=== PATIENT | female | born 1960 | race Caucasian/White ===

== ENCOUNTER 2020-02-01 12:00 | Outpatient (CLI) | payer MEDICAID, SELFPAY ==
--- NOTE | 2020-02-01 12:45 | USCV_ITS ---
Daniela Lai Age: 60 Gender: F : 1960 Exam Date: 02/01/2020 12:17 Ordering Phys: Sujata NagyP XX Technologist: Anastasia Crouch Exam Location: [facility] – [place] Indication: LEFT CAROTID BRUIT Risk Factors: Previous Vascular Surgery: Right Brachial BP: / Left Brachial BP: / Right Left Velocity (cm/s) Spectral Plaque Velocity (cm/s) Spectral Plaque Syst/Diast Broadening Syst/Diast Broadening 75.40/ 20.20 Prox CCA 57.30 / 14.00 72.20/ 22.50 Mid CCA 52.80 / 14.80 72.20/ 19.40 Distal CCA 65.30 / 17.90 54.40/ 18.60 Prox ICA 66.00 / 21.00 42.10/ 15.80 Mid ICA 51.30 / 18.60 76.90/ 28.70 Distal ICA 66.00 / 19.40 96.60 ECA 97.90 1.06 ICA/CCA 1.25 Antegrade Vertebral Antegrade 23.90/ 7.30 cm/s 27.30/ 9.00 cm/s Bi Subclavian Tri 124.6 123.5 0 0 CONCLUSIONS Right ICA stenosis <50%. Left ICA stenosis <50%. Normal antegrade Doppler flow noted in the right vertebral artery. Normal antegrade Doppler flow noted in the left vertebral artery. Tay Thornton MD (Electronically Signed) Final Date: 01 February 2020 15:54 S
== END 2020-02-01 12:01 | disposition home or self-care (01) ==
LOC: RADWPI 12:06
PROVIDERS: Family Provider Internal Medicine; PCP Internal Medicine; Visit Provider Nurse Practitioner Acute Care
DX: R09.89 Other specified symptoms and signs involving the circulatory and respiratory systems (principal); I65.23 Occlusion and stenosis of bilateral carotid arteries
CPT/HCPCS: 93880

== ENCOUNTER 2021-01-08 11:30 | Outpatient (CLI) | payer MEDICAID, SELFPAY ==
--- NOTE | 2021-01-08 11:42 | XR_ITS ---
WS: [id number] PA and lateral chest, 01/08/2021 Clinical Data: DYSPNEA, COUGH Comparison: PA and lateral chest, 11/16/2012. Findings: No nodules, masses or effusions are seen. There is pleural reaction at both lung bases. The heart is enlarged. Midline sternotomy sutures are seen. The 2-lead pacemaker in good position. No pn eumonia or pneumothorax is present. The pulmonary vascularity is not increased. XR/XR chest 2V* [id number] Impression: Cardiomegaly and atherosclerosis.
== END 2021-01-08 11:31 | disposition home or self-care (01) ==
PROVIDERS: PCP Internal Medicine; Visit Provider Internal Medicine
DX: R06.00 Dyspnea, unspecified (principal); R05 Cough; I51.7 Cardiomegaly; I70.90 Unspecified atherosclerosis
CPT/HCPCS: 71046

== ENCOUNTER 2021-02-05 07:01 | Outpatient (CLI) | payer MEDICAID, SELFPAY ==
--- NOTE | 2021-02-05 07:09 | USCV_ITS ---
Daniela Lai Age: 61 Gender: F : 1960 Exam Date: 02/05/2021 07:29 Ordering Phys: Magnolia TrujilloP SAFETY INVESTIGATOR Technologist: Rimma Gusman [place]am [place] [facility] [place] Indication: AORTIC VALVE REPLACEMENT BP: 127 / 76 HR: 68 Rhythm: Sinus Technical Quality: Adequate MEASUREMENTS (Male / Female) Normal Values 2D ECHO LV Diastolic Diameter PLAX 3.3 cm 4.2 - 5.9 / 3.9 - 5.3 cm LV Systolic Diameter PLAX 2.2 cm IVS Diastolic Thickness 1.3 cm 0.6 - 1.0 / 0.6 - 0.9 cm IVS Systolic Thickness 1.7 cm LVPW Diastolic Thickness 1.8 cm 0.6 - 1.0 / 0.6 - 0.9 cm LVPW Systolic Thickness 2.4 cm LVOT Diameter 2.0 cm LV Ejection Fraction 2D Teich 61.9 % LV Ejection Fraction MOD 2C 35.6 % LV Ejection Fraction 2C AL 36.2 % LA Diameter 3.2 cm LA Width 4.1 cm LA Height 4.4 cm RA Width 3.7 cm RA Height 4.6 cm Aorta at Sinotubular Diameter 2.9 cm M-MODE LV Diastolic Diameter MM 3.5 cm 4.2 - 5.9 / 3.9 - 5.3 cm LV Systolic Diameter MM 2.4 cm LV Ejection Fraction MM Teich 58.8 % IVS Diastolic Thickness MM 1.5 cm 0.6 - 1.0 / 0.6 - 0.9 cm IVS Systolic Thickness MM 1.7 cm LVPW Diastolic Thickness MM 1.8 cm 0.6 - 1.0 / 0.6 - 0.9 cm LVPW Systolic Thickness MM 2.3 cm Aortic Annulus Diameter 3.2 cm LA Ao Ratio MM 0.8 DOPPLER AV Peak Velocity 185.0 cm/s LVOT Peak Velocity 160.0 cm/s AV Area Cont Eq vti 2.6 cm squared AV Area Cont Eq pk 2.7 cm squared MV Area PHT 2.7 cm squared MV E' Velocity 184.0 cm/s TR Peak Velocity 285.0 cm/s TR Peak Gradient 32.5 mmHg TV Peak E Velocity 114.0 cm/s Right Atrial Pressure 3.0 mmHg Pulmonary Artery Systolic Pressu 35.5 mmHg PV Peak Velocity 106.0 cm/s RV Acceleration Time 0.1 s RV Ejection Time 0.3 s RV AcT/ET 0.2 FINDINGS Left Ventricle Normal left ventricular cavity size. Normal left ventricular systolic function. Left ventricular ejection fraction is estimated at 58 %. In the presence of atrial fibrillation diastolic function cannot be assessed accurately. Right Ventricle Normal right ventricular size. Catheter/pacemaker wire visualized in the right ventricle. Right Atrium Normal right atrial size. Catheter/pacemaker wire in the right atrial cavity. Right atrium has echogenic mass appeared to be on the pacemaker wire could be fibrous tissue cannot rule out vegetation clinical correlation advised Left Atrium The left atrium is normal in size. Mitral Valve Bioprosthetic mitral valve sitting in normal position opening and closing fine no significant valvular or paravalvular leak Aortic Valve Bioprosthetic aortic valve sitting in normal position without significant valvular or paravalvular leak. Tricuspid Valve Structurally normal tricuspid valve without significant stenosis or regurgitation. Pulmonary artery systolic pressure is normal. Pulmonic Valve Pulmonic valve not well visualized. Pericardium Normal pericardium without effusion. Aorta Normal ascending aorta dimension. CONCLUSIONS 1-Normal left ventricular cavity size. Normal left ventricular systolic function. Left ventricular ejection fraction is estimated at 58 %. In the presence of atrial fibrillation diastolic function cannot be assessed accurately. 2-Normal right atrial size. Catheter/pacemaker wire in the right atrial cavity. Right atrium has echogenic mass appeared to be on the pacemaker wire could be fibrous tissue cannot rule out vegetation clinical correlation advised. 3-Bioprosthetic mitral valve sitting in normal position opening and closing fine no significant valvular or paravalvular leak. 4-Bioprosthetic aortic valve sitting in normal position without significant valvular or paravalvular leak. 5-There is no pericardial effusion. 6-Right atrial pressure is around 8 mm of mercury. 7-No significant change since the prior echocardiogram study of November 06, 2028. Kyle Alfaro MD (Electronically Signed) Final Date: 06 February 2021 19:26 S
== END 2021-02-05 07:02 | disposition home or self-care (01) ==
LOC: US 07:01
PROVIDERS: PCP Internal Medicine; Visit Provider Optometrist
DX: Z95.2 Presence of prosthetic heart valve (principal); I48.91 Unspecified atrial fibrillation; Z95.0 Presence of cardiac pacemaker
CPT/HCPCS: 93306

== ENCOUNTER 2021-08-05 07:42 | Outpatient (CLI) | payer MEDICAID, SELFPAY ==
--- NOTE | 2021-08-05 07:47 | MM_ITS ---
WS: [id number] Bilateral screening digital mammogram, 08/05/2021 Clinical Data: SCREENING Comparison: 08/30/2019, 01/18/2018, 01/12/2016, 08/08/2013, 12/07/2011, 07/13/2011, 05/13/2010, 04/29/2010, 1 11/25/2007, 07/05/2007. Findings: The breast parenchymal pattern shows heterogeneous density. No spiculated masses or clustered calcifi cations are seen. There are no secondary signs of carcinoma. There are scattered benign calcification s throughout the breasts. There is a permanent pacemaker in the left axilla. There is a mole marker o n the left breast. MM/[place] [id number] Impression: 1. Negative bilateral mammogram unchanged. 2. Recommend annual screening mammograms. BIRADS: 2-Benign FOLLOW UP: 1 Year Follow-up The CAD content checker was used.
== END 2021-08-05 07:43 | disposition home or self-care (01) ==
LOC: RADSHAW 07:45
PROVIDERS: PCP Internal Medicine; Visit Provider Internal Medicine
DX: Z12.31 Encounter for screening mammogram for malignant neoplasm of breast (principal)
CPT/HCPCS: 77067

== ENCOUNTER → 2021-08-11 11:00 | Outpatient (BNVA) | payer MEDICAID, SELFPAY | PROVIDERS: PCP Internal Medicine; Visit Provider Surgery | DX: Z01.812 Encounter for preprocedural laboratory examination (principal); K52.9 Noninfective gastroenteritis and colitis, unspecified; Z20.822 Contact with and (suspected) exposure to COVID-19 | CPT/HCPCS: 87635 ==

== ENCOUNTER 2021-08-14 09:20 | Day surgery (SDC) | payer MEDICAID, SELFPAY ==
[2021-08-11 10:26] VITALS: BMI 30.2
--- NOTE | 2021-08-14 09:38 | ANES.PREANE2 ---
Pre-Anesthetic Assessment Pre-Anesthetic Assessment: Height/Weight: Height 1.55 m Weight 72.575 kg Preop Diagnosis: screening Proposed Procedure: Operation Date: 08/14/21 11:00 Proposed Procedures p Colonoscopy 11185 K52.9 Z80.0(Not Applicable) - Spike Ortega MD Familial anesthetic complications: none Was Beta Chhaya taken within 24 hours: Yes Was Clonidine taken within 24 hours: N/A Last intake: > 8 hrs Social: Social History: No alcohol and No tobacco Exam: Pre-Anes Outpt Exam: alert, oriented x 3, clear to auscultation bilaterally and regular rate & rhythm Airway: Cervical ROM: WNL MP: 2 Dentition: Full CV/HEM: CV/HEM: HTN Comments: pacemaker (100% dependent) - on rivaroxaban d/t concern for clot on pacing lead - taking for over a year Mitral and aortic valve replacement d/t rheumatic fever CONCLUSIONS 1-Normal left ventricular cavity size. Normal left ventricular systolic function. Left ventricular ejection fraction is estimated at 58 %. In the presence of atrial fibrillation diastolic function cannot be assessed accurately. 2-Normal right atrial size. Catheter/pacemaker wire in the right atrial cavity. Right atrium has echogenic mass appeared to be on the pacemaker wire could be fibrous tissue cannot rule out vegetation clinical correlation advised. 3-Bioprosthetic mitral valve sitting in normal position opening and closing fine no significant valvular or paravalvular leak. 4-Bioprosthetic aortic valve sitting in normal position without significant valvular or paravalvular leak. 5-There is no pericardial effusion. 6-Right atrial pressure is around 8 mm of mercury. 7-No significant change since the prior echocardiogram study of November 06, 2028. GI: GI: GERD Metabolic: Metabolic: Hyperlipidemia Anesthetic Plan: ASA status: 4 Anesthesia: MAC Risk of > 500 ml blood loss (7ml/kg in children): No PFSH Anesthesia PFSH: Medical History (Updated 06/26/21 @ 08:52 by Spike Ortega MD) History of cardiac pacemaker Hypertension Rheumatic fever Surgical History (Updated 06/26/21 @ 08:45 by Spike Ortega MD) History of appendectomy History of colonoscopy History of hysterectomy with bilateral oophorectomy History of open heart surgery Hx of artificial heart valve replacement Mitral and aortic Social History Second hand smoke exposure: No Smoking risk assessment/counseling performed?: No Alcohol intake: never Desire information about alcohol rehabilitation?: No Counseling given: No Desire information about substance/drug rehabilitation?: No Counseling given: No Adopted: No Caregiver/support person: No Lives independently: Yes Household members: spouse Housing: House Marital status: Number of children: 2 Highest education level completed: 11th Grade service: No Current occupational status: disabled History of recent travel: No Data Anesthesia Cardiac Studies: No Data to Display
[2021-08-14 10:08] VITALS: BP 125/96; PULSE 87; RESP 18; TEMP 36.8; O2SAT 96
[2021-08-14] MEDS: sodium chloride 0.9% 1,000 ML 30 ML IV (10:37)
--- NOTE | 2021-08-14 11:08 | P.HP_ITS ---
Same Day Surgery H&P Indication for Procedure/HPI DATE OF PROCEDURE: August 14, 2021 CHIEF COMPLAINT/INDICATIONFOR SURGICAL PROCEDURE: colopnoscopy PREOP DIAGNOSIS: diagnostic PLANNED PROCEDRUE: Operation Date: 08/14/21 11:00 Proposed Procedures p Colonoscopy 66528 K52.9 Z80.0(Not Applicable) - Spike Ortega MD Medications/Allergies* Home Medications Medication Instructions Recorded Confirmed Type atorvastatin 40 mg tablet 40 mg PO DAILY 05/27/21 08/14/21 History citalopram 20 mg tablet 20 mg PO DAILY 05/27/21 08/11/21 History famotidine 40 mg tablet 20 mg PO DAILY 05/27/21 08/14/21 History losartan 25 mg tablet 25 mg PO DAILY 05/27/21 08/14/21 History metoprolol succinate 25 mg 12.5 mg PO DAILY 05/27/21 08/14/21 History tablet,extended release 24 hr potassium chloride 20 mEq 20 meq PO DAILY 05/27/21 08/14/21 History tablet,extended release pramipexole 0.125 mg tablet 0.125 mg PO DAILY 05/27/21 08/14/21 History rivaroxaban 20 mg tablet 20 mg PO DAILY 05/27/21 08/14/21 History spironolactone 25 mg tablet 25 mg PO DAILY 05/27/21 06/26/21 History Allergies/Adverse Reactions Allergy/AdvReac Type Severity Reaction Status Date / Time guaifenesin [From Entex LA] Allergy Severe ADR-Itching Verified 08/14/21 10:13 phenylephrine [From Entex LA] Allergy Severe ADR-Itching Verified 08/14/21 10:13 phenylpropanolamine Allergy Severe ADR-Itching Verified 08/14/21 10:13 [From Entex LA] Sulfa (Sulfonamide Allergy Severe Unknown Verified 08/14/21 10:13 Antibiotics) cefuroxime [From Ceftin] Allergy ADR-Itching Verified 08/14/21 10:13 ofloxacin [From Floxin] Allergy ALGY-Hives Verified 08/14/21 10:13 Current Medications: Generic Name Dose Route Start Last Admin Trade Name Freq PRN Reason Stop Dose Admin Sodium Chloride 1,000 mls @ 30 mls/hr 08/14/21 09:45 08/14/21 10:37 Sodium Chloride 0.9% IV 08/15/21 09:44 30 mls/hr .Q24H PARTH Administration Pertinent History/Comorbid Conditions* Medical History (Updated 06/26/21 @ 08:52 by Spike Ortega MD) History of cardiac pacemaker Hypertension Rheumatic fever Surgical History (Updated 06/26/21 @ 08:45 by Spike Ortega MD) History of appendectomy History of colonoscopy History of hysterectomy with bilateral oophorectomy History of open heart surgery Hx of artificial heart valve replacement Mitral and aortic Social History Second hand smoke exposure: No Smoking risk assessment/counseling performed?: No Alcohol intake: never Desire information about alcohol rehabilitation?: No Counseling given: No Desire information about substance/drug rehabilitation?: No Counseling given: No Adopted: No Caregiver/support person: No Lives independently: Yes Household members: spouse Housing: House Marital status: Number of children: 2 Highest education level completed: 11th Grade service: No Current occupational status: disabled History of recent travel: No Pertinent Exam Findings alert, oriented x 3 and regular rate & rhythm Recommendations Surgery/Procedure today Coding Level of Care Code Acute Computer Systems Technology Instructor for Josey Cordova
[2021-08-14 11:29] VITALS: BP 107/65; PULSE 81; RESP 16; TEMP 36.6; O2SAT 96
[2021-08-14 11:46] VITALS: BP 120/77; PULSE 75; RESP 16; O2SAT 95
--- NOTE | 2021-08-14 14:28 | ANE.PACU2 ---
Inpatient post-anesthesia follow up: Airway intact: Yes Vital signs: Temperature 97.8 F Pulse Rate 75 Respiratory Rate 16 Blood Pressure 120/77 Pulse Oximetry 95 Oxygen Delivery Me thod Room Air Oxygen Flow Rate Fraction of Inspir ed Oxygen Hydration adequate: Yes Nausea and vomiting: No Pain level: 2 Mental status: Baseline
== END 2021-08-14 12:05 | disposition home or self-care (01) ==
PROVIDERS: PCP Internal Medicine; Visit Provider Surgery
PROC: 0DJD8ZZ Inspection of Lower Intestinal Tract, Via Natural or Artificial Opening Endoscopic (ICD-10-PCS; CPT 45378; principal; 2021-08-14 11:00)
DX: K52.9 Noninfective gastroenteritis and colitis, unspecified (principal); Z80.0 Family history of malignant neoplasm of digestive organs; K62.1 Rectal polyp; I10 Essential (primary) hypertension; Z95.0 Presence of cardiac pacemaker
CPT/HCPCS: 45380; 45385; 82274; 83630; 87493; 87506; 88305; 96360; J2704; J7030

== ENCOUNTER → 2022-01-27 14:11 | Outpatient (BNVA) | payer MEDICAID, SELFPAY | PROVIDERS: PCP Internal Medicine; Visit Provider Nurse Practitioner Family | DX: M77.31 Calcaneal spur, right foot (principal); M25.571 Pain in right ankle and joints of right foot | CPT/HCPCS: 73630 ==

== ENCOUNTER 2022-05-05 12:53 | Outpatient (CLI) | payer MEDICAID, SELFPAY ==
--- NOTE | 2022-05-05 13:04 | USCV_ITS ---
Daniela Lai Age: 62 Gender: F : 1960 Exam Date: 05/05/2022 13:25 Ordering Phys: Hakan Saleem MD Technologist: Magaly Pérez Exam Location: [facility] – [place] Indication: TIA Risk Factors: Previous Vascular Surgery: Right Brachial BP: / Left Brachial BP: / Right Left Velocity (cm/s) Spectral Plaque Velocity (cm/s) Spectral Plaque Syst/Diast Broadening Syst/Diast Broadening 61.10/ 10.80 Prox CCA 50.40 / 13.90 70.70/ 17.10 Mid CCA 61.40 / 14.70 52.80/ 14.80 Distal CCA 49.80 / 13.30 51.40/ 14.60 Prox ICA 68.00 / 19.10 60.40/ 21.50 Mid ICA 58.10 / 20.70 66.70/ 18.10 Distal ICA 70.50 / 19.10 74.50 ECA 67.20 0.94 ICA/CCA 1.15 Antegrade Vertebral Antegrade 32.90/ 9.20 cm/s 56.40/ 13.30 cm/s Tri Subclavian Tri 113.5 116.1 0 0 CONCLUSIONS Right ICA stenosis <50%. Left ICA stenosis <50%. Normal antegrade Doppler flow noted in the right vertebral artery. Normal antegrade Doppler flow noted in the left vertebral artery. No changes since 01/2020 Tay Thornton MD (Electronically Signed) Final Date: 05 May 2022 17:18 S
== END 2022-05-05 12:54 | disposition home or self-care (01) ==
LOC: RAD 12:53
PROVIDERS: PCP Internal Medicine; Visit Provider Internal Medicine Cardiovascular Disease
DX: I65.23 Occlusion and stenosis of bilateral carotid arteries (principal); Z86.79 Personal history of other diseases of the circulatory system
CPT/HCPCS: 93880

== ENCOUNTER → 2023-01-28 11:00 | Outpatient (BNVA) | payer MEDICAID, SELFPAY | PROVIDERS: PCP Internal Medicine; Visit Provider Nurse Practitioner Family | DX: R35.0 Frequency of micturition (principal); N39.0 Urinary tract infection, site not specified; B37.2 Candidiasis of skin and nail | CPT/HCPCS: 81000 ==

== ENCOUNTER 2023-05-05 10:06 | Outpatient (CLI) | payer MEDICAID, SELFPAY ==
--- NOTE | 2023-05-05 10:16 | XRR_ITS ---
PROCEDURE INFORMATION: Exam: XR Chest Exam date and time: 05/05/2023 10:27 AM Age: 63 years old Clinical indication: Cough; Prior surgery; Surgery date: 6+ months; Surgery type: Valve replacement x2, pacemaker TECHNIQUE: Imaging protocol: Radiologic exam of the chest. Views: 2 views. COMPARISON: CR XR chest 2V* [id number] 01/08/2021 11:55 AM FINDINGS: Tubes, catheters and devices: Dual lead cardiac pacemaker with left chest generator and intact leads terminating at the right atrium and right ventricle. Lungs: Mild bibasilar atelectasis versus scarring. Bandlike thickening along the superior right minor fissure. Left lateral mid lung zone nodularity similar to prior. Pleural spaces: No substantial pleural effusion or pneumothorax. Heart/Mediastinum: Stable enlargement of the cardiac silhouette. Vasculature: Mild atherosclerotic calcification along the aorta. Bones/joints: Stable postsurgical changes with multiple median sternotomy wires, prosthetic valve, and mediastinal surgical clips. XR/XR chest 2V* [id number] IMPRESSION: Right upper lobe bandlike opacity along the minor fissure may represent atelectasis or pneumonia. Recommend repeat radiographs 6-12 weeks following treatment to ensure resolution.
== END 2023-05-05 10:07 | disposition home or self-care (01) ==
LOC: RAD 10:08
PROVIDERS: PCP Internal Medicine; Visit Provider Internal Medicine
DX: R05.9 Cough, unspecified (principal); R91.8 Other nonspecific abnormal finding of lung field
CPT/HCPCS: 71046

== ENCOUNTER 2023-05-10 06:44 | Inpatient (IN) | payer MEDICAID, SELFPAY ==
[2023-05-10] VITALS (21 sets, daily range): BP systolic 97–164; BP diastolic 62–90; PULSE 83–99; RESP 16–35; TEMP 36.2–36.8; O2SAT 89–97; BMI 25.2
--- NOTE | 2023-05-10 06:52 | XRR_ITS ---
PROCEDURE INFORMATION: Exam: XR Chest Exam date and time: 05/10/2023 7:13 AM Age: 63 years old Clinical indication: Cough and dyspnea and shortness of breath; Prior surgery; Surgery date: 6+ months; Surgery type: Pacer, open heart; Additional info: Dyspnea/cough TECHNIQUE: Imaging protocol: Radiologic exam of the chest. Views: 1 view. COMPARISON: CR XR chest 2V* [id number] 05/05/2023 10:27 AM FINDINGS: Tubes, catheters and devices: Left chest ICD. Lungs: Focal wedge-shaped opacities of the lower right upper lobe similar to prior. Mildly prominent reticular interstitial lung changes are redemonstrated. Mild hyperinflation. Pleural spaces: Unremarkable. No pleural effusion. No pneumothorax. Heart/Mediastinum: Aortic valve replacement. CABG. Mild to moderate severity cardiomegaly. Bones/joints: Unremarkable. XR/XR chest 1V portable [id number] IMPRESSION: 1. No significant change in exam. 2. Consider right upper lobe pneumonia.
--- NOTE | 2023-05-10 06:59 | W.ED.SOB ---
HPI - SOB/Dyspnea General: Chief Complaint: Shortness of Breath/Dyspnea Stated Complaint: SOB Time Seen by Provider: 05/10/23 06:52 Source: patient Mode of arrival: ambulatory History of Present Illness: HPI Narrative: 63-year-old female presents emergency room with complaint of productive cough for the last couple days progressively worsening she was seen in outpatient and given oral antibiotics. She does not feel like she is improved at all and actually feels like she has worsening symptoms she is normally not on oxygen and is now requiring 2 L by nasal cannula. MD elicited complaint: shortness of breath and cough Pertinent past history: COPD Onset (ago): day(s) Timing: constant Severity: moderate Exacerbating factors: exertion, coughing and inspiration Relieving factors: rest and bronchodilators Known history of: COPD Associated symptoms: Reports cough, fever(s) and nausea; Deny abdominal pain, chest congestion, chest pain, diaphoresis, dizziness, extremity pain, hemoptysis, lightheadedness, myalgias, orthopnea, palpitations, paresthesias, polydipsia, polyuria, rash, sense of impending doom, syncope or vomiting Review of Systems Const: Reports: fever(s) and chills; Denies: diaphoresis ENMT: Denies: throat pain, ear or mastoid pain, nasal discharge or nasal congestion Card: Denies: chest pain, palpitations, lightheadedness, syncope or orthopnea Resp: Reports: dyspnea, productive cough and wheezing; Denies: hemoptysis or chest congestion GI: Reports: nausea; Denies: abdominal pain or vomiting : Denies: flank pain, difficulty voiding, dysuria, urinary frequency or urinary urgency Musc: Denies: extremity pain Skin/Breast: Denies: rash or pruritus Neuro: Denies: dizziness Endo: Denies: polyuria or polydipsia PFSH ED PFSH: Medical History Atrial fibrillation Depression with anxiety GERD (gastroesophageal reflux disease) History of cardiac pacemaker History of rheumatic fever Hyperlipidemia Hypertension Rheumatic fever Surgical History History of appendectomy History of colonoscopy (08/14/21) rectal polyp History of hysterectomy with bilateral oophorectomy History of open heart surgery Hx of artificial heart valve replacement Mitral and aortic , bioprosthetic Family History Other CAD (coronary artery disease) Hypertension Social History Smoking and tobacco status: never smoked Second hand smoke exposure: No Smoking risk assessment/counseling performed?: No Alcohol intake: never Desire information about alcohol rehabilitation?: No Counseling given: No Substance/Drug Use: never Desire information about substance/drug rehabilitation?: No Counseling given: No Adopted: No Caregiver/support person: No Lives independently: Yes Household members: spouse Housing: House Marital status: Number of children: 2 Highest education level completed: 11th Grade service: No Current occupational status: disabled Physical Exam Const: GENERAL APPEARANCE: cooperative and comfortable ORIENTATION/CONSCIOUSNESS: Yes awake, Yes oriented to person, Yes oriented to place and Yes oriented to time HENMT: COMMON NORMALS: normocephalic, atraumatic and hearing grossly normal bilaterally HEAD & SCALP: normocephalic and atraumatic Resp: COMMON NORMALS: normal respiratory effort, No retractions and No use of accessory muscles AUSCULTATION: rhonchi right upper and wheezes Cardio: COMMON NORMALS: regular rate, regular rhythm and No murmurs present (Cardio) RATE: regular rate RHYTHM: regular rhythm GI: COMMON NORMALS: Soft to palpation and No hepatosplenomegaly present AUSCULTATION: Yes normoactive bowel sounds PALPATION: Yes Soft to palpation, No Tenderness to palpation present (GI), No Guarding due to palpation present (GI) and Yes No hepatosplenomegaly present Extremity: COMMON NORMALS: normal to inspection, capillary refill normal, no clubbing, cyanosis or edema, no calf tenderness and no pedal edema Neuro: SENSORIUM/ORIENTATION: Yes oriented to person, Yes oriented to place and Yes oriented to time Skin: COMMON NORMALS: no rashes or lesions noted GENERAL SKIN EXAM: no rashes or lesions noted Course Vital Signs: Vital signs: Vital Signs Temperature 97.4 F L 05/11/23 04:00 Pulse Rate 91 05/11/23 04:52 Respiratory Rate 18 05/11/23 04:52 Blood Pressure 111/68 05/11/23 05:51 Pulse Oximetry 95 05/11/23 04:52 Oxygen Delivery Me thod Nasal Cannula 05/11/23 04:52 Oxygen Flow Rate 2 05/11/23 04:52 MDM - SOB/Dyspnea Medical Decision Making Labs and imaging reviewed. Patient has appears to be right upper lobe pneumonia. Discussed with Dr. Branch she is also given steroids and nebulizer should have a little improvement with that. We will do COVID testing and viral panel as well patient admitted orders written Medical Records I reviewed the patient's medical records. Lab Data I reviewed the patient's lab results. 05/11/23 05:50 05/11/23 05:50 Labs/Radiology: Radiology Impressions Chest X-Ray 05/10/23 06:52 IMPRESSION: 1. No significant change in exam. 2. Consider right upper lobe pneumonia. Laboratory Results WBC 12.9 10^3/uL (4.0-10.0) H 05/10/23 07:44 RBC 4.56 10^6/uL (4.1-5.3) 05/10/23 07:44 Hgb 11.2 g/dL (11.5-15.3) L 05/10/23 07:44 Hct 36.6 % (37.0-47.0) L 05/10/23 07:44 MCV 80.3 fl (81-99) L 05/10/23 07:44 MCH 24.6 pg (28.0-34.0) L 05/10/23 07:44 MCHC 30.6 g/dL (30.0-36.0) 05/10/23 07:44 RDW 16.0 % (12.1-15.1) H 05/10/23 07:44 Plt Count 358 10^3/cmm (130-400) 05/10/23 07:44 MPV 9.5 fL (7.4-10.4) 05/10/23 07:44 Neut % (Auto) 80.6 % 05/10/23 07:44 Lymph % (Auto) 8.1 % 05/10/23 07:44 [place] % (Auto) 8.6 % 05/10/23 07:44 Eos % (Auto) 0.1 % 05/10/23 07:44 Baso % (Auto) 0.5 % 05/10/23 07:44 Neut # (Auto) 10.40 10^3/uL (1.8-7.7) H 05/10/23 07:44 Lymph # (Auto) 1.0 10^3/uL (0.8-4.8) 05/10/23 07:44 [place] # (Auto) 1.1 10^3/uL (0.2-0.9) H 05/10/23 07:44 Eos # (Auto) 0.0 10^3/uL (0.0-0.8) 05/10/23 07:44 Baso # (Auto) 0.1 10^3/uL (0.0-0.1) 05/10/23 07:44 Nucleated RBC % (auto) 0 % 05/10/23 07:44 Nucleated RBCs # 0.0 /100WBC 05/10/23 07:44 Sodium 129 mmol/L (136-145) L 05/10/23 07:44 Potassium 4.3 mmol/L (3.5-5.1) 05/10/23 07:44 Chloride 95 mmol/L (98-107) L 05/10/23 07:44 Carbon Dioxide 23 mmol/L (22-29) 05/10/23 07:44 Anion Gap 15.3 (5-19) 05/10/23 07:44 BUN 13 mg/dL (8-23) 05/10/23 07:44 Creatinine 0.8 mg/dL (0.5-0.9) 05/10/23 07:44 GFR Calculation 72.7 mL/min (90-130) L 05/10/23 07:44 Glucose 94 mg/dL (65-115) 05/10/23 07:44 Calculated Osmolality 268 mOsm/kg (285-295) L 05/10/23 07:44 Calcium 9.4 mg/dL (8.5-10.5) 05/10/23 07:44 Total Bilirubin 0.8 mg/dL (0.15-1.2) 05/10/23 07:44 AST 27 U/L (0-32) 05/10/23 07:44 ALT 19 U/L (0-33) 05/10/23 07:44 Alkaline Phosphatase 135 U/L (35-105) H 05/10/23 07:44 NT-Pro-B Natriuret Pep 1545 pg/mL (0-125) H 05/10/23 07:44 Total Protein 8.6 g/dL (6.6-8.7) 05/10/23 07:44 Albumin 3.6 g/dL (3.5-5.2) 05/10/23 07:44 Globulin 5.0 g/dL (1.3-4.6) H 05/10/23 07:44 TSH 1.45 uIU/mL (0.27-4.20) 05/10/23 07:44 Discharge Plan Discharge Patient Disposition: Admitted As Inpatient Admit Provider: Irineo Espinoza Clinical Impression: Pneumonia, Atrial fibrillation, Hyponatremia Condition: Stable Coding Level of Care Code ED Surgery Manager for Josey Cordova
[2023-05-10 07:53] LABS: Basophils # 0.1 10^3/uL (0.0-0.1); Basophils % 0.5 %; Eosinophils % 0.1 %; Hematocrit 36.6 % (37.0-47.0); Hemoglobin 11.2 g/dL (11.5-15.3); Lymphocytes % 8.1 %; Mean Corpuscular HGB Conc 30.6 g/dL (30.0-36.0); Mean Corpuscular Hemoglobin 24.6 pg (28.0-34.0); Mean Corpuscular Volume 80.3 fl (81-99); Mean Platelet Volume 9.5 fL (7.4-10.4); Monocytes # 1.1 10^3/uL (0.2-0.9); Monocytes % 8.6 %; Neutrophils % 80.6 %; Nucleated Red Blood Cells % 0 %; Platelet Count 358 10^3/cmm (130-400); Red Blood Count 4.56 10^6/uL (4.1-5.3); White Blood Count 12.9 10^3/uL (4.0-10.0)
[2023-05-10 08:02] LABS: Alanine Aminotransferase 19 U/L (0-33); Albumin Level 3.6 g/dL (3.5-5.2); Alkaline Phosphatase 135 U/L (35-105); Anion Gap 15.3 (5-19); Aspartate Amino Transferase 27 U/L (0-32); Blood Urea Nitrogen 13 mg/dL (8-23); Calcium 9.4 mg/dL (8.5-10.5); Carbon Dioxide 23 mmol/L (22-29); Chloride 95 mmol/L (98-107); Glomerular Filtration Rate 72.7 mL/min (90-130); Glucose 94 mg/dL (65-115); Osmolality Calculated 268 mOsm/kg (285-295); Potassium 4.3 mmol/L (3.5-5.1); Sodium 129 mmol/L (136-145); Total Bilirubin 0.8 mg/dL (0.15-1.2); Total Protein 8.6 g/dL (6.6-8.7)
[2023-05-10 08:23] LABS: NT Pro B Type Natriuretic Pept 1545 pg/mL (0-125)
--- NOTE | 2023-05-10 08:55 | P.HP_ITS ---
Providers/Chief Complaint Admitting Physician: Irineo Espinoza MD Primary Care Provider: Magnolia Worthington MD Chief Complaint: SOB History of Present Illness Daniela Lai is a 63 year old female presenting from home with history of illness for the last week. She has been coughing, wheezing. Cough has been productive of sputum. No hemoptysis. She has had some posttussive emesis. Occasional loose stool. No ill contacts. She denies any fever. No prior history of COPD or asthma. Not a smoker. Was seen by her primary care provider 5 to 6 days ago and put on clindamycin which she has been taking. She has not been improving. She denies any chest discomfort, or any significant edema. She received some Zosyn in the emergency department. I have ordered some dexame thasone secondary to her wheezing, and nebulized treatments. Secondary to her elevated BNP, cardiomegaly, low-sodium I have ordered 20 mg of Lasix IV to optimize her pulmonary condition. Review of Systems General: Reports: 10 or more systems reviewed and unremarkable except in HPI and below Card: Denies: chest pain or swelling of feet/ankles Resp: Reports: dyspnea, productive cough and wheezing GI: Reports: vomiting (post tussive); Denies: abdominal pain, nausea, hematochezia or melena Medications/Allergies Home Medications Medication Instructions Recorded Confirmed Last Taken Type famotidine 40 mg tablet (Pepcid) 20 mg PO QAM 05/27/21 05/10/23 05/09/23 History losartan 25 mg tablet 25 mg PO QAM 05/27/21 05/10/23 05/09/23 History metoprolol succinate 25 mg 12.5 mg PO QAM 05/27/21 05/10/23 05/09/23 History tablet,extended release 24 hr potassium chloride 20 mEq 20 meq PO QAM 05/27/21 05/10/23 05/09/23 History tablet,extended release pramipexole 0.125 mg tablet 0.125 mg PO BEDTIME 05/27/21 05/10/23 05/09/23 History (Mirapex) rivaroxaban 20 mg tablet (Xarelto) 20 mg PO QAM 05/27/21 05/10/23 05/09/23 History spironolactone 25 mg tablet 25 mg PO QAM 05/27/21 05/10/23 05/09/23 History clindamycin HCl 300 mg capsule 300 mg PO TID 05/10/23 05/10/23 05/09/23 History ezetimibe 10 mg tablet 10 mg PO BEDTIME 05/10/23 05/10/23 05/09/23 History montelukast 10 mg tablet 10 mg PO BEDTIME 05/10/23 05/10/23 05/09/23 History venlafaxine 75 mg capsule,extended 75 mg PO QAM 05/10/23 05/10/23 05/09/23 History release 24 hr Allergies Allergy/AdvReac Type Severity Reaction Status Date / Time guaifenesin [From Entex LA] Allergy Severe ADR-Itching Verified 05/10/23 09:13 phenylephrine [From Entex LA] Allergy Severe ADR-Itching Verified 05/10/23 09:13 phenylpropanolamine Allergy Severe ADR-Itching Verified 05/10/23 09:13 [From Entex LA] Sulfa (Sulfonamide Allergy Severe Unknown Verified 05/10/23 09:13 Antibiotics) cefuroxime [From Ceftin] Allergy ADR-Itching Verified 05/10/23 09:13 ofloxacin [From Floxin] Allergy ALGY-Hives Verified 05/10/23 09:13 PFSH Acute PFSH: Medical History (Updated 05/10/23 @ 09:48 by Irineo Espinoza MD) Atrial fibrillation Depression with anxiety GERD (gastroesophageal reflux disease) History of cardiac pacemaker History of rheumatic fever Hyperlipidemia Hypertension Rheumatic fever Surgical History (Updated 05/10/23 @ 09:33 by Irineo Espinoza MD) History of appendectomy History of colonoscopy (08/14/21) rectal polyp History of hysterectomy with bilateral oophorectomy History of open heart surgery Hx of artificial heart valve replacement Mitral and aortic , bioprosthetic Family History Other CAD (coronary artery disease) Hypertension Social History Smoking and tobacco status: never smoked Second hand smoke exposure: No Smoking risk assessment/counseling performed?: No Alcohol intake: never Desire information about alcohol rehabilitation?: No Counseling given: No Substance/Drug Use: never Desire information about substance/drug rehabilitation?: No Counseling given: No Adopted: No Caregiver/support person: No Lives independently: Yes Household members: spouse Housing: House Marital status: Number of children: 2 Highest education level completed: 11th Grade service: No Current occupational status: disabled Vitals/I&O/Wt Last Vital Signs Temp 98.2 F 05/10/23 06:50 Pulse 90 05/10/23 06:50 Resp 17 05/10/23 06:50 BP 164/90 05/10/23 06:50 Pulse Ox 89 L 05/10/23 06:50 O2 Del Method Room Air 05/10/23 06:50 Weight last 48 hrs Weight 66.678 kg Physical Exam Narrative: General exam is a white female, obviously tachypneic with respiratory rate 20 when I am in the room with mild retractions, requiring 2 L of oxygen. Occasional cough. HEENT: Atraumatic and normocephalic. Oropharynx clear. Neck is supple no lymphadenopathy thyromegaly Cardiovascular regular rate and rhythm, no murmur Lungs bilateral expiratory wheezes. No crackles Abdomen is soft nontender positive bowel sounds. No obvious organomegaly exams deferred Extremities no cyanosis clubbing or edema, cap refill brisk Skin no rash Neuro no obvious focal deficits. Data 05/10/23 07:44 05/10/23 07:44 Other Labs: LFTs are normal with exception of alk phos 135 BNP 1545 Albumin, calcium is normal TSH which I ordered is 1.45 I have ordered a COVID PCR Chest x-ray which I reviewed demonstrates right upper lobe pneumonia, cardiomegaly, postoperative heart, pacemaker device Blood cultures were drawn EKG I have ordered Micro: Microbiology 05/10/23 08:06 Blood Culture - Preliminary Blood SPECIMEN COLLECTED 05/10/23 08:03 Blood Culture - Preliminary Blood SPECIMEN COLLECTED A&P Assessment and plan (1) Pneumonia: Patient presents with pneumonia It is associated with hypoxemia. She has been placed on 2 L of oxygen She has failed outpatient treatment with clindamycin Secondary to her significant wheezing I suspect that she might have a viral component. COVID PCR was initiated, which will also test other viral etiology. Dexamethasone 10 mg IV x1 Prednisone 40 mg a day starting tomorrow DuoNeb every 4 hours Budesonide twice daily IV antibiotics consisting of Zosyn Sputum culture, MRSA PCR Wean oxygen as tolerated (2) Elevated brain natriuretic peptide (BNP) level: Lasix 20 mg IV x1 Most recent echocardiogram January 2021 demonstrated a preserved EF. Most likely her elevated BNP is secondary to her chronic atrial fibrillation. At this point I will not repeat an echocardiogram, but will consider for any worsening or failure to improve (3) Hyponatremia: May be secondary to her pulmonary condition. Recheck tomorrow (4) Atrial fibrillation: She appears to be paced on her telemetry. We will check an EKG. Continue home medication, including full anticoagulation Plan Other medical problems as outlined in past medical history Full code Xarelto will suffice for DVT prophylaxis Attestations Medical Necessity Statement*: Will need greater than 2 midnight stay for evaluation and treatment of pneumonia with hypoxia Diagnoses Pneumonia J18.9 Elevated brain natriuretic peptide (BNP) level R79.89 Hyponatremia E87.1 Atrial fibrillation I48.91 Time Spent (min) 47
[2023-05-10] MEDS: dexamethasone 10 mg/mL INJ IVP (09:02)
[2023-05-10] MEDS: piperacillin-tazobactam 3.375 GM in sodium chloride 0.9% (plus) 50 ML IV ×3 (09:02→23:33)
[2023-05-10] MEDS: FUROsemide 10 mg/mL SDV 2mL 20 MG IVP (09:02)
[2023-05-10 09:26] LABS: Thyroid Stimulating Hormone 1.45 uIU/mL (0.27-4.20)
--- NOTE | 2023-05-10 10:02 | ECG_ITS ---
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 Measurements Intervals [place] Rate: 87 P: 0 NE: 0 QRS: -59 QRSD: 186 T: 121 QT: 464 QTc: 560 Interpretive Statements ELECTRONIC VENTRICULAR PACEMAKER ABNORMAL RHYTHM ECG No previous ECG available for comparison Electronically Signed On 05-10-2023 11:12:12 CDT by Noris Cross M.D. [id number]
[2023-05-10] MEDS: ipratropium-albuterol 3 mL Neb INHALATION ×3 (11:23→20:06)
[2023-05-10 12:32] LABS: Adenovirus Not Detected (NOT DETECT); Chlamydia Pneumoniae Not Detected (NOT DETECT); Coronavirus 229E,HKU1,NL63,OC4 Not Detected (NOT DETECT); Human Metapneumovirus Not Detected (NOT DETECT); Human Rhinovirus/Enterovirus Not Detected (NOT DETECT); Influenza A Not Detected (NOT DETECT); Influenza A H1 Not Detected (NOT DETECT); Influenza A H1-2009 Not Detected (NOT DETECT); Influenza A H3 Not Detected (NOT DETECT); Influenza B Not Detected (NOT DETECT); Mycoplasma Pneumoniae Not Detected (NOT DETECT); Parainfluenza Virus Type 1 Not Detected (NOT DETECT); Parainfluenza Virus Type 2 Not Detected (NOT DETECT); Parainfluenza Virus Type 3 Not Detected (NOT DETECT); Parainfluenza Virus Type 4 Not Detected (NOT DETECT); Respiratory Syncytial Virus A Not Detected (NOT DETECT); Respiratory Syncytial Virus B Detected (NOT DETECT); SARS-COV-2 Not Detected (NOT DETECT)
[2023-05-10 12:37] LABS: Respiratory Syncytial Virus A Not Detected (NOT DETECT); Respiratory Syncytial Virus B Detected (NOT DETECT)
[2023-05-10] MEDS: rivaroxaban 10 mg Tablet 20 MG PO (12:53)
[2023-05-10] MEDS: budesonide 0.5 mg/2 mL Neb INHALATION (20:06)
[2023-05-10] MEDS: ezetimibe 10 mg Tablet PO (20:36)
[2023-05-10] MEDS: pramipexole 0.25 mg Tablet 0.125 MG PO (20:36)
[2023-05-10] MEDS: montelukast sodium 10 mg Tablet PO (20:37)
[2023-05-11] VITALS (9 sets, daily range): BP systolic 94–112; BP diastolic 60–68; PULSE 77–94; RESP 16–20; TEMP 36.3–36.4; O2SAT 94–98
[2023-05-11] MEDS: ipratropium-albuterol 3 mL Neb INHALATION ×4 (00:19→12:31)
[2023-05-11] MEDS: metoprolol succinate ER (24 HR) 25 mg Tablet 12.5 MG PO (05:51)
[2023-05-11] MEDS: losartan 50 mg Tablet 25 MG PO (05:51)
[2023-05-11] MEDS: famotidine 20 mg Tablet PO (05:51)
[2023-05-11] MEDS: venlafaxine ER (24HR) 75 mg Capsule PO (05:51)
[2023-05-11] MEDS: spironolactone 25 mg Tablet PO (05:51)
[2023-05-11 06:14] LABS: Basophils % 0.2 %; Hematocrit 37.3 % (37.0-47.0); Hemoglobin 11.5 g/dL (11.5-15.3); Lymphocytes # 0.9 10^3/uL (0.8-4.8); Mean Corpuscular HGB Conc 30.8 g/dL (30.0-36.0); Mean Corpuscular Hemoglobin 25.2 pg (28.0-34.0); Mean Corpuscular Volume 81.8 fl (81-99); Mean Platelet Volume 9.9 fL (7.4-10.4); Monocytes # 0.8 10^3/uL (0.2-0.9); Monocytes % 6.1 %; Neutrophils % 85.6 %; Nucleated Red Blood Cells % 0 %; Platelet Count 408 10^3/cmm (130-400); Red Blood Count 4.56 10^6/uL (4.1-5.3); Red Cell Distribution Width 16.2 % (12.1-15.1); White Blood Count 13.2 10^3/uL (4.0-10.0)
[2023-05-11 06:36] LABS: Alanine Aminotransferase 24 U/L (0-33); Albumin Level 3.6 g/dL (3.5-5.2); Alkaline Phosphatase 130 U/L (35-105); Aspartate Amino Transferase 38 U/L (0-32); Blood Urea Nitrogen 34 mg/dL (8-23); Calcium 9.7 mg/dL (8.5-10.5); Carbon Dioxide 24 mmol/L (22-29); Chloride 96 mmol/L (98-107); Glomerular Filtration Rate 41.5 mL/min (90-130); Glucose 141 mg/dL (65-115); Magnesium 2.5 mg/dL (1.7-2.3); Osmolality Calculated 290 mOsm/kg (285-295); Sodium 135 mmol/L (136-145); Total Bilirubin 0.7 mg/dL (0.15-1.2); Total Protein 8.6 g/dL (6.6-8.7)
[2023-05-11 06:38] LABS: Anion Gap 19.4 (5-19); Potassium 4.4 mmol/L (3.5-5.1)
[2023-05-11] MEDS: budesonide 0.5 mg/2 mL Neb INHALATION (08:34)
[2023-05-11] MEDS: predniSONE 20 mg Tablet 40 MG PO (08:36)
[2023-05-11] MEDS: potassium chloride ER 20 mEq Tablet PO (08:36)
[2023-05-11] MEDS: piperacillin-tazobactam 3.375 GM in sodium chloride 0.9% (plus) 50 ML IV (08:36)
[2023-05-11] MEDS: rivaroxaban 10 mg Tablet 20 MG PO (08:36)
--- NOTE | 2023-05-11 11:30 | PC.RESP ---
Pt dispensed aerochamber per Dr Espinoza verbal order. Pt instructed on use.
--- NOTE | 2023-05-11 12:35 | PM.DCS ---
Discharge Providers Date of Admission: 05/10/23 09:51 Date of Discharge: May 11, 2023 Attending Provider at Admission: Irineo Espinoza MD Attending Provider at Discharge: Irineo Espinoza MD Primary Care Provider: aMgnolia Worthington MD Diagnoses at Discharge Discharge Diagnosis (1) Pneumonia: Status: Acute (2) Elevated brain natriuretic peptide (BNP) level: Status: Acute (3) Hyponatremia: Status: Acute (4) Atrial fibrillation: Status: Acute Reason for Visit Reason for Visit: SOB Hospital Course Hospital Course Daniela is a 63-year-old pleasant white female who presented to the hospital with feeling ill 21-week with wheezing, coughing, shortness of breath. This started with nasal congestion. She had also had some periods of vomiting. She had seen her primary care provider and was prescribed clindamycin. Her chest x-ray in the ER demonstrated a right upper lobe pneumonia. She required treatment with oxygen for her hypoxia. She was found to be significantly wheezing. She was given IV steroids, breathing treatments. Further testing demonstrated a negative COVID but positive RSV. Zosyn was initiated on admission for pneumonia. During her hospital stay she improved quicker than expected, was able to be room air on May 11 and very much wanted to go home. She was able to ambulate the room without significant shortness of breath. She still had a few scattered wheezes. It was thought she could finish her course of Augmentin at home, along with steroid. She will have a repeat chest x-ray in 3 weeks. She believes albuterol helped during her hospital stay, and this will be continued 4 times daily on discharge and then as needed every 6 hours after 2 days. She was given an opportunity to ask questions, and agreed with the plan. Of note, MRSA PCR was negative. Sputum culture pending at discharge. Physical Exam Narrative: General exam no distress Neck is supple Cardiovascular regular rate and rhythm without murmur Lungs a few faint scattered expiratory wheezes Abdomen is soft with positive bowel sounds Extremities no cyanosis clubbing edema Discharge Data Studies Completed and Pending Completed Studies During Hospitalization Category Date Time Status XR chest 1V portable [id number] Stat Exams 05/10/23 06:52 Completed Pending at discharge Category Date Time Status Blood Culture Stat Lab 05/10/23 08:06 Results Sputum Culture and Gram Stain Routine Lab 05/10/23 12:45 Results Sputum Culture and Gram Stain Stat Lab 05/10/23 07:18 Uncollected Radiology Impressions Chest X-Ray 05/10/23 06:52 IMPRESSION: 1. No significant change in exam. 2. Consider right upper lobe pneumonia. Laboratory Results WBC 13.2 10^3/uL (4.0-10.0) H 05/11/23 05:50 RBC 4.56 10^6/uL (4.1-5.3) 05/11/23 05:50 Hgb 11.5 g/dL (11.5-15.3) 05/11/23 05:50 Hct 37.3 % (37.0-47.0) 05/11/23 05:50 MCV 81.8 fl (81-99) 05/11/23 05:50 MCH 25.2 pg (28.0-34.0) L 05/11/23 05:50 MCHC 30.8 g/dL (30.0-36.0) 05/11/23 05:50 RDW 16.2 % (12.1-15.1) H 05/11/23 05:50 Plt Count 408 10^3/cmm (130-400) H 05/11/23 05:50 MPV 9.9 fL (7.4-10.4) 05/11/23 05:50 Neut % (Auto) 85.6 % 05/11/23 05:50 Lymph % (Auto) 7.0 % 05/11/23 05:50 [place] % (Auto) 6.1 % 05/11/23 05:50 Eos % (Auto) 0.0 % 05/11/23 05:50 Baso % (Auto) 0.2 % 05/11/23 05:50 Neut # (Auto) 11.30 10^3/uL (1.8-7.7) H 05/11/23 05:50 Lymph # (Auto) 0.9 10^3/uL (0.8-4.8) 05/11/23 05:50 [place] # (Auto) 0.8 10^3/uL (0.2-0.9) 05/11/23 05:50 Eos # (Auto) 0.0 10^3/uL (0.0-0.8) 05/11/23 05:50 Baso # (Auto) 0.0 10^3/uL (0.0-0.1) 05/11/23 05:50 Nucleated RBC % (auto) 0 % 05/11/23 05:50 Nucleated RBCs # 0.0 /100WBC 05/11/23 05:50 Sodium 135 mmol/L (136-145) L 05/11/23 05:50 Potassium 4.4 mmol/L (3.5-5.1) 05/11/23 05:50 Chloride 96 mmol/L (98-107) L 05/11/23 05:50 Carbon Dioxide 24 mmol/L (22-29) 05/11/23 05:50 Anion Gap 19.4 (5-19) H 05/11/23 05:50 BUN 34 mg/dL (8-23) H 05/11/23 05:50 Creatinine 1.3 mg/dL (0.5-0.9) H 05/11/23 05:50 GFR Calculation 41.5 mL/min (90-130) L 05/11/23 05:50 Glucose 141 mg/dL (65-115) H 05/11/23 05:50 Calculated Osmolality 290 mOsm/kg (285-295) 05/11/23 05:50 Calcium 9.7 mg/dL (8.5-10.5) 05/11/23 05:50 Magnesium 2.5 mg/dL (1.7-2.3) H 05/11/23 05:50 Total Bilirubin 0.7 mg/dL (0.15-1.2) 05/11/23 05:50 AST 38 U/L (0-32) H 05/11/23 05:50 ALT 24 U/L (0-33) 05/11/23 05:50 Alkaline Phosphatase 130 U/L (35-105) H 05/11/23 05:50 NT-Pro-B Natriuret Pep 1545 pg/mL (0-125) H 05/10/23 07:44 Total Protein 8.6 g/dL (6.6-8.7) 05/11/23 05:50 Albumin 3.6 g/dL (3.5-5.2) 05/11/23 05:50 Globulin 5.0 g/dL (1.3-4.6) H 05/11/23 05:50 TSH 1.45 uIU/mL (0.27-4.20) 05/10/23 07:44 Coronavirus 229E (PCR) Not detected (NOT DETECT) 05/10/23 10:30 RSV Type A (PCR) Not detected (NOT DETECT) 05/10/23 12:37 RSV Type B (PCR) Detected (NOT DETECT) A 05/10/23 12:37 SARS-CoV-2 (PCR) Not detected (NOT DETECT) 05/10/23 10:30 Vitals Last Vital Signs Temp 97.6 F 05/11/23 07:15 Pulse 94 05/11/23 08:00 Resp 18 05/11/23 08:00 BP 112/61 05/11/23 07:15 Pulse Ox 97 05/11/23 08:00 O2 Del Method Nasal Cannula 05/11/23 08:00 O2 Flow Rate 2 05/11/23 08:00 Discharge Plan Discharge Patient Disposition: Home Condition: Stable Prescriptions: New amoxicillin-pot clavulanate 875-125 mg tablet 1 tab PO BID Qty: 12 0RF prednisone 20 mg Tablet 40 mg PO DAILY Qty: 6 0RF albuterol sulfate 90 mcg/actuation HFA aerosol inhaler 1 inh inhalation Q6H PRN (Reason: shortness of breath or wheezing) Qty: 8.5 0RF Continued Xarelto 20 mg tablet 20 mg PO QAM Hold Instructions: Resume on 08/17/21. metoprolol succinate 25 mg tablet extended release 24 hr 12.5 mg PO QAM losartan 25 mg tablet 25 mg PO QAM potassium chloride 20 mEq tablet extended release 20 meq PO QAM spironolactone 25 mg tablet 25 mg PO QAM famotidine [Pepcid] 40 mg tablet 20 mg PO QAM pramipexole [Mirapex] 0.125 mg tablet 0.125 mg PO BEDTIME venlafaxine 75 mg capsule,extended release 24hr 75 mg PO QAM montelukast 10 mg tablet 10 mg PO BEDTIME ezetimibe 10 mg tablet 10 mg PO BEDTIME Discontinued clindamycin HCl 300 mg capsule 300 mg PO TID Rx Instructions: for 10 days (rx filled 05/06/23) Discharge Orders: Discharge Order (Routine); Ordered 05/11/23 Ordered By: Irineo Espinoza Referrals: Magnolia Worthington MD [Primary Care Provider] - 4-7 days (Consider chest x-ray, follow-up pneumonia, 3 weeks) Discharge Diet: Cardiac Discharge Activity: Increase activity as tolerated Patient Instructions: Opioid Safety Activity Restrictions/Additional Instructions: Take all medicine as prescribed Use albuterol inhaler 4 times a day for 2 days, then as needed every 4-6 hours. Use a spacer when using. Avoid exposure to any smoke or respiratory irritants Your primary care provider may want you to have an x-ray in 3 weeks for follow-up. Return for any worsening shortness of breath, fever Monitor for any significant diarrhea on antibiotic. If this occurs notify your primary care provider Check with patient and make sure she does not want meds to beds Notify admission she wants signed up for common well Please make sure respiratory drains are in inhaler use, and provides spacer prior to discharge. Patient's Health Concerns: Cough and wheezing Assessment: Pneumonia, also found to have RSV Plan of Treatment: Complete course of Augmentin, steroids. Albuterol as needed Discharge Attestations Time Spent in Discharge Care*: greater than 30 min Quality Metrics Clinical Quality Measures [ No reported AMI, CVA or VTE this stay] Coding Level of Care Code 31194 Total time (in minutes) for Discharge: 37 Diagnoses Pneumonia J18.9 Elevated brain natriuretic peptide (BNP) level R79.89 Hyponatremia E87.1 Atrial fibrillation I48.91
== END 2023-05-11 14:56 | disposition home or self-care (01) | DRG 194 ==
LOC: ER 08:14 → MEDSURG 09:52
PROVIDERS: Admitting Provider Internal Medicine; Emergency Provider Family Medicine; PCP Internal Medicine; Visit Provider Internal Medicine
DX: J12.1 Respiratory syncytial virus pneumonia (principal); E87.1 Hypo-osmolality and hyponatremia; Z79.01 Long term (current) use of anticoagulants; I08.0 Rheumatic disorders of both mitral and aortic valves; I48.91 Unspecified atrial fibrillation; F41.8 Other specified anxiety disorders; K21.9 Gastro-esophageal reflux disease without esophagitis; Z95.0 Presence of cardiac pacemaker; E78.5 Hyperlipidemia, unspecified; I10 Essential (primary) hypertension; Z95.3 Presence of xenogenic heart valve
CPT/HCPCS: 36415; 71045; 80053; 83735; 83880; 84443; 85025; 87040; 87070; 87205; 87635; 87641; 87801; 93005; 94640; 96365; 96375; 99285; J1100; J1940; J2543; J7512; J7626

== ENCOUNTER 2023-07-06 07:55 | Outpatient (CLI) | payer MEDICAID, SELFPAY ==
--- NOTE | 2023-07-06 08:03 | MM_ITS ---
WS: [id number] Bilateral screening 3D tomosynthesis digital mammogram, 07/06/2023 Clinical Data: SCREENING Comparison: 08/05/2021, 08/30/2019, 01/18/2018, 01/12/2016, 08/08/2013, 12/07/2011, 07/13/2011, 05/13/2010, , 09/25/2008, 07/05/2007. Findings: The breast parenchymal pattern shows heterogeneous density. No spiculated masses or clustered calcifi cations are seen. There are no secondary signs of carcinoma. There are scattered benign calcification s throughout the breasts. There is a pacemaker generator in the left axilla. There is a mole marker o n the left breast. Impression: 1. Negative bilateral mammogram unchanged. 2. Recommend annual screening mammograms. MM/[place] [id number] BIRADS: 1-Negative FOLLOW UP: 1 Year Follow-up The CAD unloading checker was used.
== END 2023-07-06 07:56 | disposition home or self-care (01) ==
PROVIDERS: PCP Internal Medicine; Visit Provider Internal Medicine
DX: Z12.31 Encounter for screening mammogram for malignant neoplasm of breast (principal)
CPT/HCPCS: 77063; 77067

== ENCOUNTER 2023-11-06 04:08 | Emergency (ER) | payer MEDICAID, SELFPAY ==
[2023-11-06 04:14] VITALS: BP 127/79; PULSE 94; RESP 18; TEMP 36.5; O2SAT 95
--- NOTE | 2023-11-06 04:23 | XRR_ITS ---
PROCEDURE INFORMATION: Exam: XR Chest Exam date and time: 11/06/2023 4:36 AM Age: 63 years old Clinical indication: Shortness of breath; Prior surgery; Surgery date: 6+ months; Surgery type: Mitral valve. Pacer. Patient HX: C/O SOB TECHNIQUE: Imaging protocol: Radiologic exam of the chest. Views: 1 view. COMPARISON: CR XR chest 1V portable [id number] 05/10/2023 7:13 AM FINDINGS: Tubes, catheters and devices: Left-sided cardiac pacemaker again noted. Lungs: No definite CHF/pulmonary edema. Very mild left mid to lower lung opacities, possibly atelectasis or parenchymal scarring. Subtle pneumonitis not excluded. Please correlate clinically. Visible lungs otherwise appear essentially clear. Pleural spaces: No visible pneumothorax. No definite pleural fluid. Heart/Mediastinum: Moderate cardiomegaly, essentially stable. Prosthetic heart valve noted. Bones/joints: Prior median sternotomy. XR/XR chest 1V portable [id number] IMPRESSION: 1. Very mild left lung opacities, see above discussion. 2. Moderate cardiomegaly, no definite CHF/pulmonary edema. 3. Other findings discussed above.
[2023-11-06 04:58] LABS: Basophils # 0.1 10^3/uL (0.0-0.1); Basophils % 0.6 %; Eosinophils # 0.3 10^3/uL (0.0-0.8); Eosinophils % 1.9 %; Hematocrit 35.9 % (36-47); Lymphocytes # 2.4 10^3/uL (0.8-4.8); Lymphocytes % 18.2 %; Mean Corpuscular HGB Conc 30.9 g/dL (30-55); Mean Corpuscular Hemoglobin 24.9 pg (27-33); Mean Corpuscular Volume 80.7 fl (85-98); Mean Platelet Volume 9.6 fL (7.4-10.4); Monocytes # 1.2 10^3/uL (0.2-0.9); Monocytes % 9.1 %; Neutrophils % 69.4 %; Nucleated Red Blood Cells % 0 %; Platelet Count 264 10^3/cmm (157-399); Red Blood Count 4.45 10^6/uL (3.85-5.65); Red Cell Distribution Width 14.9 % (12.1-15.1); White Blood Count 13.12 10^3/uL (3.29-11.43)
--- NOTE | 2023-11-06 05:18 | ECG_ITS ---
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 Measurements Intervals [place] Rate: 83 P: 0 IN: 0 QRS: -56 QRSD: 186 T: 113 QT: 439 QTc: 519 Interpretive Statements ELECTRONIC VENTRICULAR PACEMAKER ABNORMAL RHYTHM ECG Compared to ECG 05/10/2023 10:02:29 No significant changes Electronically Signed On 11-06-2023 16:23:17 [employer] by Jose De La Cruz M.D. [id number]
[2023-11-06 05:20] LABS: Lactic Sepsis W/Reflex 0.6 mmol/L (0.5-2.2)
[2023-11-06 05:30] LABS: Alanine Aminotransferase 11 U/L (0-33); Alkaline Phosphatase 118 U/L (35-105); Anion Gap 15.2 (5-19); Aspartate Amino Transferase 15 U/L (0-32); Blood Urea Nitrogen 18 mg/dL (8-23); Calcium 9.5 mg/dL (8.5-10.5); Carbon Dioxide 22 mmol/L (22-29); Chloride 100 mmol/L (98-107); Creatinine Clr Calc Pharmacy 62.1677; Globulin 4.4 g/dL (1.3-4.6); Glomerular Filtration Rate 63.4 mL/min (90-130); Glucose 105 mg/dL (65-115); NT Pro B Type Natriuretic Pept 730 pg/mL (0-125); Osmolality Calculated 278 mOsm/kg (285-295); Potassium 4.2 mmol/L (3.5-5.1); Sodium 133 mmol/L (136-145); Total Bilirubin 0.8 mg/dL (0.15-1.2); Total Protein 8.4 g/dL (6.6-8.7)
[2023-11-06 05:36] LABS: Influenza A by IFA negative (Negative); Influenza B by IFA negative (Negative)
[2023-11-06 05:39] VITALS: BP 127/79; PULSE 88; O2SAT 93
[2023-11-06 05:43] LABS: SARS Covid-2 Antigen negative (Negative)
--- NOTE | 2023-11-06 05:54 | ED_ITS ---
HPI - SOB/Dyspnea 2 General: Chief Complaint: Shortness of Breath/Dyspnea Stated Complaint: Sinus Headache\N\ Time Seen by Provider: 11/06/23 04:23 History of Present Illness: HPI Narrative: 63-year-old female with shortness of adam ath, nonproductive cough, and nausea. She has had a headache on and off as well, particularly with her cough. She has not had an overt fever, but has felt achy. Her has been sick with a febrile respiratory illness. She has had nausea, but no diarrhea or vomiting. Associated symptoms: Reports nausea and palpitations; Deny abdominal pain, chest pain, dizziness, fever(s) or vomiting Review of Systems 2 Const: Reports: chills and body aches; Denies: fever(s) Eyes: Denies: change in vision ENMT: Reports: throat pain Card: Reports: palpitations; Denies: chest pain Resp: Reports: dyspnea and non-productive cough; Denies: productive cough or wheezing GI: Reports: nausea; Denies: abdominal pain, vomiting, diarrhea or hematochezia : Denies: difficulty voiding Skin/Breast: Denies: rash Neuro: Reports: headache(s) and weakness in extremities (Generalized); Denies: dizziness or confusion PFSH ED 2 PFSH: Medical History History of rheumatic fever Depression with anxiety GERD (gastroesophageal reflux disease) Hyperlipidemia Atrial fibrillation Rheumatic fever Hypertension History of cardiac pacemaker Surgical History History of open heart surgery History of colonoscopy (08/14/21) rectal polyp History of hysterectomy with bilateral oophorectomy History of appendectomy Hx of artificial heart valve replacement Mitral and aortic , bioprosthetic Family History Other CAD (coronary artery disease) Hypertension Social History Smoking and tobacco/nicotine status: never used tobacco/nicotine Second hand smoke exposure: No Alcohol intake: never Substance/Drug Use: never Adopted: No Caregiver/support person: No Lives independently: Yes Household members: spouse Housing: House Marital status: Number of children: 2 Highest education level completed: 11th Grade service: No Current occupational status: disabled Physical Exam 2 Const: COMMON NORMALS: no acute distress GENERAL APPEARANCE: cooperative; not ill appearing and not frail appearing HENMT: COMMON NORMALS: normocephalic, atraumatic and Normal external nose present HEAD & SCALP: normocephalic and atraumatic FACE & SINUS: normal facial exam and face symmetric NOSE: Normal external nose present Eye: COMMON NORMALS: Equal, round and reactive pupils present and EOMs intact bilaterally PUPIL: Yes Equal, round and reactive pupils present Neck/C-Spine: GENERAL: Yes trachea midline Chest: CHEST: Yes Symmetrical chest wall rise Resp: COMMON NORMALS: normal respiratory effort, No retractions, No use of accessory muscles and clear to auscultation bilaterally AUSCULTATION: clear to auscultation bilaterally Cardio: COMMON NORMALS: regular rate RATE: regular rate RHYTHM: abnormal rhythm irregularly irregular GI: COMMON NORMALS: Normal to inspection, nondistended, normoactive bowel sounds present PALPATION: No Tenderness to palpation present (GI) Extremity: COMMON NORMALS: no pedal edema Neuro: VIC COMA SCALE: document GCS findings Vic coma scale eye opening: Spontaneous Ivc coma scale verbal response: Orientated [place] coma scale motor response: Obey commands [place] coma scale total score: 15 S ENSORY EXAM: Yes extremities (intact) Psych: COMMON NORMALS: speech normal SPEECH: Yes normal speech Skin: COMMON NORMALS: no rashes or lesions noted GENERAL SKIN EXAM: no rashes or lesions noted Course 2 Vital Signs: Vital signs: Vital Signs Temperature 97.7 F 11/06/23 04:14 Pulse Rate 83 11/06/23 06:14 Respiratory Rate 16 11/06/23 06:13 Blood Pressure 113/76 11/06/23 06:14 Pulse Oximetry 93 11/06/23 06:14 Oxygen Delivery Me thod Room Air 11/06/23 06:13 MDM - SOB/Dyspnea Medical Decision Making 63-year-old female with a history of atrial fibrillation. She presents with cough, nonsputum production, achiness, and nausea. No vomiting. Her white blood cell count is 13. Hemoglobin is 11. BMP is not remarkable. Rapid test for COVID and flu are negative. Lactic acid is 0.6. Chest x-ray reveals very mild left lung opacity that could be a subtle pneumonitis, but may be more likely parenchymal scarring or atelectasis. She will be covered with antibiotics. She will use her inhaler. She will be placed on antiemetic medication. She will watch her temperature closely. To return for any worsening symptoms. Lab Data 11/06/23 04:53 11/06/23 04:53 Labs/Radiology: Radiology Impressions Chest X-Ray 11/06/23 04:23 IMPRESSION: 1. Very mild left lung opacities, see above discussion. 2. Moderate cardiomegaly, no definite CHF/pulmonary edema. 3. Other findings discussed above. Laboratory Results WBC 13.12 10^3/uL (3.29-11.43) H 11/06/23 04:53 RBC 4.45 10^6/uL (3.85-5.65) 11/06/23 04:53 Hgb 11.10 g/dL (11.27-16.99) L 11/06/23 04:53 Hct 35.9 % (36-47) L 11/06/23 04:53 MCV 80.7 fl (85-98) L 11/06/23 04:53 MCH 24.9 pg (27-33) L 11/06/23 04:53 MCHC 30.9 g/dL (30-55) 11/06/23 04:53 RDW 14.9 % (12.1-15.1) 11/06/23 04:53 Plt Count 264 10^3/cmm (157-399) 11/06/23 04:53 MPV 9.6 fL (7.4-10.4) 11/06/23 04:53 Neut % (Auto) 69.4 % 11/06/23 04:53 Lymph % (Auto) 18.2 % 11/06/23 04:53 [place] % (Auto) 9.1 % 11/06/23 04:53 Eos % (Auto) 1.9 % 11/06/23 04:53 Baso % (Auto) 0.6 % 11/06/23 04:53 Neut # (Auto) 9.10 10^3/uL (1.8-7.7) H 11/06/23 04:53 Lymph # (Auto) 2.4 10^3/uL (0.8-4.8) 11/06/23 04:53 [place] # (Auto) 1.2 10^3/uL (0.2-0.9) H 11/06/23 04:53 Eos # (Auto) 0.3 10^3/uL (0.0-0.8) 11/06/23 04:53 Baso # (Auto) 0.1 10^3/uL (0.0-0.1) 11/06/23 04:53 Nucleated RBC % (auto) 0 % 11/06/23 04:53 Nucleated RBCs # 0.0 /100WBC 11/06/23 04:53 Sodium 133 mmol/L (136-145) L 11/06/23 04:53 Potassium 4.2 mmol/L (3.5-5.1) 11/06/23 04:53 Chloride 100 mmol/L (98-107) 11/06/23 04:53 Carbon Dioxide 22 mmol/L (22-29) 11/06/23 04:53 Anion Gap 15.2 (5-19) 11/06/23 04:53 BUN 18 mg/dL (8-23) 11/06/23 04:53 Creatinine 0.9 mg/dL (0.5-0.9) 11/06/23 04:53 GFR Calculation 63.4 mL/min (90-130) L 11/06/23 04:53 Glucose 105 mg/dL (65-115) 11/06/23 04:53 Calculated Osmolality 278 mOsm/kg (285-295) L 11/06/23 04:53 Lactic Acid 0.6 mmol/L (0.5-2.2) 11/06/23 04:53 Calcium 9.5 mg/dL (8.5-10.5) 11/06/23 04:53 Total Bilirubin 0.8 mg/dL (0.15-1.2) 11/06/23 04:53 AST 15 U/L (0-32) 11/06/23 04:53 ALT 11 U/L (0-33) 11/06/23 04:53 Alkaline Phosphatase 118 U/L (35-105) H 11/06/23 04:53 NT-Pro-B Natriuret Pep 730 pg/mL (0-125) H 11/06/23 04:53 Total Protein 8.4 g/dL (6.6-8.7) 11/06/23 04:53 Albumin 4.0 g/dL (3.5-5.2) 11/06/23 04:53 Globulin 4.4 g/dL (1.3-4.6) 11/06/23 04:53 Influenza Type A Ag negative (Negative) 11/06/23 05:12 Influenza Type B Ag negative (Negative) 11/06/23 05:12 SARS-CoV-2 Ag (Rapid) negative (Negative) 11/06/23 05:12 All radiology interpretation(s) finalized by discharge Discharge Plan Discharge Patient Disposition: Home Clinical Impression: Acute bronchitis Condition: Stable Prescriptions: New doxycycline hyclate 100 mg tablet 100 mg PO BID 7 Days Qty: 14 0RF ondansetron 4 mg tablet,disintegrating 4 mg PO Q6H PRN (Reason: nausea and vomiting) Qty: 14 0RF Continued albuterol sulfate 90 mcg/actuation HFA aerosol inhaler 1 inh inhalation Q6H PRN (Reason: shortness of breath or wheezing) Qty: 8.5 0RF No Action Xarelto 20 mg tablet 20 mg PO QAM Hold Instructions: Resume on 08/17/21. metoprolol succinate 25 mg tablet extended release 24 hr 12.5 mg PO QAM losartan 25 mg tablet 25 mg PO QAM potassium chloride 20 mEq tablet extended release 20 meq PO QAM spironolactone 25 mg tablet 25 mg PO QAM famotidine [Pepcid] 40 mg tablet 20 mg PO QAM pramipexole [Mirapex] 0.125 mg tablet 0.125 mg PO BEDTIME venlafaxine 75 mg capsule,extended release 24hr 75 mg PO QAM montelukast 10 mg tablet 10 mg PO BEDTIME ezetimibe 10 mg tablet 10 mg PO BEDTIME prednisone 20 mg Tablet 40 mg PO DAILY Qty: 6 0RF amoxicillin-pot clavulanate 875-125 mg tablet 1 tab PO BID Qty: 12 0RF Discharge Orders: Discharge ED (Routine); Ordered 11/06/23 Ordered By: Umberto Moreno Referrals: Magnolia Worthington MD [Primary Care Provider] - Patient Instructions: Acute Bronchitis (ED), Opioid Safety, Pain Management Activity Restrictions/Additional Instructions: Use the inhaler every 4 hours while awake for the next 48 hours, then as needed. Nausea medication as needed. Antibiotics as directed. Return for worsening shortness of breath despite treatment, chest discomfort, any other concerning symptoms. Coding Level of Care Code ED Quality Control Chemist for Josey Cordova
[2023-11-06 06:13] VITALS: BP 113/76; PULSE 86; RESP 16; O2SAT 93
[2023-11-06 06:14] VITALS: BP 113/76; PULSE 83; O2SAT 93
== END 2023-11-06 06:15 | disposition home or self-care (01) ==
PROVIDERS: Emergency Provider Emergency Medicine; PCP Internal Medicine
DX: J20.9 Acute bronchitis, unspecified (principal); Z11.52 Encounter for screening for COVID-19; I11.9 Hypertensive heart disease without heart failure; E78.5 Hyperlipidemia, unspecified; Z95.0 Presence of cardiac pacemaker
CPT/HCPCS: 36415; 71045; 80053; 83605; 83880; 85025; 87426; 87804; 93005; 99285

== ENCOUNTER 2023-12-06 09:18 | Emergency (ER) | payer MEDICAID, SELFPAY ==
[2023-12-06 09:21] VITALS: BP 132/77; PULSE 86; RESP 22; TEMP 36.9; O2SAT 94; BMI 27.3
--- NOTE | 2023-12-06 09:36 | ED_ITS ---
HPI - URI/Sore Throat 2 General: Chief Complaint: Upper Respiratory Infection Stated Complaint: sob Time Seen by Provider: 12/06/23 09:25 Source: patient Mode of arrival: ambulatory Limitations: no limitations History of Present Illness: Patient is a nice 63-year-old female who presents to the ED today with a complaint of productive cough, nasal/chest congestion, low-grade fevers, and dyspnea. She states symptoms have been present over the past 3 days or so. Patient states her was recently ill with identical symptoms. She states his cough lasted approximately 2 to 3 weeks but seems to be improving/resolving. Patient feels like hers has turned into pneumonia. She denies history of asthma, COPD, or emphysema. She does have history of rheumatic heart disease. Patient has not noticed any weight gain, swelling to her lower extremities, calf pain, or PND. She does feel like congestion and cough seems to somewhat worsen when she lies flat. She has had one episode of posttussive vomiting that she attributes to the excessive amount of phlegm. She is not having any abdominal pain. Reporting normal bowel movements. MD elicited complaint: fever, cough, nasal congestion and sinus pain Onset (ago): day(s) Consistency: constant Severity: moderate Description of mucous: yellow Able to tolerate fluids by mouth: Yes Relieving factors: nothing Context: sick contacts () Associated symptoms: Reports fever(s) (up to 100.6) and nasal congestion; Deny abdominal pain, chills, chest pain, diarrhea, ear or mastoid pain, headache(s), nausea, sinus pain or vomiting Treatments prior to arrival: other (leftover albuterol inhaler) Review of Systems 2 Const: Reports: fever(s) (up to 100.6); Denies: chills, body aches, fatigue or malaise Eyes: Denies: change in vision, blurry vision, photophobia, floaters or seeing flashes ENMT: Reports: nasal congestion; Denies: throat pain, odynophagia, ear or mastoid pain, nasal discharge or sinus pain Card: Reports: orthopnea; Denies: chest pain, palpitations, irregular heart rhythm, edema, swelling of feet/ankles, lightheadedness, syncope, pre-syncope, dyspnea on exertion, leg pain with exertion or acrocyanosis Resp: Reports: dyspnea, productive cough, change in phlegm color and chest congestion; Denies: non-productive cough, wheezing or hemoptysis GI: Denies: abdominal pain, nausea, vomiting or diarrhea : Denies: flank pain, difficulty voiding, dysuria, urinary frequency, urinary urgency or urinary hesitancy Musc: Denies: neck pain, back pain, extremity pain or joint pain Skin/Breast: Denies: rash Neuro: Denies: headache(s), numbness in extremities, weakness in extremities or sensory changes PFSH ED 2 PFSH: Medical History History of rheumatic fever Depression with anxiety GERD (gastroesophageal reflux disease) Hyperlipidemia Atrial fibrillation Rheumatic fever Hypertension History of cardiac pacemaker Surgical History History of open heart surgery History of colonoscopy (08/14/21) rectal polyp History of hysterectomy with bilateral oophorectomy History of appendectomy Hx of artificial heart valve replacement Mitral and aortic , bioprosthetic Family History Other CAD (coronary artery disease) Hypertension Social History Smoking and tobacco/nicotine status: never used tobacco/nicotine Second hand smoke exposure: No Alcohol intake: never Substance/Drug Use: never Adopted: No Caregiver/support person: No Lives independently: Yes Household members: spouse Housing: House Marital status: Number of children: 2 Highest education level completed: 11th Grade service: No Current occupational status: disabled Physical Exam 2 Const: COMMON NORMALS: patient oriented x3, no limitations, healthy appearing, alert and well nourished GENERAL APPEARANCE: cooperative and in distress (appears slightly winded; mild tachypnea) ORIENTATION/CONSCIOUSNESS: Yes awake, Yes oriented to person, Yes oriented to place and Yes oriented to time HENMT: COMMON NORMALS: normocephalic, atraumatic, hearing grossly normal bilaterally, external ears normal, EAC's normal, TM's normal bilaterally, Normal external nose present, moist oral mucous membranes and oropharynx normal HEAD & SCALP: normal to inspection, normocephalic and atraumatic FACE & SINUS: n ormal facial exam and sinus tenderness maxillary NOSE: Normal external nose present EXTERNAL EAR: Yes external ears normal EXTERNAL AUDITORY CANAL: E AC's normal TYMPANIC MEMBRANE: TM's normal bilaterally MOUTH: Normal oral and palatal mucosa present and lip normal THROAT: posterior oropharynx normal and tonsils normal Eye: GENERAL EYE: appearance normal, both eyes and all related structures Neck/C-Spine: COMMON NORMALS: no lymphadenopathy Chest: COMMONS NORMALS: normal inspection of the chest and normal palpation of entire chest wall Resp: EFFORT & INSPECTION: No grunting, No stridor, No retractions and No uses accessory muscles AUSCULTATION: rhonchi throughout Cardio: COMMON NORMALS: regular rate and regular rhythm RATE: regular rate RHYTHM: regular rhythm Extremity: COMMON NORMALS: no clubbing, cyanosis or edema, no calf tenderness and no pedal edema Neuro: VIC COMA SCALE: document GCS findings Vic coma scale eye opening: Spontaneous [place] coma scale verbal response: Orientated [place] coma scale motor response: Obey commands [place] coma scale total score: 15 COMMON NORMALS: patient oriented x3, moves all extremities, no focal motor deficits, no sensory deficits noted and gait normal SENSORIUM/ORIENTATION: Yes alert, Yes oriented to person, Yes oriented to place and Yes oriented to time Skin: COMMON NORMALS: no rashes or lesions noted GENERAL SKIN EXAM: no rashes or lesions noted Course 2 Vital Signs: Vital signs: Vital Signs Temperature 98.4 F 12/06/23 09:21 Pulse Rate 89 12/06/23 09:54 Respiratory Rate 18 12/06/23 09:50 Blood Pressure 132/77 12/06/23 09:21 Pulse Oximetry 93 12/06/23 09:50 Oxygen Delivery Me thod Room Air 12/06/23 09:50 MDM - URI/Sore Throat Medical Decision Making Patient here for complaints of productive cough, shortness of breath, nasal/chest congestion. has been ill with similar symptoms. Patient arrives with stable vital signs. Blood work showing a mild white count of 15.4. She has normal procalcitonin. CXR is unremarkable. Respiratory panel collected and pending. At this time etiology most likely is viral. I will reach out to patient later today in regards to her respiratory panel. She will be sent home with prescriptions for albuterol and steroids. She was given a DuoNeb respiratory treatment and IM Solu-Medrol and reportedly feels better. Return to ED precautions given. Differential Diagnosis Likely upper respiratory infection, viral infection, bronchitis and influenza Medical Records I reviewed the patient's medical records. Lab Data I reviewed the patient's lab results. 12/06/23 10:00 12/06/23 10:00 Laboratory Results WBC 15.43 10^3/uL (3.29-11.43) H 12/06/23 10:00 RBC 4.57 10^6/uL (3.85-5.65) 12/06/23 10:00 Hgb 11.70 g/dL (11.27-16.99) 12/06/23 10:00 Hct 38.5 % (36-47) 12/06/23 10:00 MCV 84.2 fl (85-98) L 12/06/23 10:00 MCH 25.6 pg (27-33) L 12/06/23 10:00 MCHC 30.4 g/dL (30-55) 12/06/23 10:00 RDW 16.3 % (12.1-15.1) H 12/06/23 10:00 Plt Count 243 10^3/cmm (157-399) 12/06/23 10:00 MPV 9.5 fL (7.4-10.4) 12/06/23 10:00 Neut % (Auto) 76.7 % 12/06/23 10:00 Lymph % (Auto) 12.7 % 12/06/23 10:00 [place] % (Auto) 7.3 % 12/06/23 10:00 Eos % (Auto) 2.3 % 12/06/23 10:00 Baso % (Auto) 0.4 % 12/06/23 10:00 Neut # (Auto) 11.83 10^3/uL (1.8-7.7) H 12/06/23 10:00 Lymph # (Auto) 2.0 10^3/uL (0.8-4.8) 12/06/23 10:00 [place] # (Auto) 1.1 10^3/uL (0.2-0.9) H 12/06/23 10:00 Eos # (Auto) 0.4 10^3/uL (0.0-0.8) 12/06/23 10:00 Baso # (Auto) 0.1 10^3/uL (0.0-0.1) 12/06/23 10:00 Nucleated RBC % (auto) 0 % 12/06/23 10:00 Nucleated RBCs # 0.0 /100WBC 12/06/23 10:00 Sodium 134 mmol/L (136-145) L 12/06/23 10:00 Potassium 3.9 mmol/L (3.5-5.1) 12/06/23 10:00 Chloride 96 mmol/L (98-107) L 12/06/23 10:00 Carbon Dioxide 25 mmol/L (22-29) 12/06/23 10:00 Anion Gap 16.9 (5-19) 12/06/23 10:00 BUN 11 mg/dL (8-23) 12/06/23 10:00 Creatinine 0.9 mg/dL (0.5-0.9) 12/06/23 10:00 GFR Calculation 63.4 mL/min (90-130) L 12/06/23 10:00 Glucose 101 mg/dL (65-115) 12/06/23 10:00 Calculated Osmolality 278 mOsm/kg (285-295) L 12/06/23 10:00 Calcium 9.6 mg/dL (8.5-10.5) 12/06/23 10:00 Total Bilirubin 0.8 mg/dL (0.15-1.2) 12/06/23 10:00 AST 18 U/L (0-32) 12/06/23 10:00 ALT 12 U/L (0-33) 12/06/23 10:00 Alkaline Phosphatase 132 U/L (35-105) H 12/06/23 10:00 Total Protein 8.4 g/dL (6.6-8.7) 12/06/23 10:00 Albumin 4.0 g/dL (3.5-5.2) 12/06/23 10:00 Globulin 4.4 g/dL (1.3-4.6) 12/06/23 10:00 Procalcitonin 0.11 ng/mL (0-0.5) 12/06/23 10:00 All radiology interpretation(s) finalized by discharge Discharge Plan Discharge Patient Disposition: Home Clinical Impression: Viral upper respiratory tract infection with cough Condition: Stable Prescriptions: New dexamethasone 6 mg tablet 6 mg PO DAILY Qty: 6 0RF albuterol sulfate 90 mcg/actuation HFA aerosol inhaler 2 inh INHALATION Q4H PRN (Reason: shortness of breath or wheezing) Qty: 6.7 0RF No Action Xarelto 20 mg tablet 20 mg PO QAM Hold Instructions: Resume on 08/17/21. metoprolol succinate 25 mg tablet extended release 24 hr 12.5 mg PO QAM losartan 25 mg tablet 25 mg PO QAM potassium chloride 20 mEq tablet extended release 20 meq PO QAM spironolactone 25 mg tablet 25 mg PO QAM famotidine [Pepcid] 40 mg tablet 20 mg PO QAM pramipexole [Mirapex] 0.125 mg tablet 0.125 mg PO BEDTIME venlafaxine 75 mg capsule,extended release 24hr 75 mg PO QAM montelukast 10 mg tablet 10 mg PO BEDTIME ezetimibe 10 mg tablet 10 mg PO BEDTIME prednisone 20 mg Tablet 40 mg PO DAILY Qty: 6 0RF amoxicillin-pot clavulanate 875-125 mg tablet 1 tab PO BID Qty: 12 0RF albuterol sulfate 90 mcg/actuation HFA aerosol inhaler 1 inh inhalation Q6H PRN (Reason: shortness of breath or wheezing) Qty: 8.5 0RF ondansetron 4 mg tablet,disintegrating 4 mg PO Q6H PRN (Reason: nausea and vomiting) Qty: 14 0RF Discharge Orders: Discharge ED (Routine); Ordered 12/06/23 Ordered By: Kiana Weaver Referrals: Magnolia Worthington MD [Primary Care Provider] - Patient Instructions: Upper Respiratory Infection (DC) Activity Restrictions/Additional Instructions: As we discussed your x-ray did not show pneumonia. I will contact you later today in regards to your respiratory panel. I have sent prescriptions for an albuterol inhaler and steroids to your pharmacy on file. You may return to the emergency department at any time if you feel like shortness of breath is significantly worsening, you begin having chest pain or difficulty breathing, or any other concerns you may have. I hope you begin to feel better soon. Coding Level of Care Code ED Armored [employer] Machine Operator for Josey Cordova
--- NOTE | 2023-12-06 09:36 | XR_ITS ---
WS: [id number] XR chest 1V portable [id number] REASON FOR EXAM: cough/fevers FINDINGS: The chest is relatively unchanged compared to 11/06/2023. Cardiac device over the left chest with trans left subclavian vein leads to the right atrium and righ t ventricular apex. The heart is enlarged. The patient is status post coronary artery bypass surgery and aortic valve replacement. There are calcified granulomatous changes in both hemithoraces. There are chronic interstitial lung opacities in both lower lung gonzalez and blunting of both costophr enic angles. Mild degenerative spondylosis in the mid and lower thoracic spine. IMPRESSION: Stable abnormal chest with no acute abnormality identified.
[2023-12-06 09:50] VITALS: PULSE 90; RESP 18; O2SAT 93
[2023-12-06] MEDS: ipratropium-albuterol 3 mL Neb INHALATION (09:52)
[2023-12-06 09:54] VITALS: PULSE 89
[2023-12-06 10:26] LABS: Basophils # 0.1 10^3/uL (0.0-0.1); Basophils % 0.4 %; Eosinophils # 0.4 10^3/uL (0.0-0.8); Eosinophils % 2.3 %; Hematocrit 38.5 % (36-47); Lymphocytes % 12.7 %; Mean Corpuscular HGB Conc 30.4 g/dL (30-55); Mean Corpuscular Hemoglobin 25.6 pg (27-33); Mean Corpuscular Volume 84.2 fl (85-98); Mean Platelet Volume 9.5 fL (7.4-10.4); Monocytes # 1.1 10^3/uL (0.2-0.9); Monocytes % 7.3 %; Neutrophils # 11.83 10^3/uL (1.8-7.7); Neutrophils % 76.7 %; Nucleated Red Blood Cells % 0 %; Platelet Count 243 10^3/cmm (157-399); Red Blood Count 4.57 10^6/uL (3.85-5.65); Red Cell Distribution Width 16.3 % (12.1-15.1); White Blood Count 15.43 10^3/uL (3.29-11.43)
[2023-12-06 10:42] LABS: Alanine Aminotransferase 12 U/L (0-33); Alkaline Phosphatase 132 U/L (35-105); Anion Gap 16.9 (5-19); Aspartate Amino Transferase 18 U/L (0-32); Blood Urea Nitrogen 11 mg/dL (8-23); Calcium 9.6 mg/dL (8.5-10.5); Carbon Dioxide 25 mmol/L (22-29); Chloride 96 mmol/L (98-107); Globulin 4.4 g/dL (1.3-4.6); Glomerular Filtration Rate 63.4 mL/min (90-130); Glucose 101 mg/dL (65-115); Osmolality Calculated 278 mOsm/kg (285-295); Potassium 3.9 mmol/L (3.5-5.1); Sodium 134 mmol/L (136-145); Total Bilirubin 0.8 mg/dL (0.15-1.2); Total Protein 8.4 g/dL (6.6-8.7)
[2023-12-06] MEDS: methylPREDNISolone sod succ 125 mg/2 mL INJ IM (10:47)
[2023-12-06 10:49] LABS: Procalcitonin 0.11 ng/mL (0-0.5)
[2023-12-06 12:21] LABS: Adenovirus Not Detected (NOT DETECT); Chlamydia Pneumoniae Not Detected (NOT DETECT); Coronavirus 229E,HKU1,NL63,OC4 Not Detected (NOT DETECT); Human Metapneumovirus Not Detected (NOT DETECT); Human Rhinovirus/Enterovirus Detected (NOT DETECT); Influenza A Not Detected (NOT DETECT); Influenza A H1 Not Detected (NOT DETECT); Influenza A H1-2009 Not Detected (NOT DETECT); Influenza A H3 Not Detected (NOT DETECT); Influenza B Not Detected (NOT DETECT); Mycoplasma Pneumoniae Not Detected (NOT DETECT); Parainfluenza Virus Type 1 Not Detected (NOT DETECT); Parainfluenza Virus Type 2 Not Detected (NOT DETECT); Parainfluenza Virus Type 3 Not Detected (NOT DETECT); Parainfluenza Virus Type 4 Not Detected (NOT DETECT); Respiratory Syncytial Virus A Not Detected (NOT DETECT); Respiratory Syncytial Virus B Not Detected (NOT DETECT); SARS-COV-2 Not Detected (NOT DETECT)
== END 2023-12-06 11:03 | disposition home or self-care (01) ==
PROVIDERS: Emergency Provider Physician Assistant; PCP Internal Medicine
DX: J06.9 Acute upper respiratory infection, unspecified (principal); R05.9 Cough, unspecified; E78.5 Hyperlipidemia, unspecified; I10 Essential (primary) hypertension; Z95.0 Presence of cardiac pacemaker
CPT/HCPCS: 36415; 71045; 80053; 84145; 85025; 87486; 87581; 87633; 94640; 96372; 99284; J2930

== ENCOUNTER 2023-12-10 15:05 | Inpatient (IN) | payer MEDICAID, SELFPAY ==
[2023-12-10] VITALS (44 sets, daily range): BP systolic 98–124; BP diastolic 51–76; PULSE 68–82; RESP 16–20; TEMP 36.8; O2SAT 93–98; BMI 27.3
--- NOTE | 2023-12-10 15:12 | XRR_ITS ---
PROCEDURE INFORMATION: Exam: XR Chest Exam date and time: 12/10/2023 3:25 PM Age: 63 years old Clinical indication: Cough and dyspnea; Additional info: Dyspnea/cough TECHNIQUE: Imaging protocol: Radiologic exam of the chest. Views: 1 view. COMPARISON: CR XR chest 1V portable [id number] 12/06/2023 9:41 AM FINDINGS: Lungs: Patchy right lower lobe opacities are new. Chronic interstitial changes. Pleural spaces: No pleural effusion. No pneumothorax. Heart/Mediastinum: Heart size is unchanged. Bones/joints: No acute findings. XR/XR chest 1V portable [id number] IMPRESSION: Developing right lung consolidation.
--- NOTE | 2023-12-10 15:25 | ED_ITS ---
HPI - SOB/Dyspnea 2 General: Chief Complaint: Shortness of Breath/Dyspnea Stated Complaint: SOB Time Seen by Provider: 12/10/23 15:07 Source: patient Mode of arrival: ambulatory History of Present Illness: HPI Narrative: 63-year-old female presents emergency ro om with complaint of cough congestion. She is seen a couple days ago chest x-ray was normal and swabs showed rhinovirus she returns today with increasing productive cough worsening shortness of breath. Denies chest pain. MD elicited complaint: shortness of breath and cough Pertinent past history: COPD Onset (ago): day(s) Context: recent illness Timing: constant Exacerbating factors: lying flat, exertion and coughing Relieving factors: rest, bronchodilators and upright position Known history of: COPD Associated symptoms: Reports chest congestion and cough; Deny abdominal pain, chest pain, diaphoresis, dizziness, extremity pain, fever(s), hemoptysis, lightheadedness, myalgias, nausea, orthopnea, palpitations, paresthesias, polydipsia, polyuria, rash, sense of impending doom, syncope or vomiting Review of Systems 2 Const: Denies: fever(s), chills or diaphoresis Card: Denies: chest pain, palpitations, lightheadedness, syncope or orthopnea Resp: Reports: chest congestion; Denies: dyspnea or hemoptysis GI: Denies: abdominal pain, nausea or vomiting : Denies: dysuria, urinary frequency or urinary urgency Musc: Denies: neck pain, back pain or extremity pain Skin/Breast: Denies: rash Neuro: Denies: dizziness Endo: Denies: polyuria or polydipsia PFSH ED 2 PFSH: Medical History History of rheumatic fever Depression with anxiety GERD (gastroesophageal reflux disease) Hyperlipidemia Atrial fibrillation Rheumatic fever Hypertension History of cardiac pacemaker Surgical History History of open heart surgery History of colonoscopy (08/14/21) rectal polyp History of hysterectomy with bilateral oophorectomy History of appendectomy Hx of artificial heart valve replacement Mitral and aortic , bioprosthetic Family History Other CAD (coronary artery disease) Hypertension Social History Smoking and tobacco/nicotine status: never used tobacco/nicotine Second hand smoke exposure: No Alcohol intake: never Substance/Drug Use: never Adopted: No Caregiver/support person: No Lives independently: Yes Household members: spouse Housing: House Marital status: Number of children: 2 Highest education level completed: 11th Grade service: No Current occupational status: disabled Physical Exam 2 Const: COMMON NORMALS: no acute distress GENERAL APPEARANCE: cooperative and comfortable ORIENTATION/CONSCIOUSNESS: Yes awake, Yes oriented to person, Yes oriented to place and Yes oriented to time HENMT: COMMON NORMALS: normocephalic, atraumatic and hearing grossly normal bilaterally HEAD & SCALP: normocephalic and atraumatic Resp: COMMON NORMALS: normal respiratory effort, No retractions and No use of accessory muscles AUSCULTATION: rales on the right and rhonchi Cardio: COMMON NORMALS: regular rate, regular rhythm and No murmurs present (Cardio) RATE: regular rate RHYTHM: regular rhythm GI: COMMON NORMALS: Soft to palpation and No hepatosplenomegaly present A USCULTATION: Yes normoactive bowel sounds PALPATION: Yes Soft to palpation, No Tenderness to palpation present (GI), No Guarding due to palpation present (GI) and Yes No hepatosplenomegaly present Extremity: COMMON NORMALS: normal to inspection, capillary refill normal, no clubbing, cyanosis or edema, no calf tenderness and no pedal edema Neuro: SENSORIUM/ORIENTATION: Yes oriented to person, Yes oriented to place and Yes oriented to time Skin: COMMON NORMALS: no rashes or lesions noted GENERAL SKIN EXAM: no rashes or lesions noted Course 2 Vital Signs: Vital signs: Vital Signs Temperature 98.3 F 12/10/23 15:10 Pulse Rate 80 12/10/23 16:00 Respiratory Rate 20 H 12/10/23 16:00 Blood Pressure 116/76 12/10/23 15:10 Pulse Oximetry 94 12/10/23 16:00 Oxygen Delivery Me thod Nasal Cannula 12/10/23 16:00 Oxygen Flow Rate 2 12/10/23 16:00 MDM - SOB/Dyspnea Medical Decision Making Right lower lobe and middle lobe pneumonias. Will admit started on Zosyn discussed with hospitalist orders written. Pneumonia and presence of a initial rhinovirus infection secondary bacterial infection Medical Records I reviewed the patient's medical records. Lab Data I reviewed the patient's lab results. 12/10/23 15:47 12/10/23 15:47 Labs/Radiology: Radiology Impressions Chest X-Ray 12/10/23 15:12 IMPRESSION: Developing right lung consolidation. Laboratory Results WBC 27.99 10^3/uL (3.29-11.43) H 12/10/23 15:47 RBC 4.45 10^6/uL (3.85-5.65) 12/10/23 15:47 Hgb 11.50 g/dL (11.27-16.99) 12/10/23 15:47 Hct 38.2 % (36-47) 12/10/23 15:47 MCV 85.8 fl (85-98) 12/10/23 15:47 MCH 25.8 pg (27-33) L 12/10/23 15:47 MCHC 30.1 g/dL (30-55) 12/10/23 15:47 RDW 16.6 % (12.1-15.1) H 12/10/23 15:47 Plt Count 333 10^3/cmm (157-399) 12/10/23 15:47 MPV 9.9 fL (7.4-10.4) 12/10/23 15:47 Neut % (Auto) 90.0 % 12/10/23 15:47 Lymph % (Auto) 2.2 % 12/10/23 15:47 [place] % (Auto) 6.9 % 12/10/23 15:47 Eos % (Auto) 0.0 % 12/10/23 15:47 Baso % (Auto) 0.2 % 12/10/23 15:47 Neut # (Auto) 25.19 10^3/uL (1.8-7.7) H 12/10/23 15:47 Lymph # (Auto) 0.6 10^3/uL (0.8-4.8) L 12/10/23 15:47 [place] # (Auto) 1.9 10^3/uL (0.2-0.9) H 12/10/23 15:47 Eos # (Auto) 0.0 10^3/uL (0.0-0.8) 12/10/23 15:47 Baso # (Auto) 0.1 10^3/uL (0.0-0.1) 12/10/23 15:47 Nucleated RBC % (auto) 0 % 12/10/23 15:47 Nucleated RBCs # 0.0 /100WBC 12/10/23 15:47 Sodium 138 mmol/L (136-145) 12/10/23 15:47 Potassium 3.8 mmol/L (3.5-5.1) 12/10/23 15:47 Chloride 102 mmol/L (98-107) 12/10/23 15:47 Carbon Dioxide 22 mmol/L (22-29) 12/10/23 15:47 Anion Gap 17.8 (5-19) 12/10/23 15:47 BUN 20 mg/dL (8-23) 12/10/23 15:47 Creatinine 0.8 mg/dL (0.5-0.9) 12/10/23 15:47 GFR Calculation 72.7 mL/min (90-130) L 12/10/23 15:47 Glucose 141 mg/dL (65-115) H 12/10/23 15:47 Calculated Osmolality 291 mOsm/kg (285-295) 12/10/23 15:47 Lactic Acid 1.8 mmol/L (0.5-2.2) 12/10/23 15:47 Calcium 8.8 mg/dL (8.5-10.5) 12/10/23 15:47 Total Bilirubin 0.7 mg/dL (0.15-1.2) 12/10/23 15:47 AST 34 U/L (0-32) H 12/10/23 15:47 ALT 29 U/L (0-33) 12/10/23 15:47 Alkaline Phosphatase 122 U/L (35-105) H 12/10/23 15:47 NT-Pro-B Natriuret Pep 969 pg/mL (0-125) H 12/10/23 15:47 Total Protein 8.3 g/dL (6.6-8.7) 12/10/23 15:47 Albumin 3.6 g/dL (3.5-5.2) 12/10/23 15:47 Globulin 4.7 g/dL (1.3-4.6) H 12/10/23 15:47 Urine Color Dark yellow (Yellow) 12/10/23 16:14 Urine Appearance Clear (CLEAR) 12/10/23 16:14 Urine pH 5 (5-7) 12/10/23 16:14 Ur Specific [place] 1.015 (1.005-1.030) 12/10/23 16:14 Urine Protein Trace (Negative) 12/10/23 16:14 Urine Glucose (UA) Norm (Normal) 12/10/23 16:14 Urine Ketones 1+ (Negative) H 12/10/23 16:14 Urine Blood 2+ (Negative) H 12/10/23 16:14 Urine Nitrate Positive (Negative) H 12/10/23 16:14 Urine Bilirubin Neg (Negative) 12/10/23 16:14 Urine Urobilinogen 1 mg/dL (Negative) H 12/10/23 16:14 Ur Leukocyte Esterase Trace (Negative) H 12/10/23 16:14 Urine RBC 5-10 /hpf (0-2) H 12/10/23 16:14 Urine WBC 15-25 /hpf (0-5) H 12/10/23 16:14 Ur Squamous Epith Cells 0-4 /hpf (0-5) H 12/10/23 16:14 Amorphous Sediment Not Reportable 12/10/23 16:14 Urine Bacteria 2+ /hpf (NONE) H 12/10/23 16:14 All radiology interpretation(s) finalized by discharge Discharge Plan Discharge Condition: Stable Prescriptions: No Action Xarelto 20 mg tablet 20 mg PO QAM Hold Instructions: Resume on 08/17/21. metoprolol succinate 25 mg tablet extended release 24 hr 12.5 mg PO QAM losartan 25 mg tablet 25 mg PO QAM potassium chloride 20 mEq tablet extended release 20 meq PO QAM spironolactone 25 mg tablet 25 mg PO QAM famotidine [Pepcid] 40 mg tablet 20 mg PO QAM pramipexole [Mirapex] 0.125 mg tablet 0.125 mg PO BEDTIME venlafaxine 75 mg capsule,extended release 24hr 75 mg PO QAM montelukast 10 mg tablet 10 mg PO BEDTIME ezetimibe 10 mg tablet 10 mg PO BEDTIME prednisone 20 mg Tablet 40 mg PO DAILY Qty: 6 0RF amoxicillin-pot clavulanate 875-125 mg tablet 1 tab PO BID Qty: 12 0RF dexamethasone 6 mg tablet 6 mg PO DAILY Qty: 6 0RF albuterol sulfate 90 mcg/actuation HFA aerosol inhaler 2 inh INHALATION Q4H PRN (Reason: shortness of breath or wheezing) Qty: 6.7 0RF albuterol sulfate 90 mcg/actuation HFA aerosol inhaler 1 inh inhalation Q6H PRN (Reason: shortness of breath or wheezing) Qty: 8.5 0RF ondansetron 4 mg tablet,disintegrating 4 mg PO Q6H PRN (Reason: nausea and vomiting) Qty: 14 0RF Referrals: Magnolia Worthington MD [Primary Care Provider] - Coding Level of Care Code ED Foreign Exchange Student Coordinator for Josey Cordova
[2023-12-10] MEDS: ipratropium-albuterol 3 mL Neb INHALATION (15:53)
[2023-12-10 16:04] LABS: Basophils # 0.1 10^3/uL (0.0-0.1); Basophils % 0.2 %; Hematocrit 38.2 % (36-47); Lymphocytes # 0.6 10^3/uL (0.8-4.8); Lymphocytes % 2.2 %; Mean Corpuscular HGB Conc 30.1 g/dL (30-55); Mean Corpuscular Hemoglobin 25.8 pg (27-33); Mean Corpuscular Volume 85.8 fl (85-98); Mean Platelet Volume 9.9 fL (7.4-10.4); Monocytes # 1.9 10^3/uL (0.2-0.9); Monocytes % 6.9 %; Neutrophils # 25.19 10^3/uL (1.8-7.7); Nucleated Red Blood Cells % 0 %; Platelet Count 333 10^3/cmm (157-399); Red Blood Count 4.45 10^6/uL (3.85-5.65); Red Cell Distribution Width 16.6 % (12.1-15.1); White Blood Count 27.99 10^3/uL (3.29-11.43)
[2023-12-10 16:21] LABS: Lactic Sepsis W/Reflex 1.8 mmol/L (0.5-2.2)
[2023-12-10 16:21] LABS: Add Urine Microscopic? YES; Bilirubin Urine Neg (Negative); Blood Urine 2+ (Negative); Glucose Urine UA Norm (Normal); Ketones Urine 1+ (Negative); Leukocyte Esterase Urine Trace (Negative); Nitrate Urine Positive (Negative); Protein Urine Trace (Negative); Specific Gravity, Urine 1.015 (1.005-1.030); Urine Appearance Clear (CLEAR); Urine Color Dark Yellow (Yellow); Urobilinogen Urine 1 mg/dL (Negative); pH Urine 5 (5-7)
[2023-12-10 16:27] LABS: Add Urine Culture? Yes; Bacteria Urine 2+ /hpf; Squamous Epithelial Cell Urine 0-4 /hpf (0-5); WBC Urine 15-25 /hpf (0-5)
[2023-12-10 16:28] LABS: Alanine Aminotransferase 29 U/L (0-33); Albumin Level 3.6 g/dL (3.5-5.2); Alkaline Phosphatase 122 U/L (35-105); Anion Gap 17.8 (5-19); Aspartate Amino Transferase 34 U/L (0-32); Blood Urea Nitrogen 20 mg/dL (8-23); Calcium 8.8 mg/dL (8.5-10.5); Carbon Dioxide 22 mmol/L (22-29); Chloride 102 mmol/L (98-107); Globulin 4.7 g/dL (1.3-4.6); Glomerular Filtration Rate 72.7 mL/min (90-130); Glucose 141 mg/dL (65-115); Osmolality Calculated 291 mOsm/kg (285-295); Potassium 3.8 mmol/L (3.5-5.1); Sodium 138 mmol/L (136-145); Total Bilirubin 0.7 mg/dL (0.15-1.2); Total Protein 8.3 g/dL (6.6-8.7)
[2023-12-10] MEDS: piperacillin-tazobactam 3.375 GM in sodium chloride 0.9% (plus) 50 ML IV (16:30)
[2023-12-10 16:32] LABS: NT Pro B Type Natriuretic Pept 969 pg/mL (0-125)
[2023-12-10 17:45] LABS: Adenovirus Not Detected (NOT DETECT); Chlamydia Pneumoniae Not Detected (NOT DETECT); Coronavirus 229E,HKU1,NL63,OC4 Not Detected (NOT DETECT); Human Metapneumovirus Not Detected (NOT DETECT); Human Rhinovirus/Enterovirus Detected (NOT DETECT); Influenza A Not Detected (NOT DETECT); Influenza A H1 Not Detected (NOT DETECT); Influenza A H1-2009 Not Detected (NOT DETECT); Influenza A H3 Not Detected (NOT DETECT); Influenza B Not Detected (NOT DETECT); Mycoplasma Pneumoniae Not Detected (NOT DETECT); Parainfluenza Virus Type 1 Not Detected (NOT DETECT); Parainfluenza Virus Type 2 Not Detected (NOT DETECT); Parainfluenza Virus Type 3 Not Detected (NOT DETECT); Parainfluenza Virus Type 4 Not Detected (NOT DETECT); Respiratory Syncytial Virus A Not Detected (NOT DETECT); Respiratory Syncytial Virus B Not Detected (NOT DETECT); SARS-COV-2 Not Detected (NOT DETECT)
[2023-12-10 17:52] LABS: Human Metapneumovirus Not Detected (NOT DETECT); Human Rhinovirus/Enterovirus Detected (NOT DETECT); Results from Genmark
[2023-12-10 17:52] LABS: Influenza A Not Detected (NOT DETECT); Influenza A H1 Not Detected (NOT DETECT); Influenza A H1-2009 Not Detected (NOT DETECT); Influenza A H3 Not Detected (NOT DETECT); Influenza B Not Detected (NOT DETECT); Results from Genmark
--- NOTE | 2023-12-10 17:55 | P.HP_ITS ---
Providers/Chief Complaint 2 Primary Care Provider: Magnolia Worthington MD Chief Complaint: SOB History of Present Illness Daniela Lai is a 63 year old female who was diagnosed with RSV viral pneumonia few days ago was put on on steroid regimen presented today with worsening of fever, rigors, chills, shortness of breath. Currently in the ER she is requiring 2 L of oxygen significant leukocytosis, lactic acid is normal, tachypnea, no fever noted x-ray showing pneumonia, urinalysis showing UTI, Patient is endorsing diarrhea, pleuritic pain of epigastric region, no headache, stroke related features, meningitis related features, she is endorsing excessive cough Review of Systems 2 Const: Reports: fever(s) and chills Eyes: Denies: change in vision ENMT: Denies: throat pain Card: Denies: chest pain Resp: Reports: dyspnea GI: Denies: abdominal pain : Denies: flank pain Musc: Denies: neck pain Skin/Breast: Denies: rash Neuro: Denies: headache(s) Psych: Reports: anxiety Medications/Allergies Home Medications Medication Instructions Recorded Confirmed Last Taken Type famotidine 40 mg tablet (Pepcid) 20 mg PO QAM 05/27/21 05/10/23 05/09/23 History losartan 25 mg tablet 25 mg PO QAM 05/27/21 05/10/23 05/09/23 History metoprolol succinate 25 mg 12.5 mg PO QAM 05/27/21 05/10/23 05/09/23 History tablet,extended release 24 hr potassium chloride 20 mEq 20 meq PO QAM 05/27/21 05/10/23 05/09/23 History tablet,extended release pramipexole 0.125 mg tablet 0.125 mg PO BEDTIME 05/27/21 05/10/23 05/09/23 History (Mirapex) rivaroxaban 20 mg tablet (Xarelto) 20 mg PO QAM 05/27/21 05/10/23 05/09/23 History spironolactone 25 mg tablet 25 mg PO QAM 05/27/21 05/10/23 05/09/23 History ezetimibe 10 mg tablet 10 mg PO BEDTIME 05/10/23 05/10/23 05/09/23 History montelukast 10 mg tablet 10 mg PO BEDTIME 05/10/23 05/10/23 05/09/23 History venlafaxine 75 mg capsule,extended 75 mg PO QAM 05/10/23 05/10/23 05/09/23 History release 24 hr amoxicillin 875 mg-potassium 1 tab PO BID #12 tabs 05/11/23 Unknown Rx clavulanate 125 mg tablet prednisone 20 mg tablet 40 mg (2 x 20 mg) PO DAILY #6 tabs 05/11/23 Unknown Rx albuterol sulfate 90 mcg/actuation 1 inh inhalation Q6H PRN shortness 11/06/23 Unknown Rx aerosol inhaler of breath or wheezing #8.5 grams ondansetron 4 mg disintegrating 4 mg PO Q6H PRN nausea and 11/06/23 Unknown Rx tablet vomiting #14 tabs albuterol sulfate 90 mcg/actuation 2 inh inhalation Q4H PRN shortness 12/06/23 Unknown Rx aerosol inhaler of breath or wheezing #6.7 grams dexamethasone 6 mg tablet 6 mg PO DAILY #6 tabs 12/06/23 Unknown Rx Allergies Allergy/AdvReac Type Severity Reaction Status Date / Time guaifenesin [From Entex LA] Allergy Severe ADR-Itching Verified 12/10/23 15:18 phenylephrine [From Entex LA] Allergy Severe ADR-Itching Verified 12/10/23 15:18 phenylpropanolamine Allergy Severe ADR-Itching Verified 12/10/23 15:18 [From Entex LA] Sulfa (Sulfonamide Allergy Severe Unknown Verified 12/10/23 15:18 Antibiotics) cefuroxime [From Ceftin] Allergy ADR-Itching Verified 12/10/23 15:18 ofloxacin [From Floxin] Allergy ALGY-Hives Verified 12/10/23 15:18 PFSH Acute 2 PFSH: Medical History History of rheumatic fever Depression with anxiety GERD (gastroesophageal reflux disease) Hyperlipidemia Atrial fibrillation Rheumatic fever Hypertension History of cardiac pacemaker Surgical History History of open heart surgery History of colonoscopy (08/14/21) rectal polyp History of hysterectomy with bilateral oophorectomy History of appendectomy Hx of artificial heart valve replacement Mitral and aortic , bioprosthetic Family History Other CAD (coronary artery disease) Hypertension Social History Smoking and tobacco/nicotine status: never used tobacco/nicotine Second hand smoke exposure: No Alcohol intake: never Substance/Drug Use: never Adopted: No Caregiver/support person: No Lives independently: Yes Household members: spouse Housing: House Marital status: Number of children: 2 Highest education level completed: 11th Grade service: No Current occupational status: disabled Vitals/I&O/Wt Last Vital Signs Temp 98.3 F 12/10/23 15:10 Pulse 80 12/10/23 16:00 Resp 20 H 12/10/23 16:00 BP 116/76 12/10/23 15:10 Pulse Ox 94 12/10/23 16:00 O2 Del Method Nasal Cannula 12/10/23 16:00 O2 Flow Rate 2 12/10/23 16:00 Weight last 48 hrs Weight 65.771 kg Physical Exam 2 Narrative: Patient is awake and alert Euvolemic S1, S2 Currently on 2 L and saturating 95% Nonfocal neuroexam No shortness of breath on conversation Multiple rhonchi or crackles noted on examination Abdomen soft Lower extremity no edema is at the bedside Data 12/10/23 15:47 12/10/23 15:47 Micro: Microbiology 12/10/23 15:51 Blood Culture - Preliminary Blood SPECIMEN COLLECTED 12/10/23 15:47 Blood Culture - Preliminary Blood SPECIMEN COLLECTED A&P Assessment and plan (1) Atrial fibrillation: (2) Viral upper respiratory tract infection with cough: (3) Chronic diarrhea: (4) Pneumonia: (5) UTI (urinary tract infection): (6) Hypoxia: Plan Acute hypoxia related to postviral bacterial pneumonia Start broad-spectrum antibiotics Hold prednisone or Decadron Add DuoNeb treatment Wean off oxygen Patient is a non-smoker Common cold antirhinovirus COVID-negative A-fib without RVR Continue anticoagulating agent along metoprolol Patient stating that she is not diabetic She would require IV fluids overnight holding Lasix diastolic CHF without acute exacerbation Significant leukocytosis which could be combination of pneumonia and use of steroid Cardiac consistent carb diet Full code DVT prophylaxis covered with therapeutic anticoagulating agent is at the bedside Attestations 2 Medical Necessity Statement*: Significant hypoxia and leukocytosis anticipating more than 2 midnights Diagnoses Atrial fibrillation I48.91 Viral upper respiratory tract infection with cough J06.9 Chronic diarrhea K52.9 Pneumonia J18.9 UTI (urinary tract infection) N39.0 Hypoxia R09.02
[2023-12-10] MEDS: sodium chloride 0.9% 1,000 ML 75 ML IV (21:25)
[2023-12-10] MEDS: vancomycin 1,500 MG/300 ML PIGGYBACK 200 MG IV (21:26)
[2023-12-10 22:00] LABS: Glucose Point of Care 212 mg/dL (70-110)
[2023-12-11] VITALS (14 sets, daily range): BP systolic 107–146; BP diastolic 66–78; PULSE 62–79; RESP 16–19; TEMP 36.3–36.7; O2SAT 93–99
[2023-12-11] MEDS: venlafaxine ER (24HR) 75 mg Capsule PO (05:11)
[2023-12-11] MEDS: losartan 50 mg Tablet 25 MG PO (05:12)
[2023-12-11] MEDS: metoprolol succinate ER (24 HR) 25 mg Tablet 12.5 MG PO (05:12)
[2023-12-11] MEDS: spironolactone 25 mg Tablet PO (05:12)
[2023-12-11] MEDS: rivaroxaban 10 mg Tablet 20 MG PO (05:13)
[2023-12-11] MEDS: piperacillin-tazobactam 3.375 GM in sodium chloride 0.9% (plus) 50 ML IV ×3 (05:13→22:01)
[2023-12-11 06:19] LABS: Basophils % 0.1 %; Hematocrit 33.3 % (36-47); Lymphocytes # 1.1 10^3/uL (0.8-4.8); Lymphocytes % 5.6 %; Mean Corpuscular HGB Conc 30.6 g/dL (30-55); Mean Corpuscular Hemoglobin 25.9 pg (27-33); Mean Corpuscular Volume 84.5 fl (85-98); Mean Platelet Volume 9.6 fL (7.4-10.4); Monocytes # 1.4 10^3/uL (0.2-0.9); Monocytes % 6.9 %; Neutrophils # 17.41 10^3/uL (1.8-7.7); Neutrophils % 86.4 %; Nucleated Red Blood Cells % 0 %; Platelet Count 271 10^3/cmm (157-399); Red Blood Count 3.94 10^6/uL (3.85-5.65); Red Cell Distribution Width 16.7 % (12.1-15.1); White Blood Count 20.15 10^3/uL (3.29-11.43)
[2023-12-11 06:22] LABS: Glucose Point of Care 105 mg/dL (70-110)
[2023-12-11 06:34] LABS: Anion Gap 14.6 (5-19); Blood Urea Nitrogen 22 mg/dL (8-23); C Reactive Protein 127.4 mg/L (0.0-4.9); Calcium 8.3 mg/dL (8.5-10.5); Carbon Dioxide 23 mmol/L (22-29); Chloride 104 mmol/L (98-107); Glomerular Filtration Rate 63.4 mL/min (90-130); Glucose 98 mg/dL (65-115); Magnesium 2.3 mg/dL (1.7-2.3); Osmolality Calculated 287 mOsm/kg (285-295); Potassium 4.6 mmol/L (3.5-5.1); Sodium 137 mmol/L (136-145)
--- NOTE | 2023-12-11 08:50 | PC.PHAR ---
pt states she takes care of her own medications-rx filled 11/07/23 4d/s zofran 4mg po q6 prn pt states someone threw away her zofran and she no longer has-pt states her kcl 20meq daily is too big so she breaks in half and takes 10meq bid-
[2023-12-11] MEDS: vancomycin 1,000 MG in sodium chloride 0.9% 250 ML 250 MG IV ×2 (09:22→20:46)
[2023-12-11] MEDS: sennosides-docusate Tablet 1 TAB PO (09:23)
--- NOTE | 2023-12-11 09:25 | P.PN_ITS ---
Subjective 2 Subjective: Patient today told me that her friend came from [facility] and she was sick and after that she has been sick as well No fever overnight I will discontinue IV fluids She is off oxygen Had mild episode of epistaxis Vitals/I&O/Wt Last Vital Signs Temp 97.4 F L 12/11/23 09:18 Pulse 68 12/11/23 09:18 Resp 19 H 12/11/23 09:18 BP 127/73 12/11/23 09:18 Pulse Ox 94 12/11/23 09:18 O2 Del Method Room Air 12/11/23 09:18 O2 Flow Rate 2 12/10/23 16:00 12/10/23 12/11/23 12/11/23 22:59 06:59 14:59 Intake Total 50 / 50 300 / 350 Balance 50 / 50 300 / 350 Weight last 48 hrs Weight 65.771 kg Weight 65.771 kg Physical Exam 2 Narrative: Awake and alert Currently on room air Crackles noted on lungs auscultation S1, S2 variable Abdomen soft Pleasant cough Sitting in her bed GCS 15 Data 12/11/23 06:01 12/11/23 06:01 Micro: Microbiology 12/10/23 16:14 Urine Culture - Preliminary Urine,Clean Catch Gram Negative Rods 12/10/23 15:51 Blood Culture - Preliminary Blood SPECIMEN COLLECTED 12/10/23 15:47 Blood Culture - Preliminary Blood SPECIMEN COLLECTED A&P Assessment and plan (1) Atrial fibrillation: (2) Viral upper respiratory tract infection with cough: (3) Chronic diarrhea: (4) UTI (urinary tract infection): (5) Pneumonia: (6) Hypoxia: Plan Continue broad-spectrum antibiotics No fever, leukocytosis improving Discontinue IV fluids Add Lasix for crackles in her lungs Add Mucomyst along DuoNeb Afebrile If white count below 15,000 I will discharge her in next 24 to 48 hours Continue rivaroxaban and metoprolol for her A-fib Epistaxis: Resolved Off oxygen Full code Regular diet could be changed to cardiac Attestations 2 Medical Necessity Statement*: Continue medical management Diagnoses Atrial fibrillation I48.91 Viral upper respiratory tract infection with cough J06.9 Chronic diarrhea K52.9 UTI (urinary tract infection) N39.0 Pneumonia J18.9 Hypoxia R09.02
[2023-12-11] MEDS: FUROsemide 10 mg/mL SDV 4mL 40 MG IVP (10:58)
[2023-12-11 11:23] LABS: Glucose Point of Care 99 mg/dL (70-110)
[2023-12-11] MEDS: acetylcysteine 200 mg/mL SDV 4 mL INHALATION ×2 (15:21→20:23)
[2023-12-11] MEDS: ipratropium-albuterol 3 mL Neb INHALATION (15:22)
[2023-12-11] MEDS: budesonide 0.5 mg/2 mL Neb INHALATION (20:23)
[2023-12-12] VITALS (15 sets, daily range): BP systolic 104–125; BP diastolic 67–80; PULSE 63–93; RESP 16–20; TEMP 36.4–36.9; O2SAT 90–97
[2023-12-12 05:22] LABS: Basophils # 0.1 10^3/uL (0.0-0.1); Basophils % 0.4 %; Eosinophils # 0.2 10^3/uL (0.0-0.8); Eosinophils % 0.9 %; Hematocrit 36.9 % (36-47); Lymphocytes # 2.6 10^3/uL (0.8-4.8); Lymphocytes % 14.3 %; Mean Corpuscular HGB Conc 30.6 g/dL (30-55); Mean Corpuscular Hemoglobin 25.5 pg (27-33); Mean Corpuscular Volume 83.3 fl (85-98); Mean Platelet Volume 9.7 fL (7.4-10.4); Monocytes # 1.8 10^3/uL (0.2-0.9); Monocytes % 10.2 %; Neutrophils # 12.81 10^3/uL (1.8-7.7); Nucleated Red Blood Cells % 0 %; Platelet Count 331 10^3/cmm (157-399); Red Blood Count 4.43 10^6/uL (3.85-5.65); Red Cell Distribution Width 16.6 % (12.1-15.1); White Blood Count 18.05 10^3/uL (3.29-11.43)
[2023-12-12 05:39] LABS: Anion Gap 11.7 (5-19); Blood Urea Nitrogen 26 mg/dL (8-23); Calcium 8.6 mg/dL (8.5-10.5); Carbon Dioxide 25 mmol/L (22-29); Chloride 101 mmol/L (98-107); Glomerular Filtration Rate 50.3 mL/min (90-130); Glucose 85 mg/dL (65-115); Osmolality Calculated 282 mOsm/kg (285-295); Potassium 3.7 mmol/L (3.5-5.1); Sodium 134 mmol/L (136-145)
[2023-12-12] MEDS: piperacillin-tazobactam 3.375 GM in sodium chloride 0.9% (plus) 50 ML IV ×3 (05:55→22:48)
[2023-12-12] MEDS: losartan 50 mg Tablet 25 MG PO (05:56)
[2023-12-12] MEDS: venlafaxine ER (24HR) 75 mg Capsule PO (05:57)
[2023-12-12] MEDS: spironolactone 25 mg Tablet PO (05:57)
[2023-12-12] MEDS: rivaroxaban 10 mg Tablet 20 MG PO (05:57)
[2023-12-12] MEDS: metoprolol succinate ER (24 HR) 25 mg Tablet 12.5 MG PO (05:57)
[2023-12-12] MEDS: ipratropium-albuterol 3 mL Neb INHALATION ×4 (07:59→20:30)
[2023-12-12] MEDS: budesonide 0.5 mg/2 mL Neb INHALATION ×2 (07:59→20:30)
[2023-12-12] MEDS: sennosides-docusate Tablet 1 TAB PO (08:26)
--- NOTE | 2023-12-12 08:50 | PC.CHAP ---
Pastoral Care Encounter/Spiritual Assessment Type of Contact [] Declined inverter and clipper visit [] Patient/Family/Request visit [] Outpatient visit [] Follow-up visit [] Physician referral [] Code/Alert [] Routine visit [] Staff referral [] Actively dying [] Patient sleeping [] Family support [] [] Out of room [] Palliative care [] [] Receiving care in room [] Pre-surgical visit [] Trauma [] Long length of stay [] ICU visit [x] Other:Contact precautions. No visit. Relational/Emotional Strength [] Patient feels connected with others/family/visitors/staff [] Distress [] Loneliness/isolation [] Abandonment Spirituality of Patient [] Person of Julianne [] Attends Alevism of their Julianne [] Believes in Prayer [] Reads Bible or Faith materials [] There are Spiritual issues to be addressed Public Administration Professor Interventions [] Prayer [] Active listening [] Non-anxious presence [] Spiritual/emotional support [] Crisis/trauma care [] Spiritual counseling [] Bereavement support [] Provided bereavement packet [] Provided Bible/devotional materials [] Provided toy/stuffed animal, coloring book to patient or family member [] Provided Communion [] Anointing/Allen [] Salvation [] Completed spiritual assessment [] Other: Impact on Illness or Injury [] Angry [] Fearful [] Anxious [] Often cries [] Exhaustion [] Unable to work [] Unable to attend rastafarian [] Unable to walk/stand [] Unable to read [] Unable to drive [] Unable to eat/drink [] Unable to sleep [] Unable to be with family [] Patient intubated [] Other: Summary Time spent with patient
--- NOTE | 2023-12-12 10:00 | CT_ITS ---
WS: [id number] CT chest wo con [id number] HISTORY: sob TECHNIQUE: Axial imaging performed through the thorax. Coronal and sagittal reformats are submitted. All CT scans at [facility] use at least one of these dose optimization techniques: automated exposure control; mA and/or kV adjustment per patient size (includes targeted exams where dose is mat ched to clinical indication); or iterative reconstruction. CONTRAST: None DLP: 244.25 mGy.cm COMPARISON: Radiograph 12/10/2023 Lungs and central airway: Multifocal, bilateral multi lobar opacifications. There is a combination of irregular opacifications, tree-in-bud airspace disease and groundglass attenuation. Pleura: Normal. No pleural effusion. Heart and pericardium: Markedly enlarged heart. Dual-lead pacer is noted. Heavy calcification along t he valve planes. No pericardial effusion. Mediastinum and jenny: Mediastinal and hilar lymph nodes. Some of the lymph nodes contain calcificatio ns. Not significantly enlarged. Vessels: Atherosclerosis aorta. Normal sized pulmonary artery. Chest wall and lower neck: Prior median sternotomy. LEFT subclavian dual-lead cardiac pacer. Upper abdomen: Mild diffuse hepatic steatosis. No adrenal mass. Osseous structures: T5 mild anterior wedging and sclerosis along the superior endplate. IMPRESSION: 1. Bilateral, multilobar pneumonitis and endobronchial pneumonia. Recommend chest CT after treatment to ensure all of the opacifications resolved and there is no underlying persistent nodule to suggest neoplasm. 2. No adenopathy. 3. Marked cardiac enlargement and atherosclerosis aorta. 4. Hepatic steatosis.
[2023-12-12] MEDS: vancomycin 1,000 MG in sodium chloride 0.9% 250 ML 250 MG IV (10:13)
[2023-12-12] MEDS: acetylcysteine 200 mg/mL SDV 4 mL INHALATION ×3 (11:34→20:30)
--- NOTE | 2023-12-12 11:48 | P.PN_ITS ---
Subjective 2 Subjective: Leukocytosis improving She is on oxygen She is still having crackles in her lungs will request CT chest Afebrile Patient is stating that she is bringing up her mucus and Mucomyst is really working Vitals/I&O/Wt Last Vital Signs Temp 98.1 F 12/12/23 11:40 Pulse 77 12/12/23 11:40 Resp 18 12/12/23 11:40 BP 118/78 12/12/23 11:40 Pulse Ox 95 12/12/23 11:40 O2 Del Method Room Air 12/12/23 11:37 O2 Flow Rate 2 12/10/23 16:00 12/11/23 12/12/23 12/12/23 22:59 06:59 14:59 Intake Total 300 / 1840 50 / 1890 300 / 300 Output Total 0 / 0 0 / 0 Balance 300 / 1840 50 / 1890 300 / 300 Weight last 48 hrs Weight 67.585 kg Weight 65.771 kg Weight 65.771 kg Physical Exam 2 Narrative: Patient is sitting in her bed Currently on room air Awake and alert Assessment Euvolemic S1, S2 Slight crackles Abdomen soft Productive cough Chest congestion Has mild crackles left lung base as compared to right Data 12/12/23 05:00 12/12/23 05:00 Micro: Microbiology 12/11/23 16:50 Gram Stain - Final Sputum - Expectorated Sputum Sputum Culture - Preliminary 12/10/23 15:51 Blood Culture - Preliminary Blood NEGATIVE TO DATE 12/10/23 15:47 Blood Culture - Preliminary Blood NEGATIVE TO DATE 12/10/23 16:14 Urine Culture - Preliminary Urine,Clean Catch Gram Negative Rods A&P Assessment and plan (1) Atrial fibrillation: (2) Viral upper respiratory tract infection with cough: (3) UTI (urinary tract infection): (4) Family history of colon cancer: (5) Pneumonia: (6) Hypoxia: Plan I am planning to discharge her by tomorrow if white count trends down below 15,000 She is improving significantly I will continue her IV antibiotics at this point A-fib without RVR continue Xarelto I will give her a dose of Lasix Mucomyst seems to be helping her with chest congestion SIERRA: Hold spironolactone Full code Cardiac diet Attestations 2 Medical Necessity Statement*: Discharge likely tomorrow Diagnoses Atrial fibrillation I48.91 Viral upper respiratory tract infection with cough J06.9 UTI (urinary tract infection) N39.0 Family history of colon cancer Z80.0 Pneumonia J18.9 Hypoxia R09.02
[2023-12-12] MEDS: FUROsemide 10 mg/mL SDV 2mL 20 MG IVP (12:12)
[2023-12-12 22:20] LABS: Vancomycin Trough 22.3 ug/mL (10-15)
[2023-12-13] VITALS (8 sets, daily range): BP systolic 106–118; BP diastolic 62–74; PULSE 78–93; RESP 16–18; TEMP 36.6–37; O2SAT 92–94
[2023-12-13] MEDS: ipratropium-albuterol 3 mL Neb INHALATION ×3 (00:49→09:33)
[2023-12-13] MEDS: acetylcysteine 200 mg/mL SDV 4 mL INHALATION ×2 (04:47→09:32)
[2023-12-13] MEDS: venlafaxine ER (24HR) 75 mg Capsule PO (05:16)
[2023-12-13] MEDS: rivaroxaban 10 mg Tablet 20 MG PO (05:16)
[2023-12-13] MEDS: piperacillin-tazobactam 3.375 GM in sodium chloride 0.9% (plus) 50 ML IV (05:18)
[2023-12-13 06:04] LABS: Hematocrit 37.1 % (36-47); Mean Corpuscular Hemoglobin 25.3 pg (27-33); Mean Corpuscular Volume 81.5 fl (85-98); Mean Platelet Volume 9.3 fL (7.4-10.4); Platelet Count 328 10^3/cmm (157-399); Red Blood Count 4.55 10^6/uL (3.85-5.65); Red Cell Distribution Width 16.4 % (12.1-15.1); White Blood Count 13.49 10^3/uL (3.29-11.43)
--- NOTE | 2023-12-13 06:12 | PC.NURSE ---
Pt blood pressure was 106/62 with hr of 83 at 4am. Pt had losartan and metoprolol due at 6am. Dr was notified and gave orders to hold losartan and give metoprolol.
[2023-12-13] MEDS: metoprolol succinate ER (24 HR) 25 mg Tablet 12.5 MG PO (06:16)
[2023-12-13 06:25] LABS: Anion Gap 16.6 (5-19); Blood Urea Nitrogen 26 mg/dL (8-23); Calcium 8.5 mg/dL (8.5-10.5); Carbon Dioxide 24 mmol/L (22-29); Chloride 98 mmol/L (98-107); Glomerular Filtration Rate 50.3 mL/min (90-130); Glucose 96 mg/dL (65-115); Osmolality Calculated 285 mOsm/kg (285-295); Potassium 3.6 mmol/L (3.5-5.1); Sodium 135 mmol/L (136-145)
[2023-12-13 07:59] LABS: Slide Review Slide Review Perform
[2023-12-13 08:00] LABS: Absolute Eosinophils 0.3 10^3/cmm (0.0-0.7); Absolute Neutrophil 8.5 10^3/cmm (1.4-6.5); Absolute Segmented Neutrophil 8.5 10/cmm (1.6-7.1); Eosinophils 2 %; Lymphocytes 21 %; Lymphocytes Absolute 2.8 10^3/cmm (1.2-3.4); Monocytes Absolute 0.8 10^3/cmm (0.1-0.6); Platelet Estimate Normal (Normal); Segmented Neutrophils 63 %; Total Cells Counted 100 (0-100)
[2023-12-13 08:01] LABS: Anisocytosis Trace
[2023-12-13] MEDS: budesonide 0.5 mg/2 mL Neb INHALATION (09:33)
[2023-12-13] MEDS: vancomycin 1,000 MG in sodium chloride 0.9% 250 ML 250 MG IV (09:52)
--- NOTE | 2023-12-13 10:26 | PM.DCS ---
Discharge Providers Date of Admission: 12/10/23 17:14 Date of Discharge: December 13, 2023 Attending Provider at Admission: Kyle Correa MD Attending Provider at Discharge: Kyle Correa MD Primary Care Provider: Magnolia Worthington MD Diagnoses at Discharge Discharge Diagnosis (1) Atrial fibrillation: Status: Acute (2) Viral upper respiratory tract infection with cough: Status: Acute (3) UTI (urinary tract infection): Status: Acute (4) Family history of colon cancer: Status: Acute (5) Pneumonia: Status: Acute (6) Hypoxia: Status: Acute Reason for Visit Reason for Visit: SOB Hospital Course Hospital Course 63-year female with RSV pneumonia, presented to the hospital worsening of her symptoms shortness of breath and hypoxia, she was taking steroids before her arrival, her leukocytosis was around 28,000, she got admitted received IV antibiotics, CT chest showed bilateral infiltrates with bronchial pneumonia, she remained afebrile we were able to wean off oxygen to room air, she received Lasix for her congestive heart failure features white count at the time of discharge is 13,000. Bandemia improving. She has CHF related SIERRA which would improve with diuretics. I will give her doxycycline along albuterol at the time of discharge. Physical Exam Narrative: GCS 15 Awake and alert Currently on room air Sign of CHF improving Pleasant and cooperative Discharge Data Studies Completed and Pending Completed Studies During Hospitalization Category Date Time Status CT chest wo con [id number] Routine Cat Scan 12/12/23 10:00 Completed XR chest 1V portable [id number] Stat Exams 12/10/23 15:12 Completed Pending at discharge Category Date Time Status Blood Culture Stat Lab 12/10/23 15:51 Results Sputum Culture and Gram Stain Stat Lab 12/11/23 16:50 Results Radiology Impressions Chest X-Ray 12/10/23 15:12 IMPRESSION: Developing right lung consolidation. Laboratory Results WBC 13.49 10^3/uL (3.29-11.43) H 12/13/23 05:45 RBC 4.55 10^6/uL (3.85-5.65) 12/13/23 05:45 Hgb 11.50 g/dL (11.27-16.99) 12/13/23 05:45 Hct 37.1 % (36-47) 12/13/23 05:45 MCV 81.5 fl (85-98) L 12/13/23 05:45 MCH 25.3 pg (27-33) L 12/13/23 05:45 MCHC 31.0 g/dL (30-55) 12/13/23 05:45 RDW 16.4 % (12.1-15.1) H 12/13/23 05:45 Plt Count 328 10^3/cmm (157-399) 12/13/23 05:45 MPV 9.3 fL (7.4-10.4) 12/13/23 05:45 Neut % (Auto) 71.0 % 12/12/23 05:00 Lymph % (Auto) Not Reportable 12/13/23 05:45 [place] % (Auto) Not Reportable 12/13/23 05:45 Eos % (Auto) 0.9 % 12/12/23 05:00 Baso % (Auto) 0.4 % 12/12/23 05:00 Neut # (Auto) 12.81 10^3/uL (1.8-7.7) H 12/12/23 05:00 Lymph # (Auto) Not Reportable 12/13/23 05:45 [place] # (Auto) Not Reportable 12/13/23 05:45 Eos # (Auto) 0.2 10^3/uL (0.0-0.8) 12/12/23 05:00 Baso # (Auto) 0.1 10^3/uL (0.0-0.1) 12/12/23 05:00 Nucleated RBC % (auto) 0 % 12/12/23 05:00 Total Counted 100 (0-100) 12/13/23 05:45 Atypical Lymphs % 0.0 % (0-5) 12/13/23 05:45 Absolute Neutrophils 8.5 10^3/cmm (1.4-6.5) H 12/13/23 05:45 Segmented Neutrophils 63 % 12/13/23 05:45 Abs Segm Neuts (Man) 8.5 10/cmm (1.6-7.1) H 12/13/23 05:45 Band Neutrophils 0.0 % 12/13/23 05:45 Abs Band Neuts (Man) 0.0 10^3/cmm (0.0-1.2) 12/13/23 05:45 Absolute Lymphocytes 2.8 10^3/cmm (1.2-3.4) 12/13/23 05:45 Lymphocytes (Manual) 21 % 12/13/23 05:45 Monocytes (Manual) 6.0 % 12/13/23 05:45 Absolute Monocytes 0.8 10^3/cmm (0.1-0.6) H 12/13/23 05:45 Eosinophils (Manual) 2 % 12/13/23 05:45 Absolute Eosinophils 0.3 10^3/cmm (0.0-0.7) 12/13/23 05:45 Basophils (Manual) 0.0 % 12/13/23 05:45 Absolute Basophils 0.0 10^3/cmm (0.0-0.2) 12/13/23 05:45 Metamyelocytes 3.0 % 12/13/23 05:45 Myelocytes 5.0 % 12/13/23 05:45 Nucleated RBCs # 0.0 /100WBC 12/12/23 05:00 Platelet Estimate Normal (Normal) 12/13/23 05:45 Anisocytosis Trace 12/13/23 05:45 Sodium 135 mmol/L (136-145) L 12/13/23 05:45 Potassium 3.6 mmol/L (3.5-5.1) 12/13/23 05:45 Chloride 98 mmol/L (98-107) 12/13/23 05:45 Carbon Dioxide 24 mmol/L (22-29) 12/13/23 05:45 Anion Gap 16.6 (5-19) 12/13/23 05:45 BUN 26 mg/dL (8-23) H 12/13/23 05:45 Creatinine 1.1 mg/dL (0.5-0.9) H 12/13/23 05:45 GFR Calculation 50.3 mL/min (90-130) L 12/13/23 05:45 Glucose 96 mg/dL (65-115) 12/13/23 05:45 POC Glucose 99 mg/dL (70-110) 12/11/23 10:58 Calculated Osmolality 285 mOsm/kg (285-295) 12/13/23 05:45 Lactic Acid 1.8 mmol/L (0.5-2.2) 12/10/23 15:47 Calcium 8.5 mg/dL (8.5-10.5) 12/13/23 05:45 Magnesium 2.3 mg/dL (1.7-2.3) 12/11/23 06:01 Total Bilirubin 0.7 mg/dL (0.15-1.2) 12/10/23 15:47 AST 34 U/L (0-32) H 12/10/23 15:47 ALT 29 U/L (0-33) 12/10/23 15:47 Alkaline Phosphatase 122 U/L (35-105) H 12/10/23 15:47 C-Reactive Protein 127.4 mg/L (0.0-4.9) H 12/11/23 06:01 NT-Pro-B Natriuret Pep 969 pg/mL (0-125) H 12/10/23 15:47 Total Protein 8.3 g/dL (6.6-8.7) 12/10/23 15:47 Albumin 3.6 g/dL (3.5-5.2) 12/10/23 15:47 Globulin 4.7 g/dL (1.3-4.6) H 12/10/23 15:47 Urine Color Dark yellow (Yellow) 12/10/23 16:14 Urine Appearance Clear (CLEAR) 12/10/23 16:14 Urine pH 5 (5-7) 12/10/23 16:14 Ur Specific [place] 1.015 (1.005-1.030) 12/10/23 16:14 Urine Protein Trace (Negative) 12/10/23 16:14 Urine Glucose (UA) Norm (Normal) 12/10/23 16:14 Urine Ketones 1+ (Negative) H 12/10/23 16:14 Urine Blood 2+ (Negative) H 12/10/23 16:14 Urine Nitrate Positive (Negative) H 12/10/23 16:14 Urine Bilirubin Neg (Negative) 12/10/23 16:14 Urine Urobilinogen 1 mg/dL (Negative) H 12/10/23 16:14 Ur Leukocyte Esterase Trace (Negative) H 12/10/23 16:14 Urine RBC 5-10 /hpf (0-2) H 12/10/23 16:14 Urine WBC 15-25 /hpf (0-5) H 12/10/23 16:14 Ur Squamous Epith Cells 0-4 /hpf (0-5) H 12/10/23 16:14 Amorphous Sediment Not Reportable 12/10/23 16:14 Urine Bacteria 2+ /hpf (NONE) H 12/10/23 16:14 Vancomycin Trough 22.3 ug/mL (10-15) H 12/12/23 21:54 Coronavirus 229E (PCR) Not detected (NOT DETECT) 12/10/23 15:51 Human Metapneumovir PCR Not detected (NOT DETECT) 12/10/23 17:49 Influenza A (H1) PCR Not detected (NOT DETECT) 12/10/23 15:51 Influ A (H1/09) PCR Not detected (NOT DETECT) 12/10/23 15:51 Influenza A (H3) PCR Not detected (NOT DETECT) 12/10/23 15:51 Influenza Type A Ag Cancelled 12/10/23 15:51 Influenza Type A (PCR) Not detected (NOT DETECT) 12/10/23 15:51 Influenza Type B Ag Cancelled 12/10/23 15:51 Influenza Type B (PCR) Not detected (NOT DETECT) 12/10/23 15:51 Entero/Rhino (PCR) Detected (NOT DETECT) A 12/10/23 17:49 SARS-CoV-2 (PCR) Not detected (NOT DETECT) 12/10/23 15:51 Vitals Last Vital Signs Temp 98.6 F 12/13/23 08:00 Pulse 79 12/13/23 08:00 Resp 18 12/13/23 08:00 BP 112/68 12/13/23 08:00 Pulse Ox 94 12/13/23 08:00 O2 Del Method Room Air 12/13/23 08:00 O2 Flow Rate 2 12/10/23 16:00 Discharge Plan Discharge Patient Disposition: Home Condition: Stable Prescriptions: New doxycycline hyclate 100 mg tablet 100 mg PO BID 3 Days Qty: 6 0RF methylprednisolone [Medrol (Boni)] 4 mg tablets,dose pack See Rx Instructions .ROUTE .COMPLEX Qty: 21 0RF Rx Instructions: orally per package directions albuterol sulfate 90 mcg/actuation HFA aerosol inhaler 2 inh inhalation Q8H PRN (Reason: shortness of breath or wheezing) Qty: 6.7 2RF amoxicillin-pot clavulanate 875-125 mg tablet 1 tab PO BID Qty: 10 0RF Continued Xarelto 20 mg tablet 20 mg PO QAM Hold Instructions: Resume on 08/17/21. metoprolol succinate 25 mg tablet extended release 24 hr 12.5 mg PO QAM losartan 25 mg tablet 25 mg PO QAM famotidine [Pepcid] 40 mg tablet 20 mg PO QAM pramipexole [Mirapex] 0.125 mg tablet 0.125 mg PO BEDTIME venlafaxine 75 mg capsule,extended release 24hr 75 mg PO QAM montelukast 10 mg tablet 10 mg PO BEDTIME ezetimibe 10 mg tablet 10 mg PO BEDTIME albuterol sulfate 90 mcg/actuation HFA aerosol inhaler 2 inh INHALATION Q4H PRN (Reason: shortness of breath or wheezing) Qty: 6.7 0RF Changed potassium chloride 20 mEq tablet extended release 10 meq PO DAILY Qty: 30 0RF Discontinued spironolactone 25 mg tablet 25 mg PO QAM dexamethasone 6 mg tablet 6 mg PO DAILY Qty: 6 0RF Rx Instructions: for 6 days (rx filled 12/06/23) Discharge Orders: Discharge Order (Routine); Ordered 12/13/23 Ordered By: Kyle Correa Referrals: Magnolia Worthington MD [Primary Care Provider] - 7-10 days Patient Instructions: Opioid Safety Discharge Attestations Time Spent in Discharge Care*: greater than 30 min Quality Metrics Clinical Quality Measures [ No reported AMI, CVA or VTE this stay] Coding Level of Care Code Acute Code for [facility] Fwd Diagnoses Atrial fibrillation I48.91 Viral upper respiratory tract infection with cough J06.9 UTI (urinary tract infection) N39.0 Family history of colon cancer Z80.0 Pneumonia J18.9 Hypoxia R09.02
== END 2023-12-13 11:22 | disposition home or self-care (01) | DRG 194 ==
LOC: ER 15:27 → MEDSURG 19:04
PROVIDERS: Admitting Provider Internal Medicine; Emergency Provider Family Medicine; PCP Internal Medicine; Visit Provider Internal Medicine
DX: J12.1 Respiratory syncytial virus pneumonia (principal); I50.30 Unspecified diastolic (congestive) heart failure; N17.9 Acute kidney failure, unspecified; N39.0 Urinary tract infection, site not specified; R09.02 Hypoxemia; Z20.822 Contact with and (suspected) exposure to COVID-19; J06.9 Acute upper respiratory infection, unspecified; I11.0 Hypertensive heart disease with heart failure; K52.9 Noninfective gastroenteritis and colitis, unspecified; Z95.3 Presence of xenogenic heart valve; Z95.0 Presence of cardiac pacemaker; I48.91 Unspecified atrial fibrillation; Z79.01 Long term (current) use of anticoagulants; E78.5 Hyperlipidemia, unspecified; K21.9 Gastro-esophageal reflux disease without esophagitis; F41.8 Other specified anxiety disorders
CPT/HCPCS: 36415; 36416; 71045; 71250; 80048; 80053; 80202; 81001; 82962; 83605; 83735; 83880; 85007; 85025; 86140; 87040; 87070; 87077; 87086; 87186; 87205; 87631; 87635; 87801; 94640; 96365; 99285; J1940; J2543; J3370; J7030; J7050; J7608; J7626

== ENCOUNTER 2024-01-02 10:22 | Emergency (ER) | payer MEDICAID, SELFPAY ==
--- NOTE | 2024-01-02 10:33 | XRR_ITS ---
PROCEDURE INFORMATION: Exam: XR Chest Exam date and time: 01/02/2024 10:51 AM Age: 63 years old Clinical indication: Fever and shortness of breath; Prior surgery; Surgery date: 6+ months; Surgery type: Pacer; Additional info: SOB, fever TECHNIQUE: Imaging protocol: Radiologic exam of the chest. Views: 1 view. COMPARISON: CT chest con [id number] 12/12/2023 10:37 AM FINDINGS: Tubes, catheters and devices: Cardiac ICD/pacemaker. Lungs: See Heart/Mediastinum finding. Pleural spaces: No discrete pleural effusion with minimal CP angle blunting. Heart/Mediastinum: Stable enlarged cardiac silhouette. Pulmonary vascular congestion again noted. Bones/joints: Prior median sternotomy. XR/XR chest 1V portable [id number] IMPRESSION: Increased cardiac silhouette and pulmonary vascular congestion again noted.
[2024-01-02 10:45] VITALS: BP 118/73; PULSE 75; RESP 16; TEMP 36.8; O2SAT 97; BMI 28.3
[2024-01-02 14:20] VITALS: BP 117/66; PULSE 69; RESP 16; O2SAT 98
--- NOTE | 2024-01-02 14:32 | ED_ITS ---
HPI - URI/Sore Throat 2 General: Chief Complaint: Upper Respiratory Infection Stated Complaint: sob, fever Time Seen by Provider: 01/02/24 13:52 Source: patient Mode of arrival: ambulatory Limitations: no limitations History of Present Illness: Patient is a 63-year-old female presents to ED today with a complaint of shortness of breath and cough. Patient states approximately 2 to 3 weeks ago she was admitted here for diagnoses of pneumonia. She was seen a few days prior to that admission and diagnosed with enterovirus/rhinovirus. She presented a few days later with worsening work of breathing and hypoxia. She was subsequently admitted to the hospital and treated for secondary bacterial pneumonia. She was discharged home on doxycycline as well as augmentin, steroids, and albuterol. Patient felt like she was initially improving but now feels like she has not. She is being seen here along with her who also has similar symptoms. He to, states he has been coughing over the past 2 to 3 weeks. MD elicited complaint: cough Onset (ago): week(s) Consistency: constant Severity: mild Description of mucous: clear Able to tolerate fluids by mouth: Yes Exacerbating factors: nothing Relieving factors: nothing Context: sick contacts () Associated symptoms: Reports no associated symptoms; Deny abdominal pain, chills, chest pain, diarrhea, fever(s), headache(s), nausea or vomiting Review of Systems 2 Const: Denies: fever(s), chills, body aches, fatigue or malaise Card: Denies: chest pain, palpitations, edema, swelling of feet/ankles, lightheadedness, syncope or pre-syncope Resp: Reports: dyspnea, non-productive cough and chest congestion; Denies: wheezing or hemoptysis GI: Denies: abdominal pain, nausea, vomiting or diarrhea : Denies: flank pain, dysuria or hematuria Musc: Denies: neck pain, back pain, extremity pain, extremity swelling or joint pain Skin/Breast: Denies: rash Neuro: Denies: headache(s), numbness in extremities, weakness in extremities or sensory changes PFSH ED 2 PFSH: Medical History Hypoxia UTI (urinary tract infection) Pneumonia Family history of colon cancer Chronic diarrhea History of rheumatic fever Depression with anxiety GERD (gastroesophageal reflux disease) Hyperlipidemia Atrial fibrillation Rheumatic fever Hypertension History of cardiac pacemaker Surgical History History of open heart surgery History of colonoscopy (08/14/21) rectal polyp History of hysterectomy with bilateral oophorectomy History of appendectomy Hx of artificial heart valve replacement Mitral and aortic , bioprosthetic Family History Other CAD (coronary artery disease) Hypertension Social History Smoking and tobacco/nicotine status: never used tobacco/nicotine Second hand smoke exposure: No Alcohol intake: never Substance/Drug Use: never Adopted: No Caregiver/support person: No Lives independently: Yes Household members: spouse Housing: House Marital status: Number of children: 2 Highest education level completed: 11th Grade service: No Current occupational status: disabled Physical Exam 2 Const: COMMON NORMALS: no acute distress, average body habitus, patient oriented x3, no limitations, healthy appearing, alert and well nourished G ENERAL APPEARANCE: cooperative ORIENTATION/CONSCIOUSNESS: Yes awake, Yes oriented to person and Yes oriented to time Neck/C-Spine: COMMON NORMALS: full ROM, no lymphadenopathy and no meningeal signs GENERAL: Yes normal visual inspection Chest: COMMONS NORMALS: normal inspection of the chest and normal palpation of entire chest wall Resp: COMMON NORMALS: normal respiratory effort and clear to auscultation bilaterally AUSCULTATION: clear to auscultation bilaterally Cardio: COMMON NORMALS: regular rate RATE: regular rate RHYTHM: abnormal rhythm Extremity: GENERAL: Yes normal exam except as noted Neuro: VIC COMA SCALE: document GCS findings [place] coma scale eye opening: Spontaneous [place] coma scale verbal response: Orientated [place] coma scale motor response: Obey commands [place] coma scale total score: 15 COMMON NORMALS: patient oriented x3 SENSORIUM/ORIENTATION: Yes alert, Yes oriented to person and Yes oriented to time MENINGEAL SIGNS: Yes no meningeal signs Skin: COMMON NORMALS: no rashes or lesions noted GENERAL SKIN EXAM: no rashes or lesions noted Course 2 Vital Signs: Vital signs: Vital Signs Temperature 98.3 F 01/02/24 10:45 Pulse Rate 70 01/02/24 15:40 Respiratory Rate 16 01/02/24 15:40 Blood Pressure 108/84 01/02/24 15:40 Pulse Oximetry 98 01/02/24 15:40 Oxygen Delivery Me thod Room Air 01/02/24 15:40 MDM - URI/Sore Throat Medical Decision Making Patient here for complaints of a cough over the past several weeks. She arrives in no acute distress. Her vital signs are completely normal. Blood work showing a normal white count and normal procalcitonin. CXR showing no acute changes from her baseline. Respiratory panel collected and pending. She is stable for discharge. She does not need any further antibiotics at this time. She just completed courses of Doxycycline and Augmentin. She is requesting albuterol for her nebulizer. This will be provided. Recommend follow-up with her primary care provider. Lab Data 01/02/24 15:20 01/02/24 15:20 Radiology Impressions Chest X-Ray 01/02/24 10:33 IMPRESSION: Increased cardiac silhouette and pulmonary vascular congestion again noted. Laboratory Results WBC 5.27 10^3/uL (3.29-11.43) 01/02/24 15:20 RBC 4.30 10^6/uL (3.85-5.65) 01/02/24 15:20 Hgb 10.90 g/dL (11.27-16.99) L 01/02/24 15:20 Hct 36.2 % (36-47) 01/02/24 15:20 MCV 84.2 fl (85-98) L 01/02/24 15:20 MCH 25.3 pg (27-33) L 01/02/24 15:20 MCHC 30.1 g/dL (30-55) 01/02/24 15:20 RDW 16.9 % (12.1-15.1) H 01/02/24 15:20 Plt Count 223 10^3/cmm (157-399) 01/02/24 15:20 MPV 10.1 fL (7.4-10.4) 01/02/24 15:20 Neut % (Auto) 48.1 % 01/02/24 15:20 Lymph % (Auto) 35.5 % 01/02/24 15:20 [place] % (Auto) 11.6 % 01/02/24 15:20 Eos % (Auto) 1.9 % 01/02/24 15:20 Baso % (Auto) 0.4 % 01/02/24 15:20 Neut # (Auto) 2.54 10^3/uL (1.8-7.7) 01/02/24 15:20 Lymph # (Auto) 1.9 10^3/uL (0.8-4.8) 01/02/24 15:20 [place] # (Auto) 0.6 10^3/uL (0.2-0.9) 01/02/24 15:20 Eos # (Auto) 0.1 10^3/uL (0.0-0.8) 01/02/24 15:20 Baso # (Auto) 0.0 10^3/uL (0.0-0.1) 01/02/24 15:20 Nucleated RBC % (auto) 0 % 01/02/24 15:20 Nucleated RBCs # 0.0 /100WBC 01/02/24 15:20 Sodium 134 mmol/L (136-145) L 01/02/24 15:20 Potassium 4.6 mmol/L (3.5-5.1) 01/02/24 15:20 Chloride 100 mmol/L (98-107) 01/02/24 15:20 Carbon Dioxide 20 mmol/L (22-29) L 01/02/24 15:20 Anion Gap 18.6 (5-19) 01/02/24 15:20 BUN 11 mg/dL (8-23) 01/02/24 15:20 Creatinine 0.8 mg/dL (0.5-0.9) 01/02/24 15:20 GFR Calculation 72.7 mL/min (90-130) L 01/02/24 15:20 Glucose 82 mg/dL (65-115) 01/02/24 15:20 Calculated Osmolality 276 mOsm/kg (285-295) L 01/02/24 15:20 Calcium 8.6 mg/dL (8.5-10.5) 01/02/24 15:20 Total Bilirubin 0.3 mg/dL (0.15-1.2) 01/02/24 15:20 AST 23 U/L (0-32) 01/02/24 15:20 ALT 15 U/L (0-33) 01/02/24 15:20 Alkaline Phosphatase 116 U/L (35-105) H 01/02/24 15:20 Total Protein 7.4 g/dL (6.6-8.7) 01/02/24 15:20 Albumin 3.5 g/dL (3.5-5.2) 01/02/24 15:20 Globulin 3.9 g/dL (1.3-4.6) 01/02/24 15:20 Procalcitonin 0.08 ng/mL (0-0.5) 01/02/24 15:20 All radiology interpretation(s) finalized by discharge Discharge Plan Discharge Patient Disposition: Home Clinical Impression: Upper respiratory infection Qualifiers: URI type: unspecified viral URI Qualified Code(s): J06.9 - Acute upper respiratory infection, unspecified Condition: Stable Prescriptions: New albuterol sulfate 1.25 mg/3 mL solution for nebulization 2.5 mg inhalation Q6H PRN (Reason: shortness of breath or wheezing) Qty: 75 0RF No Action Xarelto 20 mg tablet 20 mg PO QAM Hold Instructions: Resume on 08/17/21. metoprolol succinate 25 mg tablet extended release 24 hr 12.5 mg PO QAM losartan 25 mg tablet 25 mg PO QAM famotidine [Pepcid] 40 mg tablet 20 mg PO QAM pramipexole [Mirapex] 0.125 mg tablet 0.125 mg PO BEDTIME venlafaxine 75 mg capsule,extended release 24hr 75 mg PO QAM montelukast 10 mg tablet 10 mg PO BEDTIME ezetimibe 10 mg tablet 10 mg PO BEDTIME albuterol sulfate 90 mcg/actuation HFA aerosol inhaler 2 inh INHALATION Q4H PRN (Reason: shortness of breath or wheezing) Qty: 6.7 0RF albuterol sulfate 90 mcg/actuation HFA aerosol inhaler 2 inh inhalation Q8H PRN (Reason: shortness of breath or wheezing) Qty: 6.7 2RF Medrol (Boin) 4 mg tablets,dose pack See Rx Instructions .ROUTE .COMPLEX Qty: 21 0RF Rx Instructions: orally per package directions potassium chloride 20 mEq tablet extended release 10 meq PO DAILY Qty: 30 0RF amoxicillin-pot clavulanate 875-125 mg tablet 1 tab PO BID Qty: 10 0RF Discharge Orders: Discharge ED (Routine); Ordered 01/02/24 Ordered By: Kiana Weaver Referrals: Magnolia Worthington MD [Primary Care Provider] - Coding Level of Care Code ED Drafting Supervisor for [place] Tasha
[2024-01-02 15:27] LABS: Basophils % 0.4 %; Eosinophils # 0.1 10^3/uL (0.0-0.8); Eosinophils % 1.9 %; Hematocrit 36.2 % (36-47); Lymphocytes # 1.9 10^3/uL (0.8-4.8); Lymphocytes % 35.5 %; Mean Corpuscular HGB Conc 30.1 g/dL (30-55); Mean Corpuscular Hemoglobin 25.3 pg (27-33); Mean Corpuscular Volume 84.2 fl (85-98); Mean Platelet Volume 10.1 fL (7.4-10.4); Monocytes # 0.6 10^3/uL (0.2-0.9); Monocytes % 11.6 %; Neutrophils # 2.54 10^3/uL (1.8-7.7); Neutrophils % 48.1 %; Nucleated Red Blood Cells % 0 %; Platelet Count 223 10^3/cmm (157-399); Red Cell Distribution Width 16.9 % (12.1-15.1); White Blood Count 5.27 10^3/uL (3.29-11.43)
[2024-01-02 15:40] VITALS: BP 108/84; PULSE 70; RESP 16; O2SAT 98
[2024-01-02 15:57] LABS: Alanine Aminotransferase 15 U/L (0-33); Albumin Level 3.5 g/dL (3.5-5.2); Alkaline Phosphatase 116 U/L (35-105); Blood Urea Nitrogen 11 mg/dL (8-23); Calcium 8.6 mg/dL (8.5-10.5); Carbon Dioxide 20 mmol/L (22-29); Chloride 100 mmol/L (98-107); Creatinine Clr Calc Pharmacy 64.3382; Globulin 3.9 g/dL (1.3-4.6); Glomerular Filtration Rate 72.7 mL/min (90-130); Glucose 82 mg/dL (65-115); Osmolality Calculated 276 mOsm/kg (285-295); Sodium 134 mmol/L (136-145); Total Bilirubin 0.3 mg/dL (0.15-1.2); Total Protein 7.4 g/dL (6.6-8.7)
[2024-01-02 15:58] LABS: Anion Gap 18.6 (5-19); Aspartate Amino Transferase 23 U/L (0-32); Potassium 4.6 mmol/L (3.5-5.1)
[2024-01-02 16:00] LABS: Adenovirus Not Detected (NOT DETECT); Chlamydia Pneumoniae Not Detected (NOT DETECT); Coronavirus 229E,HKU1,NL63,OC4 Not Detected (NOT DETECT); Human Metapneumovirus Not Detected (NOT DETECT); Human Rhinovirus/Enterovirus Detected (NOT DETECT); Influenza A Not Detected (NOT DETECT); Influenza A H1 Not Detected (NOT DETECT); Influenza A H1-2009 Not Detected (NOT DETECT); Influenza A H3 Not Detected (NOT DETECT); Influenza B Detected (NOT DETECT); Mycoplasma Pneumoniae Not Detected (NOT DETECT); Parainfluenza Virus Type 1 Not Detected (NOT DETECT); Parainfluenza Virus Type 2 Not Detected (NOT DETECT); Parainfluenza Virus Type 3 Not Detected (NOT DETECT); Parainfluenza Virus Type 4 Not Detected (NOT DETECT); Respiratory Syncytial Virus A Not Detected (NOT DETECT); Respiratory Syncytial Virus B Not Detected (NOT DETECT); SARS-COV-2 Not Detected (NOT DETECT)
[2024-01-02 16:02] LABS: Procalcitonin 0.08 ng/mL (0-0.5)
[2024-01-02 16:16] VITALS: BP 110/66; PULSE 79; RESP 16; O2SAT 95
[2024-01-02 16:46] VITALS: BP 110/66; PULSE 79; RESP 18; O2SAT 95
== END 2024-01-02 16:49 | disposition home or self-care (01) ==
PROVIDERS: Emergency Provider Physician Assistant; PCP Internal Medicine
DX: J06.9 Acute upper respiratory infection, unspecified (principal); E78.5 Hyperlipidemia, unspecified; I10 Essential (primary) hypertension; Z95.0 Presence of cardiac pacemaker
CPT/HCPCS: 36415; 71045; 80053; 84145; 85025; 87486; 87581; 87633; 99284

== ENCOUNTER 2024-01-25 09:27 | Outpatient (CLI) | payer MEDICAID, SELFPAY ==
--- NOTE | 2024-01-25 09:30 | CTR_ITS ---
PROCEDURE INFORMATION: Exam: CT Chest With Contrast; Diagnostic Exam date and time: 01/25/2024 9:38 AM Age: 63 years old Clinical indication: Condition or disease; Lung condition and disease; Pneumonia; Bacterial; Prior surgery; Surgery date: 6+ months; Surgery type: Heart, pacemaker; Additional info: Pneumonia, bacterial TECHNIQUE: Imaging protocol: Diagnostic computed tomography of the chest with contrast. Radiation optimization: All CT scans at this facility use at least one of these dose optimization techniques: automated exposure control; mA and/or kV adjustment per patient size (includes targeted exams where dose is matched to clinical indication); or iterative reconstruction. Contrast material: OMNI 350; Contrast volume: 95 ml; Contrast route: INTRAVENOUS (IV); COMPARISON: CT chest wo con [id number] 12/12/2023 10:37 AM RADIATION DOSE METRICS: Total DLP (mGy-cm): 239.35 FINDINGS: Tubes, catheters and devices: A left subclavian pacer is noted. Lungs: There are patchy ground-glass opacities, bilaterally raising concern for viral infection (including influenza COVID-19). No pulmonary mass. Scattered calcified granulomata, bilaterally. Pleural spaces: No pleural effusion. No pneumothorax. Heart: Prior aortic valve replacement. No thoracic aortic dissection. The heart is enlarged. Dense calcification in the mitral annulus likely status post surgery. No pericardial effusion. Coronary arteries: Coronary artery calcifications are seen. Lymph nodes: A pretracheal lymph node measures 1.3 x 2.6 cm. A right hilar lymph node measures 1.0 x 1.1 cm. Small hilar lymph nodes with associated calcification. No significant mediastinal lymphadenopathy. Vasculature: No main or central pulmonary embolus. Diaphragm: No hiatal hernia. Gallbladder and bile ducts: Cholelithiasis without definite gallbladder wall thickening. Kidneys and ureters: Subcentimeter renal hypodensities are too small to accurately characterize and require no follow-up. Bones/joints: Median sternotomy wires are seen. Prior thoracotomy on the left. No acute fracture is seen. Soft tissues: No significant subcutaneous soft tissue swelling. CT/CT chest w con* [id number] IMPRESSION: 1. Patchy ground-glass opacities, bilaterally raising concern for viral infection (including influenza COVID-19). 2. Mild mediastinal and right hilar lymphadenopathy. 3. Cardiomegaly with coronary artery disease. 4. Cholelithiasis without definite gallbladder wall thickening. COMMENTS: Consistent with the [employer]'s Incidental Findings Committee white paper (J Am Keya Radiol 2018): Any incidental renal lesion less than 1 cm or classified as too small to characterize, or any incidental cystic renal lesion characterized as simple-appearing, is likely benign. No follow-up imaging is recommended for these lesions per consensus recommendations based on imaging criteria.
[2024-01-25] MEDS: iohexol 350 mg/mL 500 mL Btl (per mL) IV (10:39)
== END 2024-01-25 09:28 | disposition home or self-care (01) ==
LOC: RAD 09:28
PROVIDERS: PCP Internal Medicine; Visit Provider Internal Medicine
DX: J15.9 Unspecified bacterial pneumonia (principal); R59.0 Localized enlarged lymph nodes; I51.7 Cardiomegaly; I25.10 Atherosclerotic heart disease of native coronary artery without angina pectoris; K80.20 Calculus of gallbladder without cholecystitis without obstruction
CPT/HCPCS: 71260; Q9967

== ENCOUNTER 2024-02-04 19:02 | Emergency (ER) | payer MEDICAID, SELFPAY ==
[2024-02-04 19:15] VITALS: BP 126/76; PULSE 86; RESP 17; TEMP 36.9; O2SAT 96; BMI 27.8
[2024-02-04 20:00] VITALS: BP 128/95; PULSE 84; RESP 22; O2SAT 95
--- NOTE | 2024-02-04 20:03 | XRR_ITS ---
PROCEDURE INFORMATION: Exam: XR Chest Exam date and time: 02/04/2024 8:20 PM Age: 64 years old Clinical indication: Angina pectoris; Patient HX: SOB; Chest pain TECHNIQUE: Imaging protocol: Radiologic exam of the chest. Views: 1 view. COMPARISON: CT chest w con* [id number] 01/25/2024 9:38 AM FINDINGS: Tubes, catheters and devices: Intact left subclavian pacemaker. Lungs: Mild atelectasis or scarring in the lingula and peripheral right lung base. The lungs are otherwise clear. Pleural spaces: Unremarkable. No pleural effusion. No pneumothorax. Heart/Mediastinum: Stable cardiomegaly. Bones/joints: Median sternotomy changes. Old left lateral rib fractures. XR/XR chest 1V portable [id number] IMPRESSION: No acute findings.
[2024-02-04 20:08] LABS: Basophils # 0.1 10^3/uL (0.0-0.1); Basophils % 0.5 %; Eosinophils # 0.3 10^3/uL (0.0-0.8); Eosinophils % 3.4 %; Hematocrit 35.8 % (36-47); Lymphocytes # 2.7 10^3/uL (0.8-4.8); Lymphocytes % 27.5 %; Mean Corpuscular HGB Conc 30.7 g/dL (30-55); Mean Corpuscular Hemoglobin 24.9 pg (27-33); Mean Platelet Volume 10.1 fL (7.4-10.4); Monocytes # 1.1 10^3/uL (0.2-0.9); Monocytes % 10.9 %; Neutrophils # 5.67 10^3/uL (1.8-7.7); Neutrophils % 56.9 %; Nucleated Red Blood Cells % 0 %; Platelet Count 262 10^3/cmm (157-399); Red Blood Count 4.42 10^6/uL (3.85-5.65); White Blood Count 9.97 10^3/uL (3.29-11.43)
[2024-02-04] MEDS: FUROsemide 10 mg/mL SDV 10mL 60 MG IVP (20:16)
--- NOTE | 2024-02-04 20:16 | ECG_ITS ---
[facility] Test Date: 2024-02-04 Pat Name: Daniela Lai Department: Room: Gender: Female Alteration Manager: : 1960 Requested By: Umberto Hughes Order Number: [id number] Domenic MD: Jose De La Cruz M.D. Measurements Intervals [place] Rate: 83 P: 0 MD: 0 QRS: -69 QRSD: 185 T: 101 QT: 442 QTc: 520 Interpretive Statements ELECTRONIC VENTRICULAR PACEMAKER Compared to ECG 11/06/2023 05:18:04 No significant changes Electronically Signed On 02-05-2024 11:09:17 CDT by Jose De La Cruz M.D. [email or web address]
[2024-02-04 20:19] LABS: Lactic Sepsis W/Reflex 0.7 mmol/L (0.5-2.2)
[2024-02-04 20:21] LABS: Troponin(5th) Baseline 13 ng/L (0-10)
[2024-02-04 20:31] LABS: Alanine Aminotransferase 10 U/L (0-33); Albumin Level 3.9 g/dL (3.5-5.2); Alkaline Phosphatase 110 U/L (35-105); Anion Gap 14.8 (5-19); Aspartate Amino Transferase 15 U/L (0-32); Blood Urea Nitrogen 14 mg/dL (8-23); Calcium 9.3 mg/dL (8.5-10.5); Carbon Dioxide 23 mmol/L (22-29); Chloride 101 mmol/L (98-107); Creatinine Clr Calc Pharmacy 55.9064; Globulin 3.7 g/dL (1.3-4.6); Glomerular Filtration Rate 63.2 mL/min (90-130); Glucose 93 mg/dL (65-115); Magnesium 1.8 mg/dL (1.7-2.3); NT Pro B Type Natriuretic Pept 1296 pg/mL (0-125); Osmolality Calculated 280 mOsm/kg (285-295); Potassium 3.8 mmol/L (3.5-5.1); Sodium 135 mmol/L (136-145); Total Bilirubin 0.6 mg/dL (0.15-1.2); Total Protein 7.6 g/dL (6.6-8.7)
--- NOTE | 2024-02-04 21:09 | ED_ITS ---
HPI - URI/Sore Throat 2 General: Chief Complaint: Upper Respiratory Infection Stated Complaint: sob, high HR, neck pain Time Seen by Provider: 02/04/24 19:33 History of Present Illness: 64-year-old female complaining of a coup le days of worsening shortness of breath while at home. She is not oxygen dependent. She does have a history of heart failure valvular disease and pacemaker placement. She presents with shortness of breath, denies significant cough or sputum production. Denies fever. She also denies leg swelling. She has had a history of heart failure in the past. No new medication changes. She is anticoagulated. No chest pain. Associated symptoms: Deny abdominal pain, chest pain, fever(s), nausea or vomiting Review of Systems 2 Const: Denies: fever(s) ENMT: Denies: throat pain Card: Denies: chest pain or palpitations Resp: Reports: dyspnea; Denies: productive cough or non-productive cough GI: Denies: abdominal pain, nausea or vomiting PFSH ED 2 PFSH: Medical History Hypoxia UTI (urinary tract infection) Pneumonia Family history of colon cancer Chronic diarrhea History of rheumatic fever Depression with anxiety GERD (gastroesophageal reflux disease) Hyperlipidemia Atrial fibrillation Rheumatic fever Hypertension History of cardiac pacemaker Surgical History History of open heart surgery History of colonoscopy (08/14/21) rectal polyp History of hysterectomy with bilateral oophorectomy History of appendectomy Hx of artificial heart valve replacement Mitral and aortic , bioprosthetic Family History Other CAD (coronary artery disease) Hypertension Social History Smoking and tobacco/nicotine status: never used tobacco/nicotine Second hand smoke exposure: No Alcohol intake: never Substance/Drug Use: never Adopted: No Caregiver/support person: No Lives independently: Yes Household members: spouse Housing: House Marital status: Number of children: 2 Highest education level completed: 11th Grade service: No Current occupational status: disabled Physical Exam 2 Const: COMMON NORMALS: no acute distress GENERAL APPEARANCE: cooperative; not ill appearing and not frail appearing HENMT: COMMON NORMALS: normocephalic, atraumatic and Normal external nose present HEAD & SCALP: normocephalic and atraumatic FACE & SINUS: normal facial exam and face symmetric NOSE: Normal external nose present Eye: COMMON NORMALS: Equal, round and reactive pupils present and EOMs intact bilaterally PUPIL: Yes Equal, round and reactive pupils present Neck/C-Spine: GENERAL: Yes trachea midline Chest: CHEST: Yes Symmetrical chest wall rise Resp: COMMON NORMALS: No use of accessory muscles and clear to auscultation bilaterally EFFORT & INSPECTION: Yes tachypneic AUSCULTATION: clear to auscultation bilaterally Cardio: COMMON NORMALS: regular rate and regular rhythm RATE: regular rate RHYTHM: regular rhythm GI: COMMON NORMALS: Normal to inspection, nondistended, normoactive bowel sounds present Extremity: COMMON NORMALS: no pedal edema Neuro: VIC COMA SCALE: document GCS findings [place] coma scale eye opening: Spontaneous [place] coma scale verbal response: Orientated [place] coma scale motor response: Obey commands [place] coma scale total score: 15 S ENSORY EXAM: Yes extremities (intact) Psych: COMMON NORMALS: speech normal SPEECH: Yes normal speech Skin: COMMON NORMALS: no rashes or lesions noted GENERAL SKIN EXAM: no rashes or lesions noted Course 2 Vital Signs: Vital signs: Vital Signs Temperature 98.5 F 02/04/24 19:15 Pulse Rate 86 02/04/24 21:24 Respiratory Rate 18 02/04/24 21:24 Blood Pressure 138/94 02/04/24 21:24 Pulse Oximetry 94 02/04/24 21:24 Oxygen Delivery Me thod Room Air 02/04/24 20:00 MDM - URI/Sore Throat Medical Decision Making Hemoglobin is 11. BMP is normal. BNP is elevated at 1300. Troponin is minimally elevated at 13. Lactic acid is 0.7. EKG shows a paced rhythm at 80. Chest x-ray shows venous congestion. Respiratory panel is pending. Respiratory panel is negative. She will be treated for heart failure. She is not oxygen dependent at this point. She will go home on diuretics. She is already started to diurese significantly here after Lasix. She knows to return for any worsening symptoms. Lab Data 02/04/24 19:33 02/04/24 19:33 Radiology Impressions Chest X-Ray 02/04/24 20:03 IMPRESSION: No acute findings. Laboratory Results WBC 9.97 10^3/uL (3.29-11.43) 02/04/24: RBC 4.42 10^6/uL (3.85-5.65) 02/04/24 19:33 Hgb 11.00 g/dL (11.27-16.99) L 02/04/24 19: Hct 35.8 % (36-47) L 02/04/24 19: MCV 81.0 fl (85-98) L 02/04/24 19: MCH 24.9 pg (27-33) L 02/04/24: MCHC 30.7 g/dL (30-55) 02/04/24: RDW 16.0 % (12.1-15.1) H 02/04/24 19:33 Plt Count 262 10^3/cmm (157-399) 02/04/24: MPV 10.1 fL (7.4-10.4) 02/04/24 19:33 Neut % (Auto) 56.9 % 02/04/24 19: Lymph % (Auto) 27.5 % 02/04/24 19:33 [place] % (Auto) 10.9 % 02/04/24 19:33 Eos % (Auto) 3.4 % 02/04/24 19:33 Baso % (Auto) 0.5 % 02/04/24:33 Neut # (Auto) 5.67 10^3/uL (1.8-7.7) 02/04/24 19: Lymph # (Auto) 2.7 10^3/uL (0.8-4.8) 02/04/24 19:33 [place] # (Auto) 1.1 10^3/uL (0.2-0.9) H 02/04/24 19:33 Eos # (Auto) 0.3 10^3/uL (0.0-0.8) 02/04/24 19: Baso # (Auto) 0.1 10^3/uL (0.0-0.1) 02/04/24 19:33 Nucleated RBC % (auto) 0 % 02/04/24 19: Nucleated RBCs # 0.0 /100WBC 02/04/24 19:33 Sodium 135 mmol/L (136-145) L 02/04/24 19:33 Potassium 3.8 mmol/L (3.5-5.1) 02/04/24 19:33 Chloride 101 mmol/L (98-107) 02/04/24 19:33 Carbon Dioxide 23 mmol/L (22-29) 02/04/24 19:33 Anion Gap 14.8 (5-19) 02/04/24 19:33 BUN 14 mg/dL (8-23) 02/04/24 19:33 Creatinine 0.9 mg/dL (0.5-0.9) 02/04/24 19:33 GFR Calculation 63.2 mL/min (90-130) L 02/04/24 19:33 Glucose 93 mg/dL (65-115) 02/04/24 19:33 Calculated Osmolality 280 mOsm/kg (285-295) L 02/04/24 19:33 Lactic Acid 0.7 mmol/L (0.5-2.2) 02/04/24 19:33 Calcium 9.3 mg/dL (8.5-10.5) 02/04/24 19:33 Magnesium 1.8 mg/dL (1.7-2.3) 02/04/24 19:33 Total Bilirubin 0.6 mg/dL (0.15-1.2) 02/04/24 19:33 AST 15 U/L (0-32) 02/04/24 19:33 ALT 10 U/L (0-33) 02/04/24 19:33 Alkaline Phosphatase 110 U/L (35-105) H 02/04/24 19:33 Troponin T Baseline 13 ng/L (0-10) H 02/04/24 19:33 NT-Pro-B Natriuret Pep 1296 pg/mL (0-125) H 02/04/24 19:33 Total Protein 7.6 g/dL (6.6-8.7) 02/04/24 19:33 Albumin 3.9 g/dL (3.5-5.2) 02/04/24 19:33 Globulin 3.7 g/dL (1.3-4.6) 02/04/24 19:33 Adenovirus (PCR) Not detected (NOT DETECT) 02/04/24 20:12 C. pneumoniae DNA (PCR) Not detected (NOT DETECT) 02/04/24 20:12 Coronavirus 229E (PCR) Not detected (NOT DETECT) 02/04/24 20:12 Human Metapneumovir PCR Not detected (NOT DETECT) 02/04/24 20:12 Influenza A (H1) PCR Not detected (NOT DETECT) 02/04/24 20:12 Influ A (H1/09) PCR Not detected (NOT DETECT) 02/04/24 20:12 Influenza A (H3) PCR Not detected (NOT DETECT) 02/04/24 20:12 Influenza Type A (PCR) Not detected (NOT DETECT) 02/04/24 20:12 Influenza Type B (PCR) Not detected (NOT DETECT) 02/04/24 20:12 M. pneumoniae (PCR) Not detected (NOT DETECT) 02/04/24 20:12 Parainfluenza 1 (PCR) Not detected (NOT DETECT) 02/04/24 20:12 Parainfluenza 2 (PCR) Not detected (NOT DETECT) 02/04/24 20:12 Parainfluenza 3 (PCR) Not detected (NOT DETECT) 02/04/24 20:12 Parainfluenza 4 (PCR) Not detected (NOT DETECT) 02/04/24 20:12 RSV Type A (PCR) Not detected (NOT DETECT) 02/04/24 20:12 RSV Type B (PCR) Not detected (NOT DETECT) 02/04/24 20:12 Entero/Rhino (PCR) Not detected (NOT DETECT) 02/04/24 20:12 SARS-CoV-2 (PCR) Not detected (NOT DETECT) 02/04/24 20:12 All radiology interpretation(s) finalized by discharge Discharge Plan Discharge Patient Disposition: Home Clinical Impression: Acute exacerbation of CHF (congestive heart failure) Condition: Stable Prescriptions: New furosemide 40 mg tablet 40 mg PO DAILY Qty: 4 0RF No Action Xarelto 20 mg tablet 20 mg PO QAM Hold Instructions: Resume on 08/17/21. metoprolol succinate 25 mg tablet extended release 24 hr 12.5 mg PO QAM losartan 25 mg tablet 25 mg PO QAM famotidine [Pepcid] 40 mg tablet 20 mg PO QAM pramipexole [Mirapex] 0.125 mg tablet 0.125 mg PO BEDTIME venlafaxine 75 mg capsule,extended release 24hr 75 mg PO QAM montelukast 10 mg tablet 10 mg PO BEDTIME ezetimibe 10 mg tablet 10 mg PO BEDTIME albuterol sulfate 90 mcg/actuation HFA aerosol inhaler 2 inh INHALATION Q4H PRN (Reason: shortness of breath or wheezing) Qty: 6.7 0RF albuterol sulfate 90 mcg/actuation HFA aerosol inhaler 2 inh inhalation Q8H PRN (Reason: shortness of breath or wheezing) Qty: 6.7 2RF Medrol (Boni) 4 mg tablets,dose pack See Rx Instructions .ROUTE .COMPLEX Qty: 21 0RF Rx Instructions: orally per package directions potassium chloride 20 mEq tablet extended release 10 meq PO DAILY Qty: 30 0RF amoxicillin-pot clavulanate 875-125 mg tablet 1 tab PO BID Qty: 10 0RF albuterol sulfate 1.25 mg/3 mL solution for nebulization 2.5 mg inhalation Q6H PRN (Reason: shortness of breath or wheezing) Qty: 75 0RF Discharge Orders: Discharge ED (Routine); Ordered 02/04/24 Ordered By: Umberto Moreno Referrals: Magnolia Worthington MD [Primary Care Provider] - 1-3 days Patient Instructions: Heart Failure (ED), Opioid Safety, Pain Management Activity Restrictions/Additional Instructions: Medication as directed. Take an extra potassium with your furosemide medication. Watch your weight to ensure that you are not continuing to gain water weight despite treatment. Return for fever, worsening shortness of breath, development of chest pain, other concerning symptoms. See your doctor next week. Coding Level of Care Code ED Sludge Control Attendant for Josey Cordova
[2024-02-04 21:24] VITALS: BP 138/94; PULSE 86; RESP 18; O2SAT 94
[2024-02-04 22:18] LABS: Adenovirus Not Detected (NOT DETECT); Chlamydia Pneumoniae Not Detected (NOT DETECT); Coronavirus 229E,HKU1,NL63,OC4 Not Detected (NOT DETECT); Human Metapneumovirus Not Detected (NOT DETECT); Human Rhinovirus/Enterovirus Not Detected (NOT DETECT); Influenza A Not Detected (NOT DETECT); Influenza A H1 Not Detected (NOT DETECT); Influenza A H1-2009 Not Detected (NOT DETECT); Influenza A H3 Not Detected (NOT DETECT); Influenza B Not Detected (NOT DETECT); Mycoplasma Pneumoniae Not Detected (NOT DETECT); Parainfluenza Virus Type 1 Not Detected (NOT DETECT); Parainfluenza Virus Type 2 Not Detected (NOT DETECT); Parainfluenza Virus Type 3 Not Detected (NOT DETECT); Parainfluenza Virus Type 4 Not Detected (NOT DETECT); Respiratory Syncytial Virus A Not Detected (NOT DETECT); Respiratory Syncytial Virus B Not Detected (NOT DETECT); SARS-COV-2 Not Detected (NOT DETECT)
== END 2024-02-04 21:23 | disposition home or self-care (01) ==
PROVIDERS: Emergency Provider Emergency Medicine; PCP Internal Medicine
DX: I11.0 Hypertensive heart disease with heart failure (principal); I50.9 Heart failure, unspecified; Z11.52 Encounter for screening for COVID-19; E78.5 Hyperlipidemia, unspecified; Z95.0 Presence of cardiac pacemaker
CPT/HCPCS: 71045; 80053; 83605; 83735; 83880; 84484; 85025; 87486; 87581; 87633; 93005; 96374; 99285; J1940

== ENCOUNTER 2024-03-14 10:46 | Outpatient (CLI) | payer MEDICAID, SELFPAY ==
--- NOTE | 2024-03-14 10:54 | XRR_ITS ---
PROCEDURE INFORMATION: Exam: XR Chest Exam date and time: 03/14/2024 10:58 AM Age: 64 years old Clinical indication: Cough and shortness of breath; Prior surgery; Surgery date: 6+ months; Surgery type: Heart valve, valve replacement, pacemaker; Additional info: Shortness of breath/cough TECHNIQUE: Imaging protocol: Radiologic exam of the chest. Views: 2 views. Total images: 2 COMPARISON: CR (CHEST, ) 02/04/2024 8:20 PM FINDINGS: Tubes, catheters and devices: A pacemaker device is present, its leads in appropriate position. Lungs: Mild peribronchial thickening in the parahilar areas. Pleural spaces: There is blunting of both costophrenic angles, suggestive of small pleural effusions or chronic pleural thickening. Heart/Mediastinum: Prior coronary artery bypass grafting. There has been an aortic valve replacement. Heart is enlarged but stable when compared to the prior exam. Bones/joints: Unremarkable. XR/XR chest 2V* [id number] IMPRESSION: 1. Heart is enlarged but stable when compared to the prior exam. 2. Mild peribronchial thickening in the parahilar areas. 3. There is blunting of both costophrenic angles, suggestive of small pleural effusions or chronic pleural thickening.
== END 2024-03-14 10:47 | disposition home or self-care (01) ==
PROVIDERS: PCP Internal Medicine; Visit Provider Nurse Practitioner Family
DX: I51.7 Cardiomegaly (principal); R06.02 Shortness of breath; R05.8 Other specified cough
CPT/HCPCS: 71046

== ENCOUNTER 2024-03-19 14:57 | Emergency (ER) | payer MEDICAID, SELFPAY ==
[2024-03-19 15:00] VITALS: BP 96/65; PULSE 88; RESP 16; TEMP 36.8; O2SAT 98
--- NOTE | 2024-03-19 16:05 | XRR_ITS ---
PROCEDURE INFORMATION: Exam: XR Chest Exam date and time: 03/19/2024 4:16 PM Age: 64 years old Clinical indication: Cough and shortness of breath; Prior surgery; Surgery date: 6+ months; Surgery type: Open heart pacer TECHNIQUE: Imaging protocol: Radiologic exam of the chest. Views: 1 view. COMPARISON: CR XR chest 2V* [id number] 03/14/2024 10:58 AM FINDINGS: Tubes, catheters and devices: A pacemaker device is present, and its leads are in appropriate position. Lungs: No focal consolidation is identified. Pleural spaces: Blunting of the costophrenic angles may represent small pleural effusions. Heart/Mediastinum: The heart is moderately enlarged. Prosthetic aortic valve is identified. Bones/joints: Sternotomy wires and mediastinal surgical clips are present, consistent with coronary arterial bypass grafting. XR/XR chest 1V portable [id number] IMPRESSION: Cardiomegaly and small pleural effusions.
[2024-03-19 17:00] LABS: Basophils # 0.1 10^3/uL (0.0-0.1); Basophils % 0.5 %; Eosinophils # 0.2 10^3/uL (0.0-0.8); Eosinophils % 2.5 %; Lymphocytes % 20.7 %; Mean Corpuscular HGB Conc 30.6 g/dL (30-55); Mean Corpuscular Hemoglobin 23.6 pg (27-33); Mean Corpuscular Volume 77.1 fl (85-98); Monocytes # 0.8 10^3/uL (0.2-0.9); Monocytes % 8.6 %; Neutrophils # 6.49 10^3/uL (1.8-7.7); Neutrophils % 66.3 %; Nucleated Red Blood Cells % 0 %; Platelet Count 277 10^3/cmm (157-399); Red Blood Count 4.28 10^6/uL (3.85-5.65); Red Cell Distribution Width 16.3 % (12.1-15.1); White Blood Count 9.78 10^3/uL (3.29-11.43)
--- NOTE | 2024-03-19 17:09 | ED_ITS ---
HPI - SOB/Dyspnea 2 General: Chief Complaint: Shortness of Breath/Dyspnea Stated Complaint: sob, cough, nausea Time Seen by Provider: 03/19/24 17:02 History of Present Illness: HPI Narrative: 64-year-old female with a history of LISA D, hyperlipidemia, coronary artery disease status post CABG, A-fib, pacemaker placement and hypertension who presents to the emergency room with cough, fevers and shortness of breath for about a week now. She is having some burning pain in her central chest. No new lower extremity swelling. No altered mental status. No abdominal pain. No nausea or vomiting. Review of Systems 2 Narrative: Constitutional symptoms: Negative except as documented in HPI. Skin symptoms: Negative except as documented in HPI. Eye symptoms: Negative except as documented in HPI. ENMT symptoms: Negative except as documented in HPI. Respiratory symptoms: Negative except as documented in HPI. Cardiovascular symptoms: Negative except as documented in HPI. Gastrointestinal symptoms: Negative except as documented in HPI. Genitourinary symptoms: Negative except as documented in HPI. Musculoskeletal symptoms: Negative except as documented in HPI. Neurologic symptoms: Negative except as documented in HPI. Psychiatric symptoms: Negative except as documented in HPI. Endocrine symptoms: Negative except as documented in HPI. PFSH ED 2 PFSH: Medical History Hypoxia UTI (urinary tract infection) Pneumonia Family history of colon cancer Chronic diarrhea History of rheumatic fever Depression with anxiety GERD (gastroesophageal reflux disease) Hyperlipidemia Atrial fibrillation Rheumatic fever Hypertension History of cardiac pacemaker Surgical History History of open heart surgery History of colonoscopy (08/14/21) rectal polyp History of hysterectomy with bilateral oophorectomy History of appendectomy Hx of artificial heart valve replacement Mitral and aortic , bioprosthetic Family History Other CAD (coronary artery disease) Hypertension Social History Smoking and tobacco/nicotine status: never used tobacco/nicotine Second hand smoke exposure: No Alcohol intake: never Substance/Drug Use: never Adopted: No Caregiver/support person: No Lives independently: Yes Household members: spouse Housing: House Marital status: Number of children: 2 Highest education level completed: 11th Grade service: No Current occupational status: disabled Physical Exam 2 Narrative: EXAM NARRATIVE: General: Alert, no acute distress. Skin: Warm, dry. Head: Normocephalic, atraumatic. Neck: Supple, trachea midline. Eye: Extraocular movements are intact. Ears, nose, mouth and throat: mucosa moist. Cardiovascular: Regular, Normal peripheral perfusion. Respiratory: Lungs are clear to auscultation, respirations are non-labored, breath sounds are equal, Symmetrical chest wall expansion. Gastrointestinal: Soft, Nontender, Non distended, Normal bowel sounds. Musculoskeletal: Normal ROM, no deformity. Neurological: Alert and oriented, No focal neurological deficit observed. Psychiatric: Cooperative, appropriate mood & affect. Course 2 Vital Signs: Vital signs: Vital Signs Temperature 98.2 F 03/19/24 15:00 Pulse Rate 79 03/19/24 20:17 Respiratory Rate 25 H 03/19/24 20:17 Blood Pressure 93/57 03/19/24 20:17 Pulse Oximetry 89 L 03/19/24 20:17 Oxygen Delivery Me thod Room Air 03/19/24 20:17 Oxygen Flow Rate 1 03/19/24 18:14 MDM - SOB/Dyspnea Medical Decision Making Differential diagnosis for patient with shortness of breath includes but is not limited to and based on the above HPI, review of systems and physical exam: Pneumonia. Bronchitis. Asthma or COPD with acute exacerbation. Acute coronary syndrome / MA. Pulmonary embolism. Anxiety. Congestive heart failure. Viral infections including influenza and Covid-19. Atrial fibrillation. Anxiety. Pleural effusion. Pneumothorax. Workup: Lab work, chest X-ray and EKG ordered to evaluate, rule in and rule out above pathologies Chest x-ray: No obvious acute process. Cardiomegaly. Sternotomy wires. Pacemaker in the left chest with intact wires. Possible left pleural effusion.. This was reviewed and interpreted by myself the ER physician. Lab Review: Laboratory results were reviewed and interpreted by myself the emergency room physician. White count 9.8. Hemoglobin is 10.1. BUN/creatinine are 16 and 1.1 which is up a little bit and she looks a little bit dehydrated on exam so some fluids were given. Just 500 miles. Respiratory panel was negative. I reviewed the patient's medical record. Reexamination: Patient remained stable. She is not requiring oxygen any longer. No increased work of breathing. Her blood pressure is running in the upper 90s and low 100s which is her baseline. No altered mental status. No focal motor deficits. Assessment and plan: Acute bronchitis -Decadron, fluids and IV doxycycline in the emergency room - Discharged home - Discussed findings and plan with patient. Answered any questions. - All laboratory values were reviewed and interpreted personally by myself, the ER physician - All imaging was reviewed and interpreted personally by myself, the ER physician. - Evaluation and treatment of this problem were appropriate in the emergency setting Lab Data 03/19/24 16:45 03/19/24 16:45 Labs/Radiology: Radiology Impressions Chest X-Ray 03/19/24 16:05 IMPRESSION: Cardiomegaly and small pleural effusions. Laboratory Results WBC 9.78 10^3/uL (3.29-11.43) 03/19/24 16:45 RBC 4.28 10^6/uL (3.85-5.65) 03/19/24 16:45 Hgb 10.10 g/dL (11.27-16.99) L 03/19/24 16:45 Hct 33.0 % (36-47) L 03/19/24 16:45 MCV 77.1 fl (85-98) L 03/19/24 16:45 MCH 23.6 pg (27-33) L 03/19/24 16:45 MCHC 30.6 g/dL (30-55) 03/19/24 16:45 RDW 16.3 % (12.1-15.1) H 03/19/24 16:45 Plt Count 277 10^3/cmm (157-399) 03/19/24 16:45 MPV 10.0 fL (7.4-10.4) 03/19/24 16:45 Neut % (Auto) 66.3 % 03/19/24 16:45 Lymph % (Auto) 20.7 % 03/19/24 16:45 [place] % (Auto) 8.6 % 03/19/24 16:45 Eos % (Auto) 2.5 % 03/19/24 16:45 Baso % (Auto) 0.5 % 03/19/24 16:45 Neut # (Auto) 6.49 10^3/uL (1.8-7.7) 03/19/24 16:45 Lymph # (Auto) 2.0 10^3/uL (0.8-4.8) 03/19/24 16:45 [place] # (Auto) 0.8 10^3/uL (0.2-0.9) 03/19/24 16:45 Eos # (Auto) 0.2 10^3/uL (0.0-0.8) 03/19/24 16:45 Baso # (Auto) 0.1 10^3/uL (0.0-0.1) 03/19/24 16:45 Nucleated RBC % (auto) 0 % 03/19/24 16:45 Nucleated RBCs # 0.0 /100WBC 03/19/24 16:45 Sodium 133 mmol/L (136-145) L 03/19/24 16:45 Potassium 4.3 mmol/L (3.5-5.1) 03/19/24 16:45 Chloride 97 mmol/L (98-107) L 03/19/24 16:45 Carbon Dioxide 23 mmol/L (22-29) 03/19/24 16:45 Anion Gap 17.3 (5-19) 03/19/24 16:45 BUN 16 mg/dL (8-23) 03/19/24 16:45 Creatinine 1.1 mg/dL (0.5-0.9) H 03/19/24 16:45 GFR Calculation 50.2 mL/min (90-130) L 03/19/24 16:45 Glucose 86 mg/dL (65-115) 03/19/24 16:45 Calculated Osmolality 276 mOsm/kg (285-295) L 03/19/24 16:45 Lactic Acid 0.7 mmol/L (0.5-2.2) 03/19/24 16:45 Calcium 8.4 mg/dL (8.5-10.5) L 03/19/24 16:45 Total Bilirubin 0.8 mg/dL (0.15-1.2) 03/19/24 16:45 AST 17 U/L (0-32) 03/19/24 16:45 ALT 10 U/L (0-33) 03/19/24 16:45 Alkaline Phosphatase 115 U/L (35-105) H 03/19/24 16:45 C-Reactive Protein 89.7 mg/L (0.0-4.9) H 03/19/24 16:45 Total Protein 8.6 g/dL (6.6-8.7) 03/19/24 16:45 Albumin 3.8 g/dL (3.5-5.2) 03/19/24 16:45 Globulin 4.8 g/dL (1.3-4.6) H 03/19/24 16:45 Adenovirus (PCR) Not detected (NOT DETECT) 03/19/24 17:20 C. pneumoniae DNA (PCR) Not detected (NOT DETECT) 03/19/24 17:20 Coronavirus 229E (PCR) Not detected (NOT DETECT) 03/19/24 17:20 Human Metapneumovir PCR Not detected (NOT DETECT) 03/19/24 17:20 Influenza A (H1) PCR Not detected (NOT DETECT) 03/19/24 17:20 Influ A (H1/09) PCR Not detected (NOT DETECT) 03/19/24 17:20 Influenza A (H3) PCR Not detected (NOT DETECT) 03/19/24 17:20 Influenza Type A (PCR) Not detected (NOT DETECT) 03/19/24 17:20 Influenza Type B (PCR) Not detected (NOT DETECT) 03/19/24 17:20 M. pneumoniae (PCR) Not detected (NOT DETECT) 03/19/24 17:20 Parainfluenza 1 (PCR) Not detected (NOT DETECT) 03/19/24 17:20 Parainfluenza 2 (PCR) Not detected (NOT DETECT) 03/19/24 17:20 Parainfluenza 3 (PCR) Not detected (NOT DETECT) 03/19/24 17:20 Parainfluenza 4 (PCR) Not detected (NOT DETECT) 03/19/24 17:20 RSV Type A (PCR) Not detected (NOT DETECT) 03/19/24 17:20 RSV Type B (PCR) Not detected (NOT DETECT) 03/19/24 17:20 Entero/Rhino (PCR) Not detected (NOT DETECT) 03/19/24 17:20 SARS-CoV-2 (PCR) Not detected (NOT DETECT) 03/19/24 17:20 All radiology interpretation(s) finalized by discharge Discharge Plan Discharge Patient Disposition: Home Clinical Impression: Acute bronchitis Condition: Stable Prescriptions: New doxycycline hyclate 100 mg capsule 100 mg PO BID 7 Days Qty: 14 0RF dexamethasone 6 mg tablet 6 mg PO DAILY 5 Days Qty: 5 0RF No Action Xarelto 20 mg tablet 20 mg PO QAM Hold Instructions: Resume on 08/17/21. metoprolol succinate 25 mg tablet extended release 24 hr 12.5 mg PO QAM losartan 25 mg tablet 25 mg PO QAM famotidine [Pepcid] 40 mg tablet 20 mg PO QAM pramipexole [Mirapex] 0.125 mg tablet 0.125 mg PO BEDTIME venlafaxine 75 mg capsule,extended release 24hr 75 mg PO QAM montelukast 10 mg tablet 10 mg PO BEDTIME ezetimibe 10 mg tablet 10 mg PO BEDTIME albuterol sulfate 90 mcg/actuation HFA aerosol inhaler 2 inh INHALATION Q4H PRN (Reason: shortness of breath or wheezing) Qty: 6.7 0RF albuterol sulfate 90 mcg/actuation HFA aerosol inhaler 2 inh inhalation Q8H PRN (Reason: shortness of breath or wheezing) Qty: 6.7 2RF Medrol (Boni) 4 mg tablets,dose pack See Rx Instructions .ROUTE .COMPLEX Qty: 21 0RF Rx Instructions: orally per package directions potassium chloride 20 mEq tablet extended release 10 meq PO DAILY Qty: 30 0RF amoxicillin-pot clavulanate 875-125 mg tablet 1 tab PO BID Qty: 10 0RF albuterol sulfate 1.25 mg/3 mL solution for nebulization 2.5 mg inhalation Q6H PRN (Reason: shortness of breath or wheezing) Qty: 75 0RF furosemide 40 mg tablet 40 mg PO DAILY Qty: 4 0RF Discharge Orders: Discharge ED (Routine); Ordered 03/19/24 Ordered By: Maura Conte Referrals: Magnolia Worthington MD [Primary Care Provider] - Discharge Diet: Advance as tolerated Discharge Activity: Resume usual activity Patient Instructions: Bronchitis (Acute) - Adult Activity Restrictions/Additional Instructions: Thank you for choosing [facility] for your healthcare needs today. Please realize this is an emergency room and that we are providing you with a medical screening exam and this may not be complete and all inclusive of all the testing and or work up that you may need to determine your ailment or severity of your illness. You have been screened and evaluated and felt safe for discharge. Health conditions do change or evolve sometimes and as such it is important that you follow up with your Primary Doctor to be re checked, 3-5 days is a general good time frame for follow up. You are always welcome to return to the ED for re assessment if your symptoms are worsening or you have new concerns Coding Level of Care Code ED Nuclear Medicine Pet Ct Technologist for Josey Cordova
[2024-03-19 17:22] LABS: Alanine Aminotransferase 10 U/L (0-33); Albumin Level 3.8 g/dL (3.5-5.2); Alkaline Phosphatase 115 U/L (35-105); Anion Gap 17.3 (5-19); Aspartate Amino Transferase 17 U/L (0-32); Blood Urea Nitrogen 16 mg/dL (8-23); C Reactive Protein 89.7 mg/L (0.0-4.9); Calcium 8.4 mg/dL (8.5-10.5); Carbon Dioxide 23 mmol/L (22-29); Chloride 97 mmol/L (98-107); Creatinine Clr Calc Pharmacy 45.2917; Globulin 4.8 g/dL (1.3-4.6); Glomerular Filtration Rate 50.2 mL/min (90-130); Glucose 86 mg/dL (65-115); Osmolality Calculated 276 mOsm/kg (285-295); Potassium 4.3 mmol/L (3.5-5.1); Sodium 133 mmol/L (136-145); Total Bilirubin 0.8 mg/dL (0.15-1.2); Total Protein 8.6 g/dL (6.6-8.7)
[2024-03-19 17:23] VITALS: BP 97/66; PULSE 89; O2SAT 90
[2024-03-19 17:47] LABS: Lactic Sepsis W/Reflex 0.7 mmol/L (0.5-2.2)
--- NOTE | 2024-03-19 18:00 | ECG_ITS ---
[facility] Test Date: 2024-03-19 Pat Name: Daniela Lai Department: Room: Gender: Female Occupational Health Technician: : 1960 Requested By: Maura Carranza Order Number: [id number] Domenic MD: Sarah Ash M.D. Measurements Intervals [place] Rate: 88 P: 259 TX: 218 QRS: -85 QRSD: 183 T: 52 QT: 447 QTc: 542 Interpretive Statements ELECTRONIC VENTRICULAR PACEMAKER ABNORMAL RHYTHM ECG Compared to ECG 02/04/2024 20:16:21 No significant changes Electronically Signed On 03-21-2024 0:17:33 CDT by Sarah Ash M.D. [id number]
[2024-03-19 18:14] VITALS: BP 80/53; PULSE 89; O2SAT 91
[2024-03-19] MEDS: methylPREDNISolone sod succ 125 mg/2 mL INJ IVP (18:32)
[2024-03-19] MEDS: sodium chloride 0.9% 500 ML 999 ML IV (18:33)
[2024-03-19] MEDS: doxycycline 100 MG in sodium chloride 0.9% (plus) 100 ML IV (20:13)
[2024-03-19 20:17] VITALS: BP 93/57; PULSE 79; RESP 25; O2SAT 89
[2024-03-19 20:27] LABS: Adenovirus Not Detected (NOT DETECT); Chlamydia Pneumoniae Not Detected (NOT DETECT); Coronavirus 229E,HKU1,NL63,OC4 Not Detected (NOT DETECT); Human Metapneumovirus Not Detected (NOT DETECT); Human Rhinovirus/Enterovirus Not Detected (NOT DETECT); Influenza A Not Detected (NOT DETECT); Influenza A H1 Not Detected (NOT DETECT); Influenza A H1-2009 Not Detected (NOT DETECT); Influenza A H3 Not Detected (NOT DETECT); Influenza B Not Detected (NOT DETECT); Mycoplasma Pneumoniae Not Detected (NOT DETECT); Parainfluenza Virus Type 1 Not Detected (NOT DETECT); Parainfluenza Virus Type 2 Not Detected (NOT DETECT); Parainfluenza Virus Type 3 Not Detected (NOT DETECT); Parainfluenza Virus Type 4 Not Detected (NOT DETECT); Respiratory Syncytial Virus A Not Detected (NOT DETECT); Respiratory Syncytial Virus B Not Detected (NOT DETECT); SARS-COV-2 Not Detected (NOT DETECT)
[2024-03-19 21:23] VITALS: BP 89/57; PULSE 78; RESP 18; O2SAT 92
== END 2024-03-19 21:24 | disposition home or self-care (01) ==
PROVIDERS: Emergency Provider Emergency Medicine; PCP Internal Medicine
DX: J20.9 Acute bronchitis, unspecified (principal); Z11.52 Encounter for screening for COVID-19; E78.5 Hyperlipidemia, unspecified; I10 Essential (primary) hypertension; Z95.0 Presence of cardiac pacemaker
CPT/HCPCS: 36415; 71045; 80053; 83605; 85025; 86140; 87040; 87486; 87581; 87633; 93005; 99285; J2919; J3490; J7040

== ENCOUNTER 2024-03-26 10:53 | Observation (INO) | payer MEDICAID, SELFPAY ==
[2024-03-26] VITALS (9 sets, daily range): BP systolic 106–120; BP diastolic 69–76; PULSE 88–99; RESP 16–22; TEMP 36.4–36.7; O2SAT 86–99; BMI 27.7
--- NOTE | 2024-03-26 11:31 | XRR_ITS ---
PROCEDURE INFORMATION: Exam: XR Chest Exam date and time: 03/26/2024 11:35 AM Age: 64 years old Clinical indication: Shortness of breath; Additional info: SOB cough 1 wk TECHNIQUE: Imaging protocol: Radiologic exam of the chest. Views: 2 views. COMPARISON: CR XR chest 1V portable [id number] 03/19/2024 4:16 PM FINDINGS: Tubes, catheters and devices: Multi lead pacemaker/defibrillator. Lungs: Chronic interstitial prominence. Pleural spaces: Unremarkable. No pleural effusion. No pneumothorax. Heart/Mediastinum: Moderate cardiomegaly. Bones/joints: Median sternotomy and CABG. XR/XR chest 2V* [id number] IMPRESSION: No acute findings.
--- NOTE | 2024-03-26 11:36 | ED_ITS ---
HPI - SOB/Dyspnea 2 General: Chief Complaint: Shortness of Breath/Dyspnea Stated Complaint: SOB Time Seen by Provider: 03/26/24 11:31 Source: patient and family Mode of arrival: wheelchair Limitations: no limitations History of Present Illness: HPI Narrative: Patient reports she was here last week and started feeling bad was diagnosed with acute bronchitis and discharged home on antibiotics. Reports she has not improved at all reports still having subjective fevers. Having some posttussive emesis at times. Triage notes report a wet cough. Review of Systems 2 General: Reports: 10 or more systems reviewed and unremarkable except in HPI and below PFSH ED 2 PFSH: Medical History (Updated 03/26/24 @ 21:51 by Jesus Gunn MD) Acute CHF Hypoxia Atrial fibrillation UTI (urinary tract infection) Pneumonia Family history of colon cancer Chronic diarrhea History of rheumatic fever Depression with anxiety GERD (gastroesophageal reflux disease) Hyperlipidemia Rheumatic fever Hypertension History of cardiac pacemaker Surgical History History of open heart surgery History of colonoscopy (08/14/21) rectal polyp History of hysterectomy with bilateral oophorectomy History of appendectomy Hx of artificial heart valve replacement Mitral and aortic , bioprosthetic Family History Other CAD (coronary artery disease) Hypertension Social History Smoking and tobacco/nicotine status: never used tobacco/nicotine Second hand smoke exposure: No Alcohol intake: never Substance/Drug Use: never Adopted: No Caregiver/support person: No Lives independently: Yes Household members: spouse Housing: House Marital status: Number of children: 2 Highest education level completed: 11th Grade service: No Current occupational status: disabled Physical Exam 2 Const: COMMON NORMALS: no acute distress, average body habitus, patient oriented x3, healthy appearing, alert and well nourished GENERAL APPEARANCE: well kempt and well developed HENMT: COMMON NORMALS: normocephalic, atraumatic, external ears normal and moist oral mucous membranes HEAD & SCALP: normocephalic and atraumatic E XTERNAL EAR: Yes external ears normal Eye: COMMON NORMALS: Equal, round and reactive pupils present, EOMs intact bilaterally and conjunctivae normal CONJUNCTIVA: Yes conjunctivae normal P UPIL: Yes Equal, round and reactive pupils present Neck/C-Spine: COMMON NORMALS: full ROM, no lymphadenopathy and supple Chest: CHEST: Yes Symmetrical chest wall rise and No Surgical scars present (Chest) Resp: COMMON NORMALS: normal respiratory effort, No retractions, No use of accessory muscles and clear to auscultation bilaterally AUSCULTATION: clear to auscultation bilaterally, rales diffuse and wheezes expiratory wheezes and left upper Cardio: COMMON NORMALS: regular rate, regular rhythm, S1 normal heart sound present, S2 normal heart sound present, No gallops present (Cardio), No clicks present (Cardio), No murmurs present (Cardio) and No rub (Cardio) RATE: r egular rate RHYTHM: regular rhythm HEART SOUNDS: S1 normal heart sound present, S2 normal heart sound present and no murmurs PERIPHERAL PULSES: o ther (Radial pulses 2+ and symmetric) GI: COMMON NORMALS: Soft to palpation, non-tender and no masses INSPECTION: No abdominal distension PALPATION: Yes Soft to palpation, No Guarding due to palpation present (GI) and No Rebound tenderness present : COMMON NORMALS: Yes no CVA tenderness BLADDER/KIDNEY EXAM: Yes no CVA tenderness Back/Pelvis: COMMON NORMALS: no CVA tenderness Extremity: COMMON NORMALS: normal to inspection, full ROM, capillary refill normal and no clubbing, cyanosis or edema Neuro: COMMON NORMALS: patient oriented x3 SENSORIUM/ORIENTATION: Yes alert Psych: APPEARANCE: Yes well kempt Skin: COMMON NORMALS: no rashes or lesions noted, no wounds, turgor normal and no jaundice GENERAL SKIN EXAM: no rashes or lesions noted and turgor normal Course 2 Reevaluation(s): Reevaluation #1: still waiting on basic labs. nurse sriram labs minutes after order placed. Time: 14:31 Reevaluation #2: Patient ambulating and maintaining O2 sat above 93%. Time: 15:45 Vital Signs: Vital signs: Vital Signs Temperature 97.7 F 03/26/24 20:00 Pulse Rate 99 03/26/24 20:00 Respiratory Rate 17 03/26/24 20:00 Blood Pressure 110/69 03/26/24 20:00 Pulse Oximetry 98 03/26/24 20:00 Oxygen Delivery Me thod Room Air 03/26/24 20:00 Oxygen Flow Rate 3.5 03/26/24 20:00 MDM - SOB/Dyspnea Medical Decision Making 61-year-old female with history of CABG, found to have increasing fluid very wet sounding cough. BNP is elevated from baseline. Patient maintains O2 sat with walking however at room air she is fluctuating between 86 and 92%. Patient does have a significant leukocytosis but feel this is best explained by the patient's recent Decadron 6 mg daily tablets. Differential Diagnosis Likely congestive heart failure Medical Records I reviewed the patient's medical records. Lab Data I reviewed the patient's lab results. 03/26/24 12:02 03/26/24 14:01 Labs/Radiology: Radiology Impressions Chest X-Ray 03/26/24 11:31 IMPRESSION: No acute findings. Laboratory Results WBC 23.56 10^3/uL (3.29-11.43) H 03/26/24 12:02 RBC 4.80 10^6/uL (3.85-5.65) 03/26/24 12:02 Hgb 11.60 g/dL (11.27-16.99) 03/26/24 12:02 Hct 38.2 % (36-47) 03/26/24 12:02 MCV 79.6 fl (85-98) L 03/26/24 12:02 MCH 24.2 pg (27-33) L 03/26/24 12:02 MCHC 30.4 g/dL (30-55) 03/26/24 12:02 RDW 18.0 % (12.1-15.1) H 03/26/24 12:02 Plt Count 362 10^3/cmm (157-399) 03/26/24 12:02 MPV 9.7 fL (7.4-10.4) 03/26/24 12:02 Neut % (Auto) 74.5 % 03/26/24 12:02 Lymph % (Auto) 12.1 % 03/26/24 12:02 Tripp % (Auto) 7.4 % 03/26/24 12:02 Eos % (Auto) 1.4 % 03/26/24 12:02 Baso % (Auto) 0.4 % 03/26/24 12:02 Neut # (Auto) 17.56 10^3/uL (1.8-7.7) H 03/26/24 12:02 Lymph # (Auto) 2.9 10^3/uL (0.8-4.8) 03/26/24 12:02 Tripp # (Auto) 1.7 10^3/uL (0.2-0.9) H 03/26/24 12:02 Eos # (Auto) 0.3 10^3/uL (0.0-0.8) 03/26/24 12:02 Baso # (Auto) 0.1 10^3/uL (0.0-0.1) 03/26/24 12:02 Nucleated RBC % (auto) 0 % 03/26/24 12:02 Nucleated RBCs # 0.0 /100WBC 03/26/24 12:02 Sodium 131 mmol/L (136-145) L 03/26/24 14:01 Potassium 4.1 mmol/L (3.5-5.1) 03/26/24 14:01 Chloride 97 mmol/L (98-107) L 03/26/24 14:01 Carbon Dioxide 21 mmol/L (22-29) L 03/26/24 14:01 Anion Gap 17.1 (5-19) 03/26/24 14:01 BUN 24 mg/dL (8-23) H 03/26/24 14:01 Creatinine 0.9 mg/dL (0.5-0.9) 03/26/24 14:01 GFR Calculation 63.2 mL/min (90-130) L 03/26/24 14:01 Glucose 91 mg/dL (65-115) 03/26/24 14:01 Calculated Osmolality 276 mOsm/kg (285-295) L 03/26/24 14:01 Calcium 8.8 mg/dL (8.5-10.5) 03/26/24 14:01 Total Bilirubin 1.1 mg/dL (0.15-1.2) 03/26/24 14:01 AST 26 U/L (0-32) 03/26/24 14:01 ALT 37 U/L (0-33) H 03/26/24 14:01 Alkaline Phosphatase 121 U/L (35-105) H 03/26/24 14:01 NT-Pro-B Natriuret Pep 1726 pg/mL (0-125) H 03/26/24 14:01 Total Protein 7.6 g/dL (6.6-8.7) 03/26/24 14:01 Albumin 3.6 g/dL (3.5-5.2) 03/26/24 14:01 Globulin 4.0 g/dL (1.3-4.6) 03/26/24 14:01 Procalcitonin 0.10 ng/mL (0-0.5) 03/26/24 14:01 All radiology interpretation(s) finalized by discharge ED provider radiology interpretation(s): X-ray my read has needed cardiomegaly there is some concern for pulmonary congestion as well. Discharge Plan Discharge Patient Disposition: Placed in Observation Admit Provider: Saul Mejia Clinical Impression: Acute CHF Coding Level of Care Code ED Shirt Folder for Josey Cordova
[2024-03-26 12:11] LABS: Basophils # 0.1 10^3/uL (0.0-0.1); Basophils % 0.4 %; Eosinophils # 0.3 10^3/uL (0.0-0.8); Eosinophils % 1.4 %; Hematocrit 38.2 % (36-47); Lymphocytes # 2.9 10^3/uL (0.8-4.8); Lymphocytes % 12.1 %; Mean Corpuscular HGB Conc 30.4 g/dL (30-55); Mean Corpuscular Hemoglobin 24.2 pg (27-33); Mean Corpuscular Volume 79.6 fl (85-98); Mean Platelet Volume 9.7 fL (7.4-10.4); Monocytes # 1.7 10^3/uL (0.2-0.9); Monocytes % 7.4 %; Neutrophils # 17.56 10^3/uL (1.8-7.7); Neutrophils % 74.5 %; Nucleated Red Blood Cells % 0 %; Platelet Count 362 10^3/cmm (157-399); White Blood Count 23.56 10^3/uL (3.29-11.43)
--- NOTE | 2024-03-26 12:34 | PC.PHAR ---
PT UNABLE TO KEEP ANYTHING DOWN SO HAS NOT TAKEN ANY MEDICATIONS TODAY.
[2024-03-26] MEDS: FUROsemide 10 mg/mL SDV 4mL 40 MG IVP (14:29)
[2024-03-26 14:44] LABS: NT Pro B Type Natriuretic Pept 1726 pg/mL (0-125)
[2024-03-26 14:55] LABS: Alanine Aminotransferase 37 U/L (0-33); Albumin Level 3.6 g/dL (3.5-5.2); Alkaline Phosphatase 121 U/L (35-105); Anion Gap 17.1 (5-19); Aspartate Amino Transferase 26 U/L (0-32); Blood Urea Nitrogen 24 mg/dL (8-23); Calcium 8.8 mg/dL (8.5-10.5); Carbon Dioxide 21 mmol/L (22-29); Chloride 97 mmol/L (98-107); Creatinine Clr Calc Pharmacy 55.3566; Glomerular Filtration Rate 63.2 mL/min (90-130); Glucose 91 mg/dL (65-115); Osmolality Calculated 276 mOsm/kg (285-295); Potassium 4.1 mmol/L (3.5-5.1); Sodium 131 mmol/L (136-145); Total Bilirubin 1.1 mg/dL (0.15-1.2); Total Protein 7.6 g/dL (6.6-8.7)
--- NOTE | 2024-03-26 16:09 | PM.HP ---
Providers/Chief Complaint Primary Care Provider: Magnolia Worthington MD Chief Complaint: SOB History of Present Illness Daniela Lai is a 64 year old female with past medical history significant for rheumatic fever, heart failure with preserved ejection fraction, atrial fibrillation, cardiac pacemaker, mitral valve replacement, aortic valve replacement, coronary artery disease status post CABG hypertension, hyperlipidemia, anxiety, and multiple other comorbidities who presents to the emergency department with shortness of breath. Patient reports symptoms started about 2 weeks ago. She endorses associated productive cough with white sputum production. She previously had fevers but is currently afebrile. She was evaluated a week ago on 03/19/2024 in the emergency department when she complained of cough, fevers, and shortness of breath. At that time, she was diagnosed with acute bronchitis. She was treated with dexamethasone, IV fluids, and doxycycline. She was prescribed a course of doxycycline and dexamethasone. Patient reports despite taking these treatments, she continues to worsen. She endorses associated symptoms of orthopnea and PND. She also endorses some nausea as well as posttussis emesis. Reports mild pedal edema.Reports exertion markedly worsens symptoms. Rest somewhat improved. Denies other alleviating or aggravating factors. In the emergency department, patient was found to be tachypneic, normotensive, and normal heart rate. She was found to have hypoxia with SpO2 in the mid 80s on room air which was corrected with supplemental oxygen support. Patient reports she typically does not require oxygen at baseline. Labs revealed leukocytosis of 23.56 in the setting of recent dexamethasone burst. CMP revealed hyponatremia, hypochloremia, mild metabolic acidosis, azotemia, elevated ALT, and elevated alk phos. Her NT proBNP was 1726 which is the highest in our system. EKG showed a ventricular paced rhythm, similar to prior EKG. Chest x-ray was read as no acute findings, however per my read there is pulmonary edema present. Patient was treated with IV Lasix in the emergency department. 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 Patient denies known history of COPD. Denies tobacco use history. Review of Systems Narrative: A complete review of systems was obtained and is negative except as stated in HPI. Medications/Allergies Home Medications Medication Instructions Recorded Confirmed Last Taken Type famotidine 40 mg tablet (Pepcid) 20 mg PO QAM 05/27/21 03/26/2403/25/24 History losartan 25 mg tablet 25 mg PO QAM 05/27/21 03/26/24 03/25/24 History metoprolol succinate 25 mg 12.5 mg PO QAM 05/27/21 03/26/24 03/25/24 History tablet,extended release 24 hr rivaroxaban 20 mg tablet (Xarelto) 20 mg PO QAM 05/27/21 03/26/24 03/25/24 History ezetimibe 10 mg tablet 10 mg PO BEDTIME 05/10/23 03/26/24 03/25/24 History montelukast 10 mg tablet 10 mg PO BEDTIME 05/10/23 03/26/24 03/25/24 History venlafaxine 75 mg capsule,extended 75 mg PO QAM 05/10/23 03/26/24 03/25/24 History release 24 hr albuterol sulfate 90 mcg/actuation 2 inh inhalation Q4H PRN shortness 12/06/23 03/26/24 Unknown Rx aerosol inhaler of breath or wheezing #6.7 grams furosemide 40 mg tablet 40 mg PO DAILY #4 tabs 02/04/24 03/26/24 03/25/24 Rx doxycycline hyclate 100 mg capsule 100 mg PO BID 03/26/24 03/26/24 03/25/24 History potassium chloride 20 mEq 10 meq PO BID 03/26/24 03/26/24 03/25/24 History tablet,extended release pramipexole 0.125 mg tablet 0.125 mg PO QPM 03/26/24 03/26/24 03/25/24 History spironolactone 25 mg tablet 25 mg PO DAILY 03/26/24 03/26/24 03/25/24 History Allergies Allergy/AdvReac Type Severity Reaction Status Date / Time guaifenesin [From Entex LA] Allergy Severe ADR-Itching Verified 01/02/24 10:44 phenylephrine [From Entex LA] Allergy Severe ADR-Itching Verified 01/02/24 10:44 phenylpropanolamine Allergy Severe ADR-Itching Verified 01/02/24 10:44 [From Entex LA] Sulfa (Sulfonamide Allergy Severe Unknown Verified 01/02/24 10:44 Antibiotics) cefuroxime [From Ceftin] Allergy ADR-Itching Verified 01/02/24 10:44 ofloxacin [From Floxin] Allergy ALGY-Hives Verified 01/02/24 10:44 PFSH Acute PFSH: Medical History (Updated 03/26/24 @ 16:23 by Saul Mejia MD) Acute CHF Hypoxia Atrial fibrillation UTI (urinary tract infection) Pneumonia Family history of colon cancer Chronic diarrhea History of rheumatic fever Depression with anxiety GERD (gastroesophageal reflux disease) Hyperlipidemia Rheumatic fever Hypertension History of cardiac pacemaker Surgical History History of open heart surgery History of colonoscopy (08/14/21) rectal polyp History of hysterectomy with bilateral oophorectomy History of appendectomy Hx of artificial heart valve replacement Mitral and aortic , bioprosthetic Family History Other CAD (coronary artery disease) Hypertension Social History Smoking and tobacco/nicotine status: never used tobacco/nicotine Second hand smoke exposure: No Alcohol intake: never Substance/Drug Use: never Adopted: No Caregiver/support person: No Lives independently: Yes Household members: spouse Housing: House Marital status: Number of children: 2 Highest education level completed: 11th Grade service: No Current occupational status: disabled Vitals/I&O/Wt Last Vital Signs Temp 98.1 F 03/26/24 11:13 Pulse 96 03/26/24 14:29 Resp 20 H 03/26/24 14:29 BP 120/76 03/26/24 13:14 Pulse Ox 86 L 03/26/24 15:30 O2 Del Method Room Air 03/26/24 15:30 Weight last 48 hrs Weight 65.317 kg Physical Exam Narrative: General: Patient is awake. Appears fatigued. Head: Normocephalic. Atraumatic. EOM intact. Neck: Elevated JVD. Cardiovascular: RRR. No gallops. Murmur present. Trace pedal edema. Lungs: Breath sounds are coarse. Diffuse wheezing. Conversational dyspnea. On supplemental oxygen support. Tachypneic. Skin: No jaundice. No rashes. Abdomen: Normal bowel sounds, abdomen soft and nontender. Genito Urinary: Genital exam not performed since complaints not related. Rectal: Rectal exam not performed since no symptoms indicated blood loss. Extremities: No cyanosis or clubbing. Musculoskeletal: No o swollen or erythematous joints. Neurological: Moves all 4 extremities. No myoclonus. Data 03/26/24 12:02 03/26/24 14:01 A&P Assessment and plan (1) CHF (congestive heart failure): Acute on chronic heart failure with preserved ejection fraction Last echo available in our system was in 2019, revealing preserved LVEF of 60% Continuous telemetry monitoring Continue home beta-bri Continue home ARB Continue home Aldactone Hold home Lasix Start Lasix 40 mg IV twice daily AC Monitor electrolytes, home potassium supplement placed on hold; replace as needed Strict I's and O's Daily weights Obtain echocardiogram (2) Acute bronchitis: Patient has completed a week of doxycycline and dexamethasone Procalcitonin within normal limits Hold off on further antibiotics or steroids Albuterol nebs as needed (3) Hypoxia: Acute hypoxic respiratory insufficiency secondary to CHF exacerbation Provide supplemental oxygen support Encourage pulmonary toilet Treat underlying CHF exacerbation Continuous pulse oximetry (4) Hypertension: Continue home losartan Continue home metoprolol Continue home Aldactone Monitor blood pressure while on IV Lasix (5) Atrial fibrillation: EKG reviewed, ventricular paced by device Continue home Xarelto for anticoagulation Continue home metoprolol for rate control (6) Coronary artery disease: Patient does not appear to be on statin therapy Continue with home Zetia (7) GERD (gastroesophageal reflux disease): Continue home famotidine Plan DVT prophylaxis: Xarelto CODE STATUS: Full code Attestations Medical Necessity Statement*: Patient presents with shortness of breath, found to have acute toxic respiratory insufficiency secondary to acute on chronic heart failure with suspected preserved ejection fraction likely exacerbated by recent bronchitis with expected hospitalization not to cross 2 midnights for IV diuresis, supplemental oxygen support, echo, and supportive care. Coding Level of Care Code Acute Code for Chg Fwd Diagnoses CHF (congestive heart failure) I50.9 Acute bronchitis J20.9 Hypoxia R09.02 Hypertension I10 Atrial fibrillation I48.91 Coronary artery disease I25.10 GERD (gastroesophageal reflux disease) K21.9
--- NOTE | 2024-03-26 18:02 | USCV_ITS ---
Daniela Lai Age: 64 Gender: F : 1960 Exam Date: 03/26/2024 19:04 Ordering Phys: Saul Mejia MD Technologist: ELIZABETH Exam Location: [facility] [place] Indication: CHF exacerbation, diagnosed with bronchitis last week, history of Bio AVR and MVR, pt is poor historian, cannot recall year. BP: 0 / 75 HR: 99 Rhythm: Paced with Atrial Fibrillation Technical Quality: Adequate MEASUREMENTS (Male / Female) Normal Values 2D ECHO LV Diastolic Diameter PLAX 2.9 cm 4.2 - 5.9 / 3.9 - 5.3 cm IVS Diastolic Thickness 1.5 cm 0.6 - 1.0 / 0.6 - 0.9 cm IVS Systolic Thickness 1.3 cm LVPW Diastolic Thickness 1.7 cm 0.6 - 1.0 / 0.6 - 0.9 cm LVPW Systolic Thickness 1.8 cm LVOT Diameter 1.4 cm LV Ejection Fraction 2D Teich 30.0 % LV Ejection Fraction MOD 2C 41.4 % LV Ejection Fraction 2C AL 39.3 % LA Diameter 3.8 cm LA Sys Volume AL 83.4 cm cubed LA Sys Volume Index AL 49.2 cm cubed/m squared Aorta at Sinotubular Diameter 2.6 cm IVC Diameter 1.5 cm M-MODE LA Ao Ratio MM 2.1 AV Cusp Separation MM 1.1 cm DOPPLER AV Peak Velocity 225.0 cm/s LVOT Peak Velocity 65.0 cm/s AV Area Cont Eq vti 0.5 cm squared AV Area Cont Eq pk 0.4 cm squared MV Peak Velocity 339.0 cm/s MV Area PHT 2.3 cm squared TV Peak Velocity 347.7 cm/s TR Peak Velocity 361.0 cm/s TR Peak Gradient 52.1 mmHg TV Peak E Velocity 148.0 cm/s Right Atrial Pressure 10.0 mmHg Pulmonary Artery Systolic Pressu 62.1 mmHg PV Peak Velocity 84.0 cm/s FINDINGS Left Ventricle Left ventricle is normal size. LV systolic function is moderately reduced with EF of 35 to 40%. Moderate global abnormalities. Right Ventricle Moderately hypokinetic right ventricle. Pacemaker lead is seen. Right Atrium Normal in size. Pacemaker lead has echogenic mass. Unchanged from before. Left Atrium Dilated Mitral Valve Bioprosthetic mitral valve. It is thickened. Severely elevated mean pressure gradient across mitral valve is 12mmHg. Aortic Valve Bioprosthetic aortic valve. Mean gradient across aortic valve is 11 mmHg. DVI is 0.36 and is normal. Mild regurgitation. Tricuspid Valve Moderate tricuspid regurgitation. RVSP is >60mmHg. This is consistent with severe pulmonary hypertension. Pulmonic Valve Not well visualized Pericardium Not well visualized Aorta Normal in size IVC Dilated CONCLUSIONS LV systolic function is moderately reduced with EF of 35-40% Moderately hypokinetic right ventricle. Left atrium is dilated Normally functioning bioprosthetic aortic valve. Severely elevated gradient across bioprosthetic mitral valve. Moderate tricuspid regurgitation Severe pulmonary hypertension IVC is dilated Compared to prior echocardiogram from 2020, LV systolic function is significantly lower and EF is 35-40%. Jose De La Cruz MD (Electronically Signed) Final Date: 27 Mar 2024 17:37 S
[2024-03-26] MEDS: montelukast sodium 10 mg Tablet PO (20:04)
[2024-03-26] MEDS: pramipexole 0.25 mg Tablet 0.125 MG PO (20:04)
[2024-03-26] MEDS: ezetimibe 10 mg Tablet PO (20:04)
[2024-03-27] VITALS (10 sets, daily range): BP systolic 93–129; BP diastolic 57–79; PULSE 67–89; RESP 18–20; TEMP 36.4–36.5; O2SAT 93–100
[2024-03-27 04:38] LABS: Basophils # 0.1 10^3/uL (0.0-0.1); Basophils % 0.3 %; Eosinophils # 0.7 10^3/uL (0.0-0.8); Eosinophils % 4.1 %; Hematocrit 38.7 % (36-47); Lymphocytes # 2.4 10^3/uL (0.8-4.8); Lymphocytes % 13.6 %; Mean Corpuscular HGB Conc 31.3 g/dL (30-55); Mean Corpuscular Hemoglobin 24.5 pg (27-33); Mean Corpuscular Volume 78.3 fl (85-98); Mean Platelet Volume 9.5 fL (7.4-10.4); Monocytes # 1.2 10^3/uL (0.2-0.9); Monocytes % 6.7 %; Neutrophils # 12.67 10^3/uL (1.8-7.7); Neutrophils % 71.8 %; Nucleated Red Blood Cells % 0.1 %; Platelet Count 312 10^3/cmm (157-399); Red Blood Count 4.94 10^6/uL (3.85-5.65); Red Cell Distribution Width 18.3 % (12.1-15.1); White Blood Count 17.65 10^3/uL (3.29-11.43)
[2024-03-27 04:52] LABS: Alanine Aminotransferase 34 U/L (0-33); Albumin Level 3.7 g/dL (3.5-5.2); Alkaline Phosphatase 132 U/L (35-105); Anion Gap 14.9 (5-19); Aspartate Amino Transferase 26 U/L (0-32); Blood Urea Nitrogen 27 mg/dL (8-23); Calcium 8.6 mg/dL (8.5-10.5); Carbon Dioxide 26 mmol/L (22-29); Chloride 96 mmol/L (98-107); Creatinine Clr Calc Pharmacy 55.8882; Globulin 4.3 g/dL (1.3-4.6); Glomerular Filtration Rate 63.2 mL/min (90-130); Glucose 109 mg/dL (65-115); Magnesium 2.1 mg/dL (1.7-2.3); Osmolality Calculated 282 mOsm/kg (285-295); Phosphorus 4.1 mg/dL (2.5-4.5); Potassium 3.9 mmol/L (3.5-5.1); Sodium 133 mmol/L (136-145); Total Bilirubin 1.2 mg/dL (0.15-1.2)
[2024-03-27 05:07] LABS: NT Pro B Type Natriuretic Pept 1667 pg/mL (0-125)
[2024-03-27] MEDS: losartan 50 mg Tablet 25 MG PO (05:28)
[2024-03-27] MEDS: venlafaxine ER (24HR) 75 mg Capsule PO (05:29)
[2024-03-27] MEDS: rivaroxaban 10 mg Tablet 20 MG PO (05:29)
[2024-03-27] MEDS: famotidine 20 mg Tablet PO (05:29)
[2024-03-27] MEDS: metoprolol succinate ER (24 HR) 25 mg Tablet 12.5 MG PO (05:29)
[2024-03-27] MEDS: FUROsemide 10 mg/mL SDV 4mL 40 MG IVP (06:33)
[2024-03-27] MEDS: spironolactone 25 mg Tablet PO (08:02)
--- NOTE | 2024-03-27 09:21 | PC.CHAP ---
Pastoral Care Encounter/Spiritual Assessment Type of Contact [] Declined naval special warfare medic visit [] Patient/Family/Request visit [] Outpatient visit [] Follow-up visit [] Physician referral [] Code/Alert [x] Routine visit [] Staff referral [] Actively dying [] Patient sleeping [] Family support [] [] Out of room [] Palliative care [] [] Receiving care in room [] Pre-surgical visit [] Trauma [] Long length of stay [] ICU visit [] Other: Relational/Emotional Strength [x] Patient feels connected with others/family/visitors/staff [] Distress [] Loneliness/isolation [] Abandonment Spirituality of Patient [x] Person of Julianne [] Attends Zoroastrian of their Julianne [x] Believes in Prayer [] Reads Bible or Lutheran materials [] There are Spiritual issues to be addressed 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 Property 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 Interventions [x] Prayer [x] Active listening [] Non-anxious presence [x] Spiritual/emotional support [] Crisis/trauma care [] Spiritual counseling [] Bereavement support [] Provided bereavement packet [] Provided Bible/devotional materials [] Provided toy/stuffed animal, coloring book to patient or family member [] Provided Communion [] Anointing/Belding [] Salvation [x] Completed spiritual assessment [] Other: Impact on Illness or Injury [] Angry [] Fearful [] Anxious [] Often cries [] Exhaustion [] Unable to work [] Unable to attend faith [] Unable to walk/stand [] Unable to read [] Unable to drive [] Unable to eat/drink [] Unable to sleep [] Unable to be with family [] Patient intubated [] Other: Summary Time spent with patient 5 min
--- NOTE | 2024-03-27 10:48 | PM.DCS ---
Discharge Providers Date of Admission: 03/26/24 18:02 Date of Discharge: March 27, 2024 Attending Provider at Admission: Saul Mejia MD Attending Provider at Discharge: Kyle Correa MD Primary Care Provider: Magnolia Worthington MD Diagnoses at Discharge Discharge Diagnosis (1) CHF (congestive heart failure): Status: Acute (2) Acute bronchitis: Status: Inactive (3) Hypoxia: Status: Acute (4) Hypertension: Status: Acute (5) Atrial fibrillation: Status: Acute (6) Coronary artery disease: Status: Acute (7) GERD (gastroesophageal reflux disease): Status: Acute Reason for Visit Reason for Visit: SOB Hospital Course Hospital Course 64-year female with history of diastolic CHF, who recently finished antibiotics and steroids for bronchitis, came in for acute hypoxic respite failure, she was requiring 3 to 4 L of oxygen which was gradually weaned down, on ambulation she was not requiring oxygen however I asked Rester therapist to use stairs and let patient exert and then do home oxygen evaluation, at the time of discharge patient has not qualified for oxygen, she has been instructed to keep taking diuretics, along potassium supplementation. Requested CTA chest to rule out PE before her discharge. Patient remained hemodynamic stable. I have added Spiriva and Advair along azithromycin at the time of discharge. Physical Exam Narrative: Pleasant cooperative GCS 15 Awake and alert Nonfocal neuroexam Crackles at base of the lungs On 2 L at rest Discharge Data Studies Completed and Pending Completed Studies During Hospitalization Category Date Time Status XR chest 2V* [id number] Stat Exams 03/26/24 11:31 Completed Pending at discharge Category Date Time Status CV. echo complete* [id number] Routine Ultrasound 03/26/24 18:02 Taken Radiology Impressions Chest X-Ray 03/26/24 11:31 IMPRESSION: No acute findings. Laboratory Results WBC 17.65 10^3/uL (3.29-11.43) H 03/27/24 04:20 RBC 4.94 10^6/uL (3.85-5.65) 03/27/24 04:20 Hgb 12.10 g/dL (11.27-16.99) 03/27/24 04:20 Hct 38.7 % (36-47) 03/27/24 04:20 MCV 78.3 fl (85-98) L 03/27/24 04:20 MCH 24.5 pg (27-33) L 03/27/24 04:20 MCHC 31.3 g/dL (30-55) 03/27/24 04:20 RDW 18.3 % (12.1-15.1) H 03/27/24 04:20 Plt Count 312 10^3/cmm (157-399) 03/27/24 04:20 MPV 9.5 fL (7.4-10.4) 03/27/24 04:20 Neut % (Auto) 71.8 % 03/27/24 04:20 Lymph % (Auto) 13.6 % 03/27/24 04:20 [place] % (Auto) 6.7 % 03/27/24 04:20 Eos % (Auto) 4.1 % 03/27/24 04:20 Baso % (Auto) 0.3 % 03/27/24 04:20 Neut # (Auto) 12.67 10^3/uL (1.8-7.7) H 03/27/24 04:20 Lymph # (Auto) 2.4 10^3/uL (0.8-4.8) 03/27/24 04:20 [place] # (Auto) 1.2 10^3/uL (0.2-0.9) H 03/27/24 04:20 Eos # (Auto) 0.7 10^3/uL (0.0-0.8) 03/27/24 04:20 Baso # (Auto) 0.1 10^3/uL (0.0-0.1) 03/27/24 04:20 Nucleated RBC % (auto) 0.1 % 03/27/24 04:20 Nucleated RBCs # 0.0 /100WBC 03/27/24 04:20 Sodium 133 mmol/L (136-145) L 03/27/24 04:20 Potassium 3.9 mmol/L (3.5-5.1) 03/27/24 04:20 Chloride 96 mmol/L (98-107) L 03/27/24 04:20 Carbon Dioxide 26 mmol/L (22-29) 03/27/24 04:20 Anion Gap 14.9 (5-19) 03/27/24 04:20 BUN 27 mg/dL (8-23) H 03/27/24 04:20 Creatinine 0.9 mg/dL (0.5-0.9) 03/27/24 04:20 GFR Calculation 63.2 mL/min (90-130) L 03/27/24 04:20 Glucose 109 mg/dL (65-115) 03/27/24 04:20 Calculated Osmolality 282 mOsm/kg (285-295) L 03/27/24 04:20 Calcium 8.6 mg/dL (8.5-10.5) 03/27/24 04:20 Phosphorus 4.1 mg/dL (2.5-4.5) 03/27/24 04:20 Magnesium 2.1 mg/dL (1.7-2.3) 03/27/24 04:20 Total Bilirubin 1.2 mg/dL (0.15-1.2) 03/27/24 04:20 AST 26 U/L (0-32) 03/27/24 04:20 ALT 34 U/L (0-33) H 03/27/24 04:20 Alkaline Phosphatase 132 U/L (35-105) H 03/27/24 04:20 NT-Pro-B Natriuret Pep 1667 pg/mL (0-125) H 03/27/24 04:20 Total Protein 8.0 g/dL (6.6-8.7) 03/27/24 04:20 Albumin 3.7 g/dL (3.5-5.2) 03/27/24 04:20 Globulin 4.3 g/dL (1.3-4.6) 03/27/24 04:20 Procalcitonin 0.10 ng/mL (0-0.5) 03/26/24 14:01 Vitals Last Vital Signs Temp 97.6 F 03/27/24 07:38 Pulse 89 03/27/24 08:45 Resp 18 03/27/24 08:45 BP 115/65 03/27/24 07:38 Pulse Ox 97 03/27/24 10:45 O2 Del Method Nasal Cannula 03/27/24 08:45 O2 Flow Rate 4 03/27/24 08:45 Discharge Plan Discharge Patient Disposition: Home Condition: Stable Prescriptions: New albuterol sulfate 90 mcg/actuation HFA aerosol inhaler 2 inh inhalation Q8H PRN (Reason: shortness of breath or wheezing) Qty: 8.5 3RF azithromycin 500 mg tablet 500 mg PO DAILY 5 Days Qty: 5 0RF fluticasone propion-salmeterol [Advair HFA] 45-21 mcg/actuation HFA aerosol inhaler 2 inh inhalation BID Qty: 12 6RF tiotropium bromide [Spiriva with HandiHaler] 18 mcg capsule, w/inhalation device 1 cap inhalation DAILY Qty: 90 4RF Rx Instructions: puncture 1 cap using device; one dose = 2 inhalations Continued Xarelto 20 mg tablet 20 mg PO QAM Hold Instructions: Resume on 08/17/21. losartan 25 mg tablet 25 mg PO QAM famotidine [Pepcid] 40 mg tablet 20 mg PO QAM venlafaxine 75 mg capsule,extended release 24hr 75 mg PO QAM montelukast 10 mg tablet 10 mg PO BEDTIME ezetimibe 10 mg tablet 10 mg PO BEDTIME albuterol sulfate 90 mcg/actuation HFA aerosol inhaler 2 inh INHALATION Q4H PRN (Reason: shortness of breath or wheezing) Qty: 6.7 0RF pramipexole 0.125 mg tablet 0.125 mg PO QPM furosemide 40 mg tablet 40 mg PO DAILY Qty: 90 3RF potassium chloride 20 mEq tablet extended release 10 meq PO DAILY Qty: 90 2RF Discontinued metoprolol succinate 25 mg tablet extended release 24 hr 12.5 mg PO QAM doxycycline hyclate 100 mg capsule 100 mg PO BID spironolactone 25 mg tablet 25 mg PO DAILY Referrals: Magnolia Worthington MD [Primary Care Provider] - 1 week Discharge Diet: Cardiac Discharge Activity: Increase activity as tolerated Patient Instructions: Opioid Safety Discharge Attestations Time Spent in Discharge Care*: greater than 30 min Quality Metrics Clinical Quality Measures [ No reported AMI, CVA or VTE this stay] Coding Level of Care Code Acute Code for Chg Fwd Diagnoses CHF (congestive heart failure) I50.9 Acute bronchitis J20.9 Hypoxia R09.02 Hypertension I10 Atrial fibrillation I48.91 Coronary artery disease I25.10 GERD (gastroesophageal reflux disease) K21.9
--- NOTE | 2024-03-27 10:51 | CT_ITS ---
WS: [id number] CTA OF THE CHEST WITH PULMONARY EMBOLISM PROTOCOL TECHNIQUE: High-resolution contrast enhanced CTA of the chest with coronal and sagittal reformatted i mages with pulmonary embolism protocol. MIP images are also reviewed. CLINICAL INFORMATION: Hypoxia COMPARISON: CT 01/25/2024 DLP: 336.[address] scans at [facility] use at least one of these dose optimization techniques: automated e xposure control; mA and/or kV adjustment per patient size (includes targeted exams where dose is matc hed to clinical indication); or iterative reconstruction. FINDINGS: Proximal main pulmonary arteries are normal. Normal segmental and subsegmental pulmonary arteries. No evidence of pulmonary embolus. Moderate chronic emphysematous changes. No acute pulmonary infiltrate s. Pleural parenchymal scarring in the lingula. Cardiomegaly. Ectatic ascending thoracic aorta measur ing 3.4 cm unchanged. No mediastinal or hilar lymphadenopathy. No axillary lymphadenopathy. Cardiac p acer. Adrenal glands are normal. Splenic artery calcification. Cholelithiasis. Reflux into the hepatic vein s can be seen with RIGHT heart dysfunction. Evidence of RIGHT heart strain with paradoxical bowing of the LEFT ventricle. Previously described groundglass infiltrates have resolved compared to 01/25/2024 . Sternotomy with CABG. CT/CT angio chest PE protcl [id number] IMPRESSION: 1. No evidence of pulmonary embolus. 2. Moderate chronic emphysematous changes. No acute pulmonary infiltrates. 3. Cardiomegaly. 4. Reflux into hepatic veins can be seen with RIGHT heart dysfunction. Evidenc e of RIGHT heart strain. 5. Cholelithiasis. 6. Ectatic ascending thoracic aorta measuring 3.4 cm unchanged.
[2024-03-27] MEDS: iohexol 350 mg/mL 500 mL Btl (per mL) IV (12:26)
--- NOTE | 2024-03-27 13:09 | PC.NURSE ---
Discharge instructions provided to pt at this time. No questions or concerns voiced. Awaiting ride home.
--- NOTE | 2024-03-27 14:28 | PC.NURSE ---
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
[2024-03-27 15:03] LABS: D Dimer 1.24 ug/mLFEU (0-0.59)
== END 2024-03-27 14:32 | disposition home or self-care (01) ==
LOC: ER 15:50 → MEDSURG 18:14
PROVIDERS: Admitting Provider Internal Medicine; Emergency Provider Emergency Medicine; PCP Internal Medicine; Visit Provider Internal Medicine
DX: R09.02 Hypoxemia (principal); J20.9 Acute bronchitis, unspecified; I11.0 Hypertensive heart disease with heart failure; I50.30 Unspecified diastolic (congestive) heart failure; I48.91 Unspecified atrial fibrillation; I25.10 Atherosclerotic heart disease of native coronary artery without angina pectoris; K21.9 Gastro-esophageal reflux disease without esophagitis; Z95.0 Presence of cardiac pacemaker; Z95.1 Presence of aortocoronary bypass graft; E78.5 Hyperlipidemia, unspecified; F41.9 Anxiety disorder, unspecified; Z80.0 Family history of malignant neoplasm of digestive organs
CPT/HCPCS: 36415; 71046; 71275; 80053; 83735; 83880; 84100; 84145; 85025; 85378; 93306; 94760; 96374; 97116; 99285; G0378; J1940; Q9967

== ENCOUNTER 2024-04-24 10:23 | Inpatient (IN) | payer MEDICAID, SELFPAY ==
[2024-04-24] VITALS (14 sets, daily range): BP systolic 103–130; BP diastolic 57–75; PULSE 60–74; RESP 16–20; TEMP 36.6–37.7; O2SAT 93–96; BMI 27.1; BMI 27.8
--- NOTE | 2024-04-24 10:41 | ECG_ITS ---
[facility] Test Date: 2024-04-24 Pat Name: Daniela Lai Department: Room: Gender: Female Folder Taper Operator: : 1960 Requested By: Kiana Weaver Order Number: [id number] Domenic MD: Sarah Ash M.D. Measurements Intervals [place] Rate: 70 P: 0 NE: 0 QRS: 76 QRSD: 106 T: -82 QT: 458 QTc: 495 Interpretive Statements SUPRAVENTRICULAR RHYTHM ST DEVIATION AND MARKED T-WAVE ABNORMALITY, CONSIDER ANTEROLATERAL ISCHEMIA [-0.5+ mV T-WAVE IN I/aVL/V3-V6] ST DEVIATION AND MARKED T-WAVE ABNORMALITY, CONSIDER INFERIOR ISCHEMIA [-0.5+ mV T-WAVE IN II/aVF] Compared to ECG 03/19/2024 15:01:38 Supraventricular rhythm now present T-wave abnormality now present Possible ischemia now present Ventricular-paced complex(es) or rhythm no longer present Electronically Signed On 04-24-2024 23:47:00 CDT by Sarah Ash M.D. [id number] brown
--- NOTE | 2024-04-24 10:54 | XRR_ITS ---
PROCEDURE INFORMATION: Exam: XR Chest Exam date and time: 04/24/2024 11:04 AM Age: 64 years old Clinical indication: Shortness of breath; Additional info: SOB TECHNIQUE: Imaging protocol: Radiologic exam of the chest. Views: 1 view. COMPARISON: 1. CT angio chest PE protcl [id number] 03/27/2024 12:20 PM 2. CR XR chest 2V* [id number] 03/26/2024 11:35 AM FINDINGS: Tubes, catheters and devices: Aortic valve prosthesis noted. There is a dual-lead AICD with leads positioned in the right atrium and right ventricle. Lungs: Central pulmonary interstitial markings are indistinct. There is mild lower lung predominant ground-glass opacity bilaterally. Pleural spaces: The left lateral costophrenic sulcus is blunted. The right lateral costophrenic sulcus is blunted. No pneumothorax. Heart/Mediastinum: There is moderate enlargement of the cardiac silhouette. Bones/joints: Sternal wires are present. There is no displacement to suggest sternal dehiscence. XR/XR chest 1V portable [id number] IMPRESSION: Bilateral pulmonary opacities, cardiac enlargement and small bilateral pleural effusions are consistent with cardiogenic pulmonary edema and are mildly progressive since 03/26/2024.
--- NOTE | 2024-04-24 11:10 | ED_ITS ---
HPI - SOB/Dyspnea 2 General: Chief Complaint: Shortness of Breath/Dyspnea Stated Complaint: sob Time Seen by Provider: 04/24/24 10:53 Source: patient and family Mode of arrival: wheelchair Limitations: no limitations History of Present Illness: HPI Narrative: Daniela Lai is a 64 year old female with past medical history significant for rheumatic fever, heart failure with last echo being last month showing an EF of 35-40%, atrial fibrillation, cardiac pacemaker, mitral valve replacement, aortic valve replacement, coronary artery disease status post CABG, hypertension, hyperlipidemia, anxiety, and multiple other comorbidities who presents to the emergency department with shortness of breath. She was hopitalized last month for similar symptoms. States she never feels like she got fully better. Followed up with PCP Dr. Worthington who placed her on albuterol and water pills but states these are not helping. She was reportedly satting in the mid 80s at home. She is anywhere from 92-94% on RA while at rest. Reporting cough and subjective fevers. MD elicited complaint: shortness of breath Pertinent past history: congestive heart failure and pneumonia Onset (ago): week(s) Timing: constant Severity: moderate Exacerbating factors: lying flat and exertion Relieving factors: nothing Known history of: congestive heart failure and recurrent pneumonia Associated symptoms: Reports chest congestion and fever(s) (subjective ); Deny abdominal pain, chest pain, dizziness, extremity pain, hemoptysis, nausea, palpitations, syncope or vomiting Treatment prior to arrival: bronchodilator and diuretics Related Data: Home oxygen amount: none Review of Systems 2 Const: Reports: fever(s) (subjective ); Denies: chills or body aches ENMT: Denies: throat pain, odynophagia, nasal discharge, nasal congestion or sinus pain Card: Reports: dyspnea on exertion; Denies: chest pain, palpitations, syncope, pre-syncope, leg pain with exertion or acrocyanosis Resp: Reports: dyspnea, productive cough and chest congestion; Denies: wheezing or hemoptysis GI: Denies: abdominal pain, nausea, vomiting or diarrhea : Denies: flank pain or dysuria Musc: Denies: neck pain, back pain, extremity pain or joint pain Skin/Breast: Denies: rash Neuro: Denies: headache(s), numbness in extremities, weakness in extremities, sensory changes or dizziness PFSH ED 2 PFSH: Medical History Acute CHF Coronary artery disease CHF (congestive heart failure) Acute CHF Hypoxia Atrial fibrillation UTI (urinary tract infection) Pneumonia Family history of colon cancer Chronic diarrhea History of rheumatic fever Depression with anxiety GERD (gastroesophageal reflux disease) Hyperlipidemia Rheumatic fever Hypertension History of cardiac pacemaker Surgical History History of open heart surgery History of colonoscopy (08/14/21) rectal polyp History of hysterectomy with bilateral oophorectomy History of appendectomy Hx of artificial heart valve replacement Mitral and aortic , bioprosthetic Family History Other CAD (coronary artery disease) Hypertension Social History Smoking and tobacco/nicotine status: never used tobacco/nicotine Second hand smoke exposure: No Alcohol intake: never Substance/Drug Use: never Adopted: No Caregiver/support person: No Lives independently: Yes Household members: spouse Housing: House Marital status: Number of children: 2 Highest education level completed: 11th Grade service: No Current occupational status: disabled Physical Exam 2 Const: COMMON NORMALS: no acute distress, patient oriented x3, no limitations, alert and well nourished GENERAL APPEARANCE: cooperative O RIENTATION/CONSCIOUSNESS: Yes awake, Yes oriented to person, Yes oriented to place and Yes oriented to time HENMT: COMMON NORMALS: normocephalic and atraumatic HEAD & SCALP: normal to inspection, normocephalic and atraumatic Chest: COMMONS NORMALS: normal inspection of the chest and normal palpation of entire chest wall Resp: COMMON NORMALS: normal respiratory effort AUSCULTATION: rhonchi and wheezes OTHER: satting anywhere from 92-94% on RA at rest Cardio: COMMON NORMALS: regular rate and regular rhythm RATE: regular rate RHYTHM: regular rhythm GI: COMMON NORMALS: Normal to inspection, nondistended, normoactive bowel sounds present, Soft to palpation and non-tender PALPATION: Yes Soft to palpation Extremity: COMMON NORMALS: normal to inspection, capillary refill normal, no joint enlargement, no clubbing, cyanosis or edema, no calf tenderness and no pedal edema GENERAL: Yes normal exam except as noted Neuro: COMMON NORMALS: patient oriented x3, moves all extremities, no focal motor deficits and no sensory deficits noted SENSORIUM/ORIENTATION: Yes alert, Yes oriented to person, Yes oriented to place and Yes oriented to time Skin: COMMON NORMALS: no rashes or lesions noted GENERAL SKIN EXAM: no rashes or lesions noted Course 2 Consultations: Consultation #1: Dr. Eugene-accepts hospitalization Vital Signs: Vital signs: Vital Signs Temperature 100 F H 04/24/24 10:42 Pulse Rate 60 04/24/24 13:22 Respiratory Rate 16 04/24/24 13:22 Blood Pressure 111/63 04/24/24 13:22 Pulse Oximetry 95 04/24/24 13:22 Oxygen Delivery Me thod Room Air 04/24/24 12:18 MDM - SOB/Dyspnea Medical Decision Making Patient here for worsening/not improving dyspnea since her discharge last month. She has had a significant decline in her EF by her last echocardiogram. Her CXR showing bilateral pulmonary opacities, effusions, and cardiogenic pulmonary edema worse since her last hospitalization. This point I spoken to hospitalist Dr. Eugene who will admit. Lab Data 04/24/24 11:20 04/24/24 11:20 Labs/Radiology: Radiology Impressions Chest X-Ray 04/24/24 10:54 IMPRESSION: Bilateral pulmonary opacities, cardiac enlargement and small bilateral pleural effusions are consistent with cardiogenic pulmonary edema and are mildly progressive since 03/26/2024. Laboratory Results WBC 10.22 10^3/uL (3.29-11.43) 04/24/24 11:20 RBC 4.22 10^6/uL (3.85-5.65) 04/24/24 11:20 Hgb 10.00 g/dL (11.27-16.99) L 04/24/24 11:20 Hct 33.0 % (36-47) L 04/24/24 11:20 MCV 78.2 fl (85-98) L 04/24/24 11:20 MCH 23.7 pg (27-33) L 04/24/24 11:20 MCHC 30.3 g/dL (30-55) 04/24/24 11:20 RDW 18.1 % (12.1-15.1) H 04/24/24 11:20 Plt Count 269 10^3/cmm (157-399) 04/24/24 11:20 MPV 9.8 fL (7.4-10.4) 04/24/24 11:20 Neut % (Auto) 76.8 % 04/24/24 11:20 Lymph % (Auto) 11.2 % 04/24/24 11:20 [place] % (Auto) 9.7 % 04/24/24 11:20 Eos % (Auto) 0.6 % 04/24/24 11:20 Baso % (Auto) 0.5 % 04/24/24 11:20 Neut # (Auto) 7.86 10^3/uL (1.8-7.7) H 04/24/24 11:20 Lymph # (Auto) 1.1 10^3/uL (0.8-4.8) 04/24/24 11:20 [place] # (Auto) 1.0 10^3/uL (0.2-0.9) H 04/24/24 11:20 Eos # (Auto) 0.1 10^3/uL (0.0-0.8) 04/24/24 11:20 Baso # (Auto) 0.1 10^3/uL (0.0-0.1) 04/24/24 11:20 Nucleated RBC % (auto) 0 % 04/24/24 11:20 Nucleated RBCs # 0.0 /100WBC 04/24/24 11:20 Sodium 132 mmol/L (136-145) L 04/24/24 11:20 Potassium 3.7 mmol/L (3.5-5.1) 04/24/24 11:20 Chloride 95 mmol/L (98-107) L 04/24/24 11:20 Carbon Dioxide 21 mmol/L (22-29) L 04/24/24 11:20 Anion Gap 19.7 (5-19) H 04/24/24 11:20 BUN 10 mg/dL (8-23) 04/24/24 11:20 Creatinine 0.9 mg/dL (0.5-0.9) 04/24/24 11:20 GFR Calculation 63.2 mL/min (90-130) L 04/24/24 11:20 Glucose 94 mg/dL (65-115) 04/24/24 11:20 Calculated Osmolality 273 mOsm/kg (285-295) L 04/24/24 11:20 Calcium 9.0 mg/dL (8.5-10.5) 04/24/24 11:20 Total Bilirubin 1.2 mg/dL (0.15-1.2) 04/24/24 11:20 AST 17 U/L (0-32) 04/24/24 11:20 ALT 9 U/L (0-33) 04/24/24 11:20 Alkaline Phosphatase 129 U/L (35-105) H 04/24/24 11:20 Troponin T Baseline 17 ng/L (0-10) H 04/24/24 11:20 NT-Pro-B Natriuret Pep 1948 pg/mL (0-125) H 04/24/24 11:20 Total Protein 7.4 g/dL (6.6-8.7) 04/24/24 11:20 Albumin 3.8 g/dL (3.5-5.2) 04/24/24 11:20 Globulin 3.6 g/dL (1.3-4.6) 04/24/24 11:20 Procalcitonin 0.16 ng/mL (0-0.5) 04/24/24 11:20 All radiology interpretation(s) finalized by discharge Discharge Plan Discharge Patient Disposition: Admitted As Inpatient Clinical Impression: Acute exacerbation of congestive heart failure Condition: Stable Coding Level of Care Code ED Strain Technician for Josey Cordova
[2024-04-24 11:33] LABS: Basophils # 0.1 10^3/uL (0.0-0.1); Basophils % 0.5 %; Eosinophils # 0.1 10^3/uL (0.0-0.8); Eosinophils % 0.6 %; Lymphocytes # 1.1 10^3/uL (0.8-4.8); Lymphocytes % 11.2 %; Mean Corpuscular HGB Conc 30.3 g/dL (30-55); Mean Corpuscular Hemoglobin 23.7 pg (27-33); Mean Corpuscular Volume 78.2 fl (85-98); Mean Platelet Volume 9.8 fL (7.4-10.4); Monocytes % 9.7 %; Neutrophils # 7.86 10^3/uL (1.8-7.7); Neutrophils % 76.8 %; Nucleated Red Blood Cells % 0 %; Platelet Count 269 10^3/cmm (157-399); Red Blood Count 4.22 10^6/uL (3.85-5.65); Red Cell Distribution Width 18.1 % (12.1-15.1); White Blood Count 10.22 10^3/uL (3.29-11.43)
[2024-04-24] MEDS: ipratropium-albuterol 3 mL Neb INHALATION ×3 (11:43→20:32)
[2024-04-24 11:51] LABS: Troponin(5th) Baseline 17 ng/L (0-10)
[2024-04-24] MEDS: methylPREDNISolone sod succ 125 mg/2 mL INJ IVP (11:53)
[2024-04-24 12:08] LABS: NT Pro B Type Natriuretic Pept 1948 pg/mL (0-125); Procalcitonin 0.16 ng/mL (0-0.5)
[2024-04-24 12:19] LABS: Alanine Aminotransferase 9 U/L (0-33); Albumin Level 3.8 g/dL (3.5-5.2); Alkaline Phosphatase 129 U/L (35-105); Anion Gap 19.7 (5-19); Aspartate Amino Transferase 17 U/L (0-32); Blood Urea Nitrogen 10 mg/dL (8-23); Carbon Dioxide 21 mmol/L (22-29); Chloride 95 mmol/L (98-107); Creatinine Clr Calc Pharmacy 55.3566; Globulin 3.6 g/dL (1.3-4.6); Glomerular Filtration Rate 63.2 mL/min (90-130); Glucose 94 mg/dL (65-115); Osmolality Calculated 273 mOsm/kg (285-295); Potassium 3.7 mmol/L (3.5-5.1); Sodium 132 mmol/L (136-145); Total Bilirubin 1.2 mg/dL (0.15-1.2); Total Protein 7.4 g/dL (6.6-8.7)
[2024-04-24] MEDS: FUROsemide 10 mg/mL SDV 10mL 60 MG IVP (12:41)
--- NOTE | 2024-04-24 12:55 | ECG_ITS ---
[facility] Test Date: 2024-04-24 Pat Name: Daniela Lai Department: Room: Gender: Female Skein Straightener: : 1960 Requested By: Kiana Weaver Order Number: [id number] Domenic MD: Sarah Ash M.D. Measurements Intervals [place] Rate: 73 P: 0 [place]: 0 QRS: -55 QRSD: 193 T: 120 QT: 445 QTc: 492 Interpretive Statements ELECTRONIC VENTRICULAR PACEMAKER ABNORMAL RHYTHM ECG Compared to ECG 04/24/2024 10:41:28 Supraventricular rhythm no longer present T-wave abnormality no longer present Possible ischemia no longer present Electronically Signed On 04-26-2024 0:11:22 CDT by Sarah Ash M.D. [email or web address]/[id number]
[2024-04-24 13:46] LABS: Adenovirus Not Detected (NOT DETECT); Chlamydia Pneumoniae Not Detected (NOT DETECT); Coronavirus 229E,HKU1,NL63,OC4 Not Detected (NOT DETECT); Human Metapneumovirus Not Detected (NOT DETECT); Human Rhinovirus/Enterovirus Not Detected (NOT DETECT); Influenza A Not Detected (NOT DETECT); Influenza A H1 Not Detected (NOT DETECT); Influenza A H1-2009 Not Detected (NOT DETECT); Influenza A H3 Not Detected (NOT DETECT); Influenza B Not Detected (NOT DETECT); Mycoplasma Pneumoniae Not Detected (NOT DETECT); Parainfluenza Virus Type 1 Not Detected (NOT DETECT); Parainfluenza Virus Type 2 Not Detected (NOT DETECT); Parainfluenza Virus Type 3 Detected (NOT DETECT); Parainfluenza Virus Type 4 Not Detected (NOT DETECT); Respiratory Syncytial Virus A Not Detected (NOT DETECT); Respiratory Syncytial Virus B Not Detected (NOT DETECT); SARS-COV-2 Not Detected (NOT DETECT)
[2024-04-24 14:17] LABS: Troponin 5 2HR 17.83 ng/L (0-10); Troponin 5 2HR Delta 0.83 ABS# (0-10)
--- NOTE | 2024-04-24 14:20 | P.HP_ITS ---
Providers/Chief Complaint 2 Admitting Physician: Raven Eugene MD Primary Care Provider: Magnolia Worthington MD Chief Complaint: sob History of Present Illness Daniela Lai is a 64 year old female who presented to the emergency room with chief complaint of difficulty breathing. She has been having recurrent similar symptoms dating back to the first of the year. In talking with her and her she has never fully recovered between any of these events. As it is pertinent to presentation today I have outlined prior visits here as follows: Hospitalization April 2023 with RSV infection, transiently required oxygen, covered empirically with antibiotics for pneumonia and received steroids and breathing treatments, did not require discharge on oxygen ED visits October and December 2023 with respiratory complaints, treated with antibiotics empirically in October and with steroids and breathing treatments and December. She had rhinovirus at the time from viral studies. Admission December 2023 with right middle lobe and right lower lobe pneumonia identified on chest x-ray and CT imaging. She was treated with antibiotics but also received some diuretics. Additionally she had E. coli UTI at the same time. Discharged with antibiotics (doxycycline and Augmentin), steroids and breathing treatments after 4 days in the hospital. ED visits in December, January and February again with respiratory symptoms. Initially managed as persistent symptoms from December admission and subsequently managed his combination of COPD like symptoms/upper respiratory/bronchitis symptoms versus CHF. In January she received a prescription for Lasix from the ED (in addition to spironolactone which she was already taking) and in February received prescriptions for antibiotics and steroids. Hospitalized March 26 to March 27 again with respiratory symptoms though this time with hypoxemia requiring oxygen which was a new finding. She had increase in proBNP beyond any prior values. She also had leukocytosis and some other laboratory abnormalities. At admission managed as CHF with IV diuresis. CTA of the chest was done demonstrating no evidence of PE. There were moderate chronic emphysematous changes but no acute pulmonary infiltrates identified. Cardiomegaly as well as reflux into hepatic veins noted, evidence of right heart strain. Ectatic ascending thoracic aorta at 3.4 cm which was unchanged from prior studies. She was discharged with addition of Advair and Spiriva along with azithromycin and albuterol and instructions to continue her diuretics. She has since seen her extension associate, Dr. Mitchell in [place]. An echocardiogram was done during her stay in February but it is not clear if Dr. Mitchell got the results of this. Ejection fraction was found to be 30 to 40% which was decreased from prior comparative echo from 2019 when ejection fraction was 60%. She had an overnight pulse oximetry study within the last couple of weeks that showed significant nocturnal hypoxemia. She is in the process of being set up up through Dr. Mitchell office for an outpatient sleep study to be performed in [place]. She has not had any additional cardiac testing. Her pacemaker was replaced roughly a year ago. Her aortic and mitral valves were replaced approximately 10 years ago. In talking with her her shortness of breath has been predominantly exertional in nature. It has gotten to the point that walking even a few steps she is short of breath. Sometimes rising from a seated to a standing position she gets acutely short of breath. She has had associated nausea, a few episodes of some vomiting predominantly of phlegm or clear fluid. She has noticed palpitations with episodes of shortness of breath. She reports some headache, neck pain and occasionally back pain. On a few occasions she has had some substernal pain with episodes of shortness of breath. She has some mild ankle edema. Does describe some orthopnea and occasionally feels like she may have a fever but has not taken her temperature. Not producing much sputum regularly though recently with cold-like symptoms. She reports no appetite and losing weight and being tired quite a bit of time. She has never smoked. No secondhand smoke exposure. She does have a history of rheumatic fever as a child that ultimately led to mitral and aortic valve replacements as well as arrhythmias and ultimate pacemaker placement. No known personal history of coronary artery disease. She has a maternal grandmother with a history of heart attack. Both of her parents have hypertension. EKG in the emergency room showed paced rhythm. Baseline troponin was 17. proBNP has continued to elevate now again up to highest value we have recorded which is at 1948. Review of Systems 2 General: Reports: Other (ROS as per HPI or as otherwise noted here) Medications/Allergies Home Medications Medication Instructions Recorded Confirmed Last Taken Type famotidine 40 mg tablet (Pepcid) 40 mg PO QAM 05/27/21 04/24/24 04/24/24 History losartan 25 mg tablet 25 mg PO QAM 05/27/21 04/24/24 04/24/24 History rivaroxaban 20 mg tablet (Xarelto) 20 mg PO QAM 05/27/21 04/24/24 04/24/24 History ezetimibe 10 mg tablet 10 mg PO BEDTIME 05/10/23 04/24/24 04/23/24 History montelukast 10 mg tablet 10 mg PO BEDTIME 05/10/23 04/24/24 04/23/24 History venlafaxine 75 mg capsule,extended 75 mg PO QAM 05/10/23 04/24/24 04/24/24 History release 24 hr pramipexole 0.125 mg tablet 0.125 mg PO QPM 03/26/24 04/24/24 04/23/24 History furosemide 40 mg tablet 40 mg PO DAILY #90 tabs 03/27/24 04/24/24 04/24/24 Rx potassium chloride 20 mEq 20 meq PO DAILY 04/24/24 04/24/24 04/24/24 History tablet,extended release Allergies Allergy/AdvReac Type Severity Reaction Status Date / Time guaifenesin [From Entex LA] Allergy Severe ADR-Itching Verified 04/24/24 10:49 phenylephrine [From Entex LA] Allergy Severe ADR-Itching Verified 04/24/24 10:49 phenylpropanolamine Allergy Severe ADR-Itching Verified 04/24/24 10:49 [From Entex LA] Sulfa (Sulfonamide Allergy Severe Unknown Verified 04/24/24 10:49 Antibiotics) cefuroxime [From Ceftin] Allergy ADR-Itching Verified 04/24/24 10:49 ofloxacin [From Floxin] Allergy ALGY-Hives Verified 04/24/24 10:49 PFSH Acute 2 PFSH: Medical History (Updated 04/24/24 @ 22:54 by Raven Eugene MD) History of cardiac arrest during pacemaker placement CHF (congestive heart failure) Atrial fibrillation Family history of colon cancer Hypertension Chronic diarrhea History of rheumatic fever age 6 or 7 Depression with anxiety GERD (gastroesophageal reflux disease) Hyperlipidemia History of cardiac pacemaker X 2, last replacement in February 2023 Surgical History (Updated 04/24/24 @ 14:31 by Raven Eugene MD) History of open heart surgery History of colonoscopy (08/14/21) rectal polyp History of hysterectomy with bilateral oophorectomy History of appendectomy Hx of artificial heart valve replacement Mitral and aortic, bioprosthetic valves placed in approximately 2013; prior to this had mechanical valves 32 years Family History (Updated 04/24/24 @ 14:22 by Raven Eugene MD) Grandmother CAD (coronary artery disease) Mother Hypertension Father Hypertension Social History Smoking and tobacco/nicotine status: never used tobacco/nicotine Second hand smoke exposure: No Alcohol intake: never Substance/Drug Use: never Adopted: No Caregiver/support person: No Lives independently: Yes Household members: spouse Housing: House Marital status: Number of children: 2 Highest education level completed: 11th Grade service: No Current occupational status: disabled Vitals/I&O/Wt Last Vital Signs Temp 100 F H 04/24/24 10:42 Pulse 60 04/24/24 13:22 Resp 16 04/24/24 13:22 BP 111/63 04/24/24 13:22 Pulse Ox 95 04/24/24 13:22 O2 Del Method Room Air 04/24/24 12:18 Weight last 48 hrs Weight 65.317 kg Physical Exam 2 Narrative: Patient is awake and alert, able to provide history but often has to pause to take a few deep breaths before she can continue. She looks unwell. Pursed lip breathing appreciated, some supraclavicular retractions and nasal flaring noted after she returned from walking to the bathroom, having to sit straight up. Normocephalic. Extraocular movements intact. Moist mucous membranes which are pale. Neck is supple. Lungs with bibasilar Rales. Cardiovascular exam with regular rhythm, murmurs noted. JVD noted. Abdomen is soft, nontender. Trace ankle edema. No calf tenderness. Moves all extremities. Data 04/24/24 11:20 04/24/24 11:20 Other Labs: Radiology Impressions Chest X-Ray 04/24/24 10:54 IMPRESSION: Bilateral pulmonary opacities, cardiac enlargement and small bilateral pleural effusions are consistent with cardiogenic pulmonary edema and are mildly progressive since 03/26/2024. Laboratory Results WBC 10.22 10^3/uL (3.29-11.43) 04/24/24 11:20 RBC 4.22 10^6/uL (3.85-5.65) 04/24/24 11:20 Hgb 10.00 g/dL (11.27-16.99) L 04/24/24 11:20 Hct 33.0 % (36-47) L 04/24/24 11:20 MCV 78.2 fl (85-98) L 04/24/24 11:20 MCH 23.7 pg (27-33) L 04/24/24 11:20 MCHC 30.3 g/dL (30-55) 04/24/24 11:20 RDW 18.1 % (12.1-15.1) H 04/24/24 11:20 Plt Count 269 10^3/cmm (157-399) 04/24/24 11:20 MPV 9.8 fL (7.4-10.4) 04/24/24 11:20 Neut % (Auto) 76.8 % 04/24/24 11:20 Lymph % (Auto) 11.2 % 04/24/24 11:20 [place] % (Auto) 9.7 % 04/24/24 11:20 Eos % (Auto) 0.6 % 04/24/24 11:20 Baso % (Auto) 0.5 % 04/24/24 11:20 Neut # (Auto) 7.86 10^3/uL (1.8-7.7) H 04/24/24 11:20 Lymph # (Auto) 1.1 10^3/uL (0.8-4.8) 04/24/24 11:20 [place] # (Auto) 1.0 10^3/uL (0.2-0.9) H 04/24/24 11:20 Eos # (Auto) 0.1 10^3/uL (0.0-0.8) 04/24/24 11:20 Baso # (Auto) 0.1 10^3/uL (0.0-0.1) 04/24/24 11:20 Nucleated RBC % (auto) 0 % 04/24/24 11:20 Nucleated RBCs # 0.0 /100WBC 04/24/24 11:20 Sodium 132 mmol/L (136-145) L 04/24/24 11:20 Potassium 3.7 mmol/L (3.5-5.1) 04/24/24 11:20 Chloride 95 mmol/L (98-107) L 04/24/24 11:20 Carbon Dioxide 21 mmol/L (22-29) L 04/24/24 11:20 Anion Gap 19.7 (5-19) H 04/24/24 11:20 BUN 10 mg/dL (8-23) 04/24/24 11:20 Creatinine 0.9 mg/dL (0.5-0.9) 04/24/24 11:20 GFR Calculation 63.2 mL/min (90-130) L 04/24/24 11:20 Glucose 94 mg/dL (65-115) 04/24/24 11:20 Calculated Osmolality 273 mOsm/kg (285-295) L 04/24/24 11:20 Calcium 9.0 mg/dL (8.5-10.5) 04/24/24 11:20 Total Bilirubin 1.2 mg/dL (0.15-1.2) 04/24/24 11:20 AST 17 U/L (0-32) 04/24/24 11:20 ALT 9 U/L (0-33) 04/24/24 11:20 Alkaline Phosphatase 129 U/L (35-105) H 04/24/24 11:20 Troponin T Baseline 17 ng/L (0-10) H 04/24/24 11:20 Troponin T 120 Minute 17.83 ng/L (0-10) H 04/24/24 13:44 Delta Troponin T 0.83 ABS# (0-10) 04/24/24 13:44 NT-Pro-B Natriuret Pep 1948 pg/mL (0-125) H 04/24/24 11:20 Total Protein 7.4 g/dL (6.6-8.7) 04/24/24 11:20 Albumin 3.8 g/dL (3.5-5.2) 04/24/24 11:20 Globulin 3.6 g/dL (1.3-4.6) 04/24/24 11:20 Procalcitonin 0.16 ng/mL (0-0.5) 04/24/24 11:20 Adenovirus (PCR) Not detected (NOT DETECT) 04/24/24 11:56 C. pneumoniae DNA (PCR) Not detected (NOT DETECT) 04/24/24 11:56 Coronavirus 229E (PCR) Not detected (NOT DETECT) 04/24/24 11:56 Human Metapneumovir PCR Not detected (NOT DETECT) 04/24/24 11:56 Influenza A (H1) PCR Not detected (NOT DETECT) 04/24/24 11:56 Influ A (H1/09) PCR Not detected (NOT DETECT) 04/24/24 11:56 Influenza A (H3) PCR Not detected (NOT DETECT) 04/24/24 11:56 Influenza Type A (PCR) Not detected (NOT DETECT) 04/24/24 11:56 Influenza Type B (PCR) Not detected (NOT DETECT) 04/24/24 11:56 M. pneumoniae (PCR) Not detected (NOT DETECT) 04/24/24 11:56 Parainfluenza 1 (PCR) Not detected (NOT DETECT) 04/24/24 11:56 Parainfluenza 2 (PCR) Not detected (NOT DETECT) 04/24/24 11:56 Parainfluenza 3 (PCR) Detected (NOT DETECT) A 04/24/24 11:56 Parainfluenza 4 (PCR) Not detected (NOT DETECT) 04/24/24 11:56 RSV Type A (PCR) Not detected (NOT DETECT) 04/24/24 11:56 RSV Type B (PCR) Not detected (NOT DETECT) 04/24/24 11:56 Entero/Rhino (PCR) Not detected (NOT DETECT) 04/24/24 11:56 SARS-CoV-2 (PCR) Not detected (NOT DETECT) 04/24/24 11:56 Echo: Radiologist's impression: ECHO 03/27/2024 CONCLUSIONS LV systolic function is moderately reduced with EF of 35-40% Moderately hypokinetic right ventricle. Left atrium is dilated Normally functioning bioprosthetic aortic valve. Severely elevated gradient across bioprosthetic mitral valve. Moderate tricuspid regurgitation Severe pulmonary hypertension IVC is dilated Compared to prior echocardiogram from 2020, LV systolic function is significantly lower and EF is 35-40%. A&P Assessment and plan (1) Acute exacerbation of congestive heart failure: Acute on chronic CHF. Historically has had preserved ejection fraction though echocardiogram at the end of February demonstrated reduced ejection fraction. She is chronically on losartan. That echocardiogram demonstrated elevated gradients across the bioprosthetic mitral valve with moderate tricuspid regurgitation and severe pulmonary hypertension. Has chronically been on losartan and spironolactone. Lasix was added in January of this year during one of her ER visits and subsequently continued, along with potassium. Worsening heart failure could be related to her known history of rheumatic heart disease and associated valvular and electrical conduction abnormalities. Progressively worsening pulmonary hypertension might also account for worsening respiratory problems over time as it gets more challenging to manage. I would expect she likely had a cardiac catheterization prior to her valve replacement surgery back in 2013, but coronary artery disease is also within the differential. (2) Pulmonary hypertension: See above. Etiology of pulmonary hypertension currently suspected to be related to valvular abnormalities but she was recently identified as having nocturnal hypoxemia on an overnight pulse oximetry study and is in the process of getting a sleep study done. Untreated sleep apnea is also within the differential of worsening pulmonary hypertension. (3) Parainfluenza: Upper respiratory infection secondary to parainfluenza. Currently not demonstrating definitive evidence of viral pneumonia though it is certainly within the differential and potential risk going forward. At risk for more severe disease secondary to her comorbid cardiopulmonary diagnoses. (4) Hx of artificial heart valve replacement: Has both mitral and aortic bioprosthetic valves that were placed in approximately 2013. She had had mechanical valves for 32 years prior to that. Currently with elevated gradients across the bioprosthetic mitral valve noted on echocardiogram at the end of last month. She follows with cardiology in [place], Dr. Mitchell. (5) History of cardiac pacemaker: Pacemaker was last replaced a year ago in February. EKG with a paced rhythm (6) Atrial fibrillation: Chronic diagnosis though specific type of atrial fibrillation not known. Has pacemaker with paced rhythm. Is on anticoagulation. Not currently on any rate controlling medications. (7) Chronic anticoagulation: On Xarelto secondary to history of atrial fibrillation (8) Nocturnal oxygen desaturation: Recent overnight oxygen saturation monitoring demonstrated significant nocturnal hypoxemia. Dr. Mitchell, her extension associate is in the process of setting her up for a formal sleep study that has not yet been scheduled. (9) Hyperlipidemia: Chronically on Zetia (10) Depression with anxiety: Chronically on venlafaxine (11) History of rheumatic fever: Plan Chronically on Mirapex Seasonal allergies chronically on Singulair Reflux chronically on Pepcid Inpatient admission Continue serial cardiac enzymes and EKGs Add aspirin therapy Continue IV diuresis, monitoring urine output and clinical response Continue home losartan Cardiology consultation, discussed with Dr. Ash Telemetry monitoring at least initially given nocturnal hypoxemia and worsening respiratory symptoms though if maintains paced rhythm can discontinue after 24 to 48 hours Breathing treatments as needed Oxygen as needed Received Solu-Medrol in the emergency room; can consider additional steroids depending on clinical course but currently less inclined to think that this is primarily due to parainfluenza more than worsening heart failure/pulmonary hypertension I will add inhaled nasal steroids to Singulair Continue home Xarelto Continue home Zetia Continue home venlafaxine Continue home Mirapex Will give PPI in place of home Pepcid while here VTE prophylaxis: on Xarelto chronically GI Prophylaxis: PPI Antibiotics: none Pending studies: serial cardiac enzymes, stress testing Telemetry: ordered for 24 to 48 hours given acute presentation though chronically with a paced rhythm [place]: not currently indicated Line(s): peripheral IVs Disposition plan: Home with outpatient follow up to both her primary care provider Dr. Worthington as well as cardiology Dr. Saleem anticipated. Further plans pending clinical course. She is in the process of having an outpatient sleep study arranged and encourage that to be completed as part of overall plan of care Code Status: Full Code Supportive care otherwise Findings, concerns and plans were discussed with patient and her and they were given an opportunity to ask questions Attestations 2 Medical Necessity Statement*: Anticipated stay greater than two midnights in this patient with bioprosthetic mitral and aortic valves along with atrial fibrillation and pacemaker secondary to history of rheumatic heart disease. She has had repeated admissions with respiratory symptoms. Echocardiogram recently performed indicated drop in ejection fraction from 60% in 2019 to 30% today. May be from mitral regurgitation with increased gradients, progressively worsening pulmonary hypertension potentially coronary artery disease. She is receiving IV diuresis, cardiology consultation, cardiac stress testing along with further Agustina evaluation as noted above. At high risk of rapid clinical decline without inpatient management as described given the degree of increased work of breathing she demonstrates despite maintaining oxygen saturations at this time. Coding Level of Care Code Acute Code for Chg Fwd Diagnoses Acute exacerbation of congestive heart failure I50.9 Pulmonary hypertension I27.20 Parainfluenza B34.8 Hx of artificial heart valve replacement Z95.2 History of cardiac pacemaker Z95.0 Atrial fibrillation I48.91 Chronic anticoagulation Z79.01 Nocturnal oxygen desaturation G47.34 Hyperlipidemia E78.5 Depression with anxiety F41.8 History of rheumatic fever Z86.79
--- NOTE | 2024-04-24 16:29 | PM.CONSULT ---
Providers/Reason For Consult Consulting Physician/Specialty*: PRISCILA Ash MD/cardiology Reason for Consult*: Patient with recurrent CHF, multivalvular heart disease, recent decline in the LV systolic function and chest pains Requesting Physician: Dr. Eugene Attending Physician: Raven Eugene MD Primary Care Provider: Magnolia Worthington MD History of Present Illness History of Present Illness Daniela Lai is a 64 year old female with a history of mitral and aortic valve replacement, atrial flutter/fibrillation, status post permanent pacer implantation, is present with complaints of progressive shortness of breath over the last several months. She was recently admitted to the hospital with a more or less similar symptoms, approximately month ago. She was treated with IV diuretics and other symptomatic measures and was discharged home. She is admitted to hospital for further evaluation management. This patient has a history of rheumatic valvular heart disease and had initial aortic and mitral valve replacement almost 42 years ago. She had mechanical valve replacement at that time. In 2013, she underwent redo surgery for the aortic and mitral valves. These valves were replaced with pig valves. Few months later, she underwent a permanent pacer implantation. Since then, the patient has generally been doing okay. She is being followed by Dr. Mitchell in [place]. She had an echocardiogram during the last hospital admission and was found to have LV ejection fraction around 35 to 40%. This is a significant drop from the previous echocardiogram. She also was found to have a high gradient across the mitral valve of around 46 mmHg. Patient was recently evaluated by Dr. Mitchell. She had a overnight pulse oximetry and was told to have oxygen desaturation more than 400 times through the night. Details are not available. Patient was told to have a sleep study for further evaluation. She had a few episodes of chest pain. She described as a tight feeling in the chest. She is somewhat vague about the symptoms. It is not known whether this patient had any coronary artery disease or not. There is a mention of coronary artery bypass surgery in the medical records. But the patient is not sure about the bypass surgery. Medical records from [place] is pending. She has a history of chronic atrial fibrillation, on long-term oral anticoagulation, permanent pacer implantation, hypertension, dyslipidemia, anxiety/depressive illness, pneumonia x 2 in December. Currently she has no fever or chills. She may have a dry cough. She also has been having some orthopnea. Denies any smoking abuse or alcohol abuse. Her grandmother had congestive heart failure no other relevant family history. Review of Systems Narrative: CONSTITUTIONAL: No fever or chills. EYES: No blurring of vision or other visual disturbances lately. ENT: No hoarseness of voice, auditory disturbances or sore throat. CARDIOVASCULAR: As mentioned above. RESPIRATORY: Progressive shortness of breath as mentioned above. GASTROINTESTINAL: No hematemesis or melena. GENITOURINARY: No dysuria or hematuria. INTEGUMENTARY: No skin rashes or history of skin cancer. NEURO: Questionable history of CVA. PSYCHIATRIC: History of anxiety/depressive illness. HEMATOLOGIC: No bleeding disorders or significant anemia. ENDOCRINE: No history of polyuria or polydipsia. MUSCULOSKELETAL: No recent joint pain or swelling. ALLERGY/IMMUNOLOGY: As mentioned above. Medications/Allergies Home Medications Medication Instructions Recorded Confirmed Last Taken Type famotidine 40 mg tablet (Pepcid) 40 mg PO QAM 05/27/21 04/24/24 04/24/24 History losartan 25 mg tablet 25 mg PO QAM 05/27/21 04/24/24 04/24/24 History rivaroxaban 20 mg tablet (Xarelto) 20 mg PO QAM 05/27/21 04/24/24 04/24/24 History ezetimibe 10 mg tablet 10 mg PO BEDTIME 05/10/23 04/24/24 04/23/24 History montelukast 10 mg tablet 10 mg PO BEDTIME 05/10/23 04/24/24 04/23/24 History venlafaxine 75 mg capsule,extended 75 mg PO QAM 05/10/23 04/24/24 04/24/24 History release 24 hr pramipexole 0.125 mg tablet 0.125 mg PO QPM 03/26/24 04/24/24 04/23/24 History furosemide 40 mg tablet 40 mg PO DAILY #90 tabs 03/27/24 04/24/24 04/24/24 Rx potassium chloride 20 mEq 20 meq PO DAILY 04/24/24 04/24/24 04/24/24 History tablet,extended release Allergies Allergy/AdvReac Type Severity Reaction Status Date / Time guaifenesin [From Entex LA] Allergy Severe ADR-Itching Verified 04/24/24 10:49 phenylephrine [From Entex LA] Allergy Severe ADR-Itching Verified 04/24/24 10:49 phenylpropanolamine Allergy Severe ADR-Itching Verified 04/24/24 10:49 [From Entex LA] Sulfa (Sulfonamide Allergy Severe Unknown Verified 04/24/24 10:49 Antibiotics) cefuroxime [From Ceftin] Allergy ADR-Itching Verified 04/24/24 10:49 ofloxacin [From Floxin] Allergy ALGY-Hives Verified 04/24/24 10:49 Current Medications Generic Name Dose Route Start Last Admin Trade Name Freq PRN Reason Stop Dose Admin Albuterol/Ipratropium 3 ml 04/24/24 14:56 04/24/24 15:45 Ipratropium-Albuterol 3 Ml Neb INHALATION 3 ml Q6H PRN Administration SHORTNESS OF BREATH PFSH Acute PFSH: Medical History History of cardiac arrest during pacemaker placement CHF (congestive heart failure) Atrial fibrillation Family history of colon cancer Hypertension Chronic diarrhea History of rheumatic fever age 6 or 7 Depression with anxiety GERD (gastroesophageal reflux disease) Hyperlipidemia History of cardiac pacemaker X 2, last replacement in February 2023 Surgical History History of open heart surgery History of colonoscopy (08/14/21) rectal polyp History of hysterectomy with bilateral oophorectomy History of appendectomy Hx of artificial heart valve replacement Mitral and aortic, bioprosthetic valves placed in approximately 2013; prior to this had mechanical valves 32 years Family History Grandmother CAD (coronary artery disease) Mother Hypertension Father Hypertension Social History Smoking and tobacco/nicotine status: never used tobacco/nicotine Second hand smoke exposure: No Alcohol intake: never Substance/Drug Use: never Adopted: No Caregiver/support person: No Lives independently: Yes Household members: spouse Housing: House Marital status: Number of children: 2 Highest education level completed: 11th Grade service: No Current occupational status: disabled Vitals/I&O/Wt Last Vital Signs Temp 98.3 F 04/24/24 16:20 Pulse 74 04/24/24 16:20 Resp 18 04/24/24 15:45 BP 108/60 04/24/24 16:20 Pulse Ox 93 04/24/24 16:20 O2 Del Method Room Air 04/24/24 16:20 Weight last 48 hrs Weight 147 lb Weight 144 lb Physical Exam Narrative: GENERAL: The patient is alert and oriented times three. Not in any acute distress. HEENT: No significant pallor, icterus or lymphadenopathy.Oral cavity: There are no mucous membrane lesions. NECK: Trachea appears to be central. No masses noted. No JVD or thyromegaly appreciated. RESPIRATORY: Chest is symmetrical. No intercostals muscle retraction or any accessory muscle activation. There is no chest wall tenderness. Breath sounds are heard bilaterally. No rales or rhonchi heard. No evidence of any consolidation. BREASTS: Deferred. HEART: The heart sounds are normal. No S3 or S4. Systolic murmur grade 3 or 6 in the left sternal border. No diastolic murmurs.. No pericardial rub ABDOMEN: No vessel pulsations or distention. No tenderness. No organomegaly appreciated. Bowel sounds are normally heard. : Deferred. RECTAL: Deferred. LYMPHATIC: No lymphadenopathy noted in the neck. EXTREMITIES: No edema or cyanosis. No clubbing. MUSCULOSKELETAL: No acute joint deformities or swelling SKIN: There are no significant rashes or ecchymosis NEUROPSYCHIATRIC: The patient is alert and oriented x3. Appears to be in a good mood. No tremors or rigidity noted. Data 04/24/24 11:20 04/24/24 11:20 Other Labs: Laboratory Last Values WBC 10.22 10^3/uL (3.29-11.43) 04/24/24 11:20 RBC 4.22 10^6/uL (3.85-5.65) 04/24/24 11:20 Hgb 10.00 g/dL (11.27-16.99) L 04/24/24 11:20 Hct 33.0 % (36-47) L 04/24/24 11:20 MCV 78.2 fl (85-98) L 04/24/24 11:20 MCH 23.7 pg (27-33) L 04/24/24 11:20 MCHC 30.3 g/dL (30-55) 04/24/24 11:20 RDW 18.1 % (12.1-15.1) H 04/24/24 11:20 Plt Count 269 10^3/cmm (157-399) 04/24/24 11:20 MPV 9.8 fL (7.4-10.4) 04/24/24 11:20 Neut % (Auto) 76.8 % 04/24/24 11:20 Lymph % (Auto) 11.2 % 04/24/24 11:20 [place] % (Auto) 9.7 % 04/24/24 11:20 Eos % (Auto) 0.6 % 04/24/24 11:20 Baso % (Auto) 0.5 % 04/24/24 11:20 Neut # (Auto) 7.86 10^3/uL (1.8-7.7) H 04/24/24 11:20 Lymph # (Auto) 1.1 10^3/uL (0.8-4.8) 04/24/24 11:20 [place] # (Auto) 1.0 10^3/uL (0.2-0.9) H 04/24/24 11:20 Eos # (Auto) 0.1 10^3/uL (0.0-0.8) 04/24/24 11:20 Baso # (Auto) 0.1 10^3/uL (0.0-0.1) 04/24/24 11:20 Nucleated RBC % (auto) 0 % 04/24/24 11:20 Nucleated RBCs # 0.0 /100WBC 04/24/24 11:20 Sodium 132 mmol/L (136-145) L 04/24/24 11:20 Potassium 3.7 mmol/L (3.5-5.1) 04/24/24 11:20 Chloride 95 mmol/L (98-107) L 04/24/24 11:20 Carbon Dioxide 21 mmol/L (22-29) L 04/24/24 11:20 Anion Gap 19.7 (5-19) H 04/24/24 11:20 BUN 10 mg/dL (8-23) 04/24/24 11:20 Creatinine 0.9 mg/dL (0.5-0.9) 04/24/24 11:20 GFR Calculation 63.2 mL/min (90-130) L 04/24/24 11:20 Glucose 94 mg/dL (65-115) 04/24/24 11:20 Calculated Osmolality 273 mOsm/kg (285-295) L 04/24/24 11:20 Calcium 9.0 mg/dL (8.5-10.5) 04/24/24 11:20 Total Bilirubin 1.2 mg/dL (0.15-1.2) 04/24/24 11:20 AST 17 U/L (0-32) 04/24/24 11:20 ALT 9 U/L (0-33) 04/24/24 11:20 Alkaline Phosphatase 129 U/L (35-105) H 04/24/24 11:20 Troponin T Baseline 17 ng/L (0-10) H 04/24/24 11:20 Troponin T 120 Minute 17.83 ng/L (0-10) H 04/24/24 13:44 Delta Troponin T 0.83 ABS# (0-10) 04/24/24 13:44 NT-Pro-B Natriuret Pep 1948 pg/mL (0-125) H 04/24/24 11:20 Total Protein 7.4 g/dL (6.6-8.7) 04/24/24 11:20 Albumin 3.8 g/dL (3.5-5.2) 04/24/24 11:20 Globulin 3.6 g/dL (1.3-4.6) 04/24/24 11:20 Procalcitonin 0.16 ng/mL (0-0.5) 04/24/24 11:20 Adenovirus (PCR) Not detected (NOT DETECT) 04/24/24 11:56 C. pneumoniae DNA (PCR) Not detected (NOT DETECT) 04/24/24 11:56 Coronavirus 229E (PCR) Not detected (NOT DETECT) 04/24/24 11:56 Human Metapneumovir PCR Not detected (NOT DETECT) 04/24/24 11:56 Influenza A (H1) PCR Not detected (NOT DETECT) 04/24/24 11:56 Influ A (H1/09) PCR Not detected (NOT DETECT) 04/24/24 11:56 Influenza A (H3) PCR Not detected (NOT DETECT) 04/24/24 11:56 Influenza Type A (PCR) Not detected (NOT DETECT) 04/24/24 11:56 Influenza Type B (PCR) Not detected (NOT DETECT) 04/24/24 11:56 M. pneumoniae (PCR) Not detected (NOT DETECT) 04/24/24 11:56 Parainfluenza 1 (PCR) Not detected (NOT DETECT) 04/24/24 11:56 Parainfluenza 2 (PCR) Not detected (NOT DETECT) 04/24/24 11:56 Parainfluenza 3 (PCR) Detected (NOT DETECT) A 04/24/24 11:56 Parainfluenza 4 (PCR) Not detected (NOT DETECT) 04/24/24 11:56 RSV Type A (PCR) Not detected (NOT DETECT) 04/24/24 11:56 RSV Type B (PCR) Not detected (NOT DETECT) 04/24/24 11:56 Entero/Rhino (PCR) Not detected (NOT DETECT) 04/24/24 11:56 SARS-CoV-2 (PCR) Not detected (NOT DETECT) 04/24/24 11:56 EKG 1: My Interpretation: 100% V paced rhythm. Further interpretation is not possible. A&P Assessment and plan (1) Acute on chronic systolic heart failure: The worsening of the LV systolic function could be a major contributing factor. The arrhythmia also may be playing a role. Whether this patient has any underlying coronary disease or not is not clear at this time. She has some atypical chest symptoms. (2) Hx of artificial heart valve replacement: Patient had a redo surgery of the aortic and mitral valves in 2013. Seems to have significant gradient across the mitral valve Mesehist severe mitral valve stenosis. This could be a contributing factor for her current symptomatology. (3) History of cardiac pacemaker: Patient had pacemaker revision a year ago. Function seems to be appropriate. This may need to be interrogated. (4) Atrial fibrillation: The heart rate seems to be under control. Patient is on long-term oral anticoagulation. This may be continued. Qualifiers: Atrial fibrillation type: longstanding persistent Qualified Code(s): I48.11 - Longstanding persistent atrial fibrillation (5) Hypertension: Currently the blood pressure seems to be in the normal range. May continue on the current medications. Qualifiers: Hypertension type: primary hypertension Qualified Code(s): I10 - Essential (primary) hypertension (6) Hyperlipidemia: Patient may continue on the current medications. The most recent lipid profile was out of the normal range. Apparently the patient was told that she may require PCSK9 Inhibitors Qualifiers: Hyperlipidemia type: mixed hyperlipidemia Qualified Code(s): E78.2 - Mixed hyperlipidemia Plan Will try to get hold of the medical records from Dr. Mitchell office in [place]. Patient be treated with a careful IV diuresis. May go ahead and schedule the patient for a Lexiscan/sestamibi stress sestamibi stress test tomorrow. Pacemaker interrogation today After reviewing the above and also based on the patient's clinical progress, further recommendations will be made. Thank you for the opportunity to evaluate this patient and make these recommendations Consult Attestations Medical Necessity Statement: Echocardiogram done in February 2024 LV systolic function is moderately reduced with EF of 35-40% Moderately hypokinetic right ventricle. Left atrium is dilated Normally functioning bioprosthetic aortic valve. Severely elevated gradient across bioprosthetic mitral valve. Moderate tricuspid regurgitation Severe pulmonary hypertension IVC is dilated Compared to prior echocardiogram from 2020, LV systolic function is significantly lower and EF is 35-40%. Coding Level of Care Code 71255 Diagnoses Acute on chronic systolic heart failure I50.23 Hx of artificial heart valve replacement Z95.2 History of cardiac pacemaker Z95.0 Longstanding persistent atrial fibrillation I48.11 Atrial fibrillation type: longstanding persistent Primary hypertension I10 Hypertension type: primary hypertension Mixed hyperlipidemia E78.2 Hyperlipidemia type: mixed hyperlipidemia
--- NOTE | 2024-04-24 17:04 | ECG_ITS ---
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 Interpretive Statements NAME OF STUDY: LEXISCAN SESTAMIBI STRESS TEST INDICATION: LOW EF; HX OF RHEUMATIC FEVER PROCEDURE: At the baseline, the EKG revealed V paced rhythm of 63 bpm. The baseline heart was 63 bpm with a blood pressue of 105/66 mm of Hg Lexiscan was infused over a period of 20 seconds. A total of 0.4 milligrams of Lexiscan was infused. The stress phase was continued for a total of 5 minutes. Heart rate at the end of the stress phase was 60 bpm with a blood pressure 115/52 mm of Hg. The EKG at the peak infusion revealed no significant changes. Sestamibi was injected 20 seconds after the Lexiscan infusion. Heart rate at the end of the recovery phase was 60 bpm with a blood pressure of 100/48 mm of Hg. CONCLUSION: 1. The EKG changes with the Lexiscan infusion was uninterpretable due to the pacing artifacts 2. No LexiScan induced chest pain or cardiac arrhythmia 3. Normal blood pressure and heart rate response 4. Sestamibi/sestamibi perfusion scan pending; see separate report. Electronically Signed On 04-28-2024 14:39:54 CDT by Sarah Ash M.D. [id number]
[2024-04-24 18:10] LABS: Troponin 5 6HR 14.85 ng/L (0-10)
[2024-04-24 18:17] LABS: Troponin 5 6HR Delta -2.15 ng/L (0-12)
[2024-04-24] MEDS: ezetimibe 10 mg Tablet PO (20:55)
[2024-04-24] MEDS: pramipexole 0.25 mg Tablet 0.125 MG PO (20:55)
[2024-04-24] MEDS: montelukast sodium 10 mg Tablet PO (20:55)
[2024-04-25] VITALS (10 sets, daily range): BP systolic 90–142; BP diastolic 54–71; PULSE 60–86; RESP 16–24; TEMP 36.3–37.4; O2SAT 87–98; BMI 27.6
[2024-04-25 04:16] LABS: Basophils % 0.3 %; Hematocrit 32.8 % (36-47); Lymphocytes # 0.5 10^3/uL (0.8-4.8); Lymphocytes % 6.8 %; Mean Corpuscular HGB Conc 30.5 g/dL (30-55); Mean Corpuscular Hemoglobin 23.8 pg (27-33); Mean Corpuscular Volume 78.1 fl (85-98); Mean Platelet Volume 10.5 fL (7.4-10.4); Monocytes # 0.7 10^3/uL (0.2-0.9); Monocytes % 8.5 %; Neutrophils # 6.51 10^3/uL (1.8-7.7); Neutrophils % 83.6 %; Nucleated Red Blood Cells % 0 %; Platelet Count 253 10^3/cmm (157-399); Red Cell Distribution Width 18.2 % (12.1-15.1); White Blood Count 7.78 10^3/uL (3.29-11.43)
[2024-04-25 04:29] LABS: INR 1.86 (0.8-1.2)
[2024-04-25 04:30] LABS: Partial Thromboplastin Time 55.5 SECONDS (23.9-36.7)
[2024-04-25 04:38] LABS: Anion Gap 17.7 (5-19); Blood Urea Nitrogen 23 mg/dL (8-23); Calcium 9.5 mg/dL (8.5-10.5); Carbon Dioxide 24 mmol/L (22-29); Chloride 101 mmol/L (98-107); Glomerular Filtration Rate 45.4 mL/min (90-130); Glucose 146 mg/dL (65-115); Magnesium 2.5 mg/dL (1.7-2.3); Osmolality Calculated 294 mOsm/kg (285-295); Phosphorus 4.4 mg/dL (2.5-4.5); Potassium 3.7 mmol/L (3.5-5.1); Sodium 139 mmol/L (136-145)
[2024-04-25 04:39] LABS: Chol HDL Ratio 3.02 mg/dL (0.0-4.40); Cholesterol 148 mg/dL (0-200); Creatinine Clr Calc Pharmacy 41.7922; HDL Cholesterol 49 mg/dL (60-100); LDL Cholesterol Calculated 87 mg/dL (50-129); LDL HDL Ratio 1.78 RATIO (0.00-3.22); Triglycerides 59 mg/dL (0-150)
[2024-04-25] MEDS: venlafaxine ER (24HR) 75 mg Capsule PO (06:05)
[2024-04-25] MEDS: regadenoson 0.4 Mg/5 ml Syringe 0.400000000000000022 MG IVP (07:33)
--- NOTE | 2024-04-25 09:08 | P.PN_ITS ---
Subjective 2 Subjective: Patient has some improvement of the shortness of breath with the diuresis. However she continues to have significant dyspnea on exertion. I reviewed the patient's echocardiogram from February of this year. She seems to have a markedly elevated gradient across the mitral valve with a mean gradient of more than 20 mmHg. The pressure half-time is near normal. The patient had a Myocardial perfusion imaging today. She was found to have a small area of ischemia in the inferoseptal region. The LV dysfunction does not appear to be related to the ischemia. Medications: Medication Review Details: Current Medications Acetaminophen (Acetaminophen 325 Mg Tablet) 650 mg PO Q6H PRN PRN Reason: Mild/Mod Pain Or Temp >/= 101 Albuterol/Ipratropium (Ipratropium-Albuterol 3 Ml Neb) 3 ml INHALATION Q6H PRN PRN Reason: SHORTNESS OF BREATH Last Admin: 04/24/24 20:32 Dose: 3 ml Aminophylline (Aminophylline 25 Mg/Ml Sdv 10 Ml) 25 mg IVP Q2M PRN PRN Reason: see dose instructions Stop: 04/26/24 07:18 Aspirin (Aspirin 81 Mg Ec Tablet) 81 mg PO DAILY [facility] Bisacodyl (Bisacodyl 5 Mg Tablet) 10 mg PO DAILY PRN; Protocol PRN Reason: Constipation (see protocol) Calcium Carbonate (Calcium Carbonate 500 Mg Chew Tablet) 1,000 mg PO Q4H PRN PRN Reason: DYSPEPSI Ezetimibe (Ezetimibe 10 Mg Tablet) 10 mg PO BEDTIME [facility] Last Admin: 04/24/24 20:55 Dose: 10 mg Fluticasone Propionate (Fluticasone Nasal [place] 16gm Btl) 1 spray NASAL BID [facility] Furosemide (Furosemide 10 Mg/Ml Sdv 4ml) 40 mg IVP Q24H [facility] Losartan Potassium (Losartan 50 Mg Tablet) 25 mg PO DAILY [facility] Montelukast Sodium (Montelukast Sodium 10 Mg Tablet) 10 mg PO BEDTIME [facility] Last Admin: 04/24/24 20:55 Dose: 10 mg Nitroglycerin (Nitroglycerin 0.4 Mg Sublingual Tablet) 0.4 mg SUBLINGUAL Q5M PRN PRN Reason: CHEST PAIN Stop: 04/26/24 07:18 Ondansetron HCl (Ondansetron 2 Mg/Ml Sdv 2 Ml) 4 mg IVP Q8H PRN PRN Reason: vomiting, or N/V if npo Pantoprazole Sodium (Pantoprazole Dr 40 Mg Tablet) 40 mg PO DAILY [facility] Potassium Chloride (Potassium Chloride Er 20 Meq Tablet) 20 meq PO DAILY [facility] Pramipexole Dihydrochloride (Pramipexole 0.25 Mg Tablet) 0.125 mg PO BEDTIME [facility] Last Admin: 04/24/24 20:55 Dose: 0.125 mg Rivaroxaban (Rivaroxaban 10 Mg Tablet) 20 mg PO DAILY [facility] Spironolactone (Spironolactone 25 Mg Tablet) 25 mg PO DAILY [facility] Venlafaxine HCl (Venlafaxine Er (24hr) 75 Mg Capsule) 75 mg PO QAM [facility] Last Admin: 04/25/24 06:05 Dose: 75 mg Vitals/I&O/Wt Last Vital Signs Temp 97.4 F L 04/25/24 04:00 Pulse 60 04/25/24 07:46 Resp 20 H 04/25/24 04:00 BP 100/60 04/25/24 07:46 Pulse Ox 91 04/25/24 04:00 O2 Del Method Room Air 04/25/24 04:00 04/24/24 04/25/24 04/25/24 22:59 06:59 14:59 Intake Total 480 / 480 960 / 960 Balance 480 / 480 960 / 960 Weight last 48 hrs Weight 146 lb Weight 146 lb Weight 147 lb Weight 144 lb Physical Exam 2 Narrative: GENERAL: The patient is alert and oriented times three. Not in any acute distress. HEENT: No significant pallor, icterus or lymphadenopathy.Oral cavity: There are no mucous membrane lesions. NECK: Trachea appears to be central. No masses noted. No JVD or thyromegaly appreciated. RESPIRATORY: Chest is symmetrical. No intercostals muscle retraction or any accessory muscle activation. There is no chest wall tenderness. Breath sounds are heard bilaterally. No rales or rhonchi heard. No evidence of any consolidation. BREASTS: Deferred. HEART: The heart sounds are normal. No S3 or S4. Systolic murmur grade 3 or 6 in the left sternal border. No diastolic murmurs.. No pericardial rub ABDOMEN: No vessel pulsations or distention. No tenderness. No organomegaly appreciated. Bowel sounds are normally heard. : Deferred. RECTAL: Deferred. LYMPHATIC: No lymphadenopathy noted in the neck. EXTREMITIES: No edema or cyanosis. No clubbing. MUSCULOSKELETAL: No acute joint deformities or swelling SKIN: There are no significant rashes or ecchymosis NEUROPSYCHIATRIC: The patient is alert and oriented x3. Appears to be in a good mood. No tremors or rigidity noted. Data 04/25/24 04:03 04/25/24 14:45 Other Labs: Laboratory Last Values WBC 7.78 10^3/uL (3.29-11.43) 04/25/24 04:03 RBC 4.20 10^6/uL (3.85-5.65) 04/25/24 04:03 Hgb 10.00 g/dL (11.27-16.99) L 04/25/24 04:03 Hct 32.8 % (36-47) L 04/25/24 04:03 MCV 78.1 fl (85-98) L 04/25/24 04:03 MCH 23.8 pg (27-33) L 04/25/24 04:03 MCHC 30.5 g/dL (30-55) 04/25/24 04:03 RDW 18.2 % (12.1-15.1) H 04/25/24 04:03 Plt Count 253 10^3/cmm (157-399) 04/25/24 04:03 MPV 10.5 fL (7.4-10.4) H 04/25/24 04:03 Neut % (Auto) 83.6 % 04/25/24 04:03 Lymph % (Auto) 6.8 % 04/25/24 04:03 Addison % (Auto) 8.5 % 04/25/24 04:03 Eos % (Auto) 0.0 % 04/25/24 04:03 Baso % (Auto) 0.3 % 04/25/24 04:03 Neut # (Auto) 6.51 10^3/uL (1.8-7.7) 04/25/24 04:03 Lymph # (Auto) 0.5 10^3/uL (0.8-4.8) L 04/25/24 04:03 Addison # (Auto) 0.7 10^3/uL (0.2-0.9) 04/25/24 04:03 Eos # (Auto) 0.0 10^3/uL (0.0-0.8) 04/25/24 04:03 Baso # (Auto) 0.0 10^3/uL (0.0-0.1) 04/25/24 04:03 Nucleated RBC % (auto) 0 % 04/25/24 04:03 Nucleated RBCs # 0.0 /100WBC 04/25/24 04:03 PT 22.10 SECONDS (12.1-14.9) H 04/25/24 04:03 INR 1.86 (0.8-1.2) H 04/25/24 04:03 APTT 55.5 SECONDS (23.9-36.7) H 04/25/24 04:03 Sodium 139 mmol/L (136-145) 04/25/24 04:03 Potassium 3.7 mmol/L (3.5-5.1) 04/25/24 04:03 Chloride 101 mmol/L (98-107) 04/25/24 04:03 Carbon Dioxide 24 mmol/L (22-29) 04/25/24 04:03 Anion Gap 17.7 (5-19) 04/25/24 04:03 BUN 23 mg/dL (8-23) 04/25/24 04:03 Creatinine 1.2 mg/dL (0.5-0.9) H 04/25/24 04:03 GFR Calculation 45.4 mL/min (90-130) L 04/25/24 04:03 Glucose 146 mg/dL (65-115) H 04/25/24 04:03 Calculated Osmolality 294 mOsm/kg (285-295) 04/25/24 04:03 Calcium 9.5 mg/dL (8.5-10.5) 04/25/24 04:03 Phosphorus 4.4 mg/dL (2.5-4.5) 04/25/24 04:03 Magnesium 2.5 mg/dL (1.7-2.3) H 04/25/24 04:03 Total Bilirubin 1.2 mg/dL (0.15-1.2) 04/24/24 11:20 AST 17 U/L (0-32) 04/24/24 11:20 ALT 9 U/L (0-33) 04/24/24 11:20 Alkaline Phosphatase 129 U/L (35-105) H 04/24/24 11:20 Troponin T Baseline 17 ng/L (0-10) H 04/24/24 11:20 Troponin T 120 Minute 17.83 ng/L (0-10) H 04/24/24 13:44 Delta Troponin T 0.83 ABS# (0-10) 04/24/24 13:44 Troponin T Hi Sens 6Hr 14.85 ng/L (0-10) H 04/24/24 17:20 Troponin T Hi Sens 6Hr Delta -2.15 ng/L (0-12) L 04/24/24 17:20 NT-Pro-B Natriuret Pep 1948 pg/mL (0-125) H 04/24/24 11:20 Total Protein 7.4 g/dL (6.6-8.7) 04/24/24 11:20 Albumin 3.8 g/dL (3.5-5.2) 04/24/24 11:20 Globulin 3.6 g/dL (1.3-4.6) 04/24/24 11:20 Triglycerides 59 mg/dL (0-150) 04/25/24 04:03 Cholesterol 148 mg/dL (0-200) 04/25/24 04:03 LDL Cholesterol, Calc 87 mg/dL (50-129) 04/25/24 04:03 HDL Cholesterol 49 mg/dL (60-100) L 04/25/24 04:03 LDL/HDL Ratio 1.78 RATIO (0.00-3.22) 04/25/24 04:03 Cholesterol/HDL Ratio 3.02 mg/dL (0.0-4.40) 04/25/24 04:03 Procalcitonin 0.16 ng/mL (0-0.5) 04/24/24 11:20 Adenovirus (PCR) Not detected (NOT DETECT) 04/24/24 11:56 C. pneumoniae DNA (PCR) Not detected (NOT DETECT) 04/24/24 11:56 Coronavirus 229E (PCR) Not detected (NOT DETECT) 04/24/24 11:56 Human Metapneumovir PCR Not detected (NOT DETECT) 04/24/24 11:56 Influenza A (H1) PCR Not detected (NOT DETECT) 04/24/24 11:56 Influ A (H1/09) PCR Not detected (NOT DETECT) 04/24/24 11:56 Influenza A (H3) PCR Not detected (NOT DETECT) 04/24/24 11:56 Influenza Type A (PCR) Not detected (NOT DETECT) 04/24/24 11:56 Influenza Type B (PCR) Not detected (NOT DETECT) 04/24/24 11:56 M. pneumoniae (PCR) Not detected (NOT DETECT) 04/24/24 11:56 Parainfluenza 1 (PCR) Not detected (NOT DETECT) 04/24/24 11:56 Parainfluenza 2 (PCR) Not detected (NOT DETECT) 04/24/24 11:56 Parainfluenza 3 (PCR) Detected (NOT DETECT) A 04/24/24 11:56 Parainfluenza 4 (PCR) Not detected (NOT DETECT) 04/24/24 11:56 RSV Type A (PCR) Not detected (NOT DETECT) 04/24/24 11:56 RSV Type B (PCR) Not detected (NOT DETECT) 04/24/24 11:56 Entero/Rhino (PCR) Not detected (NOT DETECT) 04/24/24 11:56 SARS-CoV-2 (PCR) Not detected (NOT DETECT) 04/24/24 11:56 Other data: Myocardial perfusion imaging finding 1. Myocardial perfusion imaging revealing moderate area of persistent decreased tracer uptake involving the inferior wall region with a small area of reversible defect in the mid inferol septal region suggestive of myocardial scarring in the distribution of the right coronary artery with a small area of possible preinfarction ischemia 2. Normal LV ejection fraction 57%. 3. LV wall motion analysis revealing no gross wall motion abnormalities. 4. Normal LV volume A&P Assessment and plan (1) Acute on chronic systolic heart failure: The worsening of the LV systolic function could be a major contributing factor. The arrhythmia also may be playing a role. Whether this patient has any underlying coronary disease or not is not clear at this time. She has some atypical chest symptoms. The Myocardial perfusion imaging revealed a small area of possible ischemia. Based on this, the ischemia may not be the cause for the LV dysfunction. The Perfusion scan results are discussed with the patient. (2) Hx of artificial heart valve replacement: Patient had a redo surgery of the aortic and mitral valves in 2013. Seems to have significant gradient across the mitral valve . The markedly increased gradient across the mitral valve is suggestive of severe mitral stenosis. The pressure half-time may not be reliable in this patient because of the mitral valve surgery. (3) History of cardiac pacemaker: Patient had pacemaker revision a year ago. Function seems to be appropriate. This may need to be interrogated. (4) Atrial fibrillation: The heart rate seems to be under control. Patient is on long-term oral anticoagulation. This may be continued. Qualifiers: Atrial fibrillation type: longstanding persistent Qualified Code(s): I 48.11 - Longstanding persistent atrial fibrillation (5) Hypertension: Currently the blood pressure seems to be in the normal range. May continue on the current medications. Qualifiers: Hypertension type: primary hypertension Qualified Code(s): I10 - Essential (primary) hypertension (6) Hyperlipidemia: Patient may continue on the current medications. The most recent lipid profile was out of the normal range. Apparently the patient was told that she may require PCSK9 Inhibitors Qualifiers: Hyperlipidemia type: mixed hyperlipidemia Qualified Code(s): E78.2 - Mixed hyperlipidemia Plan We are still trying to get the medical records from Dr. Mitchell office. Most likely this patient may require mitral valve intervention. After reviewing the medical records from [place], I may contact Dr. Mitchell and discussed the situation. May continue on the current management for the time being. Attestations 2 Medical Necessity Statement*: Patient requires continued hospital stay for close monitoring and further management Coding Level of Care Code 22681 Diagnoses Acute on chronic systolic heart failure I50.23 Hx of artificial heart valve replacement Z95.2 History of cardiac pacemaker Z95.0 Longstanding persistent atrial fibrillation I48.11 Atrial fibrillation type: longstanding persistent Primary hypertension I10 Hypertension type: primary hypertension Mixed hyperlipidemia E78.2 Hyperlipidemia type: mixed hyperlipidemia
[2024-04-25] MEDS: rivaroxaban 10 mg Tablet 20 MG PO (09:24)
[2024-04-25] MEDS: pantoprazole DR 40 mg Tablet PO (09:24)
[2024-04-25] MEDS: spironolactone 25 mg Tablet PO (09:25)
[2024-04-25] MEDS: potassium chloride ER 20 mEq Tablet PO (09:25)
[2024-04-25] MEDS: aspirin 81 mg EC Tablet PO (09:25)
[2024-04-25] MEDS: fluticasone nasal spray 16gm Btl 1 SPRAY NASAL ×2 (09:25→17:24)
[2024-04-25] MEDS: FUROsemide 10 mg/mL SDV 4mL 40 MG IVP ×2 (09:25→17:25)
[2024-04-25] MEDS: losartan 50 mg Tablet 25 MG PO (09:25)
[2024-04-25 11:06] LABS: Estmated Average Glucose 103; Hemoglobin A1C 5.2 % (4.0-6.0)
[2024-04-25 11:20] LABS: Iron 22 ug/dL (37-145); Percent Saturation 7.8 % (20-50); Thyroid Stimulating Hormone 0.97 uIU/mL (0.27-4.20); Total Iron Binding Capacity 280 mcg/dl; Unsaturated Iron Binding 258 ug/dL (112-347); Vitamin B12 334 pg/mL (232-1245)
[2024-04-25] MEDS: ipratropium-albuterol 3 mL Neb INHALATION (11:35)
--- NOTE | 2024-04-25 14:57 | P.PN_ITS ---
Subjective 2 Subjective: Hospital course, H&P appreciated. Today morning patient seen postcardiac stress test. She is in significant respiratory distress on room air while walking back from the bathroom. She states she usually feels out of breath on minimal exertion. This seems to be her baseline recently. Denies any nausea, vomiting, headache. No urine output documented overnight. Vitals/I&O/Wt Last Vital Signs Temp 97.4 F L 04/25/24 04:00 Pulse 61 04/25/24 11:35 Resp 16 04/25/24 11:35 BP 100/60 04/25/24 07:46 Pulse Ox 98 04/25/24 11:35 O2 Del Method Room Air 04/25/24 11:35 04/24/24 04/25/24 04/25/24 22:59 06:59 14:59 Intake Total 480 / 480 960 / 960 Output Total 450 / 450 Balance 480 / 480 510 / 510 Weight last 48 hrs Weight 66.224 kg Weight 66.224 kg Weight 66.678 kg Weight 65.317 kg Physical Exam 2 Narrative: General: No acute distress, AO x3, sick appearing, respiratory distress HEENT: PERRLA, pupils bilaterally equal and reactive Chest: Normal vesicular breath sounds, no added sounds, equal good air entry bilaterally CVS: S1-S2 regular, mid diastolic murmur present at apex soft early diastolic murmur present at aortic region apex, no tachycardia, no gallops, no rubs Abdomen: Soft, nontender, no organomegaly, bowel sounds present Neuro: No focal deficits, no facial deformity, AO x3, power 5/5 in all limbs Urinary Catheter Management: Zaldivar: Cath Placed During This Visit: yes Urinary Catheter Date of Insertion: 04/25/24 Urinary Catheter Time of Insertion: 13:30 Data 04/25/24 04:03 04/25/24 04:03 A&P Assessment and plan (1) Acute exacerbation of congestive heart failure: Acute on chronic CHF. Systolic congestive heart failure. History of mitral and aortic valve replacement because of rheumatic heart disease 20 years ago followed by bioprosthetic mitral and aortic valve placement in 2013. Last echocardiogram showed a new low EF of 35 to 40%, moderately hypokinetic RV wall, left atrium dilated, severe elevated gradient across bioprosthetic mitral valve, moderate TR with severe pulmonary hypertension and dilated IVC. Cardiology on board. Not particularly sure about the decrease in EF recently. Cannot rule out ischemic cause. Follow-up on Lexiscan stress test. Check A1c, lipid panel. Aspirin 81 mg daily. Continue with Xarelto 20 mg oral daily. Strict input output charting, daily weights. Zaldivar catheterization for a short while. Patient is agreeable. IV Lasix 40 mg twice daily. Fluid restriction up to 1500 cc. (2) Parainfluenza: Respiratory viral panel positive. Supportive treatment with incentive spirometry. Cannot rule out mild COPD exacerbation for the same. Start on prednisone 40 mg oral daily for next 5 days. Ipratropium, Xopenex every 6 hours, Pulmicort twice daily. (3) Acute kidney injury: Baseline creatinine 0.8-1.1. Currently 1.2. High chances of patient having higher baseline creatinine at dry weight. For now some concerns for CRS as well. Check urine lites, urine creatinine. Increase IV Lasix to 40 mg twice daily as above. Continue to monitor. Repeat BMP in evening. (4) Pulmonary hypertension: See above. Etiology of pulmonary hypertension currently suspected to be related to valvular abnormalities but she was recently identified as having nocturnal hypoxemia on an overnight pulse oximetry study and is in the process of getting a sleep study done. (5) Hx of artificial heart valve replacement: Has both mitral and aortic bioprosthetic valves that were placed in approximately 2013. She had had mechanical valves for 32 years prior to that. Currently with elevated gradients across the bioprosthetic mitral valve noted on echocardiogram at the end of last month. She follows with cardiology in [place], Dr. Mitchell. (6) History of cardiac pacemaker: Pacemaker was last replaced a year ago in February. EKG with a paced rhythm. Will request for interrogation to rule out arrhythmia. (7) Atrial fibrillation: Chronic diagnosis though specific type of atrial fibrillation not known. Has pacemaker with paced rhythm. Is on anticoagulation. Not currently on any rate controlling medications. Qualifiers: Atrial fibrillation type: longstanding persistent Qualified Code(s): I 48.11 - Longstanding persistent atrial fibrillation (8) Chronic anticoagulation: On Xarelto secondary to history of atrial fibrillation (9) Nocturnal oxygen desaturation: Recent overnight oxygen saturation monitoring demonstrated significant nocturnal hypoxemia. Dr. Mitchell, her geometry tutor is in the process of setting her up for a formal sleep study that has not yet been scheduled. (10) History of rheumatic fever: Plan VTE prophylaxis: on Xarelto chronically GI Prophylaxis: PPI Disposition plan: Home with outpatient follow up to both her primary care provider Dr. Worthington as well as cardiology Dr. Saleem anticipated. Further plans pending clinical course. She is in the process of having an outpatient sleep study arranged and encourage that to be completed as part of overall plan of care Code Status: Full Code Attestations 2 Medical Necessity Statement*: Requires further hospitalization for management of congestive heart failure patient with mitral and aortic valve replacement secondary to rheumatic heart disease while ischemic Giurgius Diagnoses Acute exacerbation of congestive heart failure I50.9 Parainfluenza B34.8 Acute kidney injury N17.9 Pulmonary hypertension I27.20 Hx of artificial heart valve replacement Z95.2 History of cardiac pacemaker Z95.0 Longstanding persistent atrial fibrillation I48.11 Atrial fibrillation type: longstanding persistent Chronic anticoagulation Z79.01 Nocturnal oxygen desaturation G47.34 History of rheumatic fever Z86.79
[2024-04-25 15:24] LABS: Anion Gap 20.2 (5-19); Blood Urea Nitrogen 26 mg/dL (8-23); Calcium 9.3 mg/dL (8.5-10.5); Carbon Dioxide 22 mmol/L (22-29); Chloride 100 mmol/L (98-107); Creatinine Clr Calc Pharmacy 38.5775; Glomerular Filtration Rate 41.4 mL/min (90-130); Glucose 99 mg/dL (65-115); Osmolality Calculated 293 mOsm/kg (285-295); Potassium 3.2 mmol/L (3.5-5.1); Sodium 139 mmol/L (136-145)
--- NOTE | 2024-04-25 17:05 | NMCV_ITS ---
NM david perf SPECT r/s* [id number] Daniela Lai Age: 64 Gender: F : 1960 Exam Date: 04/25/2024 06:23 Ordering Phys: Raven Eugene MD Technologist: MELANY Kiser Exam Location: [facility] Indications: Low ejection fraction STRESS TEST Please see separate stress test report in [facility] for full findings IMAGE PROTOCOL Rest/Stress 1 Lexiscan Day Radiopharmaceutical Dose (mCi) Administration Site Administered by Rest: Tc-99m 10.2 IV MELANY Kiser Sestamibi Stress:Tc-99m 32.5 IV MELANY Kiser Sestamibi Rest: 25-Apr-2024 60 Discovery 630 Stress: 25-Apr-2024 30 Discovery 630 0.4mg Lexiscan. Images obtained in supine and prone position. SPECT RESULTS Technical Quality: Excellent Raw Data Analysis: Normal Image Corrections: No attenuation or motion correction applied Summed Stress Score: 5 Summed Rest Score: 5 Summed Difference Score: 1 PERFUSION FINDINGS Moderate area of moderately decreased tracer uptake involving the mid and apical inferior wall region with no significant reversibility. There was a small area of slightly decreased tracer uptake in the mid inferoseptal region, with some reversibility FUNCTIONAL RESULTS (calculated via Gated SPECT) Stress Image LV EF (%): 57 Stress EDV (mL):101 TID: 0.96 Stress ESV (mL):43 FUNCTIONAL FINDINGS: Segmental wall motion analysis revealing no gross wall motion abnormalities IMPRESSIONS 1. Myocardial perfusion imaging revealing moderate area of persistent decreased tracer uptake involving the inferior wall region with a small area of reversible defect in the mid inferol septal region suggestive of myocardial scarring in the distribution of the right coronary artery with a small area of possible preinfarction ischemia 2. Normal LV ejection fraction 57%. 3. LV wall motion analysis revealing no gross wall motion abnormalities. 4. Normal LV volume No similar previous studies are available for comparison Dr Sarah Ash MD [facility] (Electronically Signed) Final Date: 25 April 2024 13:59 S
[2024-04-25] MEDS: potassium chloride ER 20 mEq Tablet 40 MEQ PO (17:24)
[2024-04-25] MEDS: predniSONE 20 mg Tablet 40 MG PO (17:24)
[2024-04-25] MEDS: ipratropium 0.5 mg/2.5 mL Neb INHALATION (20:55)
[2024-04-25] MEDS: budesonide 0.5 mg/2 mL Neb INHALATION ×2 (20:55)
[2024-04-25] MEDS: levalbuterol 0.63 mg/3 mL Neb 0.630000000000000004 MG INHALATION (20:55)
[2024-04-25] MEDS: pramipexole 0.25 mg Tablet 0.125 MG PO (21:08)
[2024-04-25] MEDS: montelukast sodium 10 mg Tablet PO (21:08)
[2024-04-25] MEDS: ezetimibe 10 mg Tablet PO (21:08)
[2024-04-26] VITALS (14 sets, daily range): BP systolic 98–126; BP diastolic 59–72; PULSE 59–81; RESP 16–20; TEMP 36.3–36.8; O2SAT 90–97; BMI 27.6
[2024-04-26] MEDS: levalbuterol 0.63 mg/3 mL Neb 0.630000000000000004 MG INHALATION ×4 (01:42→20:45)
[2024-04-26] MEDS: ipratropium 0.5 mg/2.5 mL Neb INHALATION ×4 (01:42→20:45)
[2024-04-26] MEDS: venlafaxine ER (24HR) 75 mg Capsule PO (05:54)
[2024-04-26 07:31] LABS: Basophils % 0.1 %; Hematocrit 33.6 % (36-47); Lymphocytes # 0.6 10^3/uL (0.8-4.8); Lymphocytes % 4.5 %; Mean Corpuscular Hemoglobin 24.2 pg (27-33); Mean Corpuscular Volume 78.1 fl (85-98); Mean Platelet Volume 10.4 fL (7.4-10.4); Monocytes # 0.6 10^3/uL (0.2-0.9); Monocytes % 4.6 %; Neutrophils # 12.27 10^3/uL (1.8-7.7); Neutrophils % 90.1 %; Nucleated Red Blood Cells % 0 %; Platelet Count 309 10^3/cmm (157-399); Red Cell Distribution Width 18.6 % (12.1-15.1); White Blood Count 13.63 10^3/uL (3.29-11.43)
[2024-04-26] MEDS: budesonide 0.5 mg/2 mL Neb INHALATION ×2 (07:34→20:45)
[2024-04-26 07:50] LABS: Alanine Aminotransferase 11 U/L (0-33); Albumin Level 3.9 g/dL (3.5-5.2); Alkaline Phosphatase 116 U/L (35-105); Anion Gap 17.3 (5-19); Aspartate Amino Transferase 20 U/L (0-32); Blood Urea Nitrogen 26 mg/dL (8-23); Calcium 9.3 mg/dL (8.5-10.5); Carbon Dioxide 22 mmol/L (22-29); Chloride 101 mmol/L (98-107); Creatinine Clr Calc Pharmacy 45.5915; Globulin 4.3 g/dL (1.3-4.6); Glomerular Filtration Rate 50.2 mL/min (90-130); Glucose 133 mg/dL (65-115); Osmolality Calculated 289 mOsm/kg (285-295); Potassium 4.3 mmol/L (3.5-5.1); Sodium 136 mmol/L (136-145); Total Bilirubin 0.9 mg/dL (0.15-1.2); Total Protein 8.2 g/dL (6.6-8.7)
[2024-04-26 07:59] LABS: Magnesium 2.4 mg/dL (1.7-2.3)
[2024-04-26 08:11] LABS: Folate Level 4.8 ng/mL (4.8-37.3)
[2024-04-26] MEDS: aspirin 81 mg EC Tablet PO (09:04)
[2024-04-26] MEDS: pantoprazole DR 40 mg Tablet PO (09:04)
[2024-04-26] MEDS: predniSONE 20 mg Tablet 40 MG PO (09:04)
[2024-04-26] MEDS: spironolactone 25 mg Tablet PO (09:05)
[2024-04-26] MEDS: rivaroxaban 10 mg Tablet 20 MG PO (09:05)
[2024-04-26] MEDS: fluticasone nasal spray 16gm Btl 1 SPRAY NASAL ×2 (09:07→18:13)
[2024-04-26] MEDS: FUROsemide 10 mg/mL SDV 4mL 40 MG IVP (09:07)
[2024-04-26] MEDS: potassium chloride ER 20 mEq Tablet PO (09:07)
--- NOTE | 2024-04-26 12:32 | XR_ITS ---
WS: [id number] Exam: XR chest 1V portable [id number] Date/Time of Exam: 04/26/2024 12:32 PM Reason For Exam: sob, chf Comparison 04/24/2024. Cardiac enlargement noted. Pulmonary vascular congestion shows some improvement since the last study. Small RIGHT basal pleural effusion. Infiltrates in the lower lung zones have almost completely resol salena. Signs of median sternotomy and cardiac valve replacement. Cardiac pacer over the LEFT chest. Bon y structures are intact. XR/XR chest 1V portable [id number] IMPRESSION: 1. Partial clearing of pulmonary infiltrates and less pulmonary vascular conges tion than noted previously. The heart is still enlarged and unchanged in size. 2. Small residual RIGHT basal pleural effusion.
--- NOTE | 2024-04-26 13:06 | PM.PN ---
Subjective Subjective: The patient seems to be doing much better today. No chest pain or palpitations. Significant improvement of shortness of breath. No fever or chills. She seems to be responding to the bronchodilator treatment. The reactive airway disease seems to be a significant contributing factor for her shortness of breath, in addition to the heart failure Vitals are stable. Medications: Medication Review Details: Current Medications Acetaminophen (Acetaminophen 325 Mg Tablet) 650 mg PO Q6H PRN PRN Reason: Mild/Mod Pain Or Temp >/= 101 Albuterol/Ipratropium (Ipratropium-Albuterol 3 Ml Neb) 3 ml INHALATION Q6H PRN PRN Reason: SHORTNESS OF BREATH Last Admin: 04/25/24 11:35 Dose: 3 ml Aspirin (Aspirin 81 Mg Ec Tablet) 81 mg PO DAILY [facility] Last Admin: 04/26/24 09:04 Dose: 81 mg Bisacodyl (Bisacodyl 5 Mg Tablet) 10 mg PO DAILY PRN; Protocol PRN Reason: Constipation (see protocol) Budesonide (Budesonide 0.5 Mg/2 Ml Neb) 0.5 mg INHALATION BID.RESPIRATORY [facility] Last Admin: 04/26/24 07:34 Dose: 0.5 mg Calcium Carbonate (Calcium Carbonate 500 Mg Chew Tablet) 1,000 mg PO Q4H PRN PRN Reason: DYSPEPSI Ezetimibe (Ezetimibe 10 Mg Tablet) 10 mg PO BEDTIME [facility] Last Admin: 04/25/24 21:08 Dose: 10 mg Fluticasone Propionate (Fluticasone Nasal [place] 16gm Btl) 1 spray NASAL BID [facility] Last Admin: 04/26/24 09:07 Dose: 1 spray Furosemide (Furosemide 10 Mg/Ml Sdv 4ml) 40 mg IVP BID [facility] Last Admin: 04/26/24 09:07 Dose: 40 mg Ipratropium [place] (Ipratropium 0.5 Mg/2.5 Ml Neb) 0.5 mg INHALATION Q6H.RESP [facility] Last Admin: 04/26/24 07:34 Dose: 0.5 mg Levalbuterol HCl (Levalbuterol 0.63 Mg/3 Ml Neb) 0.63 mg INHALATION Q6H.RESP [facility] Last Admin: 04/26/24 07:34 Dose: 0.63 mg Losartan Potassium (Losartan 50 Mg Tablet) 25 mg PO DAILY [facility] Last Admin: 04/25/24 09:25 Dose: 25 mg Montelukast Sodium (Montelukast Sodium 10 Mg Tablet) 10 mg PO BEDTIME COUNTS INCLUDE 234 BEDS AT THE [facility] Last Admin: 04/25/24 21:08 Dose: 10 mg Ondansetron HCl (Ondansetron 2 Mg/Ml Sdv 2 Ml) 4 mg IVP Q8H PRN PRN Reason: vomiting, or N/V if npo Pantoprazole Sodium (Pantoprazole Dr 40 Mg Tablet) 40 mg PO DAILY COUNTS INCLUDE 234 BEDS AT THE [facility] Last Admin: 04/26/24 09:04 Dose: 40 mg Potassium Chloride (Potassium Chloride Er 20 Meq Tablet) 20 meq PO DAILY COUNTS INCLUDE 234 BEDS AT THE [facility] Last Admin: 04/26/24 09:07 Dose: 20 meq Pramipexole Dihydrochloride (Pramipexole 0.25 Mg Tablet) 0.125 mg PO BEDTIME COUNTS INCLUDE 234 BEDS AT THE [facility] Last Admin: 04/25/24 21:08 Dose: 0.125 mg Prednisone (Prednisone 20 Mg Tablet) 40 mg PO DAILY COUNTS INCLUDE 234 BEDS AT THE [facility] Stop: 04/30/24 14:54 Last Admin: 04/26/24 09:04 Dose: 40 mg Rivaroxaban (Rivaroxaban 10 Mg Tablet) 20 mg PO DAILY COUNTS INCLUDE 234 BEDS AT THE [facility] Last Admin: 04/26/24 09:05 Dose: 20 mg Spironolactone (Spironolactone 25 Mg Tablet) 25 mg PO DAILY COUNTS INCLUDE 234 BEDS AT THE [facility] Last Admin: 04/26/24 09:05 Dose: 25 mg Venlafaxine HCl (Venlafaxine Er (24hr) 75 Mg Capsule) 75 mg PO QAM COUNTS INCLUDE 234 BEDS AT THE [facility] Last Admin: 04/26/24 05:54 Dose: 75 mg Vitals/I&O/Wt Last Vital Signs Temp 97.8 F 04/26/24 08:00 Pulse 62 04/26/24 08:00 Resp 18 04/26/24 08:00 BP 102/59 04/26/24 08:00 Pulse Ox 93 04/26/24 08:00 O2 Del Method Room Air 04/26/24 08:00 04/25/24 04/26/24 04/26/24 22:59 06:59 14:59 Intake Total 720 / 1680 Output Total 1500 / 1950 400 / 2350 850 / 850 Balance -780 / -270 -400 / -670 -850 / -850 Weight last 48 hrs Weight 146 lb Weight 146 lb Weight 146 lb Weight 146 lb Weight 147 lb Physical Exam Narrative: GENERAL: The patient is alert and oriented times three. Not in any acute distress. HEENT: No significant pallor, icterus or lymphadenopathy.Oral cavity: There are no mucous membrane lesions. NECK: Trachea appears to be central. No masses noted. No JVD or thyromegaly appreciated. RESPIRATORY: Chest is symmetrical. No intercostals muscle retraction or any accessory muscle activation. There is no chest wall tenderness. Breath sounds are heard bilaterally. Scattered expiratory wheezes BREASTS: Deferred. HEART: The heart sounds are normal. No S3 or S4. Systolic murmur grade 3 or 6 in the left sternal border. No diastolic murmurs.. No pericardial rub ABDOMEN: No vessel pulsations or distention. No tenderness. No organomegaly appreciated. Bowel sounds are normally heard. : Deferred. RECTAL: Deferred. LYMPHATIC: No lymphadenopathy noted in the neck. EXTREMITIES: No edema or cyanosis. No clubbing. MUSCULOSKELETAL: No acute joint deformities or swelling SKIN: There are no significant rashes or ecchymosis NEUROPSYCHIATRIC: The patient is alert and oriented x3. Appears to be in a good mood. No tremors or rigidity noted. Urinary Catheter Management: Zaldivar: Cath Placed During This Visit: yes Reason for Continuing Indwelling Catheter: Accurate Measurement of Urinary Output in Critically Ill Patients Urinary Catheter Date of Insertion: 04/25/24 Urinary Catheter Time of Insertion: 13:30 Data 04/26/24 07:20 04/26/24 07:20 Other Labs: Laboratory Last Values WBC 13.63 10^3/uL (3.29-11.43) H 04/26/24 07:20 RBC 4.30 10^6/uL (3.85-5.65) 04/26/24 07:20 Hgb 10.40 g/dL (11.27-16.99) L 04/26/24 07:20 Hct 33.6 % (36-47) L 04/26/24 07:20 MCV 78.1 fl (85-98) L 04/26/24 07:20 MCH 24.2 pg (27-33) L 04/26/24 07:20 MCHC 31.0 g/dL (30-55) 04/26/24 07:20 RDW 18.6 % (12.1-15.1) H 04/26/24 07:20 Plt Count 309 10^3/cmm (157-399) 04/26/24 07:20 MPV 10.4 fL (7.4-10.4) 04/26/24 07:20 Neut % (Auto) 90.1 % 04/26/24 07:20 Lymph % (Auto) 4.5 % 04/26/24 07:20 [place] % (Auto) 4.6 % 04/26/24 07:20 Eos % (Auto) 0.0 % 04/26/24 07:20 Baso % (Auto) 0.1 % 04/26/24 07:20 Neut # (Auto) 12.27 10^3/uL (1.8-7.7) H 04/26/24 07:20 Lymph # (Auto) 0.6 10^3/uL (0.8-4.8) L 04/26/24 07:20 [place] # (Auto) 0.6 10^3/uL (0.2-0.9) 04/26/24 07:20 Eos # (Auto) 0.0 10^3/uL (0.0-0.8) 04/26/24 07:20 Baso # (Auto) 0.0 10^3/uL (0.0-0.1) 04/26/24 07:20 Nucleated RBC % (auto) 0 % 04/26/24 07:20 Nucleated RBCs # 0.0 /100WBC 04/26/24 07:20 PT 22.10 SECONDS (12.1-14.9) H 04/25/24 04:03 INR 1.86 (0.8-1.2) H 04/25/24 04:03 APTT 55.5 SECONDS (23.9-36.7) H 04/25/24 04:03 Sodium 136 mmol/L (136-145) 04/26/24 07:20 Potassium 4.3 mmol/L (3.5-5.1) 04/26/24 07:20 Chloride 101 mmol/L (98-107) 04/26/24 07:20 Carbon Dioxide 22 mmol/L (22-29) 04/26/24 07:20 Anion Gap 17.3 (5-19) 04/26/24 07:20 BUN 26 mg/dL (8-23) H 04/26/24 07:20 Creatinine 1.1 mg/dL (0.5-0.9) H 04/26/24 07:20 GFR Calculation 50.2 mL/min (90-130) L 04/26/24 07:20 Glucose 133 mg/dL (65-115) H 04/26/24 07:20 Estimat Average Glucose 103 04/25/24 04:03 Hemoglobin A1c 5.2 % (4.0-6.0) 04/25/24 04:03 Calculated Osmolality 289 mOsm/kg (285-295) 04/26/24 07:20 Calcium 9.3 mg/dL (8.5-10.5) 04/26/24 07:20 Phosphorus 4.4 mg/dL (2.5-4.5) 04/25/24 04:03 Magnesium 2.4 mg/dL (1.7-2.3) H 04/26/24 07:20 Iron 22 ug/dL (37-145) L 04/25/24 04:03 TIBC 280 mcg/dl 04/25/24 04:03 % Saturation 7.8 % (20-50) L 04/25/24 04:03 Unsat Iron Binding 258 ug/dL (112-347) 04/25/24 04:03 Total Bilirubin 0.9 mg/dL (0.15-1.2) 04/26/24 07:20 AST 20 U/L (0-32) 04/26/24 07:20 ALT 11 U/L (0-33) 04/26/24 07:20 Alkaline Phosphatase 116 U/L (35-105) H 04/26/24 07:20 Troponin T Baseline 17 ng/L (0-10) H 04/24/24 11:20 Troponin T 120 Minute 17.83 ng/L (0-10) H 04/24/24 13:44 Delta Troponin T 0.83 ABS# (0-10) 04/24/24 13:44 Troponin T Hi Sens 6Hr 14.85 ng/L (0-10) H 04/24/24 17:20 Troponin T Hi Sens 6Hr Delta -2.15 ng/L (0-12) L 04/24/24 17:20 NT-Pro-B Natriuret Pep 1948 pg/mL (0-125) H 04/24/24 11:20 Total Protein 8.2 g/dL (6.6-8.7) 04/26/24 07:20 Albumin 3.9 g/dL (3.5-5.2) 04/26/24 07:20 Globulin 4.3 g/dL (1.3-4.6) 04/26/24 07:20 Triglycerides 59 mg/dL (0-150) 04/25/24 04:03 Cholesterol 148 mg/dL (0-200) 04/25/24 04:03 LDL Cholesterol, Calc 87 mg/dL (50-129) 04/25/24 04:03 HDL Cholesterol 49 mg/dL (60-100) L 04/25/24 04:03 LDL/HDL Ratio 1.78 RATIO (0.00-3.22) 04/25/24 04:03 Cholesterol/HDL Ratio 3.02 mg/dL (0.0-4.40) 04/25/24 04:03 Vitamin B12 334 pg/mL (232-1245) 04/25/24 04:03 Folate 4.8 ng/mL (4.8-37.3) 04/26/24 07:20 Procalcitonin 0.16 ng/mL (0-0.5) 04/24/24 11:20 TSH 0.97 uIU/mL (0.27-4.20) 04/25/24 04:03 Adenovirus (PCR) Not detected (NOT DETECT) 04/24/24 11:56 C. pneumoniae DNA (PCR) Not detected (NOT DETECT) 04/24/24 11:56 Coronavirus 229E (PCR) Not detected (NOT DETECT) 04/24/24 11:56 Human Metapneumovir PCR Not detected (NOT DETECT) 04/24/24 11:56 Influenza A (H1) PCR Not detected (NOT DETECT) 04/24/24 11:56 Influ A (H1/09) PCR Not detected (NOT DETECT) 04/24/24 11:56 Influenza A (H3) PCR Not detected (NOT DETECT) 04/24/24 11:56 Influenza Type A (PCR) Not detected (NOT DETECT) 04/24/24 11:56 Influenza Type B (PCR) Not detected (NOT DETECT) 04/24/24 11:56 M. pneumoniae (PCR) Not detected (NOT DETECT) 04/24/24 11:56 Parainfluenza 1 (PCR) Not detected (NOT DETECT) 04/24/24 11:56 Parainfluenza 2 (PCR) Not detected (NOT DETECT) 04/24/24 11:56 Parainfluenza 3 (PCR) Detected (NOT DETECT) A 04/24/24 11:56 Parainfluenza 4 (PCR) Not detected (NOT DETECT) 04/24/24 11:56 RSV Type A (PCR) Not detected (NOT DETECT) 04/24/24 11:56 RSV Type B (PCR) Not detected (NOT DETECT) 04/24/24 11:56 Entero/Rhino (PCR) Not detected (NOT DETECT) 04/24/24 11:56 SARS-CoV-2 (PCR) Not detected (NOT DETECT) 04/24/24 11:56 A&P Assessment and plan (1) Acute on chronic systolic heart failure: The heart failure seems to be compensated. Most likely this patient has nonischemic cardiomyopathy. May be switched to p.o. Lasix. If she continues to remain stable, may be discharged home tomorrow (2) Hx of artificial heart valve replacement: Patient had a redo surgery of the aortic and mitral valves in 2013. Seems to have significant gradient across the mitral valve . The markedly increased gradient across the mitral valve is suggestive of severe mitral stenosis. The pressure half-time may not be reliable in this patient because of the mitral valve surgery. Discussed with the nurse in Dr. Mitchell office. Apparently this patient has not had any recent cardiac catheterization. All the recent echocardiograms are from our hospital. She seems to have a significant increase in the gradient across the mitral valve from 2020 (3) History of cardiac pacemaker: Patient had pacemaker revision a year ago. Function seems to be appropriate. This may need to be interrogated. (4) Atrial fibrillation: The heart rate seems to be under control. Patient is on long-term oral anticoagulation. This may be continued. Qualifiers: Atrial fibrillation type: longstanding persistent Qualified Code(s): I48.11 - Longstanding persistent atrial fibrillation (5) Hypertension: Currently the blood pressure seems to be in the normal range. May continue on the current medications. Qualifiers: Hypertension type: primary hypertension Qualified Code(s): I10 - Essential (primary) hypertension (6) Hyperlipidemia: Patient may continue on the current medications. The most recent lipid profile was out of the normal range. Apparently the patient was told that she may require PCSK9 Inhibitors Qualifiers: Hyperlipidemia type: mixed hyperlipidemia Qualified Code(s): E78.2 - Mixed hyperlipidemia (7) Reactive airway disease: Patient has seems to be responding to bronchodilator treatment. She is wanting to get a nebulizer treatment at home. This might be appropriate. Qualifiers: Asthma severity: unspecified severity Asthma complication type: with acute exacerbation Asthma persistence: unspecified Qualified Code(s): J45.901 - Unspecified asthma with (acute) exacerbation Plan Optimizing the bronchodilator treatment would be appropriate. Switch to p.o. Lasix. If she continues to remain stable, may be discharged home tomorrow. I asked her to Dr. Mitchell office in [place] to make an early appointment for her to be seen and discuss about further management options.(Patient is wanting to have follow-up evaluation management in [place]) Attestations Medical Necessity Statement*: Deferred to the primary Coding Level of Care Code 90917 Diagnoses Acute on chronic systolic heart failure I50.23 Hx of artificial heart valve replacement Z95.2 History of cardiac pacemaker Z95.0 Longstanding persistent atrial fibrillation I48.11 Atrial fibrillation type: longstanding persistent Primary hypertension I10 Hypertension type: primary hypertension Mixed hyperlipidemia E78.2 Hyperlipidemia type: mixed hyperlipidemia Reactive airway disease with acute exacerbation, unspecified asthma severity, unspecified whether persistent J45.901 Asthma severity: unspecified severity Asthma complication type: with acute exacerbation Asthma persistence: unspecified
--- NOTE | 2024-04-26 16:26 | PM.PN ---
Subjective Subjective: Acute events overnight. Today morning patient seen sitting up in bed. She states she is feeling better. Denies any nausea, ting, headache. Seems less short of breath today. Remains on room air. Has remained hemodynamically stable and afebrile. Document urine output of around 2500 cc in last 24 hours. Vitals/I&O/Wt Last Vital Signs Temp 98.3 F 04/26/24 12:00 Pulse 71 04/26/24 13:40 Resp 18 04/26/24 13:40 BP 111/65 04/26/24 12:00 Pulse Ox 93 04/26/24 13:40 O2 Del Method Room Air 04/26/24 13:40 04/26/24 04/26/24 04/26/24 06:59 14:59 22:59 Output Total 400 / 2350 850 / 850 Balance -400 / -670 -850 / -850 Weight last 48 hrs Weight 66.224 kg Weight 66.224 kg Weight 66.224 kg Weight 66.224 kg Physical Exam Narrative: General: No acute distress, AO x3, HEENT: PERRLA, pupils bilaterally equal and reactive Chest: Normal vesicular breath sounds, no added sounds, equal good air entry bilaterally CVS: S1-S2 regular, mid diastolic murmur present at apex soft early diastolic murmur present at aortic region apex, no tachycardia, no gallops, no rubs Abdomen: Soft, nontender, no organomegaly, bowel sounds present Neuro: No focal deficits, no facial deformity, AO x3, power 5/5 in all limbs Urinary Catheter Management: Zaldivar: Cath Placed During This Visit: yes Reason for Continuing Indwelling Catheter: Accurate Measurement of Urinary Output in Critically Ill Patients Urinary Catheter Date of Insertion: 04/25/24 Urinary Catheter Time of Insertion: 13:30 Data 04/26/24 07:20 04/26/24 07:20 A&P Assessment and plan (1) Acute exacerbation of congestive heart failure: Acute on chronic CHF. Systolic congestive heart failure. History of mitral and aortic valve replacement because of rheumatic heart disease 20 years ago followed by bioprosthetic mitral and aortic valve placement in 2013. Last echocardiogram showed a new low EF of 35 to 40%, moderately hypokinetic RV wall, left atrium dilated, severe elevated gradient across bioprosthetic mitral valve, moderate TR with severe pulmonary hypertension and dilated IVC. Cardiology on board. Not particularly sure about the decrease in EF recently. Cannot rule out ischemic cause. Follow-up on Lexiscan stress test. Check A1c, lipid panel. Aspirin 81 mg daily. Continue with Xarelto 20 mg oral daily. Strict input output charting, daily weights. Zaldivar catheterization for a short while. Patient is agreeable. IV Lasix 40 mg twice daily. Fluid restriction up to 1500 cc. (2) Parainfluenza: Respiratory viral panel positive. Supportive treatment with incentive spirometry. Cannot rule out mild COPD exacerbation for the same. Start on prednisone 40 mg oral daily for next 5 days. Ipratropium, Xopenex every 6 hours, Pulmicort twice daily. (3) Acute kidney injury: Baseline creatinine 0.8-1.1. Currently 1.2. High chances of patient having higher baseline creatinine at dry weight. For now some concerns for CRS as well. Check urine lites, urine creatinine. Increase IV Lasix to 40 mg twice daily as above. Continue to monitor. Repeat BMP in evening. (4) Pulmonary hypertension: See above. Etiology of pulmonary hypertension currently suspected to be related to valvular abnormalities but she was recently identified as having nocturnal hypoxemia on an overnight pulse oximetry study and is in the process of getting a sleep study done. (5) Hx of artificial heart valve replacement: Has both mitral and aortic bioprosthetic valves that were placed in approximately 2013. She had had mechanical valves for 32 years prior to that. Currently with elevated gradients across the bioprosthetic mitral valve noted on echocardiogram at the end of last month. She follows with cardiology in [place], Dr. Mitchell. (6) History of cardiac pacemaker: Pacemaker was last replaced a year ago in February. EKG with a paced rhythm. Will request for interrogation to rule out arrhythmia. (7) Atrial fibrillation: Chronic diagnosis though specific type of atrial fibrillation not known. Has pacemaker with paced rhythm. Is on anticoagulation. Not currently on any rate controlling medications. Qualifiers: Atrial fibrillation type: longstanding persistent Qualified Code(s): I48.11 - Longstanding persistent atrial fibrillation (8) Chronic anticoagulation: On Xarelto secondary to history of atrial fibrillation (9) Nocturnal oxygen desaturation: Recent overnight oxygen saturation monitoring demonstrated significant nocturnal hypoxemia. Dr. Mitchell, her solar photovoltaic designer is in the process of setting her up for a formal sleep study that has not yet been scheduled. (10) History of rheumatic fever: (11) Reactive airway disease: Qualifiers: Asthma severity: unspecified severity Asthma persistence: unspecified Asthma complication type: with acute exacerbation Qualified Code(s): J45.901 - Unspecified asthma with (acute) exacerbation Plan VTE prophylaxis: on Xarelto chronically GI Prophylaxis: PPI Disposition plan: Home with outpatient follow up to both her primary care provider Dr. Worthington as well as cardiology Dr. Saleem anticipated. Further plans pending clinical course. She is in the process of having an outpatient sleep study arranged and encourage that to be completed as part of overall plan of care Code Status: Full Code Plan for the day: Respiratory distress resolving. For now continue with IV Lasix 40 mg twice daily. Continue with oral prednisone 40 mg daily along with inhalation treatment. Respiratory distress most likely in setting of congestive heart failure from high gradient at replaced mitral valve along with reactive airway disease in setting of influenza. Monitor electrolytes. Renal function stable and improving. Creatinine down to 1.1. Continue to hold off on losartan for now. Repeat CBC, CMP and magnesium level in AM. Discussed in detail with the patient for possible need of further management of high-grade and red mitral valve with her outpatient solar photovoltaic designer at [place]. Patient verbalized understanding. Continue with fluid restriction. Attestations Medical Necessity Statement*: Requires further hospitalization for management of respiratory distress in setting of congestive heart failure, reactive airway disease in setting of influenza. Diagnoses Acute exacerbation of congestive heart failure I50.9 Parainfluenza B34.8 Acute kidney injury N17.9 Pulmonary hypertension I27.20 Hx of artificial heart valve replacement Z95.2 History of cardiac pacemaker Z95.0 Longstanding persistent atrial fibrillation I48.11 Atrial fibrillation type: longstanding persistent Chronic anticoagulation Z79.01 Nocturnal oxygen desaturation G47.34 History of rheumatic fever Z86.79 Reactive airway disease with acute exacerbation, unspecified asthma severity, unspecified whether persistent J45.901 Asthma severity: unspecified severity Asthma persistence: unspecified Asthma complication type: with acute exacerbation
[2024-04-26] MEDS: ezetimibe 10 mg Tablet PO (20:04)
[2024-04-26] MEDS: montelukast sodium 10 mg Tablet PO (20:04)
[2024-04-26] MEDS: pramipexole 0.25 mg Tablet 0.125 MG PO (20:05)
[2024-04-27] VITALS (8 sets, daily range): BP systolic 117–137; BP diastolic 68–82; PULSE 58–95; RESP 16–18; TEMP 36.3–36.4; O2SAT 94–96; BMI 27.3
[2024-04-27 00:01] LABS: Potassium, Radom Urine 45 mmol/L
[2024-04-27 00:02] LABS: Urine Random Chloride 13 mmol/L; Urine Random Sodium 19 mmol/L
[2024-04-27] MEDS: levalbuterol 0.63 mg/3 mL Neb 0.630000000000000004 MG INHALATION ×2 (02:23→07:58)
[2024-04-27] MEDS: ipratropium 0.5 mg/2.5 mL Neb INHALATION ×2 (02:23→07:58)
[2024-04-27] MEDS: venlafaxine ER (24HR) 75 mg Capsule PO (05:05)
[2024-04-27 06:12] LABS: Basophils % 0.2 %; Eosinophils % 0.1 %; Hematocrit 33.9 % (36-47); Lymphocytes % 7.5 %; Mean Corpuscular HGB Conc 30.1 g/dL (30-55); Mean Corpuscular Hemoglobin 23.6 pg (27-33); Mean Corpuscular Volume 78.3 fl (85-98); Mean Platelet Volume 10.2 fL (7.4-10.4); Monocytes % 8.1 %; Neutrophils # 10.68 10^3/uL (1.8-7.7); Neutrophils % 83.2 %; Nucleated Red Blood Cells % 0 %; Platelet Count 337 10^3/cmm (157-399); Red Blood Count 4.33 10^6/uL (3.85-5.65); Red Cell Distribution Width 18.5 % (12.1-15.1); White Blood Count 12.84 10^3/uL (3.29-11.43)
[2024-04-27 06:32] LABS: Alanine Aminotransferase 14 U/L (0-33); Albumin Level 3.7 g/dL (3.5-5.2); Alkaline Phosphatase 104 U/L (35-105); Aspartate Amino Transferase 23 U/L (0-32); Blood Urea Nitrogen 37 mg/dL (8-23); Calcium 9.2 mg/dL (8.5-10.5); Carbon Dioxide 24 mmol/L (22-29); Chloride 104 mmol/L (98-107); Globulin 3.9 g/dL (1.3-4.6); Glomerular Filtration Rate 63.2 mL/min (90-130); Glucose 109 mg/dL (65-115); Osmolality Calculated 301 mOsm/kg (285-295); Sodium 141 mmol/L (136-145); Total Bilirubin 0.6 mg/dL (0.15-1.2); Total Protein 7.6 g/dL (6.6-8.7)
[2024-04-27 06:40] LABS: Magnesium 2.5 mg/dL (1.7-2.3)
[2024-04-27] MEDS: budesonide 0.5 mg/2 mL Neb INHALATION (07:58)
[2024-04-27] MEDS: rivaroxaban 10 mg Tablet 20 MG PO (08:08)
[2024-04-27] MEDS: aspirin 81 mg EC Tablet PO (08:08)
[2024-04-27] MEDS: predniSONE 20 mg Tablet 40 MG PO (08:08)
[2024-04-27] MEDS: pantoprazole DR 40 mg Tablet PO (08:08)
[2024-04-27] MEDS: spironolactone 25 mg Tablet PO (08:08)
[2024-04-27] MEDS: potassium chloride ER 20 mEq Tablet PO (08:08)
--- NOTE | 2024-04-27 10:42 | PM.PN ---
Subjective Subjective: Patient is feeling okay. No chest pain or palpitation. Still has the dyspnea on exertion. No orthopnea or PND. No fever, chills or cough. Medications: Medication Review Details: Current Medications Acetaminophen (Acetaminophen 325 Mg Tablet) 650 mg PO Q6H PRN PRN Reason: Mild/Mod Pain Or Temp >/= 101 Albuterol/Ipratropium (Ipratropium-Albuterol 3 Ml Neb) 3 ml INHALATION Q6H PRN PRN Reason: SHORTNESS OF BREATH Last Admin: 04/25/24 11:35 Dose: 3 ml Aspirin (Aspirin 81 Mg Ec Tablet) 81 mg PO DAILY [facility] Last Admin: 04/27/24 08:08 Dose: 81 mg Bisacodyl (Bisacodyl 5 Mg Tablet) 10 mg PO DAILY PRN; Protocol PRN Reason: Constipation (see protocol) Budesonide (Budesonide 0.5 Mg/2 Ml Neb) 0.5 mg INHALATION BID.RESPIRATORY [facility] Last Admin: 04/27/24 07:58 Dose: 0.5 mg Calcium Carbonate (Calcium Carbonate 500 Mg Chew Tablet) 1,000 mg PO Q4H PRN PRN Reason: DYSPEPSI Ezetimibe (Ezetimibe 10 Mg Tablet) 10 mg PO BEDTIME [facility] Last Admin: 04/26/24 20:04 Dose: 10 mg Fluticasone Propionate (Fluticasone Nasal [place] 16gm Btl) 1 spray NASAL BID [facility] Last Admin: 04/27/24 08:08 Dose: Not Given Ipratropium [place] (Ipratropium 0.5 Mg/2.5 Ml Neb) 0.5 mg INHALATION Q6H.RESP [facility] Last Admin: 04/27/24 07:58 Dose: 0.5 mg Levalbuterol HCl (Levalbuterol 0.63 Mg/3 Ml Neb) 0.63 mg INHALATION Q6H.RESP [facility] Last Admin: 04/27/24 07:58 Dose: 0.63 mg Losartan Potassium (Losartan 50 Mg Tablet) 25 mg PO DAILY [facility] Last Admin: 04/25/24 09:25 Dose: 25 mg Montelukast Sodium (Montelukast Sodium 10 Mg Tablet) 10 mg PO BEDTIME [facility] Last Admin: 04/26/24 20:04 Dose: 10 mg Ondansetron HCl (Ondansetron 2 Mg/Ml Sdv 2 Ml) 4 mg IVP Q8H PRN PRN Reason: vomiting, or N/V if npo Pantoprazole Sodium (Pantoprazole Dr 40 Mg Tablet) 40 mg PO DAILY [facility] Last Admin: 04/27/24 08:08 Dose: 40 mg Potassium Chloride (Potassium Chloride Er 20 Meq Tablet) 20 meq PO DAILY [facility] Last Admin: 04/27/24 08:08 Dose: 20 meq Pramipexole Dihydrochloride (Pramipexole 0.25 Mg Tablet) 0.125 mg PO BEDTIME [facility] Last Admin: 04/26/24 20:05 Dose: 0.125 mg Prednisone (Prednisone 20 Mg Tablet) 40 mg PO DAILY [facility] Stop: 04/30/24 14:54 Last Admin: 04/27/24 08:08 Dose: 40 mg Rivaroxaban (Rivaroxaban 10 Mg Tablet) 20 mg PO DAILY [facility] Last Admin: 04/27/24 08:08 Dose: 20 mg Spironolactone (Spironolactone 25 Mg Tablet) 25 mg PO DAILY [facility] Last Admin: 04/27/24 08:08 Dose: 25 mg Venlafaxine HCl (Venlafaxine Er (24hr) 75 Mg Capsule) 75 mg PO QAM [facility] Last Admin: 04/27/24 05:05 Dose: 75 mg Vitals/I&O/Wt Last Vital Signs Temp 97.6 F 04/27/24 07:17 Pulse 95 04/27/24 07:55 Resp 18 04/27/24 07:55 BP 137/82 04/27/24 07:17 Pulse Ox 95 04/27/24 07:55 O2 Del Method Room Air 04/27/24 07:55 04/26/24 04/27/24 04/27/24 22:59 06:59 14:59 Intake Total 360 / 360 120 / 480 240 / 240 Output Total 350 / 1200 450 / 1650 Balance 10 / -840 -330 / -1170 240 / 240 Weight last 48 hrs Weight 145 lb Weight 146 lb Weight 146 lb Physical Exam Narrative: GENERAL: The patient is alert and oriented times three. Not in any acute distress. HEENT: No significant pallor, icterus or lymphadenopathy.Oral cavity: There are no mucous membrane lesions. NECK: Trachea appears to be central. No masses noted. No JVD or thyromegaly appreciated. RESPIRATORY: Chest is symmetrical. No intercostals muscle retraction or any accessory muscle activation. There is no chest wall tenderness. Breath sounds are heard bilaterally. Scattered expiratory wheezes BREASTS: Deferred. HEART: The heart sounds are normal. No S3 or S4. Systolic murmur grade 3 or 6 in the left sternal border. No diastolic murmurs.. No pericardial rub ABDOMEN: No vessel pulsations or distention. No tenderness. No organomegaly appreciated. Bowel sounds are normally heard. : Deferred. RECTAL: Deferred. LYMPHATIC: No lymphadenopathy noted in the neck. EXTREMITIES: No edema or cyanosis. No clubbing. MUSCULOSKELETAL: No acute joint deformities or swelling SKIN: There are no significant rashes or ecchymosis NEUROPSYCHIATRIC: The patient is alert and oriented x3. Appears to be in a good mood. No tremors or rigidity noted. Urinary Catheter Management: Zaldivar: Cath Placed During This Visit: yes Reason for Continuing Indwelling Catheter: Acute Urinary Retention or Obstruction Urinary Catheter Date of Insertion: 04/25/24 Urinary Catheter Time of Insertion: 13:30 Data 04/27/24 05:40 04/27/24 05:40 Other Labs: Laboratory Last Values WBC 12.84 10^3/uL (3.29-11.43) H 04/27/24 05:40 RBC 4.33 10^6/uL (3.85-5.65) 04/27/24 05:40 Hgb 10.20 g/dL (11.27-16.99) L 04/27/24 05:40 Hct 33.9 % (36-47) L 04/27/24 05:40 MCV 78.3 fl (85-98) L 04/27/24 05:40 MCH 23.6 pg (27-33) L 04/27/24 05:40 MCHC 30.1 g/dL (30-55) 04/27/24 05:40 RDW 18.5 % (12.1-15.1) H 04/27/24 05:40 Plt Count 337 10^3/cmm (157-399) 04/27/24 05:40 MPV 10.2 fL (7.4-10.4) 04/27/24 05:40 Neut % (Auto) 83.2 % 04/27/24 05:40 Lymph % (Auto) 7.5 % 04/27/24 05:40 [place] % (Auto) 8.1 % 04/27/24 05:40 Eos % (Auto) 0.1 % 04/27/24 05:40 Baso % (Auto) 0.2 % 04/27/24 05:40 Neut # (Auto) 10.68 10^3/uL (1.8-7.7) H 04/27/24 05:40 Lymph # (Auto) 1.0 10^3/uL (0.8-4.8) 04/27/24 05:40 [place] # (Auto) 1.0 10^3/uL (0.2-0.9) H 04/27/24 05:40 Eos # (Auto) 0.0 10^3/uL (0.0-0.8) 04/27/24 05:40 Baso # (Auto) 0.0 10^3/uL (0.0-0.1) 04/27/24 05:40 Nucleated RBC % (auto) 0 % 04/27/24 05:40 Nucleated RBCs # 0.0 /100WBC 04/27/24 05:40 PT 22.10 SECONDS (12.1-14.9) H 04/25/24 04:03 INR 1.86 (0.8-1.2) H 04/25/24 04:03 APTT 55.5 SECONDS (23.9-36.7) H 04/25/24 04:03 Sodium 141 mmol/L (136-145) 04/27/24 05:40 Potassium 4.0 mmol/L (3.5-5.1) 04/27/24 05:40 Chloride 104 mmol/L (98-107) 04/27/24 05:40 Carbon Dioxide 24 mmol/L (22-29) 04/27/24 05:40 Anion Gap 17.0 (5-19) 04/27/24 05:40 BUN 37 mg/dL (8-23) H 04/27/24 05:40 Creatinine 0.9 mg/dL (0.5-0.9) 04/27/24 05:40 GFR Calculation 63.2 mL/min (90-130) L 04/27/24 05:40 Glucose 109 mg/dL (65-115) 04/27/24 05:40 Estimat Average Glucose 103 04/25/24 04:03 Hemoglobin A1c 5.2 % (4.0-6.0) 04/25/24 04:03 Calculated Osmolality 301 mOsm/kg (285-295) H 04/27/24 05:40 Calcium 9.2 mg/dL (8.5-10.5) 04/27/24 05:40 Phosphorus 4.4 mg/dL (2.5-4.5) 04/25/24 04:03 Magnesium 2.5 mg/dL (1.7-2.3) H 04/27/24 05:40 Iron 22 ug/dL (37-145) L 04/25/24 04:03 TIBC 280 mcg/dl 04/25/24 04:03 % Saturation 7.8 % (20-50) L 04/25/24 04:03 Unsat Iron Binding 258 ug/dL (112-347) 04/25/24 04:03 Total Bilirubin 0.6 mg/dL (0.15-1.2) 04/27/24 05:40 AST 23 U/L (0-32) 04/27/24 05:40 ALT 14 U/L (0-33) 04/27/24 05:40 Alkaline Phosphatase 104 U/L (35-105) 04/27/24 05:40 Troponin T Baseline 17 ng/L (0-10) H 04/24/24 11:20 Troponin T 120 Minute 17.83 ng/L (0-10) H 04/24/24 13:44 Delta Troponin T 0.83 ABS# (0-10) 04/24/24 13:44 Troponin T Hi Sens 6Hr 14.85 ng/L (0-10) H 04/24/24 17:20 Troponin T Hi Sens 6Hr Delta -2.15 ng/L (0-12) L 04/24/24 17:20 NT-Pro-B Natriuret Pep 1948 pg/mL (0-125) H 04/24/24 11:20 Total Protein 7.6 g/dL (6.6-8.7) 04/27/24 05:40 Albumin 3.7 g/dL (3.5-5.2) 04/27/24 05:40 Globulin 3.9 g/dL (1.3-4.6) 04/27/24 05:40 Triglycerides 59 mg/dL (0-150) 04/25/24 04:03 Cholesterol 148 mg/dL (0-200) 04/25/24 04:03 LDL Cholesterol, Calc 87 mg/dL (50-129) 04/25/24 04:03 HDL Cholesterol 49 mg/dL (60-100) L 04/25/24 04:03 LDL/HDL Ratio 1.78 RATIO (0.00-3.22) 04/25/24 04:03 Cholesterol/HDL Ratio 3.02 mg/dL (0.0-4.40) 04/25/24 04:03 Vitamin B12 334 pg/mL (232-1245) 04/25/24 04:03 Folate 4.8 ng/mL (4.8-37.3) 04/26/24 07:20 Procalcitonin 0.16 ng/mL (0-0.5) 04/24/24 11:20 TSH 0.97 uIU/mL (0.27-4.20) 04/25/24 04:03 Ur Random Sodium 19 mmol/L 04/26/24 23:20 Ur Random Potassium 45 mmol/L 04/26/24 23:20 Ur Random Chloride 13 mmol/L 04/26/24 23:20 Adenovirus (PCR) Not detected (NOT DETECT) 04/24/24 11:56 C. pneumoniae DNA (PCR) Not detected (NOT DETECT) 04/24/24 11:56 Coronavirus 229E (PCR) Not detected (NOT DETECT) 04/24/24 11:56 Human Metapneumovir PCR Not detected (NOT DETECT) 04/24/24 11:56 Influenza A (H1) PCR Not detected (NOT DETECT) 04/24/24 11:56 Influ A (H1/09) PCR Not detected (NOT DETECT) 04/24/24 11:56 Influenza A (H3) PCR Not detected (NOT DETECT) 04/24/24 11:56 Influenza Type A (PCR) Not detected (NOT DETECT) 04/24/24 11:56 Influenza Type B (PCR) Not detected (NOT DETECT) 04/24/24 11:56 M. pneumoniae (PCR) Not detected (NOT DETECT) 04/24/24 11:56 Parainfluenza 1 (PCR) Not detected (NOT DETECT) 04/24/24 11:56 Parainfluenza 2 (PCR) Not detected (NOT DETECT) 04/24/24 11:56 Parainfluenza 3 (PCR) Detected (NOT DETECT) A 04/24/24 11:56 Parainfluenza 4 (PCR) Not detected (NOT DETECT) 04/24/24 11:56 RSV Type A (PCR) Not detected (NOT DETECT) 04/24/24 11:56 RSV Type B (PCR) Not detected (NOT DETECT) 04/24/24 11:56 Entero/Rhino (PCR) Not detected (NOT DETECT) 04/24/24 11:56 SARS-CoV-2 (PCR) Not detected (NOT DETECT) 04/24/24 11:56 A&P Assessment and plan (1) Acute on chronic systolic heart failure: The heart failure seems to be compensated. Most likely this patient has nonischemic cardiomyopathy. May be switched to p.o. Lasix. (2) Hx of artificial heart valve replacement: Patient had a redo surgery of the aortic and mitral valves in 2013. Seems to have significant gradient across the mitral valve . The markedly increased gradient across the mitral valve is suggestive of severe mitral stenosis. The pressure half-time may not be reliable in this patient because of the mitral valve surgery. Discussed with the nurse in Dr. Mitchell office. Apparently this patient has not had any recent cardiac catheterization. All the recent echocardiograms are from our hospital. She seems to have a significant increase in the gradient across the mitral valve from 2020 (3) History of cardiac pacemaker: Patient had pacemaker revision a year ago. Function seems to be appropriate. This may need to be interrogated. (4) Atrial fibrillation: The heart rate seems to be under control. Patient is on long-term oral anticoagulation. This may be continued. Qualifiers: Atrial fibrillation type: longstanding persistent Qualified Code(s): I48.11 - Longstanding persistent atrial fibrillation (5) Hypertension: Currently the blood pressure seems to be in the normal range. May continue on the current medications. Qualifiers: Hypertension type: primary hypertension Qualified Code(s): I10 - Essential (primary) hypertension (6) Hyperlipidemia: Patient may continue on the current medications. The most recent lipid profile was out of the normal range. Apparently the patient was told that she may require PCSK9 Inhibitors Qualifiers: Hyperlipidemia type: mixed hyperlipidemia Qualified Code(s): E78.2 - Mixed hyperlipidemia (7) Reactive airway disease: May continue on the current management Qualifiers: Asthma complication type: with acute exacerbation Asthma persistence: unspecified Asthma severity: unspecified severity Qualified Code(s): J45.901 - Unspecified asthma with (acute) exacerbation Plan Since the patient is remaining stable, may be discharged home from a cardiac standpoint. Follow-up with Dr. Mitchell at the [facility] Medical Necessity Statement*: Disposition as per the primary Coding Level of Care Code 49720 Diagnoses Acute on chronic systolic heart failure I50.23 Hx of artificial heart valve replacement Z95.2 History of cardiac pacemaker Z95.0 Longstanding persistent atrial fibrillation I48.11 Atrial fibrillation type: longstanding persistent Primary hypertension I10 Hypertension type: primary hypertension Mixed hyperlipidemia E78.2 Hyperlipidemia type: mixed hyperlipidemia Reactive airway disease with acute exacerbation, unspecified asthma severity, unspecified whether persistent J45.901 Asthma complication type: with acute exacerbation Asthma persistence: unspecified Asthma severity: unspecified severity
--- NOTE | 2024-04-27 11:43 | PM.DCS ---
Discharge Providers Date of Admission: 04/24/24 14:01 Date of Discharge: April 27, 2024 Attending Provider at Admission: Raven Eugene MD Attending Provider at Discharge: Harshal Mata MD Consults: Cardiology: Dr. Ahs Primary Care Provider: Magnolia Worthington MD Diagnoses at Discharge Discharge Diagnosis (1) Acute on chronic systolic heart failure: Status: Acute (2) Hx of artificial heart valve replacement: Status: Chronic Permanent problem details: Mitral and aortic, bioprosthetic valves placed in approximately 2013; prior to this had mechanical valves 32 years (3) History of cardiac pacemaker: Status: Chronic Permanent problem details: X 2, last replacement in February 2023 (4) Atrial fibrillation: Status: Chronic Qualifiers: Atrial fibrillation type: longstanding persistent Qualified Code(s): I48.11 - Longstanding persistent atrial fibrillation (5) Hypertension: Status: Chronic Qualifiers: Hypertension type: primary hypertension Qualified Code(s): I10 - Essential (primary) hypertension (6) Hyperlipidemia: Status: Chronic Qualifiers: Hyperlipidemia type: mixed hyperlipidemia Qualified Code(s): E78.2 - Mixed hyperlipidemia (7) Reactive airway disease: Status: Acute Qualifiers: Asthma complication type: with acute exacerbation Asthma persistence: unspecified Asthma severity: unspecified severity Qualified Code(s): J45.901 - Unspecified asthma with (acute) exacerbation Reason for Visit Reason for Visit: sob Brief History: As per HPI: Daniela Lai is a 64 year old female who presented to the emergency room with chief complaint of difficulty breathing. She has been having recurrent similar symptoms dating back to the first of the year. In talking with her and her she has never fully recovered between any of these events. As it is pertinent to presentation today I have outlined prior visits here as follows: Hospitalization April 2023 with RSV infection, transiently required oxygen, covered empirically with antibiotics for pneumonia and received steroids and breathing treatments, did not require discharge on oxygen ED visits October and December 2023 with respiratory complaints, treated with antibiotics empirically in October and with steroids and breathing treatments and December. She had rhinovirus at the time from viral studies. Admission December 2023 with right middle lobe and right lower lobe pneumonia identified on chest x-ray and CT imaging. She was treated with antibiotics but also received some diuretics. Additionally she had E. coli UTI at the same time. Discharged with antibiotics (doxycycline and Augmentin), steroids and breathing treatments after 4 days in the hospital. ED visits in December, January and February again with respiratory symptoms. Initially managed as persistent symptoms from December admission and subsequently managed his combination of COPD like symptoms/upper respiratory/bronchitis symptoms versus CHF. In January she received a prescription for Lasix from the ED (in addition to spironolactone which she was already taking) and in February received prescriptions for antibiotics and steroids. Hospitalized March 26 to March 27 again with respiratory symptoms though this time with hypoxemia requiring oxygen which was a new finding. She had increase in proBNP beyond any prior values. She also had leukocytosis and some other laboratory abnormalities. At admission managed as CHF with IV diuresis. CTA of the chest was done demonstrating no evidence of PE. There were moderate chronic emphysematous changes but no acute pulmonary infiltrates identified. Cardiomegaly as well as reflux into hepatic veins noted, evidence of right heart strain. Ectatic ascending thoracic aorta at 3.4 cm which was unchanged from prior studies. She was discharged with addition of Advair and Spiriva along with azithromycin and albuterol and instructions to continue her diuretics. She has since seen her software integration developer, Dr. Mitchell in [place]. An echocardiogram was done during her stay in February but it is not clear if Dr. Mitchell got the results of this. Ejection fraction was found to be 30 to 40% which was decreased from prior comparative echo from 2019 when ejection fraction was 60%. She had an overnight pulse oximetry study within the last couple of weeks that showed significant nocturnal hypoxemia. She is in the process of being set up up through Dr. Mitchell office for an outpatient sleep study to be performed in [place]. She has not had any additional cardiac testing. Her pacemaker was replaced roughly a year ago. Her aortic and mitral valves were replaced approximately 10 years ago. In talking with her her shortness of breath has been predominantly exertional in nature. It has gotten to the point that walking even a few steps she is short of breath. Sometimes rising from a seated to a standing position she gets acutely short of breath. She has had associated nausea, a few episodes of some vomiting predominantly of phlegm or clear fluid. She has noticed palpitations with episodes of shortness of breath. She reports some headache, neck pain and occasionally back pain. On a few occasions she has had some substernal pain with episodes of shortness of breath. She has some mild ankle edema. Does describe some orthopnea and occasionally feels like she may have a fever but has not taken her temperature. Not producing much sputum regularly though recently with cold-like symptoms. She reports no appetite and losing weight and being tired quite a bit of time. She has never smoked. No secondhand smoke exposure. She does have a history of rheumatic fever as a child that ultimately led to mitral and aortic valve replacements as well as arrhythmias and ultimate pacemaker placement. No known personal history of coronary artery disease. She has a maternal grandmother with a history of heart attack. Both of her parents have hypertension. EKG in the emergency room showed paced rhythm. Baseline troponin was 17. proBNP has continued to elevate now again up to highest value we have recorded which is at 1948. Hospital Course Hospital Course Patient was admitted to the hospital further evaluation and management of acute respiratory failure in setting of congestive heart failure along with COPD exacerbation from parainfluenza infection. She was started on IV diuresis. Given her recurrent admissions with concerns for elevated gradient across the mitral valve on recent echocardiogram cardiology was consulted. Patient was found to have a recent echo which showed decline in EF for which she underwent cardiac Lexiscan stress test which were negative for acute ischemia but was consistent with old infarctions. She was started on nebulization treatment along with oral steroids after which she showed significant clinical improvement. Patient has continued to improve and is currently on room air. She has been discharged back home in hemodynamically stable condition on oral Lasix twice daily, inhalation treatment with nebulization, oral steroids for next 7 days with advised to follow-up with her outpatient software integration developer at the earliest for further workup of high-grade and across the mitral valve. She is also being counseled in detail about lifestyle modifications with congestive heart failure. Physical Exam Narrative: General: No acute distress, AO x3, HEENT: PERRLA, pupils bilaterally equal and reactive Chest: Normal vesicular breath sounds, no added sounds, equal good air entry bilaterally CVS: S1-S2 regular, mid diastolic murmur present at apex soft early diastolic murmur present at aortic region apex, no tachycardia, no gallops, no rubs Abdomen: Soft, nontender, no organomegaly, bowel sounds present Neuro: No focal deficits, no facial deformity, AO x3, power 5/5 in all limbs Urinary Catheter Management: Zaldivar: Cath Placed During This Visit: yes Reason for Continuing Indwelling Catheter: Acute Urinary Retention or Obstruction Urinary Catheter Date of Insertion: 04/25/24 Urinary Catheter Time of Insertion: 13:30 Discharge Data Studies Completed and Pending Completed Studies During Hospitalization Category Date Time Status Cardiac Stress Test MIBI [Sestamibi Stress Test Request Exams 04/24/24 17:04 Draft ] Routine XR chest 1V portable [id number] Routine Exams 04/26/24 12:32 Completed XR chest 1V portable [id number] Urgent Exams 04/24/24 10:54 Completed NM david perf SPECT r/s* [id number] Routine Nuc Med 04/25/24 17:05 Completed Pending at discharge Category Date Time Status MAG [Magnesium] AM LABS Lab 04/28/24 04:00 Ordered Radiology Impressions Chest X-Ray 04/26/24 12:32 IMPRESSION: 1. Partial clearing of pulmonary infiltrates and less pulmonary vascular congestion than noted previously. The heart is still enlarged and unchanged in size. 2. Small residual RIGHT basal pleural effusion. Echocardiogram: CONCLUSIONS LV systolic function is moderately reduced with EF of 35-40% Moderately hypokinetic right ventricle. Left atrium is dilated Normally functioning bioprosthetic aortic valve. Severely elevated gradient across bioprosthetic mitral valve. Moderate tricuspid regurgitation Severe pulmonary hypertension IVC is dilated Compared to prior echocardiogram from 2020, LV systolic function is significantly lower and EF is 35-40%. Jose De La Cruz MD (Electronically Signed) Final Date: 27 Mar 2024 17:37 Lexiscan stress test PERFUSION FINDINGS Moderate area of moderately decreased tracer uptake involving the mid and apical inferior wall region with no significant reversibility. There was a small area of slightly decreased tracer uptake in the mid inferoseptal region, with some reversibility FUNCTIONAL RESULTS (calculated via Gated SPECT) Stress Image LV EF (%): 57 Stress EDV (mL):101 TID: 0.96 Stress ESV (mL):43 FUNCTIONAL FINDINGS: Segmental wall motion analysis revealing no gross wall motion abnormalities IMPRESSIONS 1. Myocardial perfusion imaging revealing moderate area of persistent decreased tracer uptake involving the inferior wall region with a small area of reversible defect in the mid inferol septal region suggestive of myocardial scarring in the distribution of the right coronary artery with a small area of possible preinfarction ischemia 2. Normal LV ejection fraction 57%. 3. LV wall motion analysis revealing no gross wall motion abnormalities. 4. Normal LV volume No similar previous studies are available for comparison Dr Sarah Ash MD [facility] (Electronically Signed) Final Date: 25 April 2024 Laboratory Results WBC 12.84 10^3/uL (3.29-11.43) H 04/27/24 05:40 RBC 4.33 10^6/uL (3.85-5.65) 04/27/24 05:40 Hgb 10.20 g/dL (11.27-16.99) L 04/27/24 05:40 Hct 33.9 % (36-47) L 04/27/24 05:40 MCV 78.3 fl (85-98) L 04/27/24 05:40 MCH 23.6 pg (27-33) L 04/27/24 05:40 MCHC 30.1 g/dL (30-55) 04/27/24 05:40 RDW 18.5 % (12.1-15.1) H 04/27/24 05:40 Plt Count 337 10^3/cmm (157-399) 04/27/24 05:40 MPV 10.2 fL (7.4-10.4) 04/27/24 05:40 Neut % (Auto) 83.2 % 04/27/24 05:40 Lymph % (Auto) 7.5 % 04/27/24 05:40 Routt % (Auto) 8.1 % 04/27/24 05:40 Eos % (Auto) 0.1 % 04/27/24 05:40 Baso % (Auto) 0.2 % 04/27/24 05:40 Neut # (Auto) 10.68 10^3/uL (1.8-7.7) H 04/27/24 05:40 Lymph # (Auto) 1.0 10^3/uL (0.8-4.8) 04/27/24 05:40 Routt # (Auto) 1.0 10^3/uL (0.2-0.9) H 04/27/24 05:40 Eos # (Auto) 0.0 10^3/uL (0.0-0.8) 04/27/24 05:40 Baso # (Auto) 0.0 10^3/uL (0.0-0.1) 04/27/24 05:40 Nucleated RBC % (auto) 0 % 04/27/24 05:40 Nucleated RBCs # 0.0 /100WBC 04/27/24 05:40 PT 22.10 SECONDS (12.1-14.9) H 04/25/24 04:03 INR 1.86 (0.8-1.2) H 04/25/24 04:03 APTT 55.5 SECONDS (23.9-36.7) H 04/25/24 04:03 Sodium 141 mmol/L (136-145) 04/27/24 05:40 Potassium 4.0 mmol/L (3.5-5.1) 04/27/24 05:40 Chloride 104 mmol/L (98-107) 04/27/24 05:40 Carbon Dioxide 24 mmol/L (22-29) 04/27/24 05:40 Anion Gap 17.0 (5-19) 04/27/24 05:40 BUN 37 mg/dL (8-23) H 04/27/24 05:40 Creatinine 0.9 mg/dL (0.5-0.9) 04/27/24 05:40 GFR Calculation 63.2 mL/min (90-130) L 04/27/24 05:40 Glucose 109 mg/dL (65-115) 04/27/24 05:40 Estimat Average Glucose 103 04/25/24 04:03 Hemoglobin A1c 5.2 % (4.0-6.0) 04/25/24 04:03 Calculated Osmolality 301 mOsm/kg (285-295) H 04/27/24 05:40 Calcium 9.2 mg/dL (8.5-10.5) 04/27/24 05:40 Phosphorus 4.4 mg/dL (2.5-4.5) 04/25/24 04:03 Magnesium 2.5 mg/dL (1.7-2.3) H 04/27/24 05:40 Iron 22 ug/dL (37-145) L 04/25/24 04:03 TIBC 280 mcg/dl 04/25/24 04:03 % Saturation 7.8 % (20-50) L 04/25/24 04:03 Unsat Iron Binding 258 ug/dL (112-347) 04/25/24 04:03 Total Bilirubin 0.6 mg/dL (0.15-1.2) 04/27/24 05:40 AST 23 U/L (0-32) 04/27/24 05:40 ALT 14 U/L (0-33) 04/27/24 05:40 Alkaline Phosphatase 104 U/L (35-105) 04/27/24 05:40 Troponin T Baseline 17 ng/L (0-10) H 04/24/24 11:20 Troponin T 120 Minute 17.83 ng/L (0-10) H 04/24/24 13:44 Delta Troponin T 0.83 ABS# (0-10) 04/24/24 13:44 Troponin T Hi Sens 6Hr 14.85 ng/L (0-10) H 04/24/24 17:20 Troponin T Hi Sens 6Hr Delta -2.15 ng/L (0-12) L 04/24/24 17:20 NT-Pro-B Natriuret Pep 1948 pg/mL (0-125) H 04/24/24 11:20 Total Protein 7.6 g/dL (6.6-8.7) 04/27/24 05:40 Albumin 3.7 g/dL (3.5-5.2) 04/27/24 05:40 Globulin 3.9 g/dL (1.3-4.6) 04/27/24 05:40 Triglycerides 59 mg/dL (0-150) 04/25/24 04:03 Cholesterol 148 mg/dL (0-200) 04/25/24 04:03 LDL Cholesterol, Calc 87 mg/dL (50-129) 04/25/24 04:03 HDL Cholesterol 49 mg/dL (60-100) L 04/25/24 04:03 LDL/HDL Ratio 1.78 RATIO (0.00-3.22) 04/25/24 04:03 Cholesterol/HDL Ratio 3.02 mg/dL (0.0-4.40) 04/25/24 04:03 Vitamin B12 334 pg/mL (232-1245) 04/25/24 04:03 Folate 4.8 ng/mL (4.8-37.3) 04/26/24 07:20 Procalcitonin 0.16 ng/mL (0-0.5) 04/24/24 11:20 TSH 0.97 uIU/mL (0.27-4.20) 04/25/24 04:03 Ur Random Sodium 19 mmol/L 04/26/24 23:20 Ur Random Potassium 45 mmol/L 04/26/24 23:20 Ur Random Chloride 13 mmol/L 04/26/24 23:20 Adenovirus (PCR) Not detected (NOT DETECT) 04/24/24 11:56 C. pneumoniae DNA (PCR) Not detected (NOT DETECT) 04/24/24 11:56 Coronavirus 229E (PCR) Not detected (NOT DETECT) 04/24/24 11:56 Human Metapneumovir PCR Not detected (NOT DETECT) 04/24/24 11:56 Influenza A (H1) PCR Not detected (NOT DETECT) 04/24/24 11:56 Influ A (H1/09) PCR Not detected (NOT DETECT) 04/24/24 11:56 Influenza A (H3) PCR Not detected (NOT DETECT) 04/24/24 11:56 Influenza Type A (PCR) Not detected (NOT DETECT) 04/24/24 11:56 Influenza Type B (PCR) Not detected (NOT DETECT) 04/24/24 11:56 M. pneumoniae (PCR) Not detected (NOT DETECT) 04/24/24 11:56 Parainfluenza 1 (PCR) Not detected (NOT DETECT) 04/24/24 11:56 Parainfluenza 2 (PCR) Not detected (NOT DETECT) 04/24/24 11:56 Parainfluenza 3 (PCR) Detected (NOT DETECT) A 04/24/24 11:56 Parainfluenza 4 (PCR) Not detected (NOT DETECT) 04/24/24 11:56 RSV Type A (PCR) Not detected (NOT DETECT) 04/24/24 11:56 RSV Type B (PCR) Not detected (NOT DETECT) 04/24/24 11:56 Entero/Rhino (PCR) Not detected (NOT DETECT) 04/24/24 11:56 SARS-CoV-2 (PCR) Not detected (NOT DETECT) 04/24/24 11:56 Vitals Last Vital Signs Temp 97.5 F L 04/27/24 11:18 Pulse 66 04/27/24 11:18 Resp 16 04/27/24 11:18 BP 127/70 04/27/24 11:18 Pulse Ox 94 04/27/24 11:18 O2 Del Method Room Air 04/27/24 11:18 Discharge Plan Discharge Patient Disposition: Home Condition: Stable Prescriptions: New fluticasone propionate 50 mcg/actuation [place],Suspension 1 spray nasal BID Qty: 16 0RF ipratropium-albuterol 0.5 mg-3 mg(2.5 mg base)/3 mL Solution For Nebulization 3 ml inhalation Q6H Qty: 180 0RF prednisone 20 mg Tablet 40 mg PO DAILY Qty: 14 0RF spironolactone 25 mg Tablet 25 mg PO DAILY Qty: 30 0RF budesonide 0.5 mg/2 mL Suspension For Nebulization 0.5 mg inhalation BID.RESPIRATORY Qty: 60 0RF Continued Xarelto 20 mg tablet 20 mg PO QAM Hold Instructions: Resume on 08/17/21. losartan 25 mg tablet 25 mg PO QAM famotidine [Pepcid] 40 mg tablet 40 mg PO QAM venlafaxine 75 mg capsule,extended release 24hr 75 mg PO QAM montelukast 10 mg tablet 10 mg PO BEDTIME ezetimibe 10 mg tablet 10 mg PO BEDTIME pramipexole 0.125 mg tablet 0.125 mg PO QPM potassium chloride 20 mEq tablet extended release 20 meq PO DAILY Changed furosemide 40 mg tablet 40 mg PO BIDWMEAL Qty: 90 3RF Discharge Orders: Discharge Order (Routine); Ordered 04/27/24 Ordered By: Harshal Mata Other Ambulatory Orders: DME: Nebulizer with Neb Kit (Order) Location: None Selected Ordered By: Harshal Mata Referrals: Magnolia Worthington MD [Primary Care Provider] - 05/02/24 11:30 am () Discharge Diet: Cardiac Discharge Activity: Resume usual activity and Increase activity as tolerated Patient Instructions: Spironolactone (By mouth), Ipratropium (By breathing), Prednisone (By mouth), Fluticasone (By breathing) (Arnuity Ellipta, Flovent Diskus,..., Budesonide (By breathing), Heart Failure (GEN), CHF Stoplight, Opioid Safety, Pain Management Activity Restrictions/Additional Instructions: Restrict fluid intake to less than 1500 cc, salt intake to less than 2 g daily. Advised to check her weight daily at home. Is advised that weight today would be the dry weight and if body weight increases by around 5 pounds, patient is to take an extra dose of Lasix daily till body weight comes down to weight today. If not able to come down to dry body weight in 1 week, then is to call cardiology office for further recommendations. Patient was counseled in detail to take medications regularly as prescribed. Check a body weight and blood pressure daily. Goal blood pressure is less than 140/90 mmHg but more than 100/60 mmHg. Please follow-up with a primary care provider within next 1 week and with your outpatient software integration developer at the earliest. Discharge Attestations Time Spent in Discharge Care*: greater than 30 min Specific Discharge Activities: educating patient, discussing with pcp/other providers, discussing with high risk case manager/social workers/dc planners, documenting/other paperwork and evaluating patient/reviewing data Quality Metrics Clinical Quality Measures [ No reported AMI, CVA or VTE this stay] Coding Level of Care Code 48832 Total time (in minutes) for Discharge: 60 Diagnoses Acute on chronic systolic heart failure I50.23 Hx of artificial heart valve replacement Z95.2 History of cardiac pacemaker Z95.0 Longstanding persistent atrial fibrillation I48.11 Atrial fibrillation type: longstanding persistent Primary hypertension I10 Hypertension type: primary hypertension Mixed hyperlipidemia E78.2 Hyperlipidemia type: mixed hyperlipidemia Reactive airway disease with acute exacerbation, unspecified asthma severity, unspecified whether persistent J45.901 Asthma complication type: with acute exacerbation Asthma persistence: unspecified Asthma severity: unspecified severity
--- NOTE | 2024-04-27 13:00 | PC.NURSE ---
Discharge Note Patient discharged to home via POV accompanied by spouse. Discharge instructions reviewed with patient and/or malt liquors sales representative. Mobile pharmacy medications and/or prescriptions provided. Belongings/home medications returned. IV and anaya removed, pt voided prior to departure.
== END 2024-04-27 13:15 | disposition home or self-care (01) | DRG 291 ==
LOC: ER 13:32 → MEDSURG 14:02
PROVIDERS: Admitting Provider Hospitalist; Emergency Provider Physician Assistant; PCP Internal Medicine; Visit Provider Student in an Organized Health Care Education/Training Program
DX: I11.0 Hypertensive heart disease with heart failure (principal); I50.23 Acute on chronic systolic (congestive) heart failure; I48.11 Longstanding persistent atrial fibrillation; N17.9 Acute kidney failure, unspecified; J45.901 Unspecified asthma with (acute) exacerbation; Z95.4 Presence of other heart-valve replacement; Z95.0 Presence of cardiac pacemaker; B34.8 Other viral infections of unspecified site; I27.20 Pulmonary hypertension, unspecified; Z79.01 Long term (current) use of anticoagulants; F32.A Depression, unspecified; F41.9 Anxiety disorder, unspecified; Z87.898 Personal history of other specified conditions; Z82.49 Family history of ischemic heart disease and other diseases of the circulatory system; I25.10 Atherosclerotic heart disease of native coronary artery without angina pectoris; Z95.1 Presence of aortocoronary bypass graft; G47.34 Idiopathic sleep related nonobstructive alveolar hypoventilation; K21.9 Gastro-esophageal reflux disease without esophagitis
CPT/HCPCS: 36415; 51702; 71045; 78452; 80048; 80053; 80061; 82436; 82607; 82746; 83036; 83540; 83550; 83735; 83880; 84100; 84133; 84145; 84300; 84443; 84484; 85025; 85610; 85730; 87486; 87581; 87633; 93005; 93017; 94640; 96374; 96375; 99285; A9500; J1940; J2785; J2919; J7512; J7614; J7626; J7644

== ENCOUNTER 2024-06-04 17:09 | Emergency (ER) | payer MEDICAID, SELFPAY ==
[2024-06-04 17:11] VITALS: BP 143/75; PULSE 64; TEMP 36.9; O2SAT 96; BMI 25.9
[2024-06-04] MEDS: methylPREDNISolone sod succ 125 mg/2 mL INJ IVP (17:39)
[2024-06-04] MEDS: diphenhydrAMINE 50 mg/mL SDV 1mL IVP (17:40)
--- NOTE | 2024-06-04 18:07 | ED_ITS ---
HPI - Allergic Reaction General: Chief complaint: Allergic Reaction Stated complaint: allergic reaction Time Seen by Provider: 06/04/24 17:21 History of Present Illness: HPI narrative: Patient arrives approximately a 2 to 3-day history of possible allergic reaction or sensitivity. Patient said she used a blanket that her grandson used and he developed a rash. They think this blanket was exposed to some plant that they are allergic to. Patient said the rash kept getting worse so she came here to be evaluated. Patient has a rash on her arms legs trunk front and back. It is red very itchy and spreading. Review of Systems General: Reports: 10 or more systems reviewed and unremarkable except in HPI and below PFSH ED PFSH: Medical History History of cardiac arrest during pacemaker placement CHF (congestive heart failure) Atrial fibrillation Family history of colon cancer Hypertension Chronic diarrhea History of rheumatic fever age 6 or 7 Depression with anxiety GERD (gastroesophageal reflux disease) Hyperlipidemia History of cardiac pacemaker X 2, last replacement in February 2023 Surgical History History of open heart surgery History of colonoscopy (08/14/21) rectal polyp History of hysterectomy with bilateral oophorectomy History of appendectomy Hx of artificial heart valve replacement Mitral and aortic, bioprosthetic valves placed in approximately 2013; prior to this had mechanical valves 32 years Family History Grandmother CAD (coronary artery disease) Mother Hypertension Father Hypertension Social History Smoking and tobacco/nicotine status: never used tobacco/nicotine Second hand smoke exposure: No Alcohol intake: never Substance/Drug Use: never Adopted: No Caregiver/support person: No Lives independently: Yes Household members: spouse Housing: House Marital status: Number of children: 2 Highest education level completed: 11th Grade service: No Current occupational status: disabled Physical Exam Const: COMMON NORMALS: no acute distress, average body habitus, patient oriented x3, no limitations, healthy appearing, alert and well nourished HENMT: COMMON NORMALS: normocephalic, atraumatic, hearing grossly normal bilaterally, external ears normal, Normal external nose present and moist oral mucous membranes HEAD & SCALP: normocephalic and atraumatic NOSE: Normal external nose present EXTERNAL EAR: Yes external ears normal Eye: COMMON NORMALS: Equal, round and reactive pupils present, EOMs intact bilaterally, conjunctivae normal and no scleral icterus CONJUNCTIVA: Yes conjunctivae normal PUPIL: Yes Equal, round and reactive pupils present Neck/C-Spine: COMMON NORMALS: no JVD Chest: COMMONS NORMALS: normal inspection of the chest and normal palpation of entire chest wall Resp: COMMON NORMALS: normal respiratory effort, No retractions, No use of accessory muscles and clear to auscultation bilaterally AUSCULTATION: clear to auscultation bilaterally Cardio: COMMON NORMALS: no JVD, regular rate, regular rhythm, S1 normal heart sound present, S2 normal heart sound present, No gallops present (Cardio), No clicks present (Cardio), No murmurs present (Cardio) and No rub (Cardio) RATE: regular rate RHYTHM: regular rhythm HEART SOUNDS: S1 normal heart sound present and S2 normal heart sound present GI: COMMON NORMALS: Normal to inspection, nondistended, normoactive bowel sounds present, Soft to palpation, non-tender, No hepatosplenomegaly present and no masses PALPATION: Yes Soft to palpation and Yes No hepatosplenomegaly present Neuro: COMMON NORMALS: patient oriented x3 SENSORIUM/ORIENTATION: Yes alert Skin: NARRATIVE SKIN EXAM: Red blotchy rash appears to be pruritic on the legs front and back arms bilateral forearms, abdomen and posterior lumbar area. Course Vital Signs: Vital signs: Vital Signs Temperature 98.5 F 06/04/24 17:11 Pulse Rate 64 06/04/24 17:11 Respiratory Rate 18 06/04/24 19:16 Blood Pressure 149/84 06/04/24 19:16 Pulse Oximetry 97 06/04/24 19:16 Oxygen Delivery Me thod Room Air 06/04/24 19:16 MDM - Allergic Reaction Medical Decision Making Patient was given 50 mg of Benadryl, 125 mg Solu-Medrol and 40 mg Pepcid all IV. Patient about a 500 cc bolus of IV saline before being discharged. Patient's rash was not worsening during her stay here. Patient be discharged home on prednisone and Pepcid and [id number] Zyrtec. Differential Diagnosis Likely allergic reaction and contact dermatitis Lab Data I reviewed the patient's lab results. No radiology studies performed this visit Discharge Plan Discharge Patient Disposition: Home Clinical Impression: Allergic reaction Qualifiers: Encounter type: initial encounter Qualified Code(s): T78.40XA - Allergy, unspecified, initial encounter Contact dermatitis Qualifiers: Contact dermatitis type: allergic Contact dermatitis trigger: unspecified trigger Qualified Code(s): L23.9 - Allergic contact dermatitis, unspecified cause Condition: Stable Prescriptions: New Zyrtec 10 mg capsule 10 mg PO DAILY Qty: 10 0RF prednisone 50 mg tablet See Rx Instructions .ROUTE .COMPLEX Qty: 6 0RF Rx Instructions: 50 mg orally x 4 days then 1/2 pill daily x 4 days No Action Xarelto 20 mg tablet 20 mg PO QAM Hold Instructions: Resume on 08/17/21. losartan 25 mg tablet 25 mg PO QAM famotidine [Pepcid] 40 mg tablet 40 mg PO QAM venlafaxine 75 mg capsule,extended release 24hr 75 mg PO QAM montelukast 10 mg tablet 10 mg PO BEDTIME ezetimibe 10 mg tablet 10 mg PO BEDTIME pramipexole 0.125 mg tablet 0.125 mg PO QPM potassium chloride 20 mEq tablet extended release 20 meq PO DAILY fluticasone propionate 50 mcg/actuation [place],Suspension 1 spray nasal BID Qty: 16 0RF ipratropium-albuterol 0.5 mg-3 mg(2.5 mg base)/3 mL Solution For Nebulization 3 ml inhalation Q6H Qty: 180 0RF prednisone 20 mg Tablet 40 mg PO DAILY Qty: 14 0RF spironolactone 25 mg Tablet 25 mg PO DAILY Qty: 30 0RF budesonide 0.5 mg/2 mL Suspension For Nebulization 0.5 mg inhalation BID.RESPIRATORY Qty: 60 0RF furosemide 40 mg tablet 40 mg PO BIDWMEAL Qty: 90 3RF Discharge Orders: Discharge ED (Routine); Ordered 06/04/24 Ordered By: Cayden Sloan Referrals: Magnolia Worthington MD [Primary Care Provider] - 1 week Patient Instructions: Contact Dermatitis (ED) Activity Restrictions/Additional Instructions: Please continue your Pepcid 40 mg daily there is 2 prescriptions have been called into [facility] they are prednisone and Zyrtec please use these as directed. Please feel free to use [id number] hydrocortisone and/or Benadryl ointment as needed to help with the rash. Please follow-up with your family tract physician within next 7 days Coding Level of Care Code ED Impregnating Helper for Josey Cordova
[2024-06-04] MEDS: sodium chloride 0.9% 1,000 ML 999 ML IV (18:26)
[2024-06-04] MEDS: famotidine 20 mg/2 mL INJ 40 MG IVP (18:27)
[2024-06-04 19:16] VITALS: BP 149/84; RESP 18; O2SAT 97
[2024-06-04 19:46] VITALS: BP 149/84; PULSE 64; RESP 18; TEMP 36.9; O2SAT 97
== END 2024-06-04 19:47 | disposition home or self-care (01) ==
PROVIDERS: Emergency Provider Emergency Medicine; PCP Internal Medicine
DX: L23.9 Allergic contact dermatitis, unspecified cause (principal)
CPT/HCPCS: 96374; 96375; 99284; J1200; J2919; J3490; J7030

== ENCOUNTER 2024-08-24 14:00 | Inpatient (IN) | payer MEDICAID, SELFPAY ==
[2024-08-24] VITALS (34 sets, daily range): BP systolic 69–120; BP diastolic 41–64; PULSE 60–69; RESP 16–29; TEMP 36.7–36.8; O2SAT 90–99; BMI 24.3; BMI 24.7
--- NOTE | 2024-08-24 14:09 | XR_ITS ---
WS: [id number] Exam: XR chest 1V portable [id number] Date/Time of Exam: 08/24/2024 2:09 PM Reason For Exam: Possible Sepsis Comparison 02/04/2024. The heart is enlarged. There is increased pulmonary vascularity. The pattern shows little change. The mediastinum is normal in contour. Signs of previous CABG surgery and cardiac valve replacement. Perm anent cardiac pacer superimposes the LEFT chest. No pleural effusion. 2 cm nodular density superimpos es the LEFT heart and is unchanged in appearance since previous exams. XR/XR chest 1V portable [id number] IMPRESSION: 1. Cardiac enlargement with increased pulmonary vascularity. The pattern is unc hanged since previous exams.
--- NOTE | 2024-08-24 14:13 | ED_ITS ---
HPI - Weakness 2 General: Chief complaint: Weakness Stated complaint: WEAKNESS Time Seen by Provider: 08/24/24 14:09 Source: patient and EMS Mode of arrival: EMS Limitations: no limitations History of Present Illness: 64-year-old female who states that she i s felt generally weak for the last 2 days. She states that her blood pressure been running low today she called EMS she had some lightheadedness when she walks. Denies any chest pain denies abdominal pain she denies any fever cough she states she did not take her blood pressure meds this morning blood pressure here currently is 85/46 Associated symptoms: Denies chest pain, chills, fever(s), headache(s), nausea or vomiting Review of Systems 2 Const: Reports: fatigue; Denies: fever(s), chills, body aches or change in appetite Eyes: Denies: blurry vision or eye discomfort ENMT: Denies: throat pain or dental pain Card: Denies: chest pain Resp: Denies: dyspnea GI: Denies: abdominal pain, nausea, vomiting or diarrhea Musc: Denies: neck pain or back pain Skin/Breast: Denies: rash Neuro: Denies: headache(s) PFSH ED 2 PFSH: Medical History History of cardiac arrest during pacemaker placement CHF (congestive heart failure) Atrial fibrillation Family history of colon cancer Hypertension Chronic diarrhea History of rheumatic fever age 6 or 7 Depression with anxiety GERD (gastroesophageal reflux disease) Hyperlipidemia History of cardiac pacemaker X 2, last replacement in February 2023 Surgical History History of open heart surgery History of colonoscopy (08/14/21) rectal polyp History of hysterectomy with bilateral oophorectomy History of appendectomy Hx of artificial heart valve replacement Mitral and aortic, bioprosthetic valves placed in approximately 2013; prior to this had mechanical valves 32 years Family History Grandmother CAD (coronary artery disease) Mother Hypertension Father Hypertension Social History Smoking and tobacco/nicotine status: never used tobacco/nicotine Second hand smoke exposure: No Alcohol intake: never Substance/Drug Use: never Adopted: No Caregiver/support person: No Lives independently: Yes Household members: spouse Housing: House Marital status: Number of children: 2 Highest education level completed: 11th Grade service: No Current occupational status: disabled Physical Exam 2 Const: COMMON NORMALS: no acute distress, patient oriented x3 and healthy appearing HENMT: COMMON NORMALS: normocephalic and atraumatic HEAD & SCALP: n ormocephalic and atraumatic Neck/C-Spine: COMMON NORMALS: full ROM and supple Chest: COMMONS NORMALS: normal inspection of the chest Resp: COMMON NORMALS: normal respiratory effort, No retractions, No use of accessory muscles and clear to auscultation bilaterally AUSCULTATION: clear to auscultation bilaterally Cardio: COMMON NORMALS: regular rate, regular rhythm and No murmurs present (Cardio) RATE: regular rate RHYTHM: regular rhythm GI: COMMON NORMALS: Normal to inspection, nondistended, normoactive bowel sounds present, Soft to palpation, non-tender and no masses PALPATION: Yes Soft to palpation Extremity: COMMON NORMALS: normal to inspection and full ROM Neuro: COMMON NORMALS: patient oriented x3, moves all extremities and no focal motor deficits Psych: COMMON NORMALS: mental status grossly normal, Normal thought process present and cooperative THOUGHT PROCESS: Normal thought process present Skin: COMMON NORMALS: no rashes or lesions noted and no wounds GENERAL SKIN EXAM: no rashes or lesions noted Course 2 Vital Signs: Vital signs: Vital Signs Temperature 98.2 F 08/24/24 14:00 Pulse Rate 60 08/24/24 15:57 Respiratory Rate 24 H 08/24/24 14:37 Blood Pressure 93/46 08/24/24 15:57 Pulse Oximetry 95 08/24/24 15:57 Oxygen Delivery Me thod Room Air 08/24/24 14:00 MDM - Weakness Medical Decision Making Patient presents here with generalized weakness has been hypotensive. She does have a UTI as well her lactate was normal did give her sepsis bolus started on antibiotics spoke to hospice will admit to ICU at this time Medical Records I reviewed the patient's medical records. Lab Data I reviewed the patient's lab results. 08/24/24 14:20 08/24/24 14:20 Radiology Impressions Chest X-Ray 08/24/24 14:09 IMPRESSION: 1. Cardiac enlargement with increased pulmonary vascularity. The pattern is unchanged since previous exams. Laboratory Results WBC 15.70 10^3/uL (3.29-11.43) H 08/24/24 14:20 RBC 5.15 10^6/uL (3.85-5.65) 08/24/24 14:20 Hgb 12.10 g/dL (11.27-16.99) 08/24/24 14:20 Hct 39.5 % (36-47) 08/24/24 14:20 MCV 76.7 fl (85-98) L 08/24/24 14:20 MCH 23.5 pg (27-33) L 08/24/24 14:20 MCHC 30.6 g/dL (30-55) 08/24/24 14:20 RDW 20.1 % (12.1-15.1) H 08/24/24 14:20 Plt Count 195 10^3/cmm (157-399) 08/24/24 14:20 MPV 9.4 fL (7.4-10.4) 08/24/24 14:20 Neut % (Auto) 72.2 % 08/24/24 14:20 Lymph % (Auto) 15.7 % 08/24/24 14:20 [place] % (Auto) 8.9 % 08/24/24 14:20 Eos % (Auto) 1.1 % 08/24/24 14:20 Baso % (Auto) 0.3 % 08/24/24 14:20 Neut # (Auto) 11.33 10^3/uL (1.8-7.7) H 08/24/24 14:20 Lymph # (Auto) 2.5 10^3/uL (0.8-4.8) 08/24/24 14:20 [place] # (Auto) 1.4 10^3/uL (0.2-0.9) H 08/24/24 14:20 Eos # (Auto) 0.2 10^3/uL (0.0-0.8) 08/24/24 14:20 Baso # (Auto) 0.1 10^3/uL (0.0-0.1) 08/24/24 14:20 Nucleated RBC % (auto) 0 % 08/24/24 14:20 Nucleated RBCs # 0.0 /100WBC 08/24/24 14:20 PT 16.10 SECONDS (12.1-14.9) H 08/24/24 14:20 INR 1.25 (0.8-1.2) H 08/24/24 14:20 Sodium 131 mmol/L (136-145) L 08/24/24 14:20 Potassium 3.7 mmol/L (3.5-5.1) 08/24/24 14:20 Chloride 95 mmol/L (98-107) L 08/24/24 14:20 Carbon Dioxide 26 mmol/L (22-29) 08/24/24 14:20 Anion Gap 13.7 (5-19) 08/24/24 14:20 BUN 27 mg/dL (8-23) H 08/24/24 14:20 Creatinine 1.2 mg/dL (0.5-0.9) H 08/24/24 14:20 GFR Calculation 45.4 mL/min (90-130) L 08/24/24 14:20 Glucose 73 mg/dL (65-115) 08/24/24 14:20 Calculated Osmolality 276 mOsm/kg (285-295) L 08/24/24 14:20 Lactic Acid 1.3 mmol/L (0.5-2.2) 08/24/24 14:20 Calcium 8.3 mg/dL (8.5-10.5) L 08/24/24 14:20 Magnesium 2.2 mg/dL (1.7-2.3) 08/24/24 14:20 Total Bilirubin 0.9 mg/dL (0.15-1.2) 08/24/24 14:20 AST 24 U/L (0-32) 08/24/24 14:20 ALT 17 U/L (0-33) 08/24/24 14:20 Alkaline Phosphatase 123 U/L (35-105) H 08/24/24 14:20 Total Protein 6.7 g/dL (6.6-8.7) 08/24/24 14:20 Albumin 3.0 g/dL (3.5-5.2) L 08/24/24 14:20 Globulin 3.7 g/dL (1.3-4.6) 08/24/24 14:20 Urine Color Yellow (Yellow) 08/24/24 14:30 Urine Appearance Cloudy (CLEAR) A 08/24/24 14:30 Urine pH 5.5 (5-7) 08/24/24 14:30 Ur Specific [place] 1.011 (1.005-1.030) 08/24/24 14:30 Urine Protein Trace (Negative) A 08/24/24 14:30 Urine Glucose (UA) 1+ (Normal) H 08/24/24 14:30 Urine Ketones Negative (Negative) 08/24/24 14:30 Urine Blood Negative (Negative) 08/24/24 14:30 Urine Nitrate Negative (Negative) 08/24/24 14:30 Urine Bilirubin Negative (Negative) 08/24/24 14:30 Urine Urobilinogen 1.0 mg/dL (Negative) 08/24/24 14:30 Ur Leukocyte Esterase 2+ (Negative) A 08/24/24 14:30 Urine RBC 0-2 /hpf (0-2) 08/24/24 14:30 Urine WBC 21-50 /hpf (0-5) H 08/24/24 14:30 Ur Squamous Epith Cells 6-10 /hpf (0-5) 08/24/24 14:30 Amorphous Sediment Not Reportable 08/24/24 14:30 Urine Bacteria 4+ /hpf (NONE) H 08/24/24 14:30 Hyaline Casts 13.63 /lpf 08/24/24 14:30 Urine Mucus Trace /hpf 08/24/24 14:30 All radiology interpretation(s) finalized by discharge EKG Data EKG 1: I personally reviewed and interpreted this EKG as follows: EKG interpretation date: 08/24/24 EKG interpretation time: 15:02 Interpretation: paced hr [address] elevation qrs 190 qtc 551 Discharge Plan Discharge Patient Disposition: Admitted As Inpatient Admit Provider: Orlando Lora Clinical Impression: Hypotension, Weakness, UTI (urinary tract infection) Condition: Stable Coding Level of Care Code ED Computer Network Engineer for Chg Fwd Related Data Home Medications Medication Instructions Recorded Confirmed famotidine 40 mg tablet (Pepcid) 40 mg PO QAM 05/27/21 08/24/24 losartan 25 mg tablet 25 mg PO QAM 05/27/21 08/24/24 rivaroxaban 20 mg tablet (Xarelto) 20 mg PO QAM 05/27/21 08/24/24 ezetimibe 10 mg tablet 10 mg PO BEDTIME 05/10/23 08/24/24 montelukast 10 mg tablet 10 mg PO BEDTIME 05/10/23 08/24/24 venlafaxine 75 mg capsule,extended 75 mg PO QAM 05/10/23 08/24/24 release 24 hr pramipexole 0.125 mg tablet 0.125 mg PO QPM 03/26/24 08/24/24 potassium chloride 20 mEq 20 meq PO DAILY 04/24/24 08/24/24 tablet,extended release empagliflozin 10 mg tablet 10 mg PO DAILY 08/24/24 08/24/24 (Jardiance) eplerenone 25 mg tablet 25 mg PO DAILY 08/24/24 08/24/24 ferrous sulfate 325 mg (65 mg 325 mg PO BID 08/24/24 08/24/24 iron) tablet (FeroSul) sacubitril 24 mg-valsartan 26 mg 1 tab PO BID 08/24/24 08/24/24 tablet (Entresto) umeclidinium 62.5 mcg-vilanterol 1 inh inhalation DAILY 08/24/24 08/24/24 25 mcg/actuation powdr for inhalation (Anoro Ellipta) Previous Rx's Medication Instructions Recorded budesonide 0.5 mg/2 mL suspension 0.5 mg (2 mL) inhalation 04/27/24 for nebulization BID.RESPIRATORY #60 mL fluticasone propionate 50 1 spray nasal BID #16 grams 04/27/24 mcg/actuation nasal spray,suspension furosemide 40 mg tablet 40 mg PO BIDWMEAL #90 tabs 04/27/24 ipratropium 0.5 mg-albuterol 3 mg 3 ml inhalation Q6H Shortness Of 04/27/24 (2.5 mg base)/3 mL nebulization Breath #180 mL soln cetirizine 10 mg capsule (Zyrtec) 10 mg PO DAILY #10 caps 06/04/24 ipratropium 0.5 mg-albuterol 3 mg 3 ml inhalation Q4H PRN shortness 07/07/24 (2.5 mg base)/3 mL nebulization of breath #180 mL soln Allergies Allergy/AdvReac Type Severity Reaction Status Date / Time guaifenesin [From Entex LA] Allergy Severe ADR-Itching Verified 07/07/24 11:18 phenylephrine [From Entex LA] Allergy Severe ADR-Itching Verified 07/07/24 11:18 phenylpropanolamine Allergy Severe ADR-Itching Verified 07/07/24 11:18 [From Entex LA] Sulfa (Sulfonamide Allergy Severe Unknown Verified 07/07/24 11:18 Antibiotics) cefuroxime [From Ceftin] Allergy ADR-Itching Verified 07/07/24 11:18 ofloxacin [From Floxin] Allergy ALGY-Hives Verified 07/07/24 11:18
[2024-08-24 14:24] LABS: Basophils # 0.1 10^3/uL (0.0-0.1); Basophils % 0.3 %; Eosinophils # 0.2 10^3/uL (0.0-0.8); Eosinophils % 1.1 %; Hematocrit 39.5 % (36-47); Lymphocytes # 2.5 10^3/uL (0.8-4.8); Lymphocytes % 15.7 %; Mean Corpuscular HGB Conc 30.6 g/dL (30-55); Mean Corpuscular Hemoglobin 23.5 pg (27-33); Mean Corpuscular Volume 76.7 fl (85-98); Mean Platelet Volume 9.4 fL (7.4-10.4); Monocytes # 1.4 10^3/uL (0.2-0.9); Monocytes % 8.9 %; Neutrophils # 11.33 10^3/uL (1.8-7.7); Neutrophils % 72.2 %; Nucleated Red Blood Cells % 0 %; Platelet Count 195 10^3/cmm (157-399); Red Blood Count 5.15 10^6/uL (3.85-5.65); Red Cell Distribution Width 20.1 % (12.1-15.1)
[2024-08-24 14:36] LABS: INR 1.25 (0.8-1.2)
[2024-08-24 14:42] LABS: Alanine Aminotransferase 17 U/L (0-33); Alkaline Phosphatase 123 U/L (35-105); Anion Gap 13.7 (5-19); Aspartate Amino Transferase 24 U/L (0-32); Blood Urea Nitrogen 27 mg/dL (8-23); Calcium 8.3 mg/dL (8.5-10.5); Carbon Dioxide 26 mmol/L (22-29); Chloride 95 mmol/L (98-107); Creatinine Clr Calc Pharmacy 39.4557; Globulin 3.7 g/dL (1.3-4.6); Glomerular Filtration Rate 45.4 mL/min (90-130); Glucose 73 mg/dL (65-115); Osmolality Calculated 276 mOsm/kg (285-295); Potassium 3.7 mmol/L (3.5-5.1); Sodium 131 mmol/L (136-145); Total Bilirubin 0.9 mg/dL (0.15-1.2); Total Protein 6.7 g/dL (6.6-8.7)
[2024-08-24 14:43] LABS: Lactic Sepsis W/Reflex 1.3 mmol/L (0.5-2.2)
[2024-08-24 14:52] LABS: Bilirubin Urine Negative (Negative); Blood Urine Negative (Negative); Glucose Urine UA 1+ (Normal); Ketones Urine Negative (Negative); Leukocyte Esterase Urine 2+ (Negative); Nitrate Urine Negative (Negative); Protein Urine Trace (Negative); Specific Gravity, Urine 1.011 (1.005-1.030); Urine Appearance Cloudy (CLEAR); Urine Color Yellow (Yellow); pH Urine 5.5 (5-7)
[2024-08-24 14:56] LABS: Add Urine Microscopic? YES; Bacteria Urine 4+ /hpf; Hyaline Casts Urine 13.63 /lpf; RBC Urine 0-2 /hpf (0-2); WBC Urine 21-50 /hpf (0-5)
[2024-08-24] MEDS: piperacillin-tazobactam 3.375 GM in sodium chloride 0.9% (plus) 50 ML IV (15:01)
--- NOTE | 2024-08-24 15:02 | ECG_ITS ---
[facility]: [facility]24[facility]24 Pat Name: Daniela Lai Department: Room: Gender: Female Band Lining Bander: : 1960 Requested By: Imer Berumen Order Number: [id number] Domenic MD: Sarah Ash M.D. Measurements Intervals [place] Rate: 61 P: 0 TN: 0 QRS: -64 QRSD: 190 T: 107 QT: 549 QTc: 554 Interpretive Statements ELECTRONIC VENTRICULAR PACEMAKER PROLONGED QT INTERVAL CRITICAL TEST RESULT Compared to ECG 04/24/2024 12:53:14 Prolonged QT interval now present Electronically Signed On 08-28-2024 01:06:23 CDT by Sarah Ash M.D. [email or web address]
[2024-08-24 15:23] LABS: Add Urine Culture? Yes; Mucus Urine TRACE /hpf; UA Slide Review UA Slide Review Perf
[2024-08-24 15:23] LABS: Magnesium 2.2 mg/dL (1.7-2.3)
--- NOTE | 2024-08-24 16:19 | ECG_ITS ---
[facility] 2024-08[facility]24 Pat Name: Daniela Lai Department: Room: [id number] Gender: Female Hog Dropper: : 1960 Requested By: Orlando Lora Order Number: [id number] Domenic MD: Sarah Ash M.D. Measurements Intervals [place] Rate: 61 P: 0 FL: 0 QRS: -65 QRSD: 189 T: 114 QT: 534 QTc: 539 Interpretive Statements ELECTRONIC VENTRICULAR PACEMAKER ABNORMAL RHYTHM ECG Compared to ECG 08/24/2024 15:02:06 Prolonged QT interval no longer present Electronically Signed On 08-28-2024 00:48:43 CDT by Sarah Ash M.D. [email or web address]
--- NOTE | 2024-08-24 16:22 | P.HP_ITS ---
Providers/Chief Complaint 2 Admitting Physician: Orlando Lora MD Primary Care Provider: Magnolia Worthington MD Chief Complaint: WEAKNESS History of Present Illness Daniela Lai is a 64 year old female with a past medical history of mitral and aortic valve replacement, atrial fibrillation, history of pacemaker placement, history of systolic CHF, with plans on redo mitral valve surgery in August, who presents [facility] due to weakness, fatigue, low blood pressure. Currently patient is alert oriented x 3, following all commands, on room air, blood pressure 88/50, heart rate sinus rhythm, in the 90s, she follows all commands does not appear to be in distress, no evidence of respiratory distress, she is actually able to sit up on her own, family numbers at bedside. According to patient for the last few days she has not been feeling well fatigue, malaise no fevers, no chills she has had some back pain, does report increased free urinary frequency, urgency, dysuria, no hematuria no history of kidney stones. Denies any falls, trauma no chest pain, no shortness of breath. She tells me that her mitral valve replacement has had issues, there is plans on redo of her mitral valve with a heart cath in addition. However she denies any chest pain any shortness of breath she tells that she is chronically short of breath but none more than the usual. Does report intermittent episodes of dizziness, denies any syncopal episodes. Review of Systems 2 Const: Reports: fatigue and malaise; Denies: fever(s) Card: Denies: chest pain Resp: Reports: dyspnea GI: Denies: abdominal pain, nausea or vomiting : Reports: difficulty voiding, dysuria and urinary frequency Musc: Reports: back pain; Denies: neck pain Neuro: Denies: headache(s) Medications/Allergies Home Medications Medication Instructions Recorded Confirmed Last Taken Type famotidine 40 mg tablet (Pepcid) 40 mg PO QAM 05/27/21 08/24/24 08/23/24 History losartan 25 mg tablet 25 mg PO QAM 05/27/21 08/24/24 08/23/24 History rivaroxaban 20 mg tablet (Xarelto) 20 mg PO QAM 05/27/21 08/24/24 08/23/24 History ezetimibe 10 mg tablet 10 mg PO BEDTIME 05/10/23 08/24/24 08/23/24 History montelukast 10 mg tablet 10 mg PO BEDTIME 05/10/23 08/24/24 08/23/24 History venlafaxine 75 mg capsule,extended 75 mg PO QAM 05/10/23 08/24/24 08/23/24 History release 24 hr pramipexole 0.125 mg tablet 0.125 mg PO QPM 03/26/24 08/24/24 08/23/24 History potassium chloride 20 mEq 20 meq PO DAILY 04/24/24 08/24/24 08/23/24 History tablet,extended release budesonide 0.5 mg/2 mL suspension 0.5 mg (2 mL) inhalation 04/27/24 08/24/24 08/23/24 Rx for nebulization BID.RESPIRATORY #60 mL fluticasone propionate 50 1 spray nasal BID #16 grams 04/27/24 08/24/24 08/23/24 Rx mcg/actuation nasal spray,suspension furosemide 40 mg tablet 40 mg PO BIDWMEAL #90 tabs 04/27/24 08/24/24 08/23/24 Rx ipratropium 0.5 mg-albuterol 3 mg 3 ml inhalation Q6H Shortness Of 04/27/24 08/24/24 08/23/24 Rx (2.5 mg base)/3 mL nebulization Breath #180 mL soln cetirizine 10 mg capsule (Zyrtec) 10 mg PO DAILY #10 caps 06/04/24 08/24/24 Unknown Rx ipratropium 0.5 mg-albuterol 3 mg 3 ml inhalation Q4H PRN shortness 07/07/24 08/24/24 08/23/24 Rx (2.5 mg base)/3 mL nebulization of breath #180 mL soln empagliflozin 10 mg tablet 10 mg PO DAILY 08/24/24 08/24/24 08/23/24 History (Jardiance) eplerenone 25 mg tablet 25 mg PO DAILY 08/24/24 08/24/24 08/23/24 History ferrous sulfate 325 mg (65 mg 325 mg PO BID 08/24/24 08/24/24 08/23/24 History iron) tablet (FeroSul) sacubitril 24 mg-valsartan 26 mg 1 tab PO BID 08/24/24 08/24/24 08/23/24 History tablet (Entresto) umeclidinium 62.5 mcg-vilanterol 1 inh inhalation DAILY 08/24/24 08/24/24 08/23/24 History 25 mcg/actuation powdr for inhalation (Anoro Ellipta) Allergies Allergy/AdvReac Type Severity Reaction Status Date / Time guaifenesin [From Entex LA] Allergy Severe ADR-Itching Verified 07/07/24 11:18 phenylephrine [From Entex LA] Allergy Severe ADR-Itching Verified 07/07/24 11:18 phenylpropanolamine Allergy Severe ADR-Itching Verified 07/07/24 11:18 [From Entex LA] Sulfa (Sulfonamide Allergy Severe Unknown Verified 07/07/24 11:18 Antibiotics) cefuroxime [From Ceftin] Allergy ADR-Itching Verified 07/07/24 11:18 ofloxacin [From Floxin] Allergy ALGY-Hives Verified 07/07/24 11:18 PFSH Acute 2 PFSH: Medical History History of cardiac arrest during pacemaker placement CHF (congestive heart failure) Atrial fibrillation Family history of colon cancer Hypertension Chronic diarrhea History of rheumatic fever age 6 or 7 Depression with anxiety GERD (gastroesophageal reflux disease) Hyperlipidemia History of cardiac pacemaker X 2, last replacement in February 2023 Surgical History History of open heart surgery History of colonoscopy (08/14/21) rectal polyp History of hysterectomy with bilateral oophorectomy History of appendectomy Hx of artificial heart valve replacement Mitral and aortic, bioprosthetic valves placed in approximately 2013; prior to this had mechanical valves 32 years Family History Grandmother CAD (coronary artery disease) Mother Hypertension Father Hypertension Social History Smoking and tobacco/nicotine status: never used tobacco/nicotine Second hand smoke exposure: No Alcohol intake: never Substance/Drug Use: never Adopted: No Caregiver/support person: No Lives independently: Yes Household members: spouse Housing: House Marital status: Number of children: 2 Highest education level completed: 11th Grade service: No Current occupational status: disabled Vitals/I&O/Wt Last Vital Signs Temp 98.2 F 08/24/24 14:00 Pulse 60 08/24/24 15:57 Resp 24 H 08/24/24 14:37 BP 93/46 08/24/24 15:57 Pulse Ox 95 08/24/24 15:57 O2 Del Method Room Air 08/24/24 14:00 Weight last 48 hrs Weight 58.513 kg Physical Exam 2 Const: COMMON NORMALS: no acute distress and patient oriented x3 HENMT: COMMON NORMALS: normocephalic Eye: COMMON NORMALS: Equal, round and reactive pupils present Lymph: LYMPHATIC: no lymphadenopathy noted Resp: COMMON NORMALS: normal respiratory effort, No retractions, No use of accessory muscles and clear to auscultation bilaterally AUSCULTATION: clear to auscultation bilaterally Cardio: COMMON NORMALS: no JVD, regular rate, regular rhythm, S1 normal heart sound present and S2 normal heart sound present RATE: regular rate RHYTHM: regular rhythm HEART SOUNDS: S1 normal heart sound present, S2 normal heart sound present and Murmur heart sound present GI: COMMON NORMALS: Normal to inspection, nondistended, normoactive bowel sounds present, Soft to palpation and non-tender Extremity: COMMON NORMALS: no pedal edema Neuro: COMMON NORMALS: patient oriented x3, CN's II-XII intact bilaterally and moves all extremities Psych: COMMON NORMALS: mental status grossly normal Sepsis: Is patient septic: Yes Focused sepsis exam performed: Yes F ocused sepsis exam: DP PT pulses palpable, cap refill greater than 2 seconds, no mottling of the lower extremities Date exam was performed: 08/24/24 Time exam was performed: 16:32 Data 08/24/24 14:20 08/24/24 14:20 Micro: Microbiology 08/24/24 14:59 Blood Culture - Preliminary Blood SPECIMEN COLLECTED 08/24/24 14:55 Blood Culture - Preliminary Blood SPECIMEN COLLECTED A&P Assessment and plan (1) Hypotension: (2) Pulmonary hypertension: (3) Shock: (4) CHF (congestive heart failure): (5) Hx of artificial heart valve replacement: (6) Atrial fibrillation: Qualifiers: Atrial fibrillation type: longstanding persistent Qualified Code(s): I 48.11 - Longstanding persistent atrial fibrillation (7) History of cardiac pacemaker: (8) Chronic anticoagulation: (9) UTI (urinary tract infection): (10) Sepsis: (11) Acute kidney injury: Plan Shock -Lactic acid 1.3 -Source likely urinary tract infection, with pyelonephritis given complaints of acute back pain although no CVA tenderness -Has received 2 L in emergency room, EF is 35% high risk of CHF exacerbation -Will perform NICOM in the emergency room -If patient is not fluid responsive, will start NICOM ? Start Levophed ? Place PICC line -My only other concern is that could this be cardiac in nature given her history of mitral valve increased gradient across her mitral valve, concerns for mitral stenosis, plans on mitral valve redo, although no shortness of breath, no chest pain will order echo Urinary tract infection, with concern for pyelonephritis ? Follow urine cultures -Follow blood cultures - Broad-spectrum antibiotic therapy Zyvox, meropenem -Has a history of multidrug-resistant E. coli in the past, HUNTER on Zosyn was not great at 17 History of CHF EF of 35% -Does not appear to be fluid overloaded -Monitor for fluid overload -Cardiac echo - Troponin series History of aortic and mitral valve replacement in 2013 History of cardiac pacemaker placement History of atrial fibrillation History of hypertension History of hyperlipidemia Attestations 2 Medical Necessity Statement*: Patient requires hospitalization for shock, sepsis, UTI, inpatient, greater than 2 midnights Diagnoses Hypotension I95.9 Pulmonary hypertension I27.20 Shock R57.9 CHF (congestive heart failure) I50.9 Hx of artificial heart valve replacement Z95.2 Longstanding persistent atrial fibrillation I48.11 Atrial fibrillation type: longstanding persistent History of cardiac pacemaker Z95.0 Chronic anticoagulation Z79.01 UTI (urinary tract infection) N39.0 Sepsis A41.9 Acute kidney injury N17.9
[2024-08-24 16:45] LABS: Troponin(5th) Baseline 23 ng/L (0-10)
--- NOTE | 2024-08-24 16:46 | CTR_ITS ---
PROCEDURE INFORMATION: Exam: CT Abdomen And Pelvis Without Contrast Exam date and time: 08/24/2024 8:09 PM Age: 64 years old Clinical indication: Abnormal findings; Abnormal lab test; Elevated wbc; Prior surgery; Surgery date: 6+ months; Surgery type: Avr. Appy. Hysterectomy; Patient HX: C/O dysuria. Bacteriuria with wbc of 15k. ; Additional info: Sepsis, secondary to UTI, R/O stone, pyelo TECHNIQUE: Imaging protocol: Computed tomography of the abdomen and pelvis without contrast. Radiation optimization: All CT scans at this facility use at least one of these dose optimization techniques: automated exposure control; mA and/or kV adjustment per patient size (includes targeted exams where dose is matched to clinical indication); or iterative reconstruction. COMPARISON: CT angio chest PE protcl [id number] 03/27/2024 12:20 PM RADIATION DOSE METRICS: Total DLP (mGy-cm): 372.67 FINDINGS: Pleural spaces: Small bilateral pleural effusions. Heart: Severe mitral annular calcifications and mitral valve replacement. Liver: Normal. No mass. Gallbladder and biliary ducts: Multiple small stones in the gallbladder. No gallbladder wall thickening or pericholecystic fluid. Pancreas: Normal. No ductal dilation. Spleen: Normal. No splenomegaly. Adrenal glands: Normal. No mass. Kidneys and ureters: There is a 6 mm nonobstructing stone in the right kidney. There is a 3 mm stone in the right renal pelvis anteriorly. No hydronephrosis or hydroureter. Stomach and bowel: Unremarkable. No obstruction. No mucosal thickening. Appendix: The appendix is not visualized but there are no secondary signs of acute appendicitis. Intraperitoneal space: Unremarkable. No free air. No significant fluid collection. Vasculature: Unremarkable. No abdominal aortic aneurysm. Lymph nodes: Unremarkable. No enlarged lymph nodes. Urinary bladder: Unremarkable as visualized. Reproductive: Unremarkable as visualized. Bones/joints: Unremarkable. No acute fracture. Soft tissues: Unremarkable. CT/CT abdomen pelvis con [id number] IMPRESSION: 1. There is a 6 mm nonobstructing stone in the right kidney. There is a 3 mm stone in the right renal pelvis anteriorly. No hydronephrosis or hydroureter. 2. No bowel obstruction or inflammatory process associated with the bowel. 3. No free air or significant free fluid in the abdomen or pelvis. 4. The appendix is not visualized but there are no secondary signs of acute appendicitis.
[2024-08-24] MEDS: meropenem 1,000 mg SDV 1000 MG IVP (17:04)
[2024-08-24] MEDS: pantoprazole 40 mg SDV IVP (17:05)
[2024-08-24] MEDS: sodium chloride 0.9% 250 ML IV (17:05)
[2024-08-24] MEDS: linezolid premix 600 MG/300 ML PREMIX 300 MG IV (17:05)
[2024-08-24] MEDS: ferrous sulfate EC 325 mg Tablet PO (17:06)
[2024-08-24 17:17] LABS: Procalcitonin 0.48 ng/mL (0-0.5)
[2024-08-24 17:27] LABS: Erythrocyte Sedimentation Rate 27 mm/hr (0-15)
--- NOTE | 2024-08-24 17:27 | XRR_ITS ---
PROCEDURE INFORMATION: Exam: XR Chest Exam date and time: 08/24/2024 6:19 PM Age: 64 years old Clinical indication: Device placement; Picc; Prior surgery; Surgery date: 6+ months; Surgery type: Pacer/open heart/heart valve; Additional info: Post picc insertion, lisa placing in icu 9. Should be ready at 1810 TECHNIQUE: Imaging protocol: Radiologic exam of the chest. Views: 1 view. COMPARISON: CR XR chest 1V portable [id number] 08/24/2024 2:28 PM FINDINGS: Tubes, catheters and devices: Left-sided cardiac pacemaker device. Right-sided PICC positioned with its tip in the mid SVT. Lungs: Increased interstitial markings in the upper lobes are nonspecific but can be seen the setting of bronchitis, pulmonary vascular congestion, viral infection and small-vessel airways disease. Pleural spaces: Unremarkable. No pleural effusion. No pneumothorax. Heart/Mediastinum: Unremarkable. No cardiomegaly. Bones/joints: Median sternotomy, CABG and aortic valve replacement. XR/XR chest 1V portable [id number] IMPRESSION: Right-sided PICC positioned with its tip in the mid SVT.
[2024-08-24 17:43] LABS: Troponin 5 2HR 18.29 ng/L (0-10); Troponin 5 2HR Delta -4.71 ABS# (0-10)
[2024-08-24 17:51] LABS: Glucose Point of Care 127 mg/dL (70-110)
[2024-08-24 18:00] LABS: Cholesterol 124 mg/dL (0-200); HDL Cholesterol 31 mg/dL (60-100); LDL Cholesterol Calculated 70 mg/dL (50-129); LDL HDL Ratio 2.26 RATIO (0.00-3.22); NT Pro B Type Natriuretic Pept 738 pg/mL (0-125); Thyroid Stimulating Hormone 2.17 uIU/mL (0.27-4.20); Triglycerides 116 mg/dL (0-150)
[2024-08-24 18:21] LABS: C Reactive Protein 54.2 mg/L (0.0-4.9)
--- NOTE | 2024-08-24 18:36 | ECG_ITS ---
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 Measurements Intervals [place] Rate: 59 P: 0 MO: 0 QRS: -66 QRSD: 180 T: 110 QT: 516 QTc: 515 Interpretive Statements ELECTRONIC VENTRICULAR PACEMAKER ABNORMAL RHYTHM ECG Compared to ECG 08/24/2024 17:00:02 No significant changes Electronically Signed On 08-28-2024 01:06:26 CDT by Sarah Ash M.D. [id number]
[2024-08-24] MEDS: pramipexole 0.25 mg Tablet 0.125 MG PO (18:44)
[2024-08-24] MEDS: norepinephrine 4 MG/250 ML BAG 7.5 MG IV (18:44)
--- NOTE | 2024-08-24 18:55 | PICC.NOTE ---
Triple lumen PICC placed to right brachial vein. Referred to vascular access nurse for PICC placement due to poor access and use of vasopressors. Risks and benefits discussed and informed consent obtained from pt. Right arm assessed with right brachial vein measuring 3.5 mm, straight, and apparent best choice for placement. Using sterile technique and MST, right brachial vein accessed x 1 stick. Mid-arm circumference measured 10 cm from right AC 26 cm. Trimmed cath 32 cm with 1 cm external length noted. CXR shows tip to appear to be in distal SVC, awaiting vRad to read. Line secured with stat-lock. Insertion site covered with Biopatch and TSM. Report given to bedside nurse, Nba, RN.
[2024-08-24 21:03] LABS: Troponin 5 6HR 22.18 ng/L (0-10)
[2024-08-24 21:04] LABS: Troponin 5 6HR Delta -0.82 ng/L (0-12)
[2024-08-24 21:32] LABS: Glucose Point of Care 123 mg/dL (70-110)
--- NOTE | 2024-08-24 22:40 | ECG_ITS ---
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 Measurements Intervals [place] Rate: 60 P: -84 SC: 187 QRS: -60 QRSD: 184 T: 115 QT: 517 QTc: 517 Interpretive Statements ELECTRONIC VENTRICULAR PACEMAKER ABNORMAL RHYTHM ECG Compared to ECG 08/24/2024 18:36:42 No significant changes Electronically Signed On 08-28-2024 01:06:31 CDT by Sarah Ash M.D. [id number]
[2024-08-25] VITALS (62 sets, daily range): BP systolic 79–125; BP diastolic 50–74; PULSE 60–67; RESP 9–34; TEMP 36.8–37.4; O2SAT 88–98
[2024-08-25] MEDS: linezolid premix 600 MG/300 ML PREMIX 300 MG IV ×2 (04:18→15:42)
[2024-08-25 04:53] LABS: Basophils # 0.1 10^3/uL (0.0-0.1); Basophils % 0.3 %; Eosinophils # 0.4 10^3/uL (0.0-0.8); Eosinophils % 2.3 %; Hematocrit 35.8 % (36-47); Lymphocytes # 1.9 10^3/uL (0.8-4.8); Lymphocytes % 11.4 %; Mean Corpuscular HGB Conc 30.4 g/dL (30-55); Mean Corpuscular Hemoglobin 23.9 pg (27-33); Mean Corpuscular Volume 78.5 fl (85-98); Mean Platelet Volume 9.4 fL (7.4-10.4); Monocytes # 1.2 10^3/uL (0.2-0.9); Monocytes % 7.6 %; Neutrophils # 12.56 10^3/uL (1.8-7.7); Neutrophils % 77.2 %; Nucleated Red Blood Cells % 0 %; Platelet Count 186 10^3/cmm (157-399); Red Blood Count 4.56 10^6/uL (3.85-5.65); Red Cell Distribution Width 20.1 % (12.1-15.1); White Blood Count 16.28 10^3/uL (3.29-11.43)
[2024-08-25] MEDS: meropenem 1,000 mg SDV 1000 MG IVP ×2 (04:53→17:13)
[2024-08-25 05:13] LABS: Estmated Average Glucose 114; Hemoglobin A1C 5.6 % (4.0-6.0)
[2024-08-25 05:15] LABS: C Reactive Protein 59.3 mg/L (0.0-4.9)
[2024-08-25 05:19] LABS: Alanine Aminotransferase 14 U/L (0-33); Albumin Level 2.8 g/dL (3.5-5.2); Alkaline Phosphatase 112 U/L (35-105); Aspartate Amino Transferase 24 U/L (0-32); Blood Urea Nitrogen 17 mg/dL (8-23); Carbon Dioxide 21 mmol/L (22-29); Chloride 99 mmol/L (98-107); Creatinine Clr Calc Pharmacy 54.4205; Globulin 3.2 g/dL (1.3-4.6); Glomerular Filtration Rate 63.2 mL/min (90-130); Glucose 146 mg/dL (65-115); Osmolality Calculated 272 mOsm/kg (285-295); Sodium 129 mmol/L (136-145); Total Bilirubin 1.1 mg/dL (0.15-1.2)
[2024-08-25 05:20] LABS: Anion Gap 13.2 (5-19); Potassium 4.2 mmol/L (3.5-5.1); Procalcitonin 0.35 ng/mL (0-0.5)
[2024-08-25] MEDS: rivaroxaban 10 mg Tablet 20 MG PO (05:25)
[2024-08-25] MEDS: venlafaxine ER (24HR) 75 mg Capsule PO (05:25)
[2024-08-25] MEDS: ferrous sulfate EC 325 mg Tablet PO ×2 (08:25→17:12)
--- NOTE | 2024-08-25 08:43 | PC.NURSE ---
up to bedside commode no dizzines at this time monitor blood pressure remains on levophed gtt
[2024-08-25 09:39] LABS: NT Pro B Type Natriuretic Pept 2488 pg/mL (0-125)
[2024-08-25 09:47] LABS: Glucose Point of Care 134 mg/dL (70-110)
[2024-08-25 11:21] LABS: Glucose Point of Care 130 mg/dL (70-110)
[2024-08-25] MEDS: norepinephrine 4 MG/250 ML BAG 7.5 MG IV (11:22)
[2024-08-25] MEDS: pantoprazole 40 mg SDV IVP (15:41)
--- NOTE | 2024-08-25 16:46 | USCV_ITS ---
Daniela Lai Age: 64 Gender: F : 1960 Exam Date: 08/25/2024 07:54 Ordering Phys: Orlando Lora MD Technologist: Varun Forbes Exam Location: [facility] Indication: weakness BP: 100 / 53 HR: 58 Rhythm: Sinus Technical Quality: Adequate MEASUREMENTS (Male / Female) Normal Values 2D ECHO LV Diastolic Diameter PLAX 3.0 cm 4.2 - 5.9 / 3.9 - 5.3 cm IVS Diastolic Thickness 1.6 cm 0.6 - 1.0 / 0.6 - 0.9 cm IVS Systolic Thickness 1.7 cm LVPW Diastolic Thickness 2.2 cm 0.6 - 1.0 / 0.6 - 0.9 cm LVPW Systolic Thickness 2.4 cm LVOT Diameter 2.0 cm LV Ejection Fraction 2D Teich 70.8 % LV Ejection Fraction MOD 4C 51.5 % LV Ejection Fraction MOD 2C 72.4 % LV Ejection Fraction 2C AL 70.8 % LA Diameter 3.9 cm RA Systolic Volume 4C AL 57.0 ml RA Systolic Volume 4C MOD 56.7 ml LA Sys Volume AL 61.9 cm cubed LA Sys Volume Index AL 37.4 cm cubed/m squared Aorta at Sinotubular Diameter 2.2 cm IVC Diameter 1.9 cm M-MODE LA Ao Ratio MM 1.0 AV Cusp Separation MM 1.5 cm DOPPLER AV Peak Velocity 315.0 cm/s LVOT Peak Velocity 69.0 cm/s AV Area Cont Eq vti 0.8 cm squared AV Area Cont Eq pk 0.7 cm squared TV Peak Velocity 478.0 cm/s TR Peak Velocity 512.0 cm/s TR Peak Gradient 104.9 mmHg TR Mean Velocity 387.0 cm/s TR Mean Gradient 64.3 mmHg TR Velocity Time Integral 152.2 cm PV Peak Velocity 142.7 cm/s RV Ejection Time 0.3 s FINDINGS Left Ventricle Normal LV size and ejection fraction of 55%.flattened septum in systole consistent with right ventricle pressure overload. Right Ventricle Normal right ventricular size and systolic function. Catheter/pacemaker wire in the right ventricular cavity. Right Atrium Moderately increased right atrial size. Catheter/pacemaker wire in the right atrial cavity. Left Atrium Moderately increased left atrial size. Mitral Valve Bioprosthetic valve at the mitral position appears to be well- seated. Thickened mitral leaflets.trace to mitral valve regurgitation. Aortic Valve Bioprosthetic valve at the aortic position appears to be well- seated with minimal thickening of the aortic leaflets.trace to mild aortic valve regurgitation. Peak velocity across the valve was 3.25 m/s with a peak gradient of 42 and a mean gradient of 26 mmHg. Valve area calculated to be 0.78 cm squared Tricuspid Valve Moderately severe tricuspid regurgitation. Severe pulmonary hypertension with an estimated pulmonary artery peak systolic pressure of 108 mmHg with a mean pressure of 68 mmHg Pulmonic Valve No gross abnormalities noted Pericardium No pericardial effusion. Aorta Normal aortic annulus size. IVC Normal inferior vena cava. CONCLUSIONS Normal LV size and ejection fraction of 55%. Flattened septum in systole consistent with right ventricle pressure overload. Bioprosthetic valve at the aortic position appears to be well- seated with thickening of the aortic leaflets. Trace to mild aortic valve regurgitation. The peak gradient across the aortic valve was 42 mmHg with a mean of 26 mmHg. The valve area was calculated to be 0.78cm squared, by VTI. Severe mitral valve stenosis. Peak velocity across the mitral valve was 2.78 m/s, with a mean gradient of 13 mmHg.. The mitral valve area by VTI was 0.5 cm squared. Mitral valve area by pressure half-time was 1.0 cm squared. Moderately severe tricuspid regurgitation. Severe pulmonary hypertension with an estimated pulmonary artery peak systolic pressure of 108 mmHg with a mean pressure of 68 mmHg. Moderate biatrial enlargement There is no pericardial effusion. Compared to the study from 03/19/2024, there is worsening of the aortic and mitral valve stenosis as well as pulmonary hypertension. The LV ejection fraction appears to have improved. Dr Sarah Ash MD [facility] (Electronically Signed) Final Date: 25 August 2024 12:52 S
[2024-08-25] MEDS: pramipexole 0.25 mg Tablet 0.125 MG PO (17:12)
[2024-08-25] MEDS: water for injection-sterile 10 ML 1000 ML (17:13)
--- NOTE | 2024-08-25 18:27 | P.PN_ITS ---
Subjective 2 Subjective: - Patient was seen this morning, she is on 4 Levophed she is alert oriented x 3, following all commands denies any fevers, chills, no cough, no chest pain, she is on 2 L -We discussed continued inpatient monito ring, will reach out to patient's cardiothoracic surgery at [facility], she has plans on mitral valve revision surgery September 05 -Spoke to Dr. Ash about patient's ech ocardiogram results, recommended discussion with [facility] -echo shows CONCLUSIONS Normal LV size and ejection fraction of 55%. Flattened septum in systole consistent with right ventricle pressure overload. Bioprosthetic valve at the aortic position appears to be well- seated with thickening of the aortic leaflets. Trace to mild aortic valve regurgitation. The peak gradient across the aortic valve was 42 mmHg with a mean of 26 mmHg. The valve area was calculated to be 0.78cm squared, by VTI. Severe mitral valve stenosis. Peak velocity across the mitral valve was 2.78 m/s, with a mean gradient of 13 mmHg.. The mitral valve area by VTI was 0.5 cm squared. Mitral valve area by pressure half-time was 1.0 cm squared. Moderately severe tricuspid regurgitation. Severe pulmonary hypertension with an estimated pulmonary artery peak systolic pressure of 108 mmHg with a mean pressure of 68 mmHg. Moderate biatrial enlargement There is no pericardial effusion. Compared to the study from 03/19/2024, there is worsening of the aortic and mitral valve stenosis as well as pulmonary hypertension. The LV ejection fraction appears to have improved. -Spoke to CT surgery at [facility] Dr. Benz -As per discussion patient's ultrasound findings are likely chronic, did not see anything acute -Patient's respiratory status is stable no chest pain complaints, minimal Levophed requirements recommended continued inpatient monitoring optimization and treatment of patient's septic shock secondary to UTI -In terms of transitioning her for the neurom[facility]ical center the concern would be does her infection delayed her cardiothoracic surgery, due to risks for infection -Recommended continued inpatient monitor ing, as they have long wait times at [facility] and bed availability is difficult recommended reaching out to [facility] once patient's overall clinically improved and at that time certainly could consider transfer versus outpatient follow-up on September 05 -However if patient's condition does det eriorate, then certainly could reconsider transfer Vitals/I&O/Wt Last Vital Signs Temp 99.4 F 08/25/24 04:00 Pulse 61 08/25/24 16:30 Resp 30 H 08/25/24 16:30 BP 120/64 08/25/24 16:30 Pulse Ox 96 08/25/24 16:30 O2 Del Method Nasal Cannula 08/25/24 06:00 O2 Flow Rate 2 08/25/24 06:00 08/25/24 08/25/24 08/25/24 06:59 14:59 22:59 Intake Total 400 / 2955.39 724.75 / 724.75 610 / 1334.75 Output Total 875 / 1175 350 / 350 Balance -475 / 1780.39 374.75 / 374.75 610 / 984.75 Weight last 48 hrs Weight 63 kg Weight 59.5 kg Weight 58.513 kg Physical Exam 2 Const: COMMON NORMALS: no acute distress and patient oriented x3 Resp: COMMON NORMALS: normal respiratory effort, No retractions, No use of accessory muscles and clear to auscultation bilaterally AUSCULTATION: clear to auscultation bilaterally Cardio: COMMON NORMALS: regular rate, regular rhythm, S1 normal heart sound present and S2 normal heart sound present RATE: regular rate RHYTHM: r egular rhythm HEART SOUNDS: S1 normal heart sound present and S2 normal heart sound present GI: COMMON NORMALS: Normal to inspection, nondistended, normoactive bowel sounds present and non-tender Extremity: COMMON NORMALS: no pedal edema Neuro: COMMON NORMALS: patient oriented x3 Psych: COMMON NORMALS: mental status grossly normal Data 08/25/24 03:43 08/25/24 03:43 Micro: Microbiology 08/24/24 14:59 Blood Culture - Preliminary Blood NEGATIVE TO DATE 08/24/24 14:55 Blood Culture - Preliminary Blood NEGATIVE TO DATE 08/24/24 14:30 Urine Culture - Preliminary Urine,Clean Catch Gram Negative Rods A&P Assessment and plan (1) Hypotension: (2) Pulmonary hypertension: (3) Shock: (4) CHF (congestive heart failure): (5) Hx of artificial heart valve replacement: (6) Atrial fibrillation: Qualifiers: Atrial fibrillation type: longstanding persistent Qualified Code(s): I 48.11 - Longstanding persistent atrial fibrillation (7) History of cardiac pacemaker: (8) Chronic anticoagulation: (9) UTI (urinary tract infection): (10) Sepsis: (11) Acute kidney injury: Plan Shock -Lactic acid 1.3 -Source likely urinary tract infection, with pyelonephritis given complaints of acute back pain although no CVA tenderness -Has received 2 L in emergency room, EF is 35% high risk of CHF exacerbation -Currently on 4 of Levophed ? PICC line in place Urinary tract infection, with concern for pyelonephritis ? 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 Flattened septum in systole consistent with right ventricle pressure overload. Bioprosthetic valve at the aortic position appears to be well- seated with thickening of the aortic leaflets. Trace to mild aortic valve regurgitation. The peak gradient across the aortic valve was 42 mmHg with a mean of 26 mmHg. The valve area was calculated to be 0.78cm squared, by VTI. Severe mitral valve stenosis. Peak velocity across the mitral valve was 2.78 m/s, with a mean gradient of 13 mmHg.. The mitral valve area by VTI was 0.5 cm squared. Mitral valve area by pressure half-time was 1.0 cm squared. Moderately severe tricuspid regurgitation. Severe pulmonary hypertension with an estimated pulmonary artery peak systolic pressure of 108 mmHg with a mean pressure of 68 mmHg. Moderate biatrial enlargement There is no pericardial effusion. Compared to the study from 03/19/2024, there is worsening of the aortic and mitral valve stenosis as well as pulmonary hypertension. The LV ejection fraction appears to have improved. -Reached out to [facility] team as above -Will again reach out to [facility] team based on clinical progress History of cardiac pacemaker placement History of atrial fibrillation History of hypertension History of hyperlipidemia Spoke to patient, spoke to nursing staff, spoke to CT surgery at [facility] Attestations 2 Medical Necessity Statement*: Patient requires hospitalization, inpatient, greater than 2 midnights, for septic shock secondary to UTI, with history of mitral valve stenosis Coding Level of Care Code Critical Care >/= 30 minutes Critical care time (in minutes): 45 The high probability of a clinically significant, sudden or life threatening deterioration, as referenced in this documentation, required my full and direct attention, intervention and personal management. The critical care time shown is in addition to time spent performing any reported separately billable procedures and includes the following: [x] Data and vital sign review and interpretation [x ] Patient assessment, examination and intervention [x] Medication orders and management [x] Patient/Family updates as able [x] Care Coordination and Documentation. Diagnoses Hypotension I95.9 Pulmonary hypertension I27.20 Shock R57.9 CHF (congestive heart failure) I50.9 Hx of artificial heart valve replacement Z95.2 Longstanding persistent atrial fibrillation I48.11 Atrial fibrillation type: longstanding persistent History of cardiac pacemaker Z95.0 Chronic anticoagulation Z79.01 UTI (urinary tract infection) N39.0 Sepsis A41.9 Acute kidney injury N17.9
[2024-08-26] VITALS (46 sets, daily range): BP systolic 92–131; BP diastolic 53–73; PULSE 60–68; RESP 17–33; TEMP 36.8–37.1; O2SAT 93–99
[2024-08-26] MEDS: linezolid premix 600 MG/300 ML PREMIX 300 MG IV (04:41)
[2024-08-26] MEDS: meropenem 1,000 mg SDV 1000 MG IVP ×2 (04:52→17:58)
[2024-08-26 05:21] LABS: Basophils # 0.1 10^3/uL (0.0-0.1); Basophils % 0.4 %; Eosinophils # 0.3 10^3/uL (0.0-0.8); Eosinophils % 2.9 %; Lymphocytes # 1.8 10^3/uL (0.8-4.8); Mean Corpuscular HGB Conc 30.3 g/dL (30-55); Mean Corpuscular Hemoglobin 23.8 pg (27-33); Mean Corpuscular Volume 78.7 fl (85-98); Mean Platelet Volume 9.8 fL (7.4-10.4); Monocytes # 1.1 10^3/uL (0.2-0.9); Monocytes % 9.1 %; Neutrophils # 8.34 10^3/uL (1.8-7.7); Neutrophils % 71.7 %; Nucleated Red Blood Cells % 0 %; Platelet Count 168 10^3/cmm (157-399); Red Blood Count 4.32 10^6/uL (3.85-5.65); Red Cell Distribution Width 19.8 % (12.1-15.1); White Blood Count 11.65 10^3/uL (3.29-11.43)
[2024-08-26 05:35] LABS: Alanine Aminotransferase 11 U/L (0-33); Albumin Level 2.9 g/dL (3.5-5.2); Alkaline Phosphatase 104 U/L (35-105); Aspartate Amino Transferase 21 U/L (0-32); Blood Urea Nitrogen 13 mg/dL (8-23); Carbon Dioxide 22 mmol/L (22-29); Chloride 101 mmol/L (98-107); Creatinine Clr Calc Pharmacy 60.9958; Globulin 2.7 g/dL (1.3-4.6); Glomerular Filtration Rate 72.4 mL/min (90-130); Glucose 102 mg/dL (65-115); Osmolality Calculated 272 mOsm/kg (285-295); Phosphorus 3.3 mg/dL (2.5-4.5); Sodium 131 mmol/L (136-145); Total Bilirubin 0.9 mg/dL (0.15-1.2); Total Protein 5.6 g/dL (6.6-8.7)
[2024-08-26 05:37] LABS: C Reactive Protein 109.1 mg/L (0.0-4.9)
[2024-08-26 05:40] LABS: Anion Gap 12.5 (5-19); Potassium 4.5 mmol/L (3.5-5.1)
[2024-08-26 05:41] LABS: Procalcitonin 0.27 ng/mL (0-0.5)
[2024-08-26] MEDS: venlafaxine ER (24HR) 75 mg Capsule PO (05:46)
[2024-08-26] MEDS: rivaroxaban 10 mg Tablet 20 MG PO (05:46)
[2024-08-26] MEDS: FUROsemide 10 mg/mL SDV 4mL 40 MG IVP (08:44)
[2024-08-26] MEDS: ferrous sulfate EC 325 mg Tablet PO ×2 (08:44→17:54)
--- NOTE | 2024-08-26 10:41 | PC.NURSE ---
up in room short of breath with activity and o2 sats drop lungs with crackles noted and rhonci doctor aware levophed gtt restarted and lasix given at this time am care done .
--- NOTE | 2024-08-26 14:21 | P.PN_ITS ---
Subjective 2 Subjective: Patient was seen this morning, family members at bedside, I shared my discussion with CT surgery at [facility], she has sepsis, she thinks that she will be better to hopefully go home and then follow-up with [facility] as outpatient however one of the complicating factors is that she is supposed to follow-up with anesthesia in August 30 in [place], she is not sure if she can make that appointment, she is short of breath this morning, she is requiring 2 L, no nausea, no vomiting, Vitals/I&O/Wt Last Vital Signs Temp 98.2 F 08/26/24 04:00 Pulse 62 08/26/24 12:11 Resp 18 08/26/24 12:11 BP 111/64 08/26/24 12:00 Pulse Ox 98 08/26/24 12:11 O2 Del Method Nasal Cannula 08/26/24 12:11 O2 Flow Rate 2 08/26/24 12:11 08/25/24 08/26/24 08/26/24 22:59 06:59 14:59 Intake Total 760 / 1484.75 472.063 / 1956.813 550 / 550 Output Total 200 / 550 175 / 725 750 / 750 Balance 560 / 934.75 297.063 / 1231.813 -200 / -200 Weight last 48 hrs Weight 62.5 kg Weight 63 kg Weight 59.5 kg Physical Exam 2 Const: COMMON NORMALS: no acute distress and patient oriented x3 Resp: COMMON NORMALS: normal respiratory effort, No retractions and No use of accessory muscles AUSCULTATION: crackles and wheezes Cardio: COMMON NORMALS: regular rate, regular rhythm, S1 normal heart sound present and S2 normal heart sound present RATE: regular rate RHYTHM: r egular rhythm HEART SOUNDS: S1 normal heart sound present and S2 normal heart sound present GI: COMMON NORMALS: Normal to inspection, nondistended, normoactive bowel sounds present and non-tender Extremity: COMMON NORMALS: no pedal edema Neuro: COMMON NORMALS: patient oriented x3 Psych: COMMON NORMALS: mental status grossly normal Sepsis: Is patient septic: Yes Focused sepsis exam performed: Yes F ocused sepsis exam: DP PT pulse palpable, no mottling, good capp refill Date exam was performed: 08/26/24 Time exam was performed: 08:30 Data 08/26/24 04:45 10/27/24 04:45 Micro: Microbiology 08/24/24 14:30 Urine Culture - Final Urine,Clean Catch Escherichia coli 08/24/24 14:59 Blood Culture - Preliminary Blood NEGATIVE TO DATE 08/24/24 14:55 Blood Culture - Preliminary Blood NEGATIVE TO DATE A&P Assessment and plan (1) Hypotension: (2) Pulmonary hypertension: (3) Shock: (4) CHF (congestive heart failure): (5) Hx of artificial heart valve replacement: (6) Atrial fibrillation: Qualifiers: Atrial fibrillation type: longstanding persistent Qualified Code(s): I 48.11 - Longstanding persistent atrial fibrillation (7) History of cardiac pacemaker: (8) Chronic anticoagulation: (9) UTI (urinary tract infection): (10) Sepsis: (11) Acute kidney injury: Plan Shock -Lactic acid 1.3 -Source likely urinary tract infection, with pyelonephritis given complaints of acute back pain although no CVA tenderness -Has received 2 L in emergency room, EF is 35% high risk of CHF exacerbation -Currently on 2 of Levophed ? PICC line in place Urinary tract infection, with concern for pyelonephritis ? 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 Flattened septum in systole consistent with right ventricle pressure overload. Bioprosthetic valve at the aortic position appears to be well- seated with thickening of the aortic leaflets. Trace to mild aortic valve regurgitation. The peak gradient across the aortic valve was 42 mmHg with a mean of 26 mmHg. The valve area was calculated to be 0.78cm squared, by VTI. Severe mitral valve stenosis. Peak velocity across the mitral valve was 2.78 m/s, with a mean gradient of 13 mmHg.. The mitral valve area by VTI was 0.5 cm squared. Mitral valve area by pressure half-time was 1.0 cm squared. Moderately severe tricuspid regurgitation. Severe pulmonary hypertension with an estimated pulmonary artery peak systolic pressure of 108 mmHg with a mean pressure of 68 mmHg. Moderate biatrial enlargement There is no pericardial effusion. Compared to the study from 03/19/2024, there is worsening of the aortic and mitral valve stenosis as well as pulmonary hypertension. The LV ejection fraction appears to have improved. -Reached out to [facility] team as above -Will again reach out to [facility] team based on clinical progress History of cardiac pacemaker placement History of atrial fibrillation History of hypertension History of hyperlipidemia Spoke to patient, spoke to nursing staff, spoke to CT surgery at [facility] Plan for today, continue Levophed, wean as tolerated, 2 doses IV Lasix monitor respiratory status, continue IV antibiotics Attestations 2 Medical Necessity Statement*: Patient requires hospitalization for shock, UTI, systolic CHF Coding Level of Care Code Critical Care >/= 30 minutes Critical care time (in minutes): 45 The high probability of a clinically significant, sudden or life threatening deterioration, as referenced in this documentation, required my full and direct attention, intervention and personal management. The critical care time shown is in addition to time spent performing any reported separately billable procedures and includes the following: [x] Data and vital sign review and interpretation [x ] Patient assessment, examination and intervention [x] Medication orders and management [x] Patient/Family updates as able [x] Care Coordination and Documentation. Diagnoses Hypotension I95.9 Pulmonary hypertension I27.20 Shock R57.9 CHF (congestive heart failure) I50.9 Hx of artificial heart valve replacement Z95.2 Longstanding persistent atrial fibrillation I48.11 Atrial fibrillation type: longstanding persistent History of cardiac pacemaker Z95.0 Chronic anticoagulation Z79.01 UTI (urinary tract infection) N39.0 Sepsis A41.9 Acute kidney injury N17.9
[2024-08-26] MEDS: pramipexole 0.25 mg Tablet 0.125 MG PO (17:53)
[2024-08-26] MEDS: potassium chloride ER 20 mEq Tablet 40 MEQ PO (17:54)
[2024-08-26] MEDS: pantoprazole 40 mg SDV IVP (17:55)
[2024-08-26] MEDS: FUROsemide 10 mg/mL SDV 2mL 40 MG IVP (17:57)
[2024-08-26] MEDS: water for injection-sterile 10 ML 1000 ML (17:58)
[2024-08-27] VITALS (35 sets, daily range): BP systolic 91–120; BP diastolic 46–69; PULSE 60–65; RESP 18–33; TEMP 36.6–37.3; O2SAT 85–98
[2024-08-27] MEDS: meropenem 1,000 mg SDV 1000 MG IVP ×2 (04:20→17:29)
[2024-08-27] MEDS: venlafaxine ER (24HR) 75 mg Capsule PO (05:20)
[2024-08-27] MEDS: rivaroxaban 10 mg Tablet 20 MG PO (05:20)
[2024-08-27 05:43] LABS: Basophils # 0.1 10^3/uL (0.0-0.1); Basophils % 0.5 %; Eosinophils # 0.4 10^3/uL (0.0-0.8); Hematocrit 34.4 % (36-47); Lymphocytes # 1.6 10^3/uL (0.8-4.8); Mean Corpuscular HGB Conc 30.5 g/dL (30-55); Mean Corpuscular Volume 78.7 fl (85-98); Mean Platelet Volume 10.4 fL (7.4-10.4); Monocytes # 0.9 10^3/uL (0.2-0.9); Neutrophils # 7.55 10^3/uL (1.8-7.7); Neutrophils % 71.5 %; Nucleated Red Blood Cells % 0 %; Platelet Count 175 10^3/cmm (157-399); Red Blood Count 4.37 10^6/uL (3.85-5.65); Red Cell Distribution Width 19.7 % (12.1-15.1); White Blood Count 10.56 10^3/uL (3.29-11.43)
[2024-08-27 06:01] LABS: C Reactive Protein 107.6 mg/L (0.0-4.9)
[2024-08-27 06:03] LABS: Alanine Aminotransferase 14 U/L (0-33); Albumin Level 2.7 g/dL (3.5-5.2); Alkaline Phosphatase 97 U/L (35-105); Blood Urea Nitrogen 13 mg/dL (8-23); Calcium 8.4 mg/dL (8.5-10.5); Carbon Dioxide 27 mmol/L (22-29); Chloride 98 mmol/L (98-107); Creatinine Clr Calc Pharmacy 80.1156; Globulin 3.9 g/dL (1.3-4.6); Glucose 95 mg/dL (65-115); Magnesium 1.9 mg/dL (1.7-2.3); Osmolality Calculated 272 mOsm/kg (285-295); Phosphorus 2.8 mg/dL (2.5-4.5); Sodium 131 mmol/L (136-145); Total Bilirubin 0.7 mg/dL (0.15-1.2); Total Protein 6.6 g/dL (6.6-8.7)
[2024-08-27 06:05] LABS: Anion Gap 10.1 (5-19); Aspartate Amino Transferase 22 U/L (0-32); Potassium 4.1 mmol/L (3.5-5.1)
[2024-08-27 06:16] LABS: NT Pro B Type Natriuretic Pept 3608 pg/mL (0-125); Procalcitonin 0.22 ng/mL (0-0.5)
--- NOTE | 2024-08-27 08:08 | XRR_ITS ---
PROCEDURE INFORMATION: Exam: XR Chest Exam date and time: 08/27/2024 8:40 AM Age: 64 years old Clinical indication: Shortness of breath; Additional info: SOB TECHNIQUE: Imaging protocol: Radiologic exam of the chest. Views: 1 view. COMPARISON: CR (CHEST, ) 08/24/2024 6:19 PM FINDINGS: Tubes, catheters and devices: A right PICC line remains in place. A left subclavian cardiac pacemaker is again noted Lungs: There has been mild interval progression in diffuse interstitial infiltrates, suspicious for pulmonary edema. Pleural spaces: There has been development of small bilateral pleural effusions. No pneumothorax. Heart/Mediastinum: There is unchanged cardiomegaly. Postoperative changes of aortic valve replacement. Bones/joints: Postoperative changes of median sternotomy are noted. XR/XR chest 1V portable [id number] IMPRESSION: Cardiomegaly with mild worsening in diffuse interstitial infiltrates, suspicious for pulmonary edema and development of small bilateral pleural effusions
[2024-08-27] MEDS: FUROsemide 10 mg/mL SDV 4mL 40 MG IVP ×2 (09:39→17:30)
[2024-08-27] MEDS: potassium chloride ER 20 mEq Tablet 40 MEQ PO (09:40)
[2024-08-27] MEDS: ferrous sulfate EC 325 mg Tablet PO ×2 (09:40→17:31)
[2024-08-27] MEDS: metOLazone 5 MG Tablet PO (09:41)
[2024-08-27] MEDS: albumin 25 G/100 ML BAG 60 G IV (09:41)
--- NOTE | 2024-08-27 16:02 | P.PN_ITS ---
Subjective 2 Subjective: Patient was seen this morning, she denies any fevers, chills, no cough, no lightheadedness she is on 2 L does report increased shortness of breath but about a bit better compared to yesterday, is on 2 L, no chest pain, no palpitations, no lower extremity edema Vitals/I&O/Wt Last Vital Signs Temp 97.9 F 08/27/24 08:00 Pulse 60 08/27/24 14:20 Resp 18 08/27/24 08:07 BP 110/66 08/27/24 08:00 Pulse Ox 96 08/27/24 08:07 O2 Del Method Nasal Cannula 08/27/24 08:07 O2 Flow Rate 2 08/27/24 08:07 08/27/24 08/27/24 08/27/24 06:59 14:59 22:59 Intake Total 174.875 / 1334.875 700 / 700 Output Total 300 / 2375 650 / 650 Balance -125.125 / -1040.125 50 / 50 Weight last 48 hrs Weight 60.5 kg Weight 62.5 kg Physical Exam 2 Const: COMMON NORMALS: no acute distress and patient oriented x3 Resp: COMMON NORMALS: normal respiratory effort, No retractions and No use of accessory muscles AUSCULTATION: crackles Cardio: COMMON NORMALS: regular rate, regular rhythm, S1 normal heart sound present and S2 normal heart sound present RATE: regular rate RHYTHM: r egular rhythm HEART SOUNDS: S1 normal heart sound present and S2 normal heart sound present GI: COMMON NORMALS: Normal to inspection, nondistended, normoactive bowel sounds present and non-tender Extremity: COMMON NORMALS: no pedal edema Neuro: COMMON NORMALS: patient oriented x3 Psych: COMMON NORMALS: mental status grossly normal Data 08/27/24 05:19 08/27/24 05:19 Micro: Microbiology 08/24/24 14:30 Urine Culture - Final Urine,Clean Catch Escherichia coli A&P Assessment and plan (1) Hypotension: (2) Pulmonary hypertension: (3) Shock: (4) CHF (congestive heart failure): (5) Hx of artificial heart valve replacement: (6) Atrial fibrillation: Qualifiers: Atrial fibrillation type: longstanding persistent Qualified Code(s): I 48.11 - Longstanding persistent atrial fibrillation (7) History of cardiac pacemaker: (8) Chronic anticoagulation: (9) UTI (urinary tract infection): (10) Sepsis: (11) Acute kidney injury: (12) Acute exacerbation of congestive heart failure: Plan Shock, resolving -Lactic acid 1.3 -Source likely urinary tract infection, with pyelonephritis given complaints of acute back pain although no CVA tenderness -Has received 2 L in emergency room, EF is 35% high risk of CHF exacerbation -Currently off Levophed ? PICC line in place Urinary tract infection, with concern for pyelonephritis ? Follow urine cultures, growing E. 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 Chest x-ray showing evidence of pulm edema, on 2 L, crackles in lung gonzalez -Now in exacerbation -With mitral stenosis -Lasix 40 mg IV twice daily, with albumin, with potassium replacement therapy History of aortic and mitral valve replacement in 2013 -Now with severe mitral valve stenosis with plans on revision surgery at [facility] September 05 -Concerns that mitral valve stenosis could be playing a role into patient's current hospitalization CONCLUSIONS Normal LV size and ejection fraction of 55%. Flattened septum in systole consistent with right ventricle pressure overload. Bioprosthetic valve at the aortic position appears to be well- seated with thickening of the aortic leaflets. Trace to mild aortic valve regurgitation. The peak gradient across the aortic valve was 42 mmHg with a mean of 26 mmHg. The valve area was calculated to be 0.78cm squared, by VTI. Severe mitral valve stenosis. Peak velocity across the mitral valve was 2.78 m/s, with a mean gradient of 13 mmHg.. The mitral valve area by VTI was 0.5 cm squared. Mitral valve area by pressure half-time was 1.0 cm squared. Moderately severe tricuspid regurgitation. Severe pulmonary hypertension with an estimated pulmonary artery peak systolic pressure of 108 mmHg with a mean pressure of 68 mmHg. Moderate biatrial enlargement There is no pericardial effusion. Compared to the study from 03/19/2024, there is worsening of the aortic and mitral valve stenosis as well as pulmonary hypertension. The LV ejection fraction appears to have improved. -Reached out to [facility] team as above -Will again reach out to [facility] team based on clinical progress History of cardiac pacemaker placement History of atrial fibrillation History of hypertension History of hyperlipidemia Spoke to patient, spoke to nursing staff, spoke to CT surgery at [facility] Plan for today, IV diuresis, for CHF exacerbation, 2 doses of Lasix with albumin, with potassium replacement therapy, continue IV antibiotics, will consider moving to medical floors based on clinical progress Attestations 2 Medical Necessity Statement*: Patient requires hospitalization for shock, UTI, pyelonephritis, CHF exacerbation Diagnoses Hypotension I95.9 Pulmonary hypertension I27.20 Shock R57.9 CHF (congestive heart failure) I50.9 Hx of artificial heart valve replacement Z95.2 Longstanding persistent atrial fibrillation I48.11 Atrial fibrillation type: longstanding persistent History of cardiac pacemaker Z95.0 Chronic anticoagulation Z79.01 UTI (urinary tract infection) N39.0 Sepsis A41.9 Acute kidney injury N17.9 Acute exacerbation of congestive heart failure I50.9
[2024-08-27] MEDS: pramipexole 0.25 mg Tablet 0.125 MG PO (17:29)
[2024-08-27] MEDS: albumin 12.5 GM/50 ML VIAL IV (17:29)
[2024-08-27] MEDS: potassium chloride ER 20 mEq Tablet PO (17:30)
[2024-08-27] MEDS: pantoprazole 40 mg SDV IVP (17:31)
--- NOTE | 2024-08-27 19:10 | PC.NURSE ---
Shift report: Pt started the day off slightly short of breath while talking with expiratory wheezing noted without auscultation. Albumin and Lasix given this am. Pt now on Room air, no expiratory wheezes and able to carry a conversation without any shortness of breath. Pt stated she feels much better. She has denied pain. She has had an excellent appetite. She has been careful with her fluid intake, so much so that when fluid restriction started this evening she was under her 1000ml limit with enough left for the rest of the night. Urine output of 1100 ml noted this shift.
[2024-08-27] MEDS: budesonide 0.5 mg/2 mL Neb INHALATION (20:10)
[2024-08-27] MEDS: ezetimibe 10 mg Tablet PO (20:17)
[2024-08-28] VITALS (21 sets, daily range): BP systolic 93–145; BP diastolic 50–76; PULSE 60–65; RESP 16–29; TEMP 36.6–37.3; O2SAT 90–99
[2024-08-28] MEDS: albumin 25 G/100 ML BAG 60 G IV ×2 (03:28→16:47)
[2024-08-28] MEDS: FUROsemide 10 mg/mL SDV 4mL 40 MG IVP ×2 (03:46→16:47)
[2024-08-28] MEDS: potassium chloride ER 20 mEq Tablet PO (03:46)
[2024-08-28] MEDS: meropenem 1,000 mg SDV 1000 MG IVP ×2 (04:48→16:48)
[2024-08-28 04:54] LABS: Basophils % 0.4 %; Eosinophils # 0.6 10^3/uL (0.0-0.8); Eosinophils % 6.1 %; Hematocrit 31.7 % (36-47); Lymphocytes # 1.2 10^3/uL (0.8-4.8); Lymphocytes % 13.6 %; Mean Corpuscular HGB Conc 30.6 g/dL (30-55); Mean Corpuscular Hemoglobin 23.7 pg (27-33); Mean Corpuscular Volume 77.5 fl (85-98); Mean Platelet Volume 10.2 fL (7.4-10.4); Monocytes # 0.7 10^3/uL (0.2-0.9); Monocytes % 7.2 %; Neutrophils # 6.53 10^3/uL (1.8-7.7); Nucleated Red Blood Cells % 0 %; Platelet Count 216 10^3/cmm (157-399); Red Blood Count 4.09 10^6/uL (3.85-5.65); Red Cell Distribution Width 19.3 % (12.1-15.1); White Blood Count 9.06 10^3/uL (3.29-11.43)
[2024-08-28 05:12] LABS: C Reactive Protein 80.3 mg/L (0.0-4.9)
[2024-08-28 05:22] LABS: Blood Urea Nitrogen 17 mg/dL (8-23); Carbon Dioxide 30 mmol/L (22-29); Chloride 94 mmol/L (98-107); Creatinine Clr Calc Pharmacy 60.0867; Glomerular Filtration Rate 72.4 mL/min (90-130); Glucose 104 mg/dL (65-115); NT Pro B Type Natriuretic Pept 4725 pg/mL (0-125); Osmolality Calculated 284 mOsm/kg (285-295); Sodium 136 mmol/L (136-145)
[2024-08-28 05:29] LABS: Anion Gap 15.4 (5-19); Potassium 3.4 mmol/L (3.5-5.1)
[2024-08-28] MEDS: rivaroxaban 10 mg Tablet 20 MG PO (05:40)
[2024-08-28] MEDS: venlafaxine ER (24HR) 75 mg Capsule PO (05:40)
[2024-08-28] MEDS: budesonide 0.5 mg/2 mL Neb INHALATION ×2 (07:56→19:59)
[2024-08-28] MEDS: ferrous sulfate EC 325 mg Tablet PO ×2 (08:38→16:45)
[2024-08-28] MEDS: flu vacc pf 24-25 (6 mos+) SYRINGE 45 MCG IM (08:38)
[2024-08-28] MEDS: potassium chloride ER 20 mEq Tablet 40 MEQ PO ×2 (09:14→16:45)
[2024-08-28] MEDS: metOLazone 5 MG Tablet PO (09:15)
--- NOTE | 2024-08-28 14:22 | PC.NURSE ---
Report was given to STEPHANIA Hale in [facility]. Patient was transported to [facility] without any complications. Patient was stable.
--- NOTE | 2024-08-28 14:25 | PC.NURSE ---
Patient received from ICU. Patient sitting up in bed. Patient able to ambulate with standby assist. patient denies pain or needs presently. No distress observed. Will continue to monitor.
--- NOTE | 2024-08-28 14:53 | P.PN_ITS ---
Subjective 2 Subjective: Patient was seen this morning, she tells me that her shortness of breath is improving, no nausea, no vomiting, no chest pain, no palpitations, no flank pain, she does have crackles on examination and is on 2 L, no edema, we discussed continuing to diurese her as inpatient, moving her to the cardiac stepdown unit and possibly discharging her next 24 hours, she is agreeable I reached out to patient's CT surgeon at [facility], discussed that patient will be discharged from the hospital tomorrow, she has to go up to [place] on August 30 for a preop evaluation, given the hardship of the travel, and her recent hospitalization, we will was wondering if they could potentially move the appointment or do a televisit, will send over records for hospitalization to fish bin tender/CT surgeon, CT surgery will work on possible televisit on the Vitals/I&O/Wt Last Vital Signs Temp 98.2 F 08/28/24 04:00 Pulse 63 08/28/24 14:19 Resp 29 H 08/28/24 13:00 BP 112/70 08/28/24 13:00 Pulse Ox 95 08/28/24 13:00 O2 Del Method Nasal Cannula 08/28/24 13:00 O2 Flow Rate 1.5 08/28/24 07:59 08/27/24 08/28/24 08/28/24 22:59 06:59 14:59 Intake Total 280 / 980 130 / 1110 480 / 480 Output Total 500 / 1150 1200 / 2350 600 / 600 Balance -220 / -170 -1070 / -1240 -120 / -120 Weight last 48 hrs Weight 58 kg Weight 60.5 kg Physical Exam 2 Const: COMMON NORMALS: no acute distress and patient oriented x3 Resp: COMMON NORMALS: normal respiratory effort, No retractions and No use of accessory muscles AUSCULTATION: crackles Cardio: COMMON NORMALS: regular rate, regular rhythm, S1 normal heart sound present and S2 normal heart sound present RATE: regular rate RHYTHM: r egular rhythm HEART SOUNDS: S1 normal heart sound present and S2 normal heart sound present GI: COMMON NORMALS: Normal to inspection, nondistended, normoactive bowel sounds present and non-tender Extremity: COMMON NORMALS: no pedal edema Neuro: COMMON NORMALS: patient oriented x3 Psych: COMMON NORMALS: mental status grossly normal Data 08/28/24 04:27 08/28/24 04:27 A&P Assessment and plan (1) Hypotension: (2) Pulmonary hypertension: (3) Shock: (4) CHF (congestive heart failure): (5) Hx of artificial heart valve replacement: (6) Atrial fibrillation: Qualifiers: Atrial fibrillation type: longstanding persistent Qualified Code(s): I 48.11 - Longstanding persistent atrial fibrillation (7) History of cardiac pacemaker: (8) Chronic anticoagulation: (9) UTI (urinary tract infection): (10) Sepsis: (11) Acute kidney injury: (12) Acute exacerbation of congestive heart failure: Plan Shock, resolved -Lactic acid 1.3 -Source likely urinary tract infection, with pyelonephritis given complaints of acute back pain although no CVA tenderness -Has received 2 L in emergency room, EF is 35% high risk of CHF exacerbation -Currently off Levophed ? PICC line in place Urinary tract infection, with concern for pyelonephritis ? Follow urine cultures, growing E. 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 Chest x-ray showing evidence of pulm edema, on 2 L, crackles in lung gonzalez -Now in exacerbation -With mitral stenosis -Lasix 40 mg IV twice daily, with albumin, with potassium replacement therapy History of aortic and mitral valve replacement in 2013 -Now with severe mitral valve stenosis with plans on revision surgery at [facility] September 05 -Concerns that mitral valve stenosis could be playing a role into patient's current hospitalization CONCLUSIONS Normal LV size and ejection fraction of 55%. Flattened septum in systole consistent with right ventricle pressure overload. Bioprosthetic valve at the aortic position appears to be well- seated with thickening of the aortic leaflets. Trace to mild aortic valve regurgitation. The peak gradient across the aortic valve was 42 mmHg with a mean of 26 mmHg. The valve area was calculated to be 0.78cm squared, by VTI. Severe mitral valve stenosis. Peak velocity across the mitral valve was 2.78 m/s, with a mean gradient of 13 mmHg.. The mitral valve area by VTI was 0.5 cm squared. Mitral valve area by pressure half-time was 1.0 cm squared. Moderately severe tricuspid regurgitation. Severe pulmonary hypertension with an estimated pulmonary artery peak systolic pressure of 108 mmHg with a mean pressure of 68 mmHg. Moderate biatrial enlargement There is no pericardial effusion. Compared to the study from 03/19/2024, there is worsening of the aortic and mitral valve stenosis as well as pulmonary hypertension. The LV ejection fraction appears to have improved. -Reached out to [facility] team as above -Will again reach out to [facility] team based on clinical progress History of cardiac pacemaker placement History of atrial fibrillation History of hypertension History of hyperlipidemia Spoke to patient, spoke to nursing staff, spoke to CT surgery at [facility] Plan for today, moved to cardiac stepdown unit, IV diuresis, plan on discharging the next 24 hours Attestations 2 Medical Necessity Statement*: Patient requires hospitalization for systolic CHF exacerbation, with mitral stenosis, requiring inpatient IV diuresis UTI, requiring IV antibiotics, spoke to patient, spoke to nursing staff, spoke to CT surgery at [facility] and High MDM includes number and complexity of problems actively addressed during encounter, amount and/or complexity of data reviewed/ordered and described risk of complication, morbidity or mortality of management as documented Diagnoses Hypotension I95.9 Pulmonary hypertension I27.20 Shock R57.9 CHF (congestive heart failure) I50.9 Hx of artificial heart valve replacement Z95.2 Longstanding persistent atrial fibrillation I48.11 Atrial fibrillation type: longstanding persistent History of cardiac pacemaker Z95.0 Chronic anticoagulation Z79.01 UTI (urinary tract infection) N39.0 Sepsis A41.9 Acute kidney injury N17.9 Acute exacerbation of congestive heart failure I50.9
[2024-08-28] MEDS: pramipexole 0.25 mg Tablet 0.125 MG PO (16:45)
[2024-08-28] MEDS: pantoprazole 40 mg SDV IVP (16:48)
[2024-08-28] MEDS: ezetimibe 10 mg Tablet PO (20:11)
[2024-08-29] VITALS (10 sets, daily range): BP systolic 105–138; BP diastolic 63–72; PULSE 60–68; RESP 16–25; TEMP 36.4–36.6; O2SAT 85–98
[2024-08-29 04:27] LABS: Basophils # 0.1 10^3/uL (0.0-0.1); Basophils % 0.8 %; Eosinophils # 0.5 10^3/uL (0.0-0.8); Eosinophils % 5.4 %; Hematocrit 32.6 % (36-47); Lymphocytes # 1.4 10^3/uL (0.8-4.8); Lymphocytes % 14.9 %; Mean Corpuscular Hemoglobin 24.2 pg (27-33); Mean Platelet Volume 9.8 fL (7.4-10.4); Monocytes # 0.7 10^3/uL (0.2-0.9); Monocytes % 7.4 %; Neutrophils # 6.62 10^3/uL (1.8-7.7); Nucleated Red Blood Cells % 0 %; Platelet Count 245 10^3/cmm (157-399); Red Blood Count 4.18 10^6/uL (3.85-5.65); Red Cell Distribution Width 19.3 % (12.1-15.1); White Blood Count 9.32 10^3/uL (3.29-11.43)
[2024-08-29 04:47] LABS: C Reactive Protein 66.6 mg/L (0.0-4.9)
[2024-08-29 04:58] LABS: Blood Urea Nitrogen 22 mg/dL (8-23); Calcium 9.6 mg/dL (8.5-10.5); Carbon Dioxide 32 mmol/L (22-29); Chloride 92 mmol/L (98-107); Creatinine Clr Calc Pharmacy 58.9505; Glomerular Filtration Rate 72.4 mL/min (90-130); Glucose 111 mg/dL (65-115); NT Pro B Type Natriuretic Pept 5034 pg/mL (0-125); Osmolality Calculated 284 mOsm/kg (285-295); Sodium 135 mmol/L (136-145)
[2024-08-29 04:59] LABS: Anion Gap 14.6 (5-19); Potassium 3.6 mmol/L (3.5-5.1)
[2024-08-29] MEDS: meropenem 1,000 mg SDV 1000 MG IVP (05:34)
[2024-08-29] MEDS: rivaroxaban 10 mg Tablet 20 MG PO (05:34)
[2024-08-29] MEDS: venlafaxine ER (24HR) 75 mg Capsule PO (05:34)
[2024-08-29] MEDS: budesonide 0.5 mg/2 mL Neb INHALATION (07:47)
[2024-08-29] MEDS: ferrous sulfate EC 325 mg Tablet PO (09:27)
[2024-08-29] MEDS: potassium chloride ER 20 mEq Tablet 40 MEQ PO (09:27)
[2024-08-29] MEDS: metOLazone 5 MG Tablet PO (09:27)
[2024-08-29] MEDS: FUROsemide 10 mg/mL SDV 4mL 40 MG IVP (09:27)
--- NOTE | 2024-08-29 11:56 | PM.DCS ---
Discharge Providers Date of Admission: 08/24/24 15:19 Date of Discharge: August 29, 2024 Attending Provider at Admission: Orlando Lora MD Attending Provider at Discharge: Orlando Lora MD Primary Care Provider: Magnolia Worthington MD Diagnoses at Discharge Discharge Diagnosis (1) Hypotension: Status: Acute (2) Pulmonary hypertension: Status: Acute (3) Shock: Status: Acute (4) CHF (congestive heart failure): Status: Chronic (5) Hx of artificial heart valve replacement: Status: Chronic Permanent problem details: Mitral and aortic, bioprosthetic valves placed in approximately 2013; prior to this had mechanical valves 32 years (6) Atrial fibrillation: Status: Chronic Qualifiers: Atrial fibrillation type: longstanding persistent Qualified Code(s): I48.11 - Longstanding persistent atrial fibrillation (7) History of cardiac pacemaker: Status: Chronic Permanent problem details: X 2, last replacement in February 2023 (8) Chronic anticoagulation: Status: Acute Permanent problem details: Xarelto secondary to history of atrial fibrillation (9) UTI (urinary tract infection): Status: Acute (10) Sepsis: Status: Acute (11) Acute kidney injury: Status: Acute (12) Acute exacerbation of congestive heart failure: Status: Acute Reason for Visit Reason for Visit: WEAKNESS Hospital Course Hospital Course Daniela Lai is a 64 year old female with a past medical history of mitral and aortic valve replacement, atrial fibrillation, history of pacemaker placement, history of systolic CHF, with plans on redo mitral valve surgery in August, who presents [facility] due to weakness, fatigue, low blood pressure. Currently patient is alert oriented x 3, following all commands, on room air, blood pressure 88/50, heart rate sinus rhythm, in the 90s, she follows all commands does not appear to be in distress, no evidence of respiratory distress, she is actually able to sit up on her own, family numbers at bedside. According to patient for the last few days she has not been feeling well fatigue, malaise no fevers, no chills she has had some back pain, does report increased free urinary frequency, urgency, dysuria, no hematuria no history of kidney stones. Denies any falls, trauma no chest pain, no shortness of breath. She tells me that her mitral valve replacement has had issues, there is plans on redo of her mitral valve with a heart cath in addition. However she denies any chest pain any shortness of breath she tells that she is chronically short of breath but none more than the usual. Does report intermittent episodes of dizziness, denies any syncopal episodes. Patient was admitted to [facility] for septic shock secondary to UTI with concerns for pyelonephritis, required ICU admission, required IV pressors, broad-spectrum antibiotic therapy, overall clinically improved, weaned off pressors, urine culture showing E. coli, she received roughly 5 days of meropenem as inpatient, blood cultures were no growth so far. She will be discharged on 5 remaining days of p.o. ciprofloxacin Patient's hospitalization was complicated with acute systolic diastolic CHF exacerbation, requiring IV diuresis as inpatient, overall clinically improved, she will be discharged on home Lasix therapy, with close follow-up with her CT surgeon and [facility] September 03. On discharge I am continuing to hold Entresto due to hypotension concerns History of aortic and mitral valve replacement in 2013 -Now with severe mitral valve stenosis with plans on revision surgery at [facility] September 05 -Concerns that mitral valve stenosis could be playing a role into patient's current hospitalization CONCLUSIONS Normal LV size and ejection fraction of 55%. Flattened septum in systole consistent with right ventricle pressure overload. Bioprosthetic valve at the aortic position appears to be well- seated with thickening of the aortic leaflets. Trace to mild aortic valve regurgitation. The peak gradient across the aortic valve was 42 mmHg with a mean of 26 mmHg. The valve area was calculated to be 0.78cm squared, by VTI. Severe mitral valve stenosis. Peak velocity across the mitral valve was 2.78 m/s, with a mean gradient of 13 mmHg.. The mitral valve area by VTI was 0.5 cm squared. Mitral valve area by pressure half-time was 1.0 cm squared. Moderately severe tricuspid regurgitation. Severe pulmonary hypertension with an estimated pulmonary artery peak systolic pressure of 108 mmHg with a mean pressure of 68 mmHg. Moderate biatrial enlargement There is no pericardial effusion. Compared to the study from 03/19/2024, there is worsening of the aortic and mitral valve stenosis as well as pulmonary hypertension. The LV ejection fraction appears to have improved. -Reached out to [facility] team as above, initially there was plans on possibly transferring patient to [facility] for mitral valve, however her clinical condition significantly improved such that transfer was not required -I spoke to patient's CT surgeon at [place], patient's preop physical has been rescheduled to September 03, 2024 ? With her surgery September 05, 2024 Patient was advised to monitor for fevers, chills, if so please come back to the hospital Physical Exam Const: COMMON NORMALS: no acute distress and patient oriented x3 Resp: COMMON NORMALS: normal respiratory effort, No retractions, No use of accessory muscles and clear to auscultation bilaterally AUSCULTATION: clear to auscultation bilaterally Cardio: COMMON NORMALS: regular rate, regular rhythm, S1 normal heart sound present and S2 normal heart sound present RATE: regular rate RHYTHM: regular rhythm HEART SOUNDS: S1 normal heart sound present and S2 normal heart sound present GI: COMMON NORMALS: Normal to inspection, nondistended, normoactive bowel sounds present and non-tender Extremity: COMMON NORMALS: no pedal edema Neuro: COMMON NORMALS: patient oriented x3 Psych: COMMON NORMALS: mental status grossly normal Discharge Data Studies Completed and Pending Completed Studies During Hospitalization Category Date Time Status CT abdomen pelvis wo con [id number] Routine Cat Scan 08/24/24 16:46 Completed CXRP [XR chest 1V portable [id number]] Routine Exams 08/24/24 17:27 Completed XR chest 1V portable [id number] Routine Exams 08/27/24 08:08 Completed XR chest 1V portable [id number] Stat Exams 08/24/24 14:09 Completed CV. echo complete* [id number] Routine Ultrasound 08/25/24 16:46 Completed Pending at discharge Category Date Time Status Basic Metabolic Panel AM LABS Lab 08/30/24 04:00 Ordered Blood Culture Stat Lab 08/24/24 14:59 Results C Reactive Protein AM LABS Lab 08/30/24 04:00 Ordered Complete Blood Count w/Auto AM LABS Lab 08/30/24 04:00 Ordered Radiology Impressions Abdomen/Pelvis CT 08/24/24 16:46 IMPRESSION: 1. There is a 6 mm nonobstructing stone in the right kidney. There is a 3 mm stone in the right renal pelvis anteriorly. No hydronephrosis or hydroureter. 2. No bowel obstruction or inflammatory process associated with the bowel. 3. No free air or significant free fluid in the abdomen or pelvis. 4. The appendix is not visualized but there are no secondary signs of acute appendicitis. Chest X-Ray 08/27/24 08:08 IMPRESSION: Cardiomegaly with mild worsening in diffuse interstitial infiltrates, suspicious for pulmonary edema and development of small bilateral pleural effusions Laboratory Results WBC 9.32 10^3/uL (3.29-11.43) 08/29/24 04:07 RBC 4.18 10^6/uL (3.85-5.65) 08/29/24 04:07 Hgb 10.10 g/dL (11.27-16.99) L 08/29/24 04:07 Hct 32.6 % (36-47) L 08/29/24 04:07 MCV 78.0 fl (85-98) L 08/29/24 04:07 MCH 24.2 pg (27-33) L 08/29/24 04:07 MCHC 31.0 g/dL (30-55) 08/29/24 04:07 RDW 19.3 % (12.1-15.1) H 08/29/24 04:07 Plt Count 245 10^3/cmm (157-399) 08/29/24 04:07 MPV 9.8 fL (7.4-10.4) 08/29/24 04:07 Neut % (Auto) 71.0 % 08/29/24 04:07 Lymph % (Auto) 14.9 % 08/29/24 04:07 [place] % (Auto) 7.4 % 08/29/24 04:07 Eos % (Auto) 5.4 % 08/29/24 04:07 Baso % (Auto) 0.8 % 08/29/24 04:07 Neut # (Auto) 6.62 10^3/uL (1.8-7.7) 08/29/24 04:07 Lymph # (Auto) 1.4 10^3/uL (0.8-4.8) 08/29/24 04:07 [place] # (Auto) 0.7 10^3/uL (0.2-0.9) 08/29/24 04:07 Eos # (Auto) 0.5 10^3/uL (0.0-0.8) 08/29/24 04:07 Baso # (Auto) 0.1 10^3/uL (0.0-0.1) 08/29/24 04:07 Nucleated RBC % (auto) 0 % 08/29/24 04:07 Nucleated RBCs # 0.0 /100WBC 08/29/24 04:07 ESR 27 mm/hr (0-15) H 08/24/24 17:20 PT 16.10 SECONDS (12.1-14.9) H 08/24/24 14:20 INR 1.25 (0.8-1.2) H 08/24/24 14:20 Sodium 135 mmol/L (136-145) L 08/29/24 04:07 Potassium 3.6 mmol/L (3.5-5.1) 08/29/24 04:07 Chloride 92 mmol/L (98-107) L 08/29/24 04:07 Carbon Dioxide 32 mmol/L (22-29) H 08/29/24 04:07 Anion Gap 14.6 (5-19) 08/29/24 04:07 BUN 22 mg/dL (8-23) 08/29/24 04:07 Creatinine 0.8 mg/dL (0.5-0.9) 08/29/24 04:07 GFR Calculation 72.4 mL/min (90-130) L 08/29/24 04:07 Glucose 111 mg/dL (65-115) 08/29/24 04:07 POC Glucose 130 mg/dL (70-110) H 08/25/24 11:17 Estimat Average Glucose 114 08/25/24 03:43 Hemoglobin A1c 5.6 % (4.0-6.0) 08/25/24 03:43 Calculated Osmolality 284 mOsm/kg (285-295) L 08/29/24 04:07 Lactic Acid 1.3 mmol/L (0.5-2.2) 08/24/24 14:20 Calcium 9.6 mg/dL (8.5-10.5) 08/29/24 04:07 Phosphorus 2.8 mg/dL (2.5-4.5) 08/27/24 05:19 Magnesium 1.9 mg/dL (1.7-2.3) 08/27/24 05:19 Total Bilirubin 0.7 mg/dL (0.15-1.2) 08/27/24 05:19 AST 22 U/L (0-32) 08/27/24 05:19 ALT 14 U/L (0-33) 08/27/24 05:19 Alkaline Phosphatase 97 U/L (35-105) 08/27/24 05:19 Troponin T Baseline 23 ng/L (0-10) H 08/24/24 14:20 Troponin T 120 Minute 18.29 ng/L (0-10) H 08/24/24 17:20 Delta Troponin T -4.71 ABS# (0-10) L 08/24/24 17:20 Troponin T Hi Sens 6Hr 22.18 ng/L (0-10) H 08/24/24 20:28 Troponin T Hi Sens 6Hr Delta -0.82 ng/L (0-12) L 08/24/24 20:28 C-Reactive Protein 66.6 mg/L (0.0-4.9) H 08/29/24 04:07 NT-Pro-B Natriuret Pep 5034 pg/mL (0-125) H 08/29/24 04:07 Total Protein 6.6 g/dL (6.6-8.7) 08/27/24 05:19 Albumin 2.7 g/dL (3.5-5.2) L 08/27/24 05:19 Globulin 3.9 g/dL (1.3-4.6) 08/27/24 05:19 Triglycerides 116 mg/dL (0-150) 08/24/24 17:20 Cholesterol 124 mg/dL (0-200) 08/24/24 17:20 LDL Cholesterol, Calc 70 mg/dL (50-129) 08/24/24 17:20 HDL Cholesterol 31 mg/dL (60-100) L 08/24/24 17:20 LDL/HDL Ratio 2.26 RATIO (0.00-3.22) 08/24/24 17:20 Cholesterol/HDL Ratio 4.00 mg/dL (0.0-4.40) 08/24/24 17:20 Procalcitonin 0.22 ng/mL (0-0.5) 08/27/24 05:19 TSH 2.17 uIU/mL (0.27-4.20) 08/24/24 17:20 Urine Color Yellow (Yellow) 08/24/24 14:30 Urine Appearance Cloudy (CLEAR) A 08/24/24 14:30 Urine pH 5.5 (5-7) 08/24/24 14:30 Ur Specific Raymond 1.011 (1.005-1.030) 08/24/24 14:30 Urine Protein Trace (Negative) A 08/24/24 14:30 Urine Glucose (UA) 1+ (Normal) H 08/24/24 14:30 Urine Ketones Negative (Negative) 08/24/24 14:30 Urine Blood Negative (Negative) 08/24/24 14:30 Urine Nitrate Negative (Negative) 08/24/24 14:30 Urine Bilirubin Negative (Negative) 08/24/24 14:30 Urine Urobilinogen 1.0 mg/dL (Negative) 08/24/24 14:30 Ur Leukocyte Esterase 2+ (Negative) A 08/24/24 14:30 Urine RBC 0-2 /hpf (0-2) 08/24/24 14:30 Urine WBC 21-50 /hpf (0-5) H 08/24/24 14:30 Ur Squamous Epith Cells 6-10 /hpf (0-5) 08/24/24 14:30 Amorphous Sediment Not Reportable 08/24/24 14:30 Urine Bacteria 4+ /hpf (NONE) H 08/24/24 14:30 Hyaline Casts 13.63 /lpf 08/24/24 14:30 Urine Mucus Trace /hpf 08/24/24 14:30 Vitals Last Vital Signs Temp 97.8 F 08/29/24 11:43 Pulse 62 08/29/24 11:43 Resp 20 H 08/29/24 11:43 BP 105/65 08/29/24 11:43 Pulse Ox 93 08/29/24 11:43 O2 Del Method Room Air 08/29/24 11:43 O2 Flow Rate 2 08/29/24 07:47 Discharge Plan Discharge Patient Disposition: Home Condition: Stable Prescriptions: New ciprofloxacin HCl 500 mg tablet 500 mg PO BID 5 Days Qty: 10 0RF Continued Xarelto 20 mg tablet 20 mg PO QAM Hold Instructions: Resume on 08/17/21. famotidine [Pepcid] 40 mg tablet 40 mg PO QAM ipratropium-albuterol 0.5 mg-3 mg(2.5 mg base)/3 mL solution for nebulization 3 ml inhalation Q4H PRN (Reason: shortness of breath) Qty: 180 0RF Rx Instructions: until breathing returns to target peak flow/parameters venlafaxine 75 mg capsule,extended release 24hr 75 mg PO QAM montelukast 10 mg tablet 10 mg PO BEDTIME ezetimibe 10 mg tablet 10 mg PO BEDTIME Zyrtec 10 mg capsule 10 mg PO DAILY Qty: 10 0RF ferrous sulfate [FeroSul] 325 mg (65 mg iron) tablet 325 mg PO BID eplerenone 25 mg tablet 25 mg PO DAILY Anoro Ellipta 62.5-25 mcg/actuation blister with device 1 inh INHALATION DAILY Jardiance 10 mg tablet 10 mg PO DAILY pramipexole 0.125 mg tablet 0.125 mg PO QPM fluticasone propionate 50 mcg/actuation [place],Suspension 1 spray nasal BID Qty: 16 0RF ipratropium-albuterol 0.5 mg-3 mg(2.5 mg base)/3 mL Solution For Nebulization 3 ml inhalation Q6H Qty: 180 0RF budesonide 0.5 mg/2 mL Suspension For Nebulization 0.5 mg inhalation BID.RESPIRATORY Qty: 60 0RF furosemide 40 mg tablet 40 mg PO BIDWMEAL Qty: 90 3RF Changed potassium chloride 20 mEq tablet extended release 20 meq PO BIDWM 30 Days Qty: 60 0RF Held Entresto 24-26 mg tablet 1 tab PO BID Hold Instructions: Resume on 09/07/24. Discontinued losartan 25 mg tablet 25 mg PO QAM Discharge Orders: Discharge Order (Routine); Ordered 08/29/24 Ordered By: Orlando Lora Referrals: Magnolia Worthington MD [Primary Care Provider] - (Please follow-up with Dr. Worthington as needed. thank you! ) Discharge Diet: Cardiac Discharge Activity: Resume usual activity Patient Instructions: Ciprofloxacin (By mouth) (Cipro), Urinary Tract Infection in Women (DC), Sepsis (DC), Weakness (DC), Opioid Safety Activity Restrictions/Additional Instructions: - Your appointment with cardiothoracic surgery at [place] on September 03, 2024 for preop physical ? Your surgery is September 05 ? Please continue antibiotics ? Please take Lasix 40 mg twice daily with potassium placement therapy ? Please hold Entresto until you see your CT surgeon at [place], due to concerns for low blood pressure ? Discontinued losartan for now, your CT surgeon might resume it later on ? You do have 2 kidney stones on the right, with no evidence of urinary hydronephrosis, if you develop flank pain and develop hematuria please go to emergency room ? Your A1c was 5.6 ? Creatinine was 0.8 ? BNP was 5000 ? CRP 66.6 ? Blood cultures so far no growth Discharge Attestations Time Spent in Discharge Care*: greater than 30 min Quality Metrics Clinical Quality Measures [ No reported AMI, CVA or VTE this stay] Coding Level of Care Code 73626 Total time (in minutes) for Discharge: 45 Diagnoses Hypotension I95.9 Pulmonary hypertension I27.20 Shock R57.9 CHF (congestive heart failure) I50.9 Hx of artificial heart valve replacement Z95.2 Longstanding persistent atrial fibrillation I48.11 Atrial fibrillation type: longstanding persistent History of cardiac pacemaker Z95.0 Chronic anticoagulation Z79.01 UTI (urinary tract infection) N39.0 Sepsis A41.9 Acute kidney injury N17.9 Acute exacerbation of congestive heart failure I50.9
== END 2024-08-29 13:35 | disposition home or self-care (01) | DRG 871 ==
LOC: ER 14:16 → ICU 15:24 → CSU 08-28 14:10
PROVIDERS: Admitting Provider Family Medicine; Emergency Provider Emergency Medicine; PCP Internal Medicine; Visit Provider Family Medicine
DX: A41.9 Sepsis, unspecified organism (principal); I50.23 Acute on chronic systolic (congestive) heart failure; R65.21 Severe sepsis with septic shock; I48.11 Longstanding persistent atrial fibrillation; N39.0 Urinary tract infection, site not specified; N17.9 Acute kidney failure, unspecified; E87.20 Acidosis, unspecified; I11.0 Hypertensive heart disease with heart failure; F41.8 Other specified anxiety disorders; I27.20 Pulmonary hypertension, unspecified; B96.20 Unspecified Escherichia coli [E. coli] as the cause of diseases classified elsewhere; E78.5 Hyperlipidemia, unspecified; I25.2 Old myocardial infarction; Z79.01 Long term (current) use of anticoagulants; Z90.710 Acquired absence of both cervix and uterus; Z95.0 Presence of cardiac pacemaker; Z95.3 Presence of xenogenic heart valve; Z90.722 Acquired absence of ovaries, bilateral; Z80.0 Family history of malignant neoplasm of digestive organs
CPT/HCPCS: 36415; 36416; 36573; 36592; 71045; 74176; 80048; 80053; 80061; 81001; 82962; 83036; 83605; 83735; 83880; 84100; 84145; 84443; 84484; 85025; 85610; 85651; 86140; 87040; 87077; 87086; 87186; 90471; 90686; 93005; 93306; 94640; 94664; 96365; 96374; 96376; 99285; C1751; J1940; J2020; J2185; J2470; J2543; J7030; J7050; J7626; P9046; P9047

== ENCOUNTER 2024-09-18 15:08 | Outpatient (CLI) | payer MEDICAID, SELFPAY ==
[2024-09-18 15:53] LABS: Basophils # 0.1 10^3/uL (0.0-0.1); Basophils % 1.1 %; Eosinophils # 0.3 10^3/uL (0.0-0.8); Eosinophils % 3.2 %; Hematocrit 32.5 % (36-47); Lymphocytes # 1.8 10^3/uL (0.8-4.8); Lymphocytes % 21.8 %; Mean Corpuscular HGB Conc 30.2 g/dL (30-55); Mean Corpuscular Volume 79.7 fl (85-98); Mean Platelet Volume 10.5 fL (7.4-10.4); Monocytes # 0.8 10^3/uL (0.2-0.9); Neutrophils # 5.34 10^3/uL (1.8-7.7); Neutrophils % 63.8 %; Nucleated Red Blood Cells % 0.2 %; Platelet Count 311 10^3/cmm (157-399); Red Blood Count 4.08 10^6/uL (3.85-5.65); Red Cell Distribution Width 20.2 % (12.1-15.1); White Blood Count 8.36 10^3/uL (3.29-11.43)
[2024-09-18 16:12] LABS: Anion Gap 17.5 (5-19); Blood Urea Nitrogen 42 mg/dL (8-23); Calcium 8.3 mg/dL (8.5-10.5); Carbon Dioxide 21 mmol/L (22-29); Chloride 96 mmol/L (98-107); Glomerular Filtration Rate 35.1 mL/min (90-130); Glucose 120 mg/dL (65-115); Osmolality Calculated 284 mOsm/kg (285-295); Potassium 3.5 mmol/L (3.5-5.1); Sodium 131 mmol/L (136-145)
== END 2024-09-18 15:09 | disposition home or self-care (01) ==
LOC: LAB 15:23
PROVIDERS: PCP Internal Medicine
DX: I33.0 Acute and subacute infective endocarditis (principal)
CPT/HCPCS: 80048; 85025

== ENCOUNTER 2024-09-24 12:39 | Outpatient (CLI) | payer MEDICAID, SELFPAY ==
[2024-09-24 13:22] LABS: Basophils # 0.1 10^3/uL (0.0-0.1); Basophils % 1.1 %; Eosinophils # 0.1 10^3/uL (0.0-0.8); Hematocrit 33.7 % (36-47); Lymphocytes # 1.2 10^3/uL (0.8-4.8); Mean Corpuscular HGB Conc 30.9 g/dL (30-55); Mean Corpuscular Hemoglobin 23.5 pg (27-33); Mean Corpuscular Volume 76.1 fl (85-98); Mean Platelet Volume 10.4 fL (7.4-10.4); Monocytes # 0.6 10^3/uL (0.2-0.9); Monocytes % 9.6 %; Neutrophils % 67.7 %; Nucleated Red Blood Cells % 0 %; Platelet Count 292 10^3/cmm (157-399); Red Blood Count 4.43 10^6/uL (3.85-5.65); Red Cell Distribution Width 20.1 % (12.1-15.1); White Blood Count 6.36 10^3/uL (3.29-11.43)
[2024-09-24 13:40] LABS: Anion Gap 15.1 (5-19); Blood Urea Nitrogen 20 mg/dL (8-23); Calcium 9.2 mg/dL (8.5-10.5); Carbon Dioxide 24 mmol/L (22-29); Chloride 96 mmol/L (98-107); Glomerular Filtration Rate 63.2 mL/min (90-130); Glucose 88 mg/dL (65-115); Osmolality Calculated 274 mOsm/kg (285-295); Potassium 4.1 mmol/L (3.5-5.1); Sodium 131 mmol/L (136-145)
== END 2024-09-24 12:40 | disposition home or self-care (01) ==
LOC: LAB 12:46
PROVIDERS: PCP Internal Medicine
DX: I33.0 Acute and subacute infective endocarditis (principal)
CPT/HCPCS: 80048; 85025

== ENCOUNTER 2024-10-01 12:20 | Outpatient (CLI) | payer SELFPAY ==
[2024-10-01 12:54] LABS: Basophils # 0.1 10^3/uL (0.0-0.1); Basophils % 1.5 %; Eosinophils # 0.2 10^3/uL (0.0-0.8); Eosinophils % 3.4 %; Hematocrit 34.4 % (36-47); Lymphocytes # 1.3 10^3/uL (0.8-4.8); Lymphocytes % 20.5 %; Mean Corpuscular HGB Conc 29.9 g/dL (30-55); Mean Corpuscular Hemoglobin 23.7 pg (27-33); Mean Corpuscular Volume 79.1 fl (85-98); Mean Platelet Volume 10.2 fL (7.4-10.4); Monocytes # 0.6 10^3/uL (0.2-0.9); Monocytes % 9.8 %; Neutrophils # 3.96 10^3/uL (1.8-7.7); Neutrophils % 64.5 %; Nucleated Red Blood Cells % 0.3 %; Platelet Count 246 10^3/cmm (157-399); Red Blood Count 4.35 10^6/uL (3.85-5.65); Red Cell Distribution Width 20.8 % (12.1-15.1); White Blood Count 6.14 10^3/uL (3.29-11.43)
[2024-10-01 13:12] LABS: Anion Gap 14.8 (5-19); Blood Urea Nitrogen 24 mg/dL (8-23); Calcium 8.6 mg/dL (8.5-10.5); Carbon Dioxide 27 mmol/L (22-29); Chloride 98 mmol/L (98-107); Glomerular Filtration Rate 45.4 mL/min (90-130); Glucose 133 mg/dL (65-115); Osmolality Calculated 288 mOsm/kg (285-295); Potassium 3.8 mmol/L (3.5-5.1); Sodium 136 mmol/L (136-145)
== END 2024-10-01 12:21 | disposition home or self-care (01) ==
LOC: LAB 12:29
PROVIDERS: PCP Internal Medicine
DX: I33.0 Acute and subacute infective endocarditis (principal)
CPT/HCPCS: 80048; 85025